=== PATIENT | female | born 1960 | race Caucasian/White ===

== ENCOUNTER → 2020-07-25 14:19 | Outpatient (BNVA) | payer OTHER, SELFPAY | PROVIDERS: PCP Internal Medicine; Referring Provider Internal Medicine; Visit Provider Dietitian, Registered | DX: Z76.89 Persons encountering health services in other specified circumstances (principal) ==

== ENCOUNTER → 2020-09-06 13:34 | Outpatient (BNVA) | payer OTHER, SELFPAY | PROVIDERS: PCP Internal Medicine; Visit Provider Physician Assistant | DX: Z76.89 Persons encountering health services in other specified circumstances (principal) ==

== ENCOUNTER → 2020-10-19 09:27 | Outpatient (BNVA) | payer OTHER, SELFPAY | PROVIDERS: PCP Internal Medicine; Visit Provider Anesthesiology | DX: Z76.89 Persons encountering health services in other specified circumstances (principal) ==

== ENCOUNTER 2020-10-23 14:32 | Outpatient (REF) | payer OTHER, SELFPAY ==
--- NOTE | 2020-10-23 14:36 | XR_ITS ---
EXAMINATION: THORACIC AND LUMBAR SPINE X-RAY CLINICAL INFORMATION: Post laminectomy syndrome COMPARISON: Previous lumbar spine x-ray April 2016 TECHNIQUE: 3 views of the thoracic spine and 3 views of the lumbar spine FINDINGS: Thoracic spine: There is mild curvature of the midthoracic spine to the right and lower thoracic spine to the left. Bone alignment is otherwise normal. No fracture or dislocation is seen. There is evidence of multilevel degenerative spondylosis and degenerative disc narrowing, greatest in the mid thoracic spine and at T11-T12. There is a lead in the spinal canal with the top at the T7-T8 disc space level. There is evidence of previous surgery under the left hemidiaphragm probably due to the stomach and cholecystectomy. Paraspinal soft tissues are unremarkable. There is articulation of the right anterior first and second ribs. Lumbar spine: There is a battery in the left posterior pelvis. There are leads seen in the lumbar spine, 1 overlying the L4 spinous process and 1 projecting over the spinal canal with with top at the L2-L3 disc space. There are leads seen coursing superiorly into the thoracic spinal canal. There is mild curvature of the lower lumbar sacral spine to the left. Bone alignment is otherwise normal. No fracture or dislocation is seen. There is degenerative disc disease at L4-L5 and L5-S1. There is lower lumbar spine facet arthritis. There may be a laminectomy or laminotomy changes at L5. XR/XR thoracic spine 2V IMPRESSION: Thoracic spine: Degenerative changes. Lead in the spinal canal with top of the lead at the T7-T8 disc space level. Lumbar spine: Lumbar spine leads projecting over the L4 spinous process and the spinal canal at the L3 vertebral body level with top of the lead at the L2-L3 disc space level. Mild scoliosis. Degenerative disc disease and facet arthritis of the lower lumbar spine.
== END 2020-10-23 14:33 | disposition home or self-care (01) ==
LOC: HO.XRAY 14:32
PROVIDERS: PCP Internal Medicine; Visit Provider Anesthesiology
DX: M96.1 Postlaminectomy syndrome, not elsewhere classified (principal)
CPT/HCPCS: 72070; 72100

== ENCOUNTER → 2020-10-30 09:13 | Outpatient (BNVA) | payer OTHER, SELFPAY | PROVIDERS: PCP Internal Medicine; Visit Provider Anesthesiology | DX: Z76.89 Persons encountering health services in other specified circumstances (principal) ==

== ENCOUNTER 2020-11-11 07:16 | Outpatient (REF) | payer OTHER, SELFPAY ==
[2020-11-11 08:27] LABS: MANUAL DIFF FLAG NO
[2020-11-11 08:31] LABS: Basophils Percent Auto 0.8 % (0-2); Eosinophils Absolute Auto 0.2 X10*3/uL (0.0-0.4); Eosinophils Percent Auto 3.3 % (0-4); Hematocrit 42.9 % (37-47); Hemoglobin 13.6 g/dl (12.0-16.0); Imm Gran Abs Auto 0.02 X10*3/uL (0.00-0.03); Imm Gran Pct Auto 0.4 % (0.0-0.4); Lymphocytes Absolute Auto 2.4 X10*3/uL (1.2-4.9); Lymphocytes Percent Auto 47.9 % (20-40); Mean Corpuscular HGB Conc 31.7 g/dl (31.0-35.0); Mean Corpuscular Hemoglobin 29.1 pg (27.0-33.0); Mean Corpuscular Volume 91.9 fL (80-98); Mean Platelet Volume 11.7 fL (9.4-12.3); Monocytes Absolute Auto 0.3 X10*3/uL (0.1-1.2); Monocytes Percent Auto 6.3 % (2-11); Neutrophils Absolute Auto 2.1 X10*3/uL (2.0-8.3); Neutrophils Percent Auto 41.3 % (45-73); Platelet Count 216 X10*3/uL (160-400); Red Blood Count 4.67 X10*6/uL (4.20-5.50); Red Cell Distribution Width 12.9 % (11.0-16.0); White Blood Count 5.1 X10*3/uL (4.8-10.8)
[2020-11-11 08:52] LABS: Estimated Average Glucose 100 mg/dL; Hemoglobin A1c % 5.1 %
[2020-11-11 09:04] LABS: Alanine Aminotransferase 25 U/L (0-31); Albumin Level 4.3 g/dL (3.5-5.0); Alkaline Phosphatase 85 U/L (39-117); Anion Gap 12 (12-20); Aspartate Amino Transferase 30 U/L (5-31); Bilirubin Total 0.6 mg/dL (0.0-1.0); Blood Urea Nitrogen 19 mg/dL (9-16); C Reactive Protein 0.03 mg/dL (< or = 0.50); Calcium 9.1 mg/dL (8.4-10.2); Carbon Dioxide 28 mmol/L (22-29); Chloride 107 mmol/L (96-108); Cholesterol 180 mg/dL; Estimated Glomerular Filt Rate > 60; Glucose Fasting 74 mg/dL (60-99); HDL Cholesterol 72 mg/dL; Iron 97 mcg/dL (30-160); LDL Cholesterol Calculated 99 mg/dl; Percent Iron Saturation 31 % (15-50); Potassium 4.4 mmol/l (3.3-5.1); Sodium 143 mmol/L (135-145); Total Iron Binding Capacity 308 mcg/dL (228-428); Total Protein 7.2 g/dL (6.5-8.0); Triglycerides 48 mg/dL; Unsaturated Iron Binding 211 ug/dL
[2020-11-11 09:17] LABS: Ferritin 133 ng/mL (10-250); Vitamin D 25-OH Total 33.2 ng/mL (>30)
[2020-11-13 05:02] LABS: Vitamin B12 1405 pg/mL (200-900)
[2020-11-13 16:22] LABS: Calcium (PTHI) 9.4 mg/dL (8.6-10.4); PTHI 60 pg/mL (14-64)
[2020-11-13 18:23] LABS: Insulin Level Total 3.7 uIU/mL
[2020-11-14 06:46] LABS: Zinc 69 mcg/dL (60-130)
[2020-11-17 08:29] LABS: Vitamin C 0.6
[2020-11-17 10:07] LABS: Vitamin B1 23 nmol/L (8-30)
== END 2020-11-11 07:17 | disposition home or self-care (01) ==
LOC: HO.LAB 07:16
PROVIDERS: PCP Internal Medicine; Visit Provider Physician Assistant
DX: E66.3 Overweight (principal); K90.49 Malabsorption due to intolerance, not elsewhere classified; Z98.84 Bariatric surgery status
CPT/HCPCS: 36415; 80053; 80061; 82180; 82306; 82607; 82728; 82746; 83036; 83525; 83540; 83970; 84425; 84443; 84590; 84630; 85025; 86140

== ENCOUNTER 2020-11-14 06:27 | Outpatient (REF) | payer OTHER, SELFPAY ==
[2020-11-21 11:12] LABS: Vitamin A 46 mcg/dL (38-98)
== END 2020-11-14 06:28 | disposition home or self-care (01) ==
LOC: HO.LAB 06:27
PROVIDERS: PCP Internal Medicine; Visit Provider Physician Assistant
DX: E66.3 Overweight (principal); K90.49 Malabsorption due to intolerance, not elsewhere classified; Z98.84 Bariatric surgery status
CPT/HCPCS: 36415; 82180; 84590

== ENCOUNTER → 2020-12-05 08:21 | Outpatient (BNVA) | payer OTHER, SELFPAY | PROVIDERS: PCP Internal Medicine; Visit Provider Dietitian, Registered | DX: Z98.84 Bariatric surgery status (principal); K90.49 Malabsorption due to intolerance, not elsewhere classified; E66.3 Overweight ==

== ENCOUNTER → 2021-01-30 08:23 | Outpatient (BNVA) | payer OTHER, SELFPAY | PROVIDERS: PCP Internal Medicine; Visit Provider Dietitian, Registered ==

== ENCOUNTER 2021-02-10 15:27 | Outpatient (REF) | payer OTHER, SELFPAY | END 2021-02-10 15:28 | disposition home or self-care (01) | LOC: HO.LNP 15:27 | PROVIDERS: Visit Provider Physician Assistant Medical | DX: Z20.822 Contact with and (suspected) exposure to COVID-19 (principal) | CPT/HCPCS: U0003; U0005 ==

== ENCOUNTER → 2021-05-15 10:55 | Outpatient (BNVA) | payer OTHER, SELFPAY | PROVIDERS: PCP Internal Medicine; Referring Provider Internal Medicine; Visit Provider Physician Assistant ==

== ENCOUNTER 2021-06-01 14:39 | Outpatient (REF) | payer OTHER, SELFPAY ==
--- NOTE | ~2021-06-01 | XR_ITS ---
EXAMINATION: XR LUMBOSACRAL SPINE WITH OBLIQUES CLINICAL INFORMATION: Other mechanical symptoms. COMPARISON: Lumbar spine radiographs dated 10/23/2020 TECHNIQUE: AP, lateral, coned-down, and bilateral oblique views of the lumbosacral spine. FINDINGS: Normal vertebral body alignment. The lumbar lordosis is maintained. No acute fracture or subluxation. No loss of vertebral body height. Loss of intervertebral disc height with endplate osteophytes at L4-L5 and L5-S1 where there is prominent bilateral facet arthropathy. Findings are similar when compared to the prior examination. Posterior neurostimulator with catheter leads within the epidural space at the lower thoracic spine. Additional catheter leads noted in the region of the L2-L3 intervertebral disc and L4 vertebral body. Findings are unchanged. Left upper quadrant surgical sutures and clips. XR/XR lumbar spine 4V min IMPRESSION: 1. Posterior neurostimulator with leads in unchanged position. 2. Prominent degenerative disc disease at L4-L5 and L5-S1 with bilateral facet arthropathy, unchanged.
== END 2021-06-01 14:40 | disposition home or self-care (01) ==
LOC: HO.XRAY 14:39
PROVIDERS: PCP Internal Medicine; Visit Provider Anesthesiology
DX: T85.192A Other mechanical complication of implanted electronic neurostimulator of spinal cord electrode (lead), initial encounter (principal)
CPT/HCPCS: 72110

== ENCOUNTER → 2021-06-11 11:36 | Outpatient (BNVA) | payer OTHER, SELFPAY | PROVIDERS: PCP Internal Medicine; Visit Provider Anesthesiology ==

== ENCOUNTER → 2021-06-12 13:56 | Outpatient (BNVA) | payer OTHER, SELFPAY | PROVIDERS: PCP Internal Medicine; Referring Provider Internal Medicine; Visit Provider Dietitian, Registered | DX: E66.9 Obesity, unspecified (principal); Z71.3 Dietary counseling and surveillance | CPT/HCPCS: 97803 ==

== ENCOUNTER 2021-08-23 10:44 | Day surgery (SDC) | payer OTHER, SELFPAY ==
[2021-08-16 15:18] VITALS: BMI 31.9
--- NOTE | 2021-08-22 11:25 | HO.ANESPROP2 ---
Documented by User: Parris Juarez NP 08/22/21 11:26 HPI - Anesthesia Eval Consult details Narrative: 60yo F for Revision of Lumbar Spinal Cord Stimulator PMFSH Active Problems Active Problems: All Active Problems (Updated 08/16/21 @ 14:20 by Anita Schuster RN) Complex regional pain syndrome of both lower extremities (Acute) Spinal cord stimulator dysfunction (Acute) Obesity (BMI 30-39.9) (Acute) Cataract (Acute) Neuropathic arthropathy (Acute) Postlaminectomy syndrome (Acute) Difficulty in walking involving lower leg joint (Acute) Osteoarthritis of knees, bilateral (Acute) Lipedema (Acute) Environmental allergies (Acute) Overweight (BMI 25.0-29.9) (Acute) Malabsorption due to intolerance, not elsewhere classified (Acute) S/P laparoscopic sleeve gastrectomy (Acute) Urinary incontinence (Acute) Past Medical History Medical History Asthma Cataract Complex regional pain syndrome of both lower extremities Difficulty in walking involving lower leg joint Environmental allergies GERD (gastroesophageal reflux disease) Lipedema Malabsorption due to intolerance, not elsewhere classified Neuropathic arthropathy Obesity (BMI 30-39.9) Obesity (BMI 30.0-34.9) Osteoarthritis of knees, bilateral Overweight (BMI 25.0-29.9) Postlaminectomy syndrome Restless leg syndrome Spinal cord stimulator dysfunction Spinal cord stimulator status Urinary incontinence Family History Family History Father CVD (cardiovascular disease) Mother Asthma Brother Lung cancer Brother No problems noted. Brother No problems noted. Brother No problems noted. Brother No problems noted. Brother No problems noted. Son No problems noted. Daughter No problems noted. Surgical History Surgical History History of eye surgery History of surgery on right wrist History of toe surgery Hx laparoscopic cholecystectomy Hx of section Hx of colonoscopy with polypectomy Hx of construction of artificial vagina Hx of rotator cuff surgery Hx of spinal surgery S/P laparoscopic sleeve gastrectomy Social History Social History Alcohol intake: never Advance Directives: Yes Advance Directives Information Provided: Yes Advance Directives on File: Yes Advance Directives Date on File: 11/06/18 Meds Allergies Allergy/AdvReac Type Severity Reaction Status Date / Time almond [ALMOND] Allergy Intermediate NUMBNESS Verified 08/23/21 10:53 MOUTH, ITCHY EYES amoxicillin [AMOXICILLIN] Allergy Intermediate HIVES Verified 08/23/21 10:53 penicillin V Allergy Intermediate rash Verified 08/23/21 10:53 apple [APPLE] Allergy Mild ITCHY EYES Verified 08/23/21 10:53 peach [PEACHES] Allergy Mild ITCHY EYES Verified 08/23/21 10:53 plum [PLUMS] Allergy Mild ITCHY EYES Verified 08/23/21 10:53 carrot Allergy Unknown Unknown Verified 08/23/21 10:53 pear [PEAR] AdvReac Mild ITCHY EYES Verified 08/23/21 10:53 NECTARINES Allergy Mild ITCHY EYES Uncoded 08/16/21 14:16 Home Medications Medication Instructions Recorded Confirmed Last Taken Type Celebrate MVI bariatric vitamin PO 09/06/20 05/15/21 Unknown History docusate sodium 100 mg capsule 100 mg PO DAILY 09/06/20 05/15/21 Unknown History (DOK) fiber tab PO 09/06/20 05/15/21 Unknown History estradiol 1 g VAGINAL 2XW 10/10/20 05/15/21 Unknown History mirabegron 25 mg tablet,extended 25 mg PO DAILY 12/12/20 05/15/21 08/23/21 08:10 History release 24 hr lysine 500 mg tablet (L-Lysine) 500 mg PO DAILY 05/15/21 05/15/21 Unknown History Exam Exam Date and Time: August 22, 2021 1125 Height,Weight and Vital Signs: Height 5 ft 4 in Weight 84.368 kg Assessment and Plan Assessment Anesthesia Assessment: Chart Reviewed Documented by User: Fernanda Ch MD 08/23/21 11:51 PMFSH Past Medical History Medical History Asthma Cataract Complex regional pain syndrome of both lower extremities Difficulty in walking involving lower leg joint Environmental allergies GERD (gastroesophageal reflux disease) Lipedema Malabsorption due to intolerance, not elsewhere classified Neuropathic arthropathy Obesity (BMI 30-39.9) Obesity (BMI 30.0-34.9) Osteoarthritis of knees, bilateral Overweight (BMI 25.0-29.9) Postlaminectomy syndrome Restless leg syndrome Spinal cord stimulator dysfunction Spinal cord stimulator status Urinary incontinence Family History Family History Father CVD (cardiovascular disease) Mother Asthma Brother Lung cancer Brother No problems noted. Brother No problems noted. Brother No problems noted. Brother No problems noted. Brother No problems noted. Son No problems noted. Daughter No problems noted. Surgical History Surgical History History of eye surgery History of surgery on right wrist History of toe surgery Hx laparoscopic cholecystectomy Hx of section Hx of colonoscopy with polypectomy Hx of construction of artificial vagina Hx of rotator cuff surgery Hx of spinal surgery S/P laparoscopic sleeve gastrectomy Social History Social History Alcohol intake: never Advance Directives: Yes Advance Directives Information Provided: Yes Advance Directives on File: Yes Advance Directives Date on File: 11/06/18 Meds Allergies Allergy/AdvReac Type Severity Reaction Status Date / Time almond [ALMOND] Allergy Intermediate NUMBNESS Verified 08/23/21 10:53 MOUTH, ITCHY EYES amoxicillin [AMOXICILLIN] Allergy Intermediate HIVES Verified 08/23/21 10:53 penicillin V Allergy Intermediate rash Verified 08/23/21 10:53 apple [APPLE] Allergy Mild ITCHY EYES Verified 08/23/21 10:53 peach [PEACHES] Allergy Mild ITCHY EYES Verified 08/23/21 10:53 plum [PLUMS] Allergy Mild ITCHY EYES Verified 08/23/21 10:53 carrot Allergy Unknown Unknown Verified 08/23/21 10:53 pear [PEAR] AdvReac Mild ITCHY EYES Verified 08/23/21 10:53 NECTARINES Allergy Mild ITCHY EYES Uncoded 08/16/21 14:16 Home Medications Medication Instructions Recorded Confirmed Last Taken Type Celebrate MVI bariatric vitamin PO 09/06/20 05/15/21 Unknown History docusate sodium 100 mg capsule 100 mg PO DAILY 09/06/20 05/15/21 Unknown History (DOK) fiber tab PO 09/06/20 05/15/21 Unknown History estradiol 1 g VAGINAL 2XW 10/10/20 05/15/21 Unknown History mirabegron 25 mg tablet,extended 25 mg PO DAILY 12/12/20 05/15/21 08/23/21 08:10 History release 24 hr lysine 500 mg tablet (L-Lysine) 500 mg PO DAILY 05/15/21 05/15/21 Unknown History Exam Airway Mallampati Class: II TM Dist: >3cm Neck ROM: Full
[2021-08-23] VITALS (13 sets, daily range): BP systolic 103–143; BP diastolic 68–89; PULSE 74–88; RESP 16–18; TEMP 36.2–37.1; O2SAT 97–100
--- NOTE | ~2021-08-23 | FL_ITS ---
EXAMINATION: XR FLUOROSCOPY WITH IMAGES CLINICAL INFORMATION: Revision lumbar spinal cord stimulator. COMPARISON: Radiographs lumbar spine 06/01/2021 TECHNIQUE: Fluoroscopy performed by Dr. Julien Mathew. Fluoroscopy time: 1.2 minutes DAP: 4.59 mGycm2 Images: 3 FINDINGS: There are 2 spinal stimulator electrode leads seen in the posterior lower lumbar canal with tips at level of superior endplate L3. No kinking or defect. There are 2 additional leads ascending posterior spinal canal, above the level of T12 and beyond the [id number]. FL/FL guidance in OR IMPRESSION: Fluoroscopy for pain management procedure.
[2021-08-23] MEDS: Lactated Ringers 1,000 ML 100 ML IVCONT (11:24)
--- NOTE | 2021-08-23 11:55 | MHC.SHP ---
Pre-Procedural Eval Section A Date of Service: 08/23/21 The patient is an INPATIENT: No Changes since office visit: Yes Patient answered all questions The History & Physical has been completed within 30 days and I have reviewed it.: No Section B Chief Complaint: Complex regional pain syndrome of both lower extre Details of Present Illness: as above Relevant Family History (Specify if Yes): No Relevant Social History: None Present Medications: see Short Stay Collaborative assessment Medical History: No relevant PMH History of Previous Operations: Relevant previous surgery/procedure and date(s) Allergies: Allergies Allergy/AdvReac Type Severity Reaction Status Date / Time almond [ALMOND] Allergy Intermediate NUMBNESS Verified 08/23/21 10:53 MOUTH, ITCHY EYES amoxicillin [AMOXICILLIN] Allergy Intermediate HIVES Verified 08/23/21 10:53 penicillin V Allergy Intermediate rash Verified 08/23/21 10:53 apple [APPLE] Allergy Mild ITCHY EYES Verified 08/23/21 10:53 peach [PEACHES] Allergy Mild ITCHY EYES Verified 08/23/21 10:53 plum [PLUMS] Allergy Mild ITCHY EYES Verified 08/23/21 10:53 carrot Allergy Unknown Unknown Verified 08/23/21 10:53 pear [PEAR] AdvReac Mild ITCHY EYES Verified 08/23/21 10:53 NECTARINES Allergy Mild ITCHY EYES Uncoded 08/16/21 14:16 Review of Systems Sugical H&P ROS: Negative: Cardiovascular, Respiratory, Neurological, Psychiatric, Hem-Onc, Allergic/Immunologic, Gastrointestinal, Genitourinary, Musculoskeletal, Integumentary, Endocrine and Eyes/Ears/Nose/Throat and Yes, Specify: Constitution (obesity trivial) Exam Surgical H&P Exam: Normal: HEENT, Normal: Heart, Normal: Lungs, Normal: Extremities, Normal: Abdomen, Normal: Skin and Normal: Neurological Plan Diagnosis/Plan: Unchanged I have reviewed the history and physical and performed a pertinent physical examination on my patient. No changes have occurred unless specified.
--- NOTE | 2021-08-23 14:58 | PM.OP ---
Brief Operative Note Date of Service: 08/23/21 Pre-op diagnosis: Complex regional pain syndrome bilateral lower extremities Procedure: Revision of spinal cord stimulator Implants: [employer] alpha technology battery and [employer] epidural leads. Surgeon: Julien Mathew MD Was an Breaking Machine Operator used for this Procedure?: No Estimated blood loss (mL): 17 Pathology: none sent Condition: stable Disposition: PACU
--- NOTE | 2021-08-23 14:59 | W.PM.OPN ---
Operative Note Operative Note Date of Service: 08/23/21 Narrative: Parul is very pleasant 60 years old female who came to my office with complains on pain in bilateral knees. She was diagnosed with Complex regional pain syndrome of bilateral knees. She was inserted with [employer] spinal cord stimulator to be connected with existing [employer] spinal cord stimulator in her thoracic spine to help her pain in bilateral knees mostly on the right. She after this procedure felt much better with her lower extremities. She was able to perform yard work, move her lawn with pushing lawnmower until in the middle of the summer she came back to me with complains on pain in the right knee activated again. She was sent for the x-ray of the epidural leads and her right epidural lead was appeared to be completely dislodged. The decision was made to schedule her for revision of the existing spinal cord stimulation system. Patient came to the operating room after obtaining informed consent in the preoperative area. Informed consent delineated risks as bleeding, infection, peripheral nerve damage, headache, spinal cord injury. The patient was position on the stretcher supine, [employer] monitors were applied and patient was induced with general anesthesia. After that patient was transferred on the operating table prone all pressure points were protected. Time-out was performed delineating date of of the patient name of the patient correct site and side of the procedure nature of the procedure needs for antibiotic prophylaxis and the risk of fire. Lower back and upper buttocks as well as mid back were prepped with ChloraPrep and draped with full body drape including Ioban film. Attention was 1st concentrated on the area of the spinal cord stimulator battery in her left buttock. The previous scar was injected with mixture of lidocaine and bupivacaine 1-1 and after that 10 blade scalpel was used to make an incision along side the previous scar. Thorough hemostasis was performed using the electrocautery device. After that the capsule of the pocket was incised using Metzenbaum scissors. Anchoring sutures were severed and wave senior underwriter battery was delivered to the level of the skin. The epidural leads were disconnected from the battery and then freed from adhesions. Light pull of the left electrode under C-arm continuous view demonstrated is dislodgement of the epidural leads. Thorough irrigation of the battery wound was performed a and the wound was packed with vancomycin containing normal saline. After that attention was concentrated on the right buttock wore insertion of the spinal cord stimulator epidural lead would be made. 3 cm below the level of the lamina of S1 vertebra on the right vertical incision was made in the approximate projection of the anchoring device. Thorough hemostasis was obtained and the and presacral fascia was freed from overlying tissues. Anchoring device was found in the bottom of the wound stitched still to free sacral fascia it was removed and delivered on the operating table. 13 gauge introducer epidural needle was inserted through the skin and advanced toward the epidural space L5-S1 on anterior posterior and lateral views. When needle entered the epidural space guitar wire was inserted through the needle and it was spread in the epidural fashion and it went into the right gutter. I epidural lead was inserted through the needle and advanced into the right gutter to the approximate position of L3-L4 and L4-5 foramina is on the right. After that the epidural needle was withdrawn and a new anchoring device was advanced on the epidural lead to presacral fascia. At this moment anchoring device was sutured to the presacral fascia using 1-0 Tycron sutures. The fixation screws was tied down until 3 clicks were heard. Irrigation was performed in the left and right wound again. The connection between those 2 wounds was made with tunneling device. Epidural lead was dislodged from the right wound to the left wound. After that new battery alpha technology was obtained, and all epidural leads were connected to the battery. Anchoring sutures were applied to the center of the pocket wound and to the most superior lateral corner of the wound. The epidural electrodes were gathered behind the body of the battery and battery was dislodged into the pocket. The anchoring sutures were tied. Irrigation was repeated. Hemostasis was checked. After that 0 Polysorb sutures were used to close this wounds, 2-0 sutures were used to approximate the level of the skin. After that mc were applied to the skin level. Bacitracin ointment was applied to the level of the skin. Sterile dressing with 4 x 4 and Medipore tape was applied. The patient tolerated procedure well she was awaken extubated and she was transferred to PACU for the recovery.
[2021-08-23] MEDS: ondansetron HCL 4 MG/2 ML VIAL IVPUSH (15:26)
[2021-08-23] MEDS: fentaNYL citrate/PF 100 MCG/2 ML VIAL 50 MCG IVPUSH ×2 (15:27→15:44)
[2021-08-23] MEDS: oxyCODONE HCl Immed Release 5 MG TABLET 10 MG PO (15:49)
== END 2021-08-23 17:23 | disposition home or self-care (01) ==
PROVIDERS: PCP Internal Medicine; Visit Provider Anesthesiology
PROC: (CPT 63663; principal; 2021-08-23 12:20)
DX: G90.523 Complex regional pain syndrome I of lower limb, bilateral (principal); M25.562 Pain in left knee; M25.561 Pain in right knee; M54.50 Low back pain, unspecified; J45.909 Unspecified asthma, uncomplicated; R26.2 Difficulty in walking, not elsewhere classified; K21.9 Gastro-esophageal reflux disease without esophagitis; R60.9 Edema, unspecified; E66.9 Obesity, unspecified; M14.60 Charcot's joint, unspecified site; M96.1 Postlaminectomy syndrome, not elsewhere classified; G25.81 Restless legs syndrome; R32 Unspecified urinary incontinence; Z68.32 Body mass index [BMI] 32.0-32.9, adult; Z79.899 Other long term (current) drug therapy
CPT/HCPCS: 63663; 63688; C1713; C1778; C1787; C1820; J1100; J2250; J2405; J2550; J3010; J3370

== ENCOUNTER → 2021-08-29 11:19 | Outpatient (BNVA) | payer OTHER, SELFPAY | PROVIDERS: PCP Internal Medicine; Visit Provider Anesthesiology ==

== ENCOUNTER 2021-09-01 10:59 | Emergency (ER) | payer OTHER, SELFPAY ==
--- NOTE | ~2021-09-01 | CT_ITS ---
EXAMINATION: CT SOFT TISSUE NECK WITH CONTRAST CLINICAL INFORMATION: Throat pain. Question abscess. COMPARISON: None TECHNIQUE: Following intravenous administration of 60 mL of Omnipaque 350 contrast, helical imaging was performed in the axial plane with generation of coronal and sagittal reformatted images. This CT examination was performed using dose optimization techniques as appropriate, variously including the following: *Automated exposure control *Adjustment of mA and/or kV according to patient size (this includes techniques or standardized protocols for targeted exams where dose is matched to indication/reason for exam; i.e. extremities or head) *Use of iterative reconstruction technique DLP: 511 mGy-cm FINDINGS: There is mild asymmetric prominence of the right palatine tonsil with a 7 x 6 mm low-attenuation focus and a 7 x 3 mm adjacent low-density focus in the tonsil. It is indeterminate as to whether findings represent submucosal retention cyst versus small tonsillar abscesses. The parapharyngeal fat is normally maintained bilaterally. Bilateral level II cervical lymph nodes are conspicuous, though not pathologically enlarged, measuring up to 1 cm in long axis dimension in the axial plane. The submandibular and parotid glands are homogeneous in attenuation bilaterally. The oral cavity appears normal. There is nonspecific asymmetric aeration of the left piriform sinus and effacement of the right piriform sinus of the hypopharynx without suspicious abnormal enhancement. The laryngeal structures appear normal. The thyroid gland is homogeneous. The carotid sheath vasculature opacifies normally on both sides. No retropharyngeal fluid collection visible. The imaged mediastinum appears normal. The visualized portions of the lungs are fairly well aerated. No layering pleural effusions are visible. No acute osseous abnormality is seen. There is a small retention cyst in the right sphenoid sinus. The remaining paranasal sinuses and mastoid air cells are clear. The orbits appear normal. The imaged portions of the brain demonstrate no acute abnormality. CT/CT soft tissue neck w con IMPRESSION: Small cystic foci in the right palatine tonsil which is asymmetrically prominent as compared to the right side. Findings may represent a submucosal crypt retention cysts; however, the possibility of small tonsillar abscesses cannot be conclusively excluded and correlation with findings on direct visual inspection recommended. Mildly conspicuous upper cervical lymph nodes without pathologic enlargement.
[2021-09-01 11:23] VITALS: BP 118/70; PULSE 89; RESP 15; TEMP 36.7; O2SAT 100; BMI 27.4
--- NOTE | 2021-09-01 11:24 | ED_ITS ---
HPI - Neck Pain/Injury General Chief Complaint: General Medical Stated Complaint: throat pain/ surgury 1 week ago Time Seen by Provider: 09/01/21 11:13 History of Present Illness HPI Narrative: Patient is a 60-year-old female with a history of gastric bypass surgery. History of spinal nerve stimulator for back pain surgery done on August 23. Patient was intubated for the procedure. Since the procedure on August 23. Patient has been noticing increasing pain to her throat. Pain on swallowing. There is no difficulty with breathing. No shortness of breath. There is no change in voice. Pain every time she swallows. No coughing or congestion or upper respiratory symptoms no diaphoresis. Immunized for COVID. Not on blood thinners. Multiple allergies to food but there is no change in diet. Related Data Home Medications Medication Instructions Recorded Confirmed Celebrate MVI bariatric vitamin PO 09/06/20 08/29/21 docusate sodium 100 mg capsule 100 mg PO DAILY 09/06/20 08/29/21 (DOK) fiber tab PO 09/06/20 08/29/21 estradiol 1 g VAGINAL 2XW 10/10/20 08/29/21 mirabegron 25 mg tablet,extended 25 mg PO DAILY 12/12/20 08/29/21 release 24 hr lysine 500 mg tablet (L-Lysine) 500 mg PO DAILY 05/15/21 08/29/21 clindamycin HCl 300 mg capsule 300 mg PO Q6H 09/01/21 Previous Rx's Medication Instructions Recorded cholecalciferol (vitamin D3) 50 50 mcg PO DAILY #30 cap 04/09/21 mcg (2,000 unit) capsule calcium citrate 315 mg 2 tab PO DAILY #60 tab 05/21/21 calcium-vitamin D3 6.25 mcg (250 unit) tablet pregabalin 150 mg capsule 150 mg PO BID 30 Days #60 cap 06/08/21 furosemide 20 mg tablet (Lasix) 10 mg PO QAM PRN 90 Days #45 tab 07/02/21 clindamycin HCl 300 mg capsule 300 mg PO Q6H 15 Days #60 cap 08/23/21 clindamycin HCl 300 mg capsule 300 mg PO QID 7 Days #28 cap 09/01/21 ibuprofen 400 mg tablet 400 mg PO Q6H PRN #20 tab 09/01/21 ondansetron HCl 4 mg tablet 4 mg PO Q8H PRN #10 tab 09/01/21 (Zofran) Allergies Allergy/AdvReac Type Severity Reaction Status Date / Time almond [ALMOND] Allergy Intermediate NUMBNESS Verified 09/01/21 10:12 MOUTH, ITCHY EYES amoxicillin [AMOXICILLIN] Allergy Intermediate HIVES Verified 09/01/21 10:12 penicillin V Allergy Intermediate rash Verified 09/01/21 10:12 apple [APPLE] Allergy Mild ITCHY EYES Verified 09/01/21 10:12 peach [PEACHES] Allergy Mild ITCHY EYES Verified 09/01/21 10:12 plum [PLUMS] Allergy Mild ITCHY EYES Verified 09/01/21 10:12 carrot Allergy Unknown Unknown Verified 09/01/21 10:12 pear [PEAR] AdvReac Mild ITCHY EYES Verified 09/01/21 10:12 NECTARINES Allergy Mild ITCHY EYES Uncoded 08/29/21 11:52 Review of Systems Review of Systems: No fever no chills no cough Positive sore throat All systems reviewed otherwise negative PMFSH Past Medical History Attestation statement: The following information was validated with the patient. Medical History Asthma Cataract Complex regional pain syndrome of both lower extremities Difficulty in walking involving lower leg joint Environmental allergies GERD (gastroesophageal reflux disease) Lipedema Malabsorption due to intolerance, not elsewhere classified Neuropathic arthropathy Obesity (BMI 30-39.9) Obesity (BMI 30.0-34.9) Osteoarthritis of knees, bilateral Overweight (BMI 25.0-29.9) Postlaminectomy syndrome Restless leg syndrome Spinal cord stimulator dysfunction Spinal cord stimulator status Urinary incontinence Surgical History History of eye surgery History of surgery on right wrist History of toe surgery Hx laparoscopic cholecystectomy Hx of section Hx of colonoscopy with polypectomy Hx of construction of artificial vagina Hx of rotator cuff surgery Hx of spinal surgery S/P laparoscopic sleeve gastrectomy Family History Family History Father CVD (cardiovascular disease) Mother Asthma Brother Lung cancer Brother No problems noted. Brother No problems noted. Brother No problems noted. Brother No problems noted. Brother No problems noted. Son No problems noted. Daughter No problems noted. Social History Social History Alcohol intake: never Patient Tobacco Use Status: Never used Tobacco Use of substances other than those prescribed or required for medical reasons: No Advance Directives: Yes Advance Directives on File: Yes Advance Directives Date on File: 08/24/21 Patient : No Physical Exam Vital Signs: Vital Signs: Last Vital Signs Temp 98.1 F 09/01/21 11:23 Pulse 89 09/01/21 11:23 Resp 15 09/01/21 11:23 BP 118/70 09/01/21 11:23 Pulse Ox 100 09/01/21 11:23 Body Mass Index 27.4 Appearance: Alert. Oriented X3. No acute distress. Eyes: Pupils equal, round and reactive to light. ENT: Positive swelling to bilateral throat tonsils. There is no exudate noted. Uvula slightly enlarged. Positive erythema. Neck: Normal inspection. Neck supple. No lymph nodes noted. No crepitus CVS: Normal heart rate and rhythm. Pulses normal. Normal S1 and S2 Respiratory: No respiratory distress. Breath sounds normal. No Wheezing. No rales Abdomen: Soft and nontender. No rigidity. No distention. good BS x4 Skin: Skin warm and dry. Normal skin color. Normal skin turgor. Extremities: No lower extremity edema. Neurovascular intact to all extremities. No Lacerations. No Rash Neuro: Oriented X 3. No motor deficit. No sensory deficit. Moving all extermities. No slurred speech MDM - Neck Pain/Injury MDM Narrative Medical decision making narrative: CT scan of the neck showed a likely tonsillith cyst versus more unlikely a possible tonsillar abscess. Given Decadron. Given steroid in the emergency department with moderate relief. Will start patient on clindamycin in the emergency department. Will have patient follow up closely with ENT. Lots of fluids. Close follow-up. Worsened breathing. Unable to swallow return to the emergency department change in voice return to the ED. Currently in stable condition. Medical Records Attestation: I reviewed the patient's medical records. Lab Data Attestation: I reviewed the patient's lab results. Result diagrams: 09/01/21 11:30 09/01/21 11:30 Labs: Lab Results 11/13/21 11/13/21 11/13/21 Range/Units 11:30 11:30 11:34 WBC 11.2 H (4.8-10.8) X10*3/uL RBC 4.36 (4.20-5.50) X10*6/uL Hgb 13.2 (12.0-16.0) g/dl Hct 39.3 (37.0-47.0) % MCV 90.1 (80.0-98.0) fL MCH 30.3 (27.0-33.0) pg MCHC 33.6 (31.0-35.0) g/dl RDW 12.3 (11.0-16.0) % Plt Count 290 (160-400) X10*3/uL MPV 9.6 (9.4-12.3) fL Immature Gran % (Auto) 0.4 (0.0-0.4) % Neut % (Auto) 64.0 (45-73) % Lymph % (Auto) 25.4 (20-40) % [place] % (Auto) 8.4 (2-11) % Eos % (Auto) 1.4 (0-4) % Baso % (Auto) 0.4 (0-2) % Lymph # (Auto) 2.8 (1.2-4.9) X10*3/uL [place] # (Auto) 0.9 (0.1-1.2) X10*3/uL Eos # (Auto) 0.2 (0.0-0.4) X10*3/uL Baso # (Auto) 0.0 (0.0-0.2) X10*3/uL Abs Immat Gran (auto) 0.04 H (0.00-0.03) X10*3/uL Absolute Neuts (auto) 7.2 (2.0-8.3) x10*3/uL Absolute Nucleated RBC 0.000 (0.0-0.012) X10*3/uL Nucleated RBC % (auto) 0.0 (0.0-0.2) /100WBC Sodium 141 (135-145) mmol/L Potassium 4.2 (3.3-5.1) mmol/L Chloride 108 (96-108) mmol/L Carbon Dioxide 26 (22-29) mmol/L Anion Gap 11 L (12-20) BUN 16 (9-16) mg/dL Creatinine 0.82 (0.5-1.4) mg/dL Estim Creat Clear Calc 73.0 Estimated GFR > 60 Random Glucose 87 (60-115) mg/dL Calcium 8.9 (8.4-10.2) mg/dL Total Bilirubin 0.6 (0.0-1.0) mg/dL Direct Bilirubin 0.2 (0.0-0.5) mg/dL AST 27 (5-31) U/L ALT 27 (0-31) U/L Alkaline Phosphatase 72 (39-117) U/L Total Protein 6.9 (6.5-8.0) g/dL Albumin 3.9 (3.5-5.0) g/dL S. pyogenes GrpA EVANGELISTA Negative (Negative) Discharge Plan Discharge Clinical Impression: Abscess of tonsil Patient Disposition: Home, Self-Care Instructions: Peritonsillar Abscess (ED) Prescriptions: New clindamycin HCl 300 mg capsule 300 mg PO QID 7 Days Qty: 28 RF: 0 ondansetron HCl [Zofran] 4 mg tablet 4 mg PO Q8H PRN (Reason: nausea and vomiting) Qty: 10 RF: 0 ibuprofen 400 mg tablet 400 mg PO Q6H PRN (Reason: pain) Qty: 20 RF: 0 No Action cholecalciferol (vitamin D3) 50 mcg (2,000 unit) capsule 50 mcg PO DAILY Qty: 30 RF: 5 calcium citrate-vitamin D3 315 mg-6.25 mcg (250 unit) tablet 2 tab PO DAILY Qty: 60 RF: 11 pregabalin 150 mg capsule 150 mg PO BID 30 Days Qty: 60 RF: 5 furosemide [Lasix] 20 mg tablet 10 mg PO QAM PRN (Reason: edema) 90 Days Qty: 45 RF: 0 clindamycin HCl 300 mg capsule 300 mg PO Q6H 15 Days Qty: 60 RF: 1 Myrbetriq 25 mg tablet extended release 24 hr 25 mg PO DAILY RF: 0 estradiol 0.01 % (0.1 mg/gram) cream 1 g vaginal 2XW RF: 0 clindamycin HCl 300 mg capsule 300 mg PO Q6H RF: 0 Celebrate MVI bariatric vitamin PO RF: 0 docusate sodium [DOK] 100 mg capsule 100 mg PO DAILY RF: 0 fiber Tablet,Chewable PO RF: 0 lysine [L-Lysine] 500 mg tablet 500 mg PO DAILY RF: 0 Referrals: Khari Syed [Physician] - 2 days
[2021-09-01] MEDS: 0.9 % Sodium Chloride 1,000 ML 999 ML IV (11:30)
[2021-09-01] MEDS: dexAMETHasone sod phosphate 10 MG/ML VIAL IVPUSH (11:30)
[2021-09-01 11:35] LABS: MANUAL DIFF FLAG NO
[2021-09-01 11:37] LABS: Basophils Percent Auto 0.4 % (0-2); Eosinophils Absolute Auto 0.2 X10*3/uL (0.0-0.4); Eosinophils Percent Auto 1.4 % (0-4); Hematocrit 39.3 % (37.0-47.0); Hemoglobin 13.2 g/dl (12.0-16.0); Imm Gran Abs Auto 0.04 X10*3/uL (0.00-0.03); Imm Gran Pct Auto 0.4 % (0.0-0.4); Lymphocytes Absolute Auto 2.8 X10*3/uL (1.2-4.9); Lymphocytes Percent Auto 25.4 % (20-40); Mean Corpuscular HGB Conc 33.6 g/dl (31.0-35.0); Mean Corpuscular Hemoglobin 30.3 pg (27.0-33.0); Mean Corpuscular Volume 90.1 fL (80.0-98.0); Mean Platelet Volume 9.6 fL (9.4-12.3); Monocytes Absolute Auto 0.9 X10*3/uL (0.1-1.2); Monocytes Percent Auto 8.4 % (2-11); Neutrophils Absolute Auto 7.2 x10*3/uL (2.0-8.3); Platelet Count 290 X10*3/uL (160-400); Red Blood Count 4.36 X10*6/uL (4.20-5.50); Red Cell Distribution Width 12.3 % (11.0-16.0); White Blood Count 11.2 X10*3/uL (4.8-10.8)
[2021-09-01 11:48] LABS: IDNOW Serial# 9DD0AD1C; Strep A Nucleic Acid Negative (Negative)
[2021-09-01 11:53] LABS: Alanine Aminotransferase 27 U/L (0-31); Albumin Level 3.9 g/dL (3.5-5.0); Alkaline Phosphatase 72 U/L (39-117); Anion Gap 11 (12-20); Aspartate Amino Transferase 27 U/L (5-31); Bilirubin Direct 0.2 mg/dL (0.0-0.5); Bilirubin Total 0.6 mg/dL (0.0-1.0); Blood Urea Nitrogen 16 mg/dL (9-16); Calcium 8.9 mg/dL (8.4-10.2); Carbon Dioxide 26 mmol/L (22-29); Chloride 108 mmol/L (96-108); Estimated Glomerular Filt Rate > 60; Glucose Random 87 mg/dL (60-115); Potassium 4.2 mmol/L (3.3-5.1); Sodium 141 mmol/L (135-145); Total Protein 6.9 g/dL (6.5-8.0)
[2021-09-01] MEDS: iohexoL 350 MG/ML 100 ML INFUS..BTL IV (12:49)
[2021-09-01] MEDS: Clindamycin Phosphate/D5W 600 MG/50 ML PIGGYBACK 100 MG IV (14:25)
[2021-09-01 15:03] VITALS: BP 108/83; PULSE 80; RESP 15; TEMP 36.9; O2SAT 97
== END 2021-09-01 15:09 | disposition home or self-care (01) ==
PROVIDERS: Emergency Provider Emergency Medicine Emergency Medical Services; PCP Internal Medicine
DX: J36 Peritonsillar abscess (principal); M54.2 Cervicalgia; Z79.899 Other long term (current) drug therapy
CPT/HCPCS: 36415; 70491; 80048; 80076; 85025; 87651; 96361; 96365; 96375; 99284; J1100; Q9967

== ENCOUNTER → 2021-09-05 11:29 | Outpatient (BNVA) | payer OTHER, SELFPAY | PROVIDERS: PCP Internal Medicine; Visit Provider Anesthesiology ==

== ENCOUNTER → 2021-09-12 14:56 | Outpatient (BNVA) | payer OTHER, SELFPAY | PROVIDERS: PCP Internal Medicine; Referring Provider Internal Medicine; Visit Provider Dietitian, Registered | DX: E66.9 Obesity, unspecified (principal); Z68.32 Body mass index [BMI] 32.0-32.9, adult | CPT/HCPCS: 97803 ==

== ENCOUNTER 2021-10-27 07:04 | Outpatient (REF) | payer OTHER, SELFPAY ==
[2021-10-27 07:16] LABS: MANUAL DIFF FLAG NO
[2021-10-27 07:21] LABS: Basophils Percent Auto 0.8 % (0-2); Eosinophils Absolute Auto 0.1 X10*3/uL (0.0-0.4); Eosinophils Percent Auto 2.9 % (0-4); Hematocrit 39.6 % (37.0-47.0); Hemoglobin 12.7 g/dl (12.0-16.0); Imm Gran Abs Auto 0.01 X10*3/uL (0.00-0.03); Imm Gran Pct Auto 0.2 % (0.0-0.4); Lymphocytes Absolute Auto 2.4 X10*3/uL (1.2-4.9); Lymphocytes Percent Auto 48.3 % (20-40); Mean Corpuscular HGB Conc 32.1 g/dl (31.0-35.0); Mean Corpuscular Hemoglobin 29.4 pg (27.0-33.0); Mean Corpuscular Volume 91.7 fL (80.0-98.0); Mean Platelet Volume 10.9 fL (9.4-12.3); Monocytes Absolute Auto 0.4 X10*3/uL (0.1-1.2); Monocytes Percent Auto 7.5 % (2-11); Neutrophils Percent Auto 40.3 % (45-73); Platelet Count 204 X10*3/uL (160-400); Red Blood Count 4.32 X10*6/uL (4.20-5.50); Red Cell Distribution Width 12.8 % (11.0-16.0); White Blood Count 4.9 X10*3/uL (4.8-10.8)
[2021-10-27 07:46] LABS: Anion Gap 10 (12-20); Blood Urea Nitrogen 16 mg/dL (9-16); Calcium 9.3 mg/dL (8.4-10.2); Carbon Dioxide 27 mmol/L (22-29); Chloride 111 mmol/L (96-108); Cholesterol 162 mg/dL; Estimated Glomerular Filt Rate > 60; Glucose Random 83 mg/dL (60-115); HDL Cholesterol 61 mg/dL; Iron 117 mcg/dL (30-160); LDL Cholesterol Calculated 94 mg/dl; Percent Iron Saturation 38 % (15-50); Potassium 4.6 mmol/L (3.3-5.1); Sodium 143 mmol/L (135-145); Total Iron Binding Capacity 310 mcg/dL (228-428); Triglycerides 39 mg/dL; Unsaturated Iron Binding 193 ug/dL
[2021-10-27 07:50] LABS: Estimated Average Glucose 94 mg/dL; Hemoglobin A1c % 4.9 %
[2021-10-27 08:03] LABS: Ferritin 148 ng/mL (10-250); TSH reflex Free T4 1.99 uIU/mL (0.32-4.0); Vitamin D 25-OH Total 34.3 ng/mL (>30)
[2021-10-29 08:16] LABS: Folate 15.7 ng/mL (> or = 4.0); Vitamin B12 527 pg/mL (200-900)
[2021-10-31 15:06] LABS: Zinc 64 mcg/dL (60-130)
[2021-11-01 12:37] LABS: Vitamin B1 14 nmol/L (8-30)
[2021-11-01 22:52] LABS: Vitamin C 0.5 mg/dL (0.3-2.7)
[2021-11-02 11:21] LABS: Vitamin A 39 mcg/dL (38-98)
== END 2021-10-27 07:05 | disposition home or self-care (01) ==
LOC: HO.LAB 07:04
PROVIDERS: Physician Assistant; Physician Assistant Surgical; Visit Provider Internal Medicine
DX: E66.3 Overweight (principal); K90.49 Malabsorption due to intolerance, not elsewhere classified; Z98.84 Bariatric surgery status
CPT/HCPCS: 36415; 80048; 80061; 82180; 82306; 82607; 82728; 82746; 83036; 83540; 84425; 84443; 84590; 84630; 85025

== ENCOUNTER 2021-12-07 15:17 | Outpatient (REF) | payer OTHER, SELFPAY ==
--- NOTE | ~2021-12-07 | XR_ITS ---
EXAMINATION: XR LUMBOSACRAL SPINE CLINICAL INFORMATION: Presence of implants. COMPARISON: 06/01/2021 TECHNIQUE: Three views of the lumbosacral spine. FINDINGS: Generator overlies the posterior left pelvis. Lumbar spinal stimulator wiring extends to the L2-L3 level. Additional wiring extends more cranially. Vertebral body height and alignment maintained. Mild disc space narrowing at the lower lumbar spine with small endplate osteophytes. Normal bowel gas pattern. Upper abdominal surgical clips. XR/XR lumbar spine 2-3V IMPRESSION: Mild degenerative change of the lumbar spine. Generator with stimulator wiring over the lumbar spine with additional wiring extending cranially.
== END 2021-12-07 15:18 | disposition home or self-care (01) ==
LOC: HO.HMGCX 15:17
PROVIDERS: Visit Provider Nurse Practitioner Family
DX: Z96.89 Presence of other specified functional implants (principal); Z91.81 History of falling
CPT/HCPCS: 72100

== ENCOUNTER 2021-12-15 10:04 | Outpatient (REF) | payer OTHER, SELFPAY ==
--- NOTE | ~2021-12-15 | XR_ITS ---
EXAMINATION: XR ANKLE RT MIN 3V XR FOOT RT MIN 3V CLINICAL INFORMATION: Trauma COMPARISON: 04/15/2019 TECHNIQUE: AP, oblique and lateral views of the right ankle/foot FINDINGS: There is an avulsion fracture involving the dorsal navicular with intra-articular extension and 2 mm displacement as seen on the lateral view of the foot. Ill-definition of the fracture margins indicates subacute chronology. Arthrodesis of the second occipital interphalangeal joint, with fracture of the medial arm of the hardware component within the middle phalanx, however no fracture of the second phalanx itself. Degenerative dorsally projecting marginal osteophytes present throughout the intertarsal articulations. Small tibiotalar marginal osteophytes. Ankle mortise is congruent. Talar dome intact. Soft tissue swelling present dorsal to the right foot. XR/XR foot RT min 3V IMPRESSION: Subacute avulsion fracture of the dorsal navicular with intra-articular extension to the talonavicular articulation. No additional fractures.
--- NOTE | ~2021-12-15 | XR_ITS ---
EXAMINATION: XR ANKLE RT MIN 3V XR FOOT RT MIN 3V CLINICAL INFORMATION: Trauma COMPARISON: 04/15/2019 TECHNIQUE: AP, oblique and lateral views of the right ankle/foot FINDINGS: There is an avulsion fracture involving the dorsal navicular with intra-articular extension and 2 mm displacement as seen on the lateral view of the foot. Ill-definition of the fracture margins indicates subacute chronology. Arthrodesis of the second occipital interphalangeal joint, with fracture of the medial arm of the hardware component within the middle phalanx, however no fracture of the second phalanx itself. Degenerative dorsally projecting marginal osteophytes present throughout the intertarsal articulations. Small tibiotalar marginal osteophytes. Ankle mortise is congruent. Talar dome intact. Soft tissue swelling present dorsal to the right foot. XR/XR ankle RT min 3V IMPRESSION: Subacute avulsion fracture of the dorsal navicular with intra-articular extension to the talonavicular articulation. No additional fractures.
== END 2021-12-15 10:05 | disposition home or self-care (01) ==
LOC: HO.HMGCX 10:04
PROVIDERS: PCP Internal Medicine; Visit Provider Physician Assistant Medical
DX: S99.919A Unspecified injury of unspecified ankle, initial encounter (principal)
CPT/HCPCS: 73610; 73630

== ENCOUNTER → 2021-12-27 13:50 | Outpatient (BNVA) | payer OTHER, SELFPAY | PROVIDERS: PCP Internal Medicine; Visit Provider Orthopaedic Surgery ==

== ENCOUNTER → 2022-04-29 12:55 | Outpatient (BNVA) | payer OTHER, SELFPAY | PROVIDERS: PCP Internal Medicine; Visit Provider Anesthesiology | DX: M17.0 Bilateral primary osteoarthritis of knee (principal); R26.2 Difficulty in walking, not elsewhere classified; M96.1 Postlaminectomy syndrome, not elsewhere classified; M14.60 Charcot's joint, unspecified site; G90.523 Complex regional pain syndrome I of lower limb, bilateral | CPT/HCPCS: 99212 ==

== ENCOUNTER 2022-06-12 14:38 | Outpatient (REF) | payer OTHER, SELFPAY ==
[2022-06-12 16:44] LABS: Alanine Aminotransferase 25 U/L (0-31); Albumin Level 4.2 g/dL (3.5-5.0); Alkaline Phosphatase 86 U/L (39-117); Anion Gap 15 (12-20); Aspartate Amino Transferase 34 U/L (5-31); Bilirubin Total 0.3 mg/dL (0.0-1.0); Blood Urea Nitrogen 18 mg/dL (9-16); Calcium 9.1 mg/dL (8.4-10.2); Carbon Dioxide 27 mmol/L (22-29); Chloride 104 mmol/L (96-108); Estimated Glomerular Filt Rate 55; Glucose Random 95 mg/dL (60-115); Potassium 4.6 mmol/L (3.3-5.1); Sodium 141 mmol/L (135-145); Total Protein 7.2 g/dL (6.5-8.0)
== END 2022-06-12 14:39 | disposition home or self-care (01) ==
LOC: HO.HMGCLDS 14:38
PROVIDERS: PCP Internal Medicine; Visit Provider Internal Medicine
DX: R60.9 Edema, unspecified (principal)
CPT/HCPCS: 36415; 80053

== ENCOUNTER → 2022-07-08 13:30 | Outpatient (BNVA) | payer OTHER, SELFPAY | PROVIDERS: PCP Internal Medicine; Referring Provider Internal Medicine; Visit Provider Physician Assistant Surgical | DX: E66.9 Obesity, unspecified (principal); Z68.32 Body mass index [BMI] 32.0-32.9, adult; Z98.84 Bariatric surgery status | CPT/HCPCS: 99212 ==

== ENCOUNTER → 2022-11-04 08:24 | Outpatient (BNVA) | payer OTHER, SELFPAY | PROVIDERS: PCP Internal Medicine; Visit Provider Physician Assistant Surgical | DX: E66.9 Obesity, unspecified (principal); Z68.33 Body mass index [BMI] 33.0-33.9, adult | CPT/HCPCS: 99212 ==

== ENCOUNTER 2022-11-05 12:03 | Outpatient (REF) | payer OTHER, SELFPAY ==
--- NOTE | ~2022-11-05 | XR_ITS ---
EXAMINATION: XR CERVICAL SPINE CLINICAL INFORMATION: Radiculopathy. COMPARISON: None TECHNIQUE: 3 views of the cervical spine were obtained. FINDINGS: There are no prevertebral soft tissue or bony abnormalities demonstrated. No compression fractures or subluxations are identified. Alignment is maintained at the atlanto-axial articulation. There is mild left facet joint arthropathy C5-C6, right C4-C5 disc levels. The disc spaces are preserved. No endplate changes are seen. The prevertebral soft tissues are normal. The foramina are patent. XR/XR cervical spine 2V IMPRESSION: Mild left C5-C6 and right C4-C5 facet joint arthropathy. No visible acute fracture, dislocation or subluxation seen. MRI of cervical spine can be obtained if patient has symptomatic radiculopathy.
== END 2022-11-05 12:04 | disposition home or self-care (01) ==
LOC: HO.HMGCLDS 12:03
PROVIDERS: Visit Provider Internal Medicine
DX: M54.12 Radiculopathy, cervical region (principal)
CPT/HCPCS: 72040

== ENCOUNTER 2022-12-07 07:06 | Outpatient (REF) | payer OTHER, SELFPAY ==
[2022-12-07 07:25] LABS: MANUAL DIFF FLAG NO
[2022-12-07 08:08] LABS: Basophils Absolute Auto 0.1 X10*3/uL (0.0-0.2); Basophils Percent Auto 0.9 % (0-2); Eosinophils Absolute Auto 0.1 X10*3/uL (0.0-0.4); Eosinophils Percent Auto 2.3 % (0-4); Estimated Average Glucose 94 mg/dL; Hematocrit 44.2 % (37.0-47.0); Hemoglobin A1c % 4.9 %; Imm Gran Abs Auto 0.01 X10*3/uL (0.00-0.03); Imm Gran Pct Auto 0.2 % (0.0-0.4); Lymphocytes Absolute Auto 2.5 X10*3/uL (1.2-4.9); Mean Corpuscular HGB Conc 31.7 g/dl (31.0-35.0); Mean Corpuscular Hemoglobin 28.8 pg (27.0-33.0); Mean Corpuscular Volume 90.9 fL (80.0-98.0); Mean Platelet Volume 10.5 fL (9.4-12.3); Monocytes Absolute Auto 0.4 X10*3/uL (0.1-1.2); Monocytes Percent Auto 7.5 % (2-11); Neutrophils Absolute Auto 2.3 x10*3/uL (2.0-8.3); Neutrophils Percent Auto 43.1 % (45-73); Platelet Count 335 X10*3/uL (160-400); Red Blood Count 4.86 X10*6/uL (4.20-5.50); Red Cell Distribution Width 13.2 % (11.0-16.0); White Blood Count 5.3 X10*3/uL (4.8-10.8)
[2022-12-07 09:00] LABS: Alanine Aminotransferase 35 U/L (0-31); Albumin Level 4.1 g/dL (3.5-5.0); Alkaline Phosphatase 84 U/L (39-117); Anion Gap 13 (12-20); Aspartate Amino Transferase 41 U/L (5-31); Bilirubin Total 0.6 mg/dL (0.0-1.0); Blood Urea Nitrogen 16 mg/dL (9-16); C Reactive Protein < 0.04 mg/dL (< or = 0.50); Calcium 9.3 mg/dL (8.4-10.2); Carbon Dioxide 27 mmol/L (22-29); Chloride 109 mmol/L (96-108); Cholesterol 196 mg/dL; Estimated Glomerular Filt Rate > 60; Glucose Random 82 mg/dL (60-115); HDL Cholesterol 67 mg/dL; Iron 110 mcg/dL (30-160); LDL Cholesterol Calculated 118 mg/dl; Percent Iron Saturation 37 % (15-50); Potassium 4.7 mmol/L (3.3-5.1); Sodium 144 mmol/L (135-145); Total Iron Binding Capacity 297 mcg/dL (228-428); Total Protein 6.9 g/dL (6.5-8.0); Triglycerides 58 mg/dL; Unsaturated Iron Binding 187 ug/dL
[2022-12-07 09:04] LABS: Ferritin 118 ng/mL (10-250); Folate 16.9 ng/mL (> or = 4.0); Insulin 9 uU/mL (2-29); TSH reflex Free T4 2.01 uIU/mL (0.32-4.0); Vitamin B12 620 pg/mL (200-900); Vitamin D 25-OH Total 28.2 ng/mL (>30)
[2022-12-10 14:14] LABS: Calcium (PTHI) 9.5 mg/dL (8.6-10.4); PTHI 68 pg/mL (16-77)
[2022-12-10 23:59] LABS: Zinc 80 mcg/dL (60-130)
[2022-12-11 16:18] LABS: Vitamin A 63 mcg/dL (38-98)
[2022-12-13 18:13] LABS: Vitamin B1 46 nmol/L (8-30)
== END 2022-12-07 07:07 | disposition home or self-care (01) ==
LOC: HO.LAB 07:06
PROVIDERS: PCP Internal Medicine; Visit Provider Physician Assistant Surgical
DX: E66.9 Obesity, unspecified (principal); E55.9 Vitamin D deficiency, unspecified; Z79.899 Other long term (current) drug therapy
CPT/HCPCS: 36415; 80053; 80061; 82306; 82607; 82728; 82746; 83036; 83525; 83540; 83970; 84425; 84443; 84590; 84630; 85025; 86140

== ENCOUNTER 2023-02-19 07:58 | Outpatient (REF) | payer OTHER, SELFPAY ==
--- NOTE | ~2023-02-19 | MM_ITS ---
EXAMINATION: MM SCREENING DIGITAL BREAST TOMOSYNTHESIS, BILATERAL CLINICAL INFORMATION: Screening. Asymptomatic. The lifetime risk of breast cancer based on the Tyrer-Cuzick Model is 7%. COMPARISON: Outside mammography: 01/29/2022, 11/04/2020, 10/06/2019 TECHNIQUE: Digital breast tomosynthesis is performed in both the craniocaudal and mediolateral oblique views along with computer-aided detection (CAD). Synthesized 2D images are generated from the tomosynthesis. FINDINGS: There are scattered areas of fibroglandular density (ACR BI-RADS breast composition Category b). Parenchymal pattern is similar to prior outside exams. There are scattered stable asymmetries. Biopsy clip marker again seen central upper outer left breast mid depth. There is no developing density or architectural abnormality. There are no significant masses, abnormal calcifications, or other abnormalities. The axilla and skin contours are unremarkable. No significant changes. MM/MM tomosynthesis screening BI IMPRESSION: No mammographic evidence of malignancy. ASSESSMENT: BI-RADS 2: Benign RECOMMENDATION: Routine annual mammography screening. This patient's information was entered into a reminder system with a target due date for their next mammogram.
== END 2023-02-19 07:59 | disposition home or self-care (01) ==
LOC: HO.MAMMO 07:58
PROVIDERS: PCP Internal Medicine; Visit Provider Internal Medicine
DX: Z12.31 Encounter for screening mammogram for malignant neoplasm of breast (principal)
CPT/HCPCS: 77063; 77067

== ENCOUNTER → 2023-02-27 15:23 | Outpatient (BNVA) | payer OTHER, SELFPAY | PROVIDERS: PCP Internal Medicine; Referring Provider Internal Medicine; Visit Provider Nurse Practitioner Family ==

== ENCOUNTER 2023-04-15 09:23 | Outpatient (REF) | payer OTHER, SELFPAY ==
--- NOTE | ~2023-04-15 | XR_ITS ---
EXAMINATION: XR FOOT, RIGHT CLINICAL INFORMATION: Right foot contusion. COMPARISON: Right foot radiographs dated 12/15/2021. TECHNIQUE: AP, lateral, and oblique views of the right foot. FINDINGS: The patient is status post ORIF of the proximal and mid phalanges of the second digit with overall good anatomic alignment. There is a nondisplaced fracture of the medial for of the distal aspect of the prosthesis at the level of the proximal interphalangeal joint. The remainder the digits appear intact. The tarsal bones are normally aligned. There is a small plantar calcaneal spur. Mild soft tissue swelling is seen. XR/XR foot RT min 3V IMPRESSION: 1. Second digit prosthesis findings detailed above without significant interval change. No definitive acute abnormality. 2. Small degenerative plantar calcaneal spur.
== END 2023-04-15 09:24 | disposition home or self-care (01) ==
LOC: HO.HMGCX 09:23
PROVIDERS: PCP Internal Medicine; Visit Provider Internal Medicine
DX: S90.31XD Contusion of right foot, subsequent encounter (principal)
CPT/HCPCS: 73630

== ENCOUNTER 2023-05-16 13:10 | Outpatient (AMB) | payer OTHER, SELFPAY ==
--- NOTE | 2023-05-16 13:28 | A.OFFPC_ITS ---
Vital Signs 05/16/23 13:30 Height 5 ft 4 in BP 110/62 Blood Pressure Location Lt brachial Position Sitting Pulse 64 Pulse Source Pulse Oximeter Pulse Oximetry (%) 98 Oxygen Delivery Method Room Air Intake Visit Reasons: Walk In ~ Follow Up undisplaced fracture Allergies almond [ALMOND] Allergy (Intermediate, Verified 05/16/23 13:30) NUMBNESS MOUTH, ITCHY EYES amoxicillin [AMOXICILLIN] Allergy (Intermediate, Verified 05/16/23 13:30) HIVES penicillin V Allergy (Intermediate, Verified 05/16/23 13:30) rash apple [APPLE] Allergy (Mild, Verified 05/16/23 13:30) ITCHY EYES peach [PEACHES] Allergy (Mild, Verified 05/16/23 13:30) ITCHY EYES plum [PLUMS] Allergy (Mild, Verified 05/16/23 13:30) ITCHY EYES carrot Allergy (Unknown, Verified 05/16/23 13:30) Unknown pear [PEAR] Adverse Reaction (Mild, Verified 05/16/23 13:30) ITCHY EYES NECTARINES Allergy (Mild, Uncoded 05/16/23 13:30) ITCHY EYES Medication List - Last Reconciled 05/16/23 by Bettye Wood MD bisacodyl (Dulcolax (bisacodyl)) 10 mg (2 x 5 mg) PO ONCE 1 day calcium citrate-vitamin D3 315 mg-6.25 mcg (250 unit) 2 tabs PO DAILY [Celebrate MVI bariatric vitamin PO] estradiol 0.01%(0.1mg/gram) 1 g vaginal 2XW fiber tabs PO fluticasone propionate 50 mcg/actuation (Flonase Allergy Relief) 1 spray intran jacqueline BID furosemide (Lasix) 10 mg (1/2 x 20 mg) PO QAM PRN 90 days levocetirizine (Xyzal) 5 mg PO DAILY meloxicam 15 mg PO DAILY mirabegron ER (Myrbetriq) 50 mg PO DAILY montelukast 10 mg PO BEDTIME 90 days polyethylene glycol 3350 (Miralax) 238 grams PO ONCE prednisolone sodium phosphate 10 mg PO BID 5 days pregabalin 150 mg PO BID 30 days valacyclovir 500 mg PO DAILY 90 days zolpidem 5 mg PO BEDTIME PRN 10 days Tobacco use date assessed: 05/16/23 Dental Screening Dental Screen Date: 05/16/23 Did you have a dental visit in the last 12 months?: Yes Did you have a dental problem in the last 6 months where you did not have access to dental care?: No Was dental information given to patient?: No HPI Walk In ~ Follow Up undisplaced fracture HPI Details Patient had injury of her right to she was seen in walk-in clinic 15 of April and had x-ray done. X-ray report is confusing and clear I am ordering another x-ray her big to has improved from before but still has slight swelling medially distal phalanx Patient had a surgery on her right 2nd toe and have a prosthesis and there [facility] Medical History Asthma Cataract Complex regional pain syndrome of both lower extremities Difficulty in walking involving lower leg joint Environmental allergies GERD (gastroesophageal reflux disease) Lipedema Malabsorption due to intolerance, not elsewhere classified Neuropathic arthropathy Obesity (BMI 30-39.9) Obesity (BMI 30.0-34.9) Osteoarthritis of knees, bilateral Overweight (BMI 25.0-29.9) Postlaminectomy syndrome Radiculitis of right cervical region Restless leg syndrome Spinal cord stimulator dysfunction Spinal cord stimulator status Urinary incontinence Surgical History History of eye surgery History of surgery on right wrist History of toe surgery Hx laparoscopic cholecystectomy Hx of section Hx of colonoscopy with polypectomy Hx of construction of artificial vagina Hx of rotator cuff surgery Hx of spinal surgery S/P laparoscopic sleeve gastrectomy Family History Father CVD (cardiovascular disease) Mother Asthma Brother Lung cancer Brother No problems noted. Brother No problems noted. Brother No problems noted. Brother No problems noted. Brother No problems noted. Son No problems noted. Daughter No problems noted. Social History Housing: House Alcohol intake: never Patient Tobacco Use Status: Never used Tobacco e-Cigarette/Vaping Use: Never Used Advance Directives Date on File: 08/24/21 service: No Current occupational status: employed Cognitive needs: No Hearing needs: No Vision needs: Yes Questionnaire Thrive Questionnaire Date Thrive assessed: 10/16/21 AUDIT C Alcohol Use Questionnaire (AUDIT-C) 1. How often do you have a drink containing alcohol?: Monthly or less 2. How many drinks containing alcohol do you have on a typical day when you are drinking?: 1 or 2 3. How often do you have six or more drinks on one occasion?: Never Total Score: 1 MANNY-7 AMB Questionnaire MANNY-7 Date MANNY - 7 assessed: 10/16/21 Source: Developed by Drs. Burt Malcolm, Patience Hendrickson, Magno Prado and colleagues, with an educational shay from [employer]. Review of Systems Const All systems reviewed & are unremarkable except as noted in HPI and below Physical exam (Primary Care) Vital Signs: Last Vital Signs Pulse 64 05/16/23 13:30 BP 110/62 05/16/23 13:30 Pulse Ox 98 05/16/23 13:30 Oxygen Delivery Method Room Air 05/16/23 13:30 Tobacco/Smoking Status: Tobacco use Status Tobacco use date assessed 05/16/23 05/16/23 13:32 Patient Tobacco Use Status Never used Tobacco 05/16/23 13:32 e-Cigarette/Vaping Use Never Used 05/16/23 13:32 Thrive Assessment: Date of Thrive Assessment Date Thrive assessed 10/16/21 05/16/23 13:32 Const General: no acute distress Orientation/consciousness: patient oriented x3 Eyes General: appearance normal, both eyes and all related structures Resp Effort & Inspection: normal respiratory effort and able to speak in complete sentences Auscultation: clear to auscultation bilaterally Neuro General: patient oriented x3 Extrem Ankle/foot/toe images: 1. Slight swelling medially much improved from before as patient showed me the photos' after the injury Psych Mental Status: mental status grossly normal Assessment and Plan Assessment & Plan (1) Injury of toe on right foot: Code(s): S99.921A - Unspecified injury of right foot, initial encounter Orders: Orders XR toe RT min 2V Today S99.921A - Unspecified injury of right foot, initial encounter Coding Level of Care Code Est Pt Level 3 (79093) Diagnoses Injury of toe on right foot S99.921A
[2023-05-16 13:30] VITALS: BP 110/62; PULSE 64; O2SAT 98
== END 2023-05-16 13:52 | disposition home or self-care (01) ==
PROVIDERS: PCP Internal Medicine; Visit Provider Internal Medicine
DX: S99.921A Unspecified injury of right foot, initial encounter (principal)
CPT/HCPCS: 99213

== ENCOUNTER 2023-05-16 13:53 | Outpatient (REF) | payer OTHER, SELFPAY ==
--- NOTE | ~2023-05-16 | XR_ITS ---
EXAMINATION: XR TOES, RIGHT CLINICAL INFORMATION: Injury right foot. COMPARISON: Right foot 04/15/2023 TECHNIQUE: 3 views of the right toes were obtained. FINDINGS: There is an oblique fracture proximal segment distal phalanx first digit with intra-articular extension. It appears stable to previous study. There is fusion of PIP joint with hardware involving second digit. There is fracture involving the medial hardware in the mid phalanx. It is unchanged to previous study. No additional abnormality seen. XR/XR toe RT min 2V IMPRESSION: Nondisplaced oblique fracture proximal segment distal phalanx first digit with mild soft tissue swelling. There is a hardware for fusion of PIP joint second digit. There is fracture involving the hardware but unchanged to last study 04/15/2023. Consider orthopedic consultation.
== END 2023-05-16 13:54 | disposition home or self-care (01) ==
LOC: HO.HMGCX 13:53
PROVIDERS: PCP Internal Medicine; Visit Provider Internal Medicine
DX: S99.921A Unspecified injury of right foot, initial encounter (principal)
CPT/HCPCS: 73660

== ENCOUNTER 2023-05-29 08:35 | Outpatient (AMB) | payer OTHER, SELFPAY ==
--- NOTE | 2023-05-29 08:55 | AM.OFFWIN_ITS ---
Intake Vital Signs 05/29/23 08:56 Height 5 ft 4 in BP 112/70 Blood Pressure Location Rt brachial Position Sitting Pulse 66 Pulse Source Pulse Oximeter Temp 98.2 F Temp Source Oral Pulse Oximetry (%) 97 Oxygen Delivery Method Room Air Intake Visit Reasons: EP, Left ear pain Intake Note: Pt is here today for Lt ear pain. Started yesterday Patient Tobacco Use Status: Never used Tobacco Allergies almond [ALMOND] Allergy (Intermediate, Verified 05/29/23 08:55) NUMBNESS MOUTH, ITCHY EYES amoxicillin [AMOXICILLIN] Allergy (Intermediate, Verified 05/29/23 08:55) HIVES penicillin V Allergy (Intermediate, Verified 05/29/23 08:55) rash apple [APPLE] Allergy (Mild, Verified 05/29/23 08:55) ITCHY EYES peach [PEACHES] Allergy (Mild, Verified 05/29/23 08:55) ITCHY EYES plum [PLUMS] Allergy (Mild, Verified 05/29/23 08:55) ITCHY EYES carrot Allergy (Unknown, Verified 05/29/23 08:55) Unknown pear [PEAR] Adverse Reaction (Mild, Verified 05/29/23 08:55) ITCHY EYES NECTARINES Allergy (Mild, Uncoded 05/16/23 13:30) ITCHY EYES Do you need a note to return to daycare/school/sports/work: No HPI HPI Comments History of Present Illness Details The patient presents to urgent care for evaluation of left ear pain. She states this started yesterday and kept her up at night with shooting pain intermittently throughout the night. No change in hearing no drainage no recent colds patient has a history of severe allergies she uses allergy medication [facility] Medical History Asthma Cataract Complex regional pain syndrome of both lower extremities Difficulty in walking involving lower leg joint Environmental allergies GERD (gastroesophageal reflux disease) Lipedema Malabsorption due to intolerance, not elsewhere classified Neuropathic arthropathy Obesity (BMI 30-39.9) Obesity (BMI 30.0-34.9) Osteoarthritis of knees, bilateral Overweight (BMI 25.0-29.9) Postlaminectomy syndrome Radiculitis of right cervical region Restless leg syndrome Spinal cord stimulator dysfunction Spinal cord stimulator status Urinary incontinence Surgical History History of eye surgery History of surgery on right wrist History of toe surgery Hx laparoscopic cholecystectomy Hx of section Hx of colonoscopy with polypectomy Hx of construction of artificial vagina Hx of rotator cuff surgery Hx of spinal surgery S/P laparoscopic sleeve gastrectomy Family History Father CVD (cardiovascular disease) Mother Asthma Brother Lung cancer Brother No problems noted. Brother No problems noted. Brother No problems noted. Brother No problems noted. Brother No problems noted. Son No problems noted. Daughter No problems noted. Social History Housing: House Alcohol intake: never Patient Tobacco Use Status: Never used Tobacco e-Cigarette/Vaping Use: Never Used Advance Directives Date on File: 08/24/21 service: No Current occupational status: employed Cognitive needs: No Hearing needs: No Vision needs: Yes Physical Exam Vital Signs: Last Vital Signs Temp 98.2 F 05/29/23 08:56 Pulse 66 05/29/23 08:56 BP 112/70 05/29/23 08:56 Pulse Ox 97 05/29/23 08:56 Oxygen Delivery Method Room Air 05/29/23 08:56 Const General: healthy appearing and no acute distress Orientation/consciousness: patient oriented x3 HEENT Ears: hearing grossly normal bilaterally, external ears normal and TM's normal bilaterally Eyes Corneas: corneas normal Pupils: Equal, round and reactive pupils present Chest Chest palpation & inspection: no tenderness Resp Effort & Inspection: normal respiratory effort and able to speak in complete sentences GI Palpation (GI): nontender Neuro General: patient oriented x3 Cranial nerves: Yes Equal, round and reactive pupils present Psych Appearance: grossly normal Attitude: cooperative Assessment & Plan Assessment & Plan (1) Left ear pain: Code(s): H92.02 - Otalgia, left ear Plan Patient's ears are clear bilaterally. No sign of infection. Recommend trial allergy medicine. Recommend Tylenol for pain. Coding Level of Care Code Est Pt Level 3 (81398) Diagnoses Left ear pain H92.02
[2023-05-29 08:56] VITALS: BP 112/70; PULSE 66; TEMP 36.8; O2SAT 97
== END 2023-05-29 09:54 | disposition home or self-care (01) ==
PROVIDERS: PCP Internal Medicine; Visit Provider Emergency Medicine
DX: H92.02 Otalgia, left ear (principal)
CPT/HCPCS: 99213

== ENCOUNTER 2023-06-05 09:33 | Outpatient (AMB) | payer OTHER, SELFPAY ==
[2023-06-05 09:35] VITALS: BMI 35.7
--- NOTE | 2023-06-05 09:35 | A.OFFVIS_ITS ---
Intake Vital Signs 06/05/23 09:35 Height 5 ft 4 in Weight 208 lb BMI 35.7 Intake Visit Reasons: FC - Right Great toe fx, DOI? Intake Note: Genny is a 62 year old female who presents today for evaluation of her Right great toe fx, DOI 04/03/23. Patient reports she tripped on her rug and her right toe got caught in her rug. She states her toe feels fine but she is just worried about if her bone it properly healed. Denies numbness and tingling. Allergies almond [ALMOND] Allergy (Intermediate, Verified 06/05/23 09:35) NUMBNESS MOUTH, ITCHY EYES amoxicillin [AMOXICILLIN] Allergy (Intermediate, Verified 06/05/23 09:35) HIVES penicillin V Allergy (Intermediate, Verified 06/05/23 09:35) rash apple [APPLE] Allergy (Mild, Verified 06/05/23 09:35) ITCHY EYES peach [PEACHES] Allergy (Mild, Verified 06/05/23 09:35) ITCHY EYES plum [PLUMS] Allergy (Mild, Verified 06/05/23 09:35) ITCHY EYES carrot Allergy (Unknown, Verified 06/05/23 09:35) Unknown pear [PEAR] Adverse Reaction (Mild, Verified 06/05/23 09:35) ITCHY EYES NECTARINES Allergy (Mild, Uncoded 05/16/23 13:30) ITCHY EYES HPI FC - Right Great toe fx, DOI? HPI Details 62-year-old female who presents in the office today, as a new patient, for an evaluation of right great toe pain. The patient [facility]23 status post tripping on a rug 2 weeks prior causing her to stub her right great toe. X-rays of the right foot were obtained. She was prescribed anti-inflammatories. She follow up with her PCP on 05/16/2023. She had a second x-ray obtained due to continued edema. She states the toe feels fine, but is concerned if the bone is healing correctly. She denies numbness or tingling. Patient has a history of right 2nd toe with prosthesis. The patient reports pain in the right knee. She states the pain is making daily activities hard to perform. [facility] Medical History Asthma Cataract Complex regional pain syndrome of both lower extremities Difficulty in walking involving lower leg joint Environmental allergies GERD (gastroesophageal reflux disease) Lipedema Malabsorption due to intolerance, not elsewhere classified Neuropathic arthropathy Obesity (BMI 30-39.9) Obesity (BMI 30.0-34.9) Osteoarthritis of knees, bilateral Overweight (BMI 25.0-29.9) Postlaminectomy syndrome Radiculitis of right cervical region Restless leg syndrome Spinal cord stimulator dysfunction Spinal cord stimulator status Urinary incontinence Surgical History History of eye surgery History of surgery on right wrist History of toe surgery Hx laparoscopic cholecystectomy Hx of section Hx of colonoscopy with polypectomy Hx of construction of artificial vagina Hx of rotator cuff surgery Hx of spinal surgery S/P laparoscopic sleeve gastrectomy Family History Father CVD (cardiovascular disease) Mother Asthma Brother Lung cancer Brother No problems noted. Brother No problems noted. Brother No problems noted. Brother No problems noted. Brother No problems noted. Son No problems noted. Daughter No problems noted. Social History Housing: House Alcohol intake: never Patient Tobacco Use Status: Never used Tobacco e-Cigarette/Vaping Use: Never Used Advance Directives Date on File: 08/24/21 service: No Current occupational status: employed Cognitive needs: No Hearing needs: No Vision needs: Yes Review of Systems Const All systems reviewed & are unremarkable except as noted in HPI and below Physical Exam Vital Signs: BMI result Body Mass Index 35.7 Const General: cooperative, healthy appearing and no acute distress Orientation/consciousness: patient oriented x3 Resp Effort & Inspection: normal respiratory effort and able to speak in complete sentences Cardio Rate: regular rate Peripheral pulses: Peripheral pulses 2+ throughout GI Palpation (GI): Soft to palpation Skin General skin exam: no rashes or lesions noted Lesions: no lesions Rashes: no rashes Neuro General: patient oriented x3 Extrem Other: Right great toe: Deformity at the DIP joint with the distal aspect of the digit is rotated laterally. Slight tenderness to palpation at the DIP. Able to extend the great toe. Sensation intact. Capillary refill is brisk. Office Procedures Fracture Care Fracture Billing Code: Fracture Billing Code Assessment & Plan Assessment & Plan (1) Fractured great toe: Comment: right Code(s): S92.403A - Displaced unspecified fracture of unspecified great toe, initial encounter for closed fracture Plan Ms. Hilario is a 62-year-old female who presents in the office today, as a new patient, for an evaluation of right great toe pain. The patient presented [facility] 04[facility]2023 status post tripping on a rug 2 weeks prior causing her to stub her right great toe. X-rays of the right foot were obtained. She was prescribed anti-inflammatories. She follow up with her PCP on 05/16/2023. She had a second x-ray obtained due to continued edema. She states the toe feels fine, but is concerned if the bone is healing correctly. She denies numbness or tingling. Patient has a history of right 2nd toe with prosthesis. I will place a referral to [facility] for further evaluation or t reatment of the right foot. She will schedule an appointment with me for further evaluation and right knee. Follow up will be PRN, or sooner if needed. She can follow up in 2 weeks for further evaluation of the right knee. X-rays of the right foot which were obtained while in the office today and were reviewed by me, Nasrin Cox PA-C, revealed right great toe distal phalanx healed fracture. X-rays of the right foot, obtained on 05/16/2023, revealed: 1. Nondisplaced oblique fracture proximal segment distal phalanx first digit with mild soft tissue swelling. 2. There is a hardware for fusion of PIP joint second digit. There is fracture involving the hardware but unchanged to last study 04/15/2023. Consider orthopedic consultation. X-rays of the right foot, obtained on 04/15/2023, revealed: 1. Second digit prosthesis findings detailed above without significant interval change. No definitive acute abnormality. 2. Small degenerative plantar calcaneal spur. Orders: Orders XR foot RT min 3V Today M79.673 - Pain in unspecified foot Referrals Podiatry Referral S92.403A - Displaced unspecified fracture of unspecified great toe, initial encounter for closed fracture Patient Instructions: Scribed for Nasrin Cox PA-C by Ivette Enrique rn medical inpatient services, on 06/05/2023 at 9:38 am, EST. Coding Level of Care Code Est Pt Level 4 (91695) Diagnoses Fractured great toe S92.403A CPT Codes Fracture Care - Fracture Billing Code: Fracture Billing Code ([id number])
== END 2023-06-05 10:46 | disposition home or self-care (01) ==
PROVIDERS: PCP Internal Medicine; Visit Provider Physician Assistant
DX: S92.411A Displaced fracture of proximal phalanx of right great toe, initial encounter for closed fracture (principal)
CPT/HCPCS: 99214

== ENCOUNTER 2023-06-05 10:29 | Outpatient (REF) | payer OTHER, SELFPAY ==
--- NOTE | ~2023-06-05 | XR_ITS ---
EXAMINATION: XR FOOT, RIGHT CLINICAL INFORMATION: Pain COMPARISON: Foot radiographs 05/08/2023. TECHNIQUE: 3 views of the foot FINDINGS: Redemonstration of an intra-articular fracture of the base of the first distal phalanx in unchanged alignment. No bridging bony callus formation. No new fracture or dislocation. Osteopenia. Status post fusion of the second proximal interphalangeal joint with similar appearance of hardware fracture involving the medial component of the fusion at the second middle phalanx. Mild degenerative changes of the foot with spurring of the dorsal midfoot. No joint effusion. Soft tissues are unremarkable. XR/XR foot RT min 3V IMPRESSION: 1. Redemonstration of an intra-articular fracture of the base of the first distal phalanx in unchanged alignment. No bridging bony callus formation. 2. Status post fusion of the second proximal interphalangeal joint with similar appearance of hardware fracture involving the medial component of the fusion at the second middle phalanx. 3. Osteopenia. 4. Mild degenerative changes of the foot with spurring of the dorsal midfoot.
== END 2023-06-05 10:30 | disposition home or self-care (01) ==
LOC: HO.HOSX 10:29
PROVIDERS: Visit Provider Physician Assistant
DX: S92.401A Displaced unspecified fracture of right great toe, initial encounter for closed fracture (principal)
CPT/HCPCS: 73630

== ENCOUNTER 2023-06-19 07:31 | Outpatient (REF) | payer OTHER, SELFPAY ==
--- NOTE | ~2023-06-19 | XR_ITS ---
EXAMINATION: XR KNEE, RIGHT XR KNEE, LEFT XR KNEE AP STANDING CLINICAL INFORMATION: Pain. COMPARISON: Radiographs dated 07/13/2019. TECHNIQUE: Four views of the right knee. Four views of the left knee. AP bilateral standing view of the knees was obtained. FINDINGS: RIGHT KNEE: There is moderately severe asymmetric narrowing of the medial joint space compartment. The lateral joint space compartment is well-maintained. There is moderate narrowing of the patellofemoral compartment. There is tricompartment peripheral osteophyte formation. There is a mild to moderate varus configuration. No fracture, dislocation or joint effusion is seen. There is no foreign body. LEFT KNEE: There is mild asymmetric narrowing of the medial joint space compartment. The lateral joint space compartment is well-maintained. There is mild narrowing of the patellofemoral compartment. There is tricompartment peripheral osteophyte formation. There is a mild varus configuration. No fracture, dislocation or joint effusion is seen. There is no foreign body. XR/XR knee LT 2V IMPRESSION: 1. There is tricompartment osteoarthritic change of the right knee, most pronounced of the medial joint space compartment, where it is moderately severe. 2. There is tricompartment osteoarthritic change of the left knee, most pronounced of the medial and patellofemoral joint space compartments, where it is mild. 3. There is a mild to moderate right knee varus configuration, and a mild left knee varus configuration is seen. 4. No fracture, dislocation or joint effusion is seen bilaterally.
--- NOTE | ~2023-06-19 | XR_ITS ---
EXAMINATION: XR KNEE, RIGHT XR KNEE, LEFT XR KNEE AP STANDING CLINICAL INFORMATION: Pain. COMPARISON: Radiographs dated 07/13/2019. TECHNIQUE: Four views of the right knee. Four views of the left knee. AP bilateral standing view of the knees was obtained. FINDINGS: RIGHT KNEE: There is moderately severe asymmetric narrowing of the medial joint space compartment. The lateral joint space compartment is well-maintained. There is moderate narrowing of the patellofemoral compartment. There is tricompartment peripheral osteophyte formation. There is a mild to moderate varus configuration. No fracture, dislocation or joint effusion is seen. There is no foreign body. LEFT KNEE: There is mild asymmetric narrowing of the medial joint space compartment. The lateral joint space compartment is well-maintained. There is mild narrowing of the patellofemoral compartment. There is tricompartment peripheral osteophyte formation. There is a mild varus configuration. No fracture, dislocation or joint effusion is seen. There is no foreign body. XR/XR knee RT 2V IMPRESSION: 1. There is tricompartment osteoarthritic change of the right knee, most pronounced of the medial joint space compartment, where it is moderately severe. 2. There is tricompartment osteoarthritic change of the left knee, most pronounced of the medial and patellofemoral joint space compartments, where it is mild. 3. There is a mild to moderate right knee varus configuration, and a mild left knee varus configuration is seen. 4. No fracture, dislocation or joint effusion is seen bilaterally.
--- NOTE | ~2023-06-19 | XR_ITS ---
EXAMINATION: XR KNEE, RIGHT XR KNEE, LEFT XR KNEE AP STANDING CLINICAL INFORMATION: Pain. COMPARISON: Radiographs dated 07/13/2019. TECHNIQUE: Four views of the right knee. Four views of the left knee. AP bilateral standing view of the knees was obtained. FINDINGS: RIGHT KNEE: There is moderately severe asymmetric narrowing of the medial joint space compartment. The lateral joint space compartment is well-maintained. There is moderate narrowing of the patellofemoral compartment. There is tricompartment peripheral osteophyte formation. There is a mild to moderate varus configuration. No fracture, dislocation or joint effusion is seen. There is no foreign body. LEFT KNEE: There is mild asymmetric narrowing of the medial joint space compartment. The lateral joint space compartment is well-maintained. There is mild narrowing of the patellofemoral compartment. There is tricompartment peripheral osteophyte formation. There is a mild varus configuration. No fracture, dislocation or joint effusion is seen. There is no foreign body. XR/XR knee standing BI IMPRESSION: 1. There is tricompartment osteoarthritic change of the right knee, most pronounced of the medial joint space compartment, where it is moderately severe. 2. There is tricompartment osteoarthritic change of the left knee, most pronounced of the medial and patellofemoral joint space compartments, where it is mild. 3. There is a mild to moderate right knee varus configuration, and a mild left knee varus configuration is seen. 4. No fracture, dislocation or joint effusion is seen bilaterally.
== END 2023-06-19 07:32 | disposition home or self-care (01) ==
LOC: HO.HOSX 07:31
PROVIDERS: Visit Provider Physician Assistant
DX: M17.0 Bilateral primary osteoarthritis of knee (principal); M54.16 Radiculopathy, lumbar region
CPT/HCPCS: 20610; 73560; 73565; J1040

== ENCOUNTER 2023-06-19 09:34 | Outpatient (AMB) | payer OTHER, SELFPAY ==
--- NOTE | 2023-06-19 09:40 | A.OFFVIS_ITS ---
Intake Vital Signs 06/19/23 10:03 Height 5 ft 4 in Weight 208 lb BMI 35.7 Intake Visit Reasons: New Prob - B/L knee pain Intake Note: Genny is a 62 year old female who presents today for a evaluation for bilateral knee pain, last injections 07/13/19. Hx of bilateral geniculate nerve block with relief. She states that she hasn't heard back from podiatry. Patient reports ongoing pain for many years and her last injections, which were in her lumbar spine, did not provide her with any relief. She states that her right knee is worse than the left knee. Patient reports she tired Tylenol, and topical cream with no relief. Her pain is worse when walking and walking up the stairs per patient. Allergies almond [ALMOND] Allergy (Intermediate, Verified 06/19/23 10:03) NUMBNESS MOUTH, ITCHY EYES amoxicillin [AMOXICILLIN] Allergy (Intermediate, Verified 06/19/23 10:03) HIVES penicillin V Allergy (Intermediate, Verified 06/19/23 10:03) rash apple [APPLE] Allergy (Mild, Verified 06/19/23 10:03) ITCHY EYES peach [PEACHES] Allergy (Mild, Verified 06/19/23 10:03) ITCHY EYES plum [PLUMS] Allergy (Mild, Verified 06/19/23 10:03) ITCHY EYES carrot Allergy (Unknown, Verified 06/19/23 10:03) Unknown pear [PEAR] Adverse Reaction (Mild, Verified 06/19/23 10:03) ITCHY EYES NECTARINES Allergy (Mild, Uncoded 05/16/23 13:30) ITCHY EYES HPI New Prob - B/L knee pain HPI Details 62-year-old female who presents in the office today for an evaluation of bilateral knee pain. The patient had bilateral knee cortisone injections on 07/13/2019. She states she has had ongoing pain for many years. She states the injection did not give her relief. She claims the right knee is worse then the left knee. She states she has an increase in pain with ambulating and walking up stairs. Patient confirms she has tried injections, Tylenol, and topical creams with no relief. Patient has a history of bilateral geniculate nerve block with relief. She reports she has not heard from podiatry about her referral. [facility] Medical History Asthma Cataract Complex regional pain syndrome of both lower extremities Difficulty in walking involving lower leg joint Environmental allergies GERD (gastroesophageal reflux disease) Lipedema Malabsorption due to intolerance, not elsewhere classified Neuropathic arthropathy Obesity (BMI 30-39.9) Obesity (BMI 30.0-34.9) Osteoarthritis of knees, bilateral Overweight (BMI 25.0-29.9) Postlaminectomy syndrome Radiculitis of right cervical region Restless leg syndrome Spinal cord stimulator dysfunction Spinal cord stimulator status Urinary incontinence Surgical History History of eye surgery History of surgery on right wrist History of toe surgery Hx laparoscopic cholecystectomy Hx of section Hx of colonoscopy with polypectomy Hx of construction of artificial vagina Hx of rotator cuff surgery Hx of spinal surgery S/P laparoscopic sleeve gastrectomy Family History Father CVD (cardiovascular disease) Mother Asthma Brother Lung cancer Brother No problems noted. Brother No problems noted. Brother No problems noted. Brother No problems noted. Brother No problems noted. Son No problems noted. Daughter No problems noted. Social History Housing: House Alcohol intake: never Patient Tobacco Use Status: Never used Tobacco e-Cigarette/Vaping Use: Never Used Advance Directives Date on File: 08/24/21 service: No Current occupational status: employed Cognitive needs: No Hearing needs: No Vision needs: Yes Review of Systems Const All systems reviewed & are unremarkable except as noted in HPI and below Physical Exam Vital Signs: BMI result Body Mass Index 35.7 Const General: cooperative, healthy appearing and no acute distress Resp Effort & Inspection: normal respiratory effort and able to speak in complete sentences Cardio Rate: regular rate Peripheral pulses: Peripheral pulses 2+ throughout GI Palpation (GI): Soft to palpation Skin Lesions: no lesions Rashes: no rashes Extrem Other: Bilateral knees: Normal to inspection. No ecchymosis, erythema, or joint effusion. No tenderness to palpation to the medial or lateral joint lines. Full knee extension and flexion. Crepitus felt with ROM. NVI. Office Procedures Joint Injection/Drain Joint Injection/Drain Primary Site: right knee Secondary Site: left knee Prep: site was prepped using aseptic technique, ethochloride spray was applied and injection warnings given Injected: 80 mg of, DepoMedrol, with 8 mL of (2% plain lido) and in the joint Approach Used: anterolateral Procedure: The patient tolerated the procedure well, but had some pain with the injection and there was some relief with the local anesthesia Coding 61032 - Large joint Procedure code (CPT) selection complete Results Reviewed Results Reviewed: 06/19/23 10:29 Lidocaine HCl 2 % MPF [Xylocaine 2 % MPF] 5 ml .ROUTE .STK-MED ONE methylPREDNISolone acetate [DEPO-MedroL] 80 mg .ROUTE .STK-MED ONE Assessment & Plan Assessment & Plan (1) Osteoarthritis of left knee: Code(s): M17.12 - Unilateral primary osteoarthritis, left knee (2) Osteoarthritis of right knee: Code(s): M17.11 - Unilateral primary osteoarthritis, right knee (3) Lumbar radiculopathy: Code(s): M54.16 - Radiculopathy, lumbar region Plan Ms. Hilario is a 62-year-old female who presents in the office today for an evaluation of bilateral knee pain. The patient had bilateral knee cortisone injections on 07/13/2019. She states she has had ongoing pain for many years. She states the injection did not give her relief. She claims the right knee is worse then the left knee. She states she has an increase in pain with ambulating and walking up stairs. Patient confirms she has tried injections, Tylenol, and topical creams with no relief.. She reports she has not heard from podiatry about her referral. The patient was offered a cortisone injection in the bilateral knees with 80 mg of DepoMedrol. The patient was explained the risk, benefits, and alternatives to receiving this injection. After receiving consent for the injection, the patient had the procedure done while in office today. The patient tolerated the procedure well with no complications. She will give the injections 4 weeks to see if she gets any relief. In the event she does not she will call the office and we will petition the insurance for Gel injection approval. We discussed the role of Gel injections verses nerve blocks. She has a history of lower back surgery that has radiated pain and hypersensitivity to the bilateral lower extremities. She reports weakness in the right lower extremity especially with lifting the leg while on stairs. She has been patient at [facility] with multiple spine simulators, although she still has difficulty with ambulation. She no long has a [facility] surgeon. The patient will be referred to Neuro Spine for further evaluation and treatment of her lower spine. Follow up will be PRN, or sooner if needed. X-rays of the bilateral knees which were obtained while in the office today and were reviewed by me, Nasrin Cox PA-C, revealed bilateral knee osteoarthritis. Orders: Orders XR knee LT 2V Today M25.569 - Pain in unspecified knee XR knee RT 2V Today M25.569 - Pain in unspecified knee XR knee standing BI Today M25.569 - Pain in unspecified knee Referrals Neuro Spine Referral G90.523 - Complex regional pain syndrome I of lower limb, bilateral, M14.60 - Charcot's joint, unspecified site, M96.1 - Postlaminectomy syndrome, not elsewhere classified, R26.2 - Difficulty in walking, not elsewhere classified, T85.192A - Other mechanical complication of implanted electronic neurostimulator of spinal cord electrode (lead), initial encounter Patient Instructions: Scribed for Nasrin Cox PA-C by Ivette Enrique certified medical coder, on 06/19/2023 at 9:34 am, EST. Coding Level of Care Code Est Pt Level 3 (75238) Diagnoses Osteoarthritis of left knee M17.12 Osteoarthritis of right knee M17.11 Lumbar radiculopathy M54.16 CPT Codes Coding - 64092 Large joint: 70361 - Large joint ([id number])
[2023-06-19 10:03] VITALS: BMI 35.7
== END 2023-06-19 10:56 | disposition home or self-care (01) ==
PROVIDERS: PCP Internal Medicine; Visit Provider Physician Assistant
DX: M17.0 Bilateral primary osteoarthritis of knee (principal); M54.16 Radiculopathy, lumbar region
CPT/HCPCS: 20610; 99214

== ENCOUNTER 2023-07-30 11:51 | Outpatient (REF) | payer OTHER, SELFPAY ==
--- NOTE | ~2023-07-30 | XR_ITS ---
EXAMINATION: XR FOOT, RIGHT CLINICAL INFORMATION: Follow-up closed fracture right foot with routine healing COMPARISON: 06/05/2023 TECHNIQUE: AP, lateral, and oblique views of the right foot. FINDINGS: Redemonstration of an intra-articular fracture of the base of the distal phalanx of the first toe, stable in alignment. There has been some interval callus formation, although fracture line is still visible. Bones are diffusely demineralized. Status post fusion of the second proximal interphalangeal joint with redemonstration of hardware fracture involving the medial component of the fusion at the second middle phalanx. Mild degenerative changes of the foot with hypertrophic change at the dorsal midfoot. XR/XR foot RT min 3V IMPRESSION: 1. Redemonstration of an intra-articular fracture of the base of the distal phalanx of the first toe, stable in alignment. There has been some interval callus formation, although fracture line is still visible. 2. Status post fusion of the second proximal interphalangeal joint with redemonstration of hardware fracture involving the medial component of the fusion at the second middle phalanx.
== END 2023-07-30 11:52 | disposition home or self-care (01) ==
LOC: HO.XRAY 11:51
PROVIDERS: Absent Provider Orthopaedic Surgery; PCP Student in an Organized Health Care Education/Training Program; Visit Provider Internal Medicine
DX: S92.901D Unspecified fracture of right foot, subsequent encounter for fracture with routine healing (principal); X58.XXXD Exposure to other specified factors, subsequent encounter
CPT/HCPCS: 73630

== ENCOUNTER 2023-08-15 12:52 | Outpatient (REF) | payer OTHER, SELFPAY ==
--- NOTE | ~2023-08-15 | XR_ITS ---
EXAMINATION: XR LUMBOSACRAL SPINE WITH OBLIQUES CLINICAL INFORMATION: Allergic rhinitis COMPARISON: 12/07/2021 TECHNIQUE: AP, lateral, flexion and extension views of the lumbar spine. FINDINGS: Dextroscoliosis of the lumbar spine. Scattered surgical clips in the upper abdomen. Redemonstration of device partially imaged projecting over left pelvis with wiring extending to the L2-L3 level and additional wires extending cephalad above the upper limits of the image. Facet arthritis in the lower lumbar spine. Moderate multilevel lumbar spondylosis with moderate loss of disc space height at L4-L5 and L5-S1. Mild grade 1 anterolisthesis of L4 on L5 and L5-S1. XR/XR lumbar spine 4V min IMPRESSION: Mild grade 1 anterolisthesis of L4 on L5 and L5-S1.
== END 2023-08-15 12:53 | disposition home or self-care (01) ==
LOC: HO.HOSX 12:52
PROVIDERS: PCP Internal Medicine; Referring Provider Physician Assistant; Visit Provider Physician Assistant
DX: M54.16 Radiculopathy, lumbar region (principal); M54.50 Low back pain, unspecified
CPT/HCPCS: 72110

== ENCOUNTER 2023-08-15 12:52 | Outpatient (AMB) | payer OTHER, SELFPAY ==
--- NOTE | 2023-08-15 13:05 | HO.SPINEOV ---
Intake Intake Visit Reasons: Lumbar radiculopathy Intake Note: Mrs. Hilario is here today c/o low back pain. NO MRI due to SCS. 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 Allergies almond [ALMOND] Allergy (Intermediate, Verified 06/19/23 10:03) NUMBNESS MOUTH, ITCHY EYES amoxicillin [AMOXICILLIN] Allergy (Intermediate, Verified 06/19/23 10:03) HIVES penicillin V Allergy (Intermediate, Verified 06/19/23 10:03) rash apple [APPLE] Allergy (Mild, Verified 06/19/23 10:03) ITCHY EYES peach [PEACHES] Allergy (Mild, Verified 06/19/23 10:03) ITCHY EYES plum [PLUMS] Allergy (Mild, Verified 06/19/23 10:03) ITCHY EYES carrot Allergy (Unknown, Verified 06/19/23 10:03) Unknown pear [PEAR] Adverse Reaction (Mild, Verified 06/19/23 10:03) ITCHY EYES NECTARINES Allergy (Mild, Uncoded 05/16/23 13:30) ITCHY EYES Assessment & Plan Assessment & Plan (1) Lumbar radiculopathy: Code(s): M54.16 - Radiculopathy, lumbar region Plan Dear colleague, Thank you for referring Genny to our office today. She is a pleasant 62-year-old female comes in today with a chief complaint of chronic low back pain which is worsened gradually over the course of the last 4 months. When describing her pain she wants her hands across her low to each side of her hip. She states that she has a long history of treatment for her low back, including 3 different spinal cord stimulator placements over the course of the last 5-10 years, and an L4-[address] De Souza at [facility] roughly 5 years ago. She reports that her spinal cord stimulators have helped her intermittently over the years, but always seems to fail or stop working shortly after she begins getting relief. She reports that her pain is aggravated by standing / walking and alleviated by lying down or sitting with a pillow behind her back. She describes her pain as slow in onset, with no inciting incident. She has tried many different medication based remedies to alleviate her pain, including ibuprofen, Tylenol, ice, heat, and [id number] pain patches. She also has attempted an at home exercise program with stretching exercises for the past 2 months. This aggravated her symptoms and did not help her at all. She currently takes Lyrica for her diffuse low back pain alongside diclofenac. Of note she also has bilateral knee pain which she feels is a separate issue that she developed alongside her low back pain over the years. PMH: Right wrist surgery, left rotator cuff surgery, cholecystectomy, seasonal allergies, bilateral knee pain, fibromyalgia, vitamin-D deficiency, osteopenia, eczema, cataracts, spinal cord stimulator placement x 3. Social hx: Patient does not smoke, reports no substance use. Medications: bisacodyl, vitamin D3, diclofenac, fluticasone, furosemide, Myrbetriq, montelukast, polyethylene glycol, Lyrica, valacyclovir, Ambien. Allergies: Almonds, apples, peaches, plums, carrots, pears, nectarines, amoxicillin, penicillin. Physical exam: 4/5 strength in left-sided dorsiflexion, 4/5 strength in left-sided EHL. Patient attributes this to weakness and does not report pain when attempting to engage these muscles. Rest of strength testing exam is normal. Hypersensitivity to pain on the right side over the right anterior tibialis, including extreme pain elicited even to light touch. Rest of sensory exam is unremarkable. Reflexes 2+ and intact bilaterally in UE / LE. (-) Aguila's, (-) Babinski's. Imaging review: XR of the lumbar spine shows a grade 1 spondylolithesis at L5-S1, with disc space narrowing between L4-5, L5-1 and end plate contact between L4-5 with extension. Difficult to assess to what extent the nerves are impinged without further imaging. Impression: Genny is a pleasant 62-year-old female who comes in today with a chief complaint of longstanding axial low back pain which is accompanied by some sensation changes and weakness. She also has a story that is classic for neurogenic claudication, reporting that she cannot even complete her grocery shopping or walk to and from her car without needing assistance or to stop and sit down. There is concern for potential impingement over the L4/L5 exiting nerve root(s) on the right side given her extreme pain response to even light touch over the anterior tibialis. There is also concern for central canal stenosis given the noted spondylolisthesis at L5-S1, and the degenerative disc spaces described above. Further, there is concern for impingement of the L5 nerve root on the left side given the patient has weakness of her left-sided EHL and with dorsiflexion. Unfortunately Genny cannot have an MRI completed due to her spinal cord stimulator. At this time we would like to have a CT myelogram completed in order to better assess the central canal the lumbar spine, and the exiting nerve roots at L4/L5. We will contact the patient discussed results after she completes her imaging. Thank you for allowing us to care for your patient. The total time spent with this visit with this patient was 60 minutes reviewing history, physical exam, XR lumbar spine imaging review, and implementation of treatment plan or further diagnostic testing Darius Collado MD,PhD [facility] Orders: Orders [place] myelogram spine lumbosacral Today M54.16 - Radiculopathy, lumbar region, M54.50 - Low back pain, unspecified CT lumbar spine wo IV con Today M54.16 - Radiculopathy, lumbar region, M54.50 - Low back pain, unspecified XR lumbar spine 4V min Today J30.9 - Allergic rhinitis, unspecified, M54.50 - Low back pain, unspecified Coding Level of Care Code New Pt Level 5 (82858) Diagnoses Lumbar radiculopathy M54.16
== END 2023-08-15 13:40 | disposition home or self-care (01) ==
PROVIDERS: PCP Internal Medicine; Referring Provider Physician Assistant; Visit Provider Physician Assistant
DX: M54.16 Radiculopathy, lumbar region (principal)
CPT/HCPCS: 99205

== ENCOUNTER 2023-08-21 09:05 | Outpatient (AMB) | payer OTHER, SELFPAY ==
[2023-08-21 09:08] VITALS: BMI 35.7
--- NOTE | 2023-08-21 09:08 | A.OFFVIS_ITS ---
Intake Vital Signs 08/21/23 09:08 Height 5 ft 4 in Weight 208 lb BMI 35.7 Intake Visit Reasons: OV - Bilateral Euflexxa Gel Inj #1 Intake Note: Genny is a 62 year old female who presents today for bilateral euflexxa knee gel injection. Allergies almond [ALMOND] Allergy (Intermediate, Verified 08/21/23 09:09) NUMBNESS MOUTH, ITCHY EYES amoxicillin [AMOXICILLIN] Allergy (Intermediate, Verified 08/21/23 09:09) HIVES penicillin V Allergy (Intermediate, Verified 08/21/23 09:09) rash apple [APPLE] Allergy (Mild, Verified 08/21/23 09:09) ITCHY EYES peach [PEACHES] Allergy (Mild, Verified 08/21/23 09:09) ITCHY EYES plum [PLUMS] Allergy (Mild, Verified 08/21/23 09:09) ITCHY EYES carrot Allergy (Unknown, Verified 08/21/23 09:09) Unknown pear [PEAR] Adverse Reaction (Mild, Verified 08/21/23 09:09) ITCHY EYES NECTARINES Allergy (Mild, Uncoded 05/16/23 13:30) ITCHY EYES HPI OV - Bilateral Euflexxa Gel Inj #1 HPI Details 62-year-old female who presents in the [facility] today for a follow up of bilateral knee pain. She presents for her 1st Euflexxa injection in a series of 3 in the bilateral knees. She reports constant pain from her lumbar spine. She states she was unable to get the CT scan. She was able to obtained a lumbar spine x-ray on 08/15/2023. She confirms participating in physical therapy and has attended 2 sessions. [facility] Medical History Asthma Cataract Complex regional pain syndrome of both lower extremities Difficulty in walking involving lower leg joint Environmental allergies GERD (gastroesophageal reflux disease) Lipedema Malabsorption due to intolerance, not elsewhere classified Neuropathic arthropathy Obesity (BMI 30-39.9) Obesity (BMI 30.0-34.9) Osteoarthritis of knees, bilateral Overweight (BMI 25.0-29.9) Postlaminectomy syndrome Radiculitis of right cervical region Restless leg syndrome Spinal cord stimulator dysfunction Spinal cord stimulator status Urinary incontinence Surgical History History of eye surgery History of surgery on right wrist History of toe surgery Hx laparoscopic cholecystectomy Hx of section Hx of colonoscopy with polypectomy Hx of construction of artificial vagina Hx of rotator cuff surgery Hx of spinal surgery S/P laparoscopic sleeve gastrectomy Family History Father CVD (cardiovascular disease) Mother Asthma Brother Lung cancer Brother No problems noted. Brother No problems noted. Brother No problems noted. Brother No problems noted. Brother No problems noted. Son No problems noted. Daughter No problems noted. Social History Housing: House Alcohol intake: never Patient Tobacco Use Status: Never used Tobacco e-Cigarette/Vaping Use: Never Used Advance Directives Date on File: 08/24/21 service: No Current occupational status: employed Cognitive needs: No Hearing needs: No Vision needs: Yes Review of Systems Const All systems reviewed & are unremarkable except as noted in HPI and below Physical Exam Vital Signs: BMI result Body Mass Index 35.7 Const General: cooperative, healthy appearing and no acute distress Resp Effort & Inspection: normal respiratory effort and able to speak in complete sentences Cardio Rate: regular rate Peripheral pulses: Peripheral pulses 2+ throughout GI Palpation (GI): Soft to palpation Skin Lesions: no lesions Rashes: no rashes Extrem Other: Bilateral knees: Normal to inspection. No ecchymosis, erythema, or joint effusion. No tenderness to palpation to the medial or lateral joint lines. Full knee extension and flexion. Crepitus felt with ROM. NVI. Office Procedures Joint Injection/Drain Joint Injection/Drain Primary Site: right knee Secondary Site: left knee Prep: site was prepped using aseptic technique, ethochloride spray was applied and injection warnings given Injected: in the joint (Euflexxa #1) Approach Used: anterolateral Procedure: The patient tolerated the procedure well, but had some pain with the injection and there was some relief with the local anesthesia Coding 24392 - Large joint Procedure code (CPT) selection complete Results Reviewed Results Reviewed: 08/21/23 09:06 Hyaluronate Sodium [Euflexxa] 20 mg INTRAARTIC .STK-MED ONE Assessment & Plan Assessment & Plan (1) Osteoarthritis of left knee: Code(s): M17.12 - Unilateral primary osteoarthritis, left knee Qualifiers: Osteoarthritis type: unspecified Qualified Code(s): M17.12 - Unilateral primary osteoarthritis, left knee (2) Osteoarthritis of right knee: Code(s): M17.11 - Unilateral primary osteoarthritis, right knee Qualifiers: Osteoarthritis type: unspecified Qualified Code(s): M17.11 - Unilateral primary osteoarthritis, right knee Plan Ms. Hilario is a 62-year-old female who presents in the office today for a follow up of bilateral knee pain. She presents for her 1st Euflexxa injection in a series of 3 in the bilateral knees. She reports constant pain from her lumbar spine. She states she was unable to get the CT scan. She was able to obtained a lumbar spine x-ray on 08/15/2023. She confirms participating in physical therapy and has attended 2 sessions. The patient was injection with her 1st Euflexxa injection in the bilateral knees. The patient was explained the risk, benefits, and alternatives to receiving this injection. After receiving consent for the injection, the patient had the procedure done while in office today. The patient tolerated the procedure well with no complications. I will follow up with Darius about following up with the patient about her x-ray results and possible treatments. Follow up will be in 1 week for her 2nd Euflexxa injection, or sooner if needed. Patient Instructions: Scribed for Nasrin Cox PA-C by Ivette Enrique medical information officer, on 08/21/2023 at 9:10 am, EST. Coding Level of Care Code Procedure Only Diagnoses Osteoarthritis of left knee, unspecified osteoarthritis type M17.12 Osteoarthritis type: unspecified Osteoarthritis of right knee, unspecified osteoarthritis type M17.11 Osteoarthritis type: unspecified CPT Codes Coding - 96386 Large joint: 62250 - Large joint ([id number])
== END 2023-08-21 09:55 | disposition home or self-care (01) ==
PROVIDERS: PCP Internal Medicine; Visit Provider Physician Assistant
DX: M17.0 Bilateral primary osteoarthritis of knee (principal)
CPT/HCPCS: 20610

== ENCOUNTER → 2023-08-21 09:05 | Outpatient (BNVA) | payer OTHER, SELFPAY | PROVIDERS: PCP Internal Medicine; Visit Provider Physician Assistant | DX: M17.0 Bilateral primary osteoarthritis of knee (principal); G90.523 Complex regional pain syndrome I of lower limb, bilateral; M54.50 Low back pain, unspecified; M54.16 Radiculopathy, lumbar region; M96.1 Postlaminectomy syndrome, not elsewhere classified; T85.695A Other mechanical complication of other nervous system device, implant or graft, initial encounter; Z96.82 Presence of neurostimulator | CPT/HCPCS: 20610; J7323 ==

== ENCOUNTER 2023-08-22 15:06 | Outpatient (REF) | payer OTHER, SELFPAY | END 2023-08-22 15:07 | disposition home or self-care (01) | LOC: HO.CT 15:06 | PROVIDERS: Absent Provider Physician Assistant; PCP Internal Medicine; Visit Provider Physician Assistant | DX: Z13.89 Encounter for screening for other disorder (principal) ==

== ENCOUNTER 2023-08-28 09:03 | Outpatient (AMB) | payer OTHER, SELFPAY ==
--- NOTE | 2023-08-28 09:13 | MHC.OFFVIS ---
Intake Vital Signs 08/28/23 09:14 Height 5 ft 4 in Weight 208 lb BMI 35.7 Intake Visit Reasons: OV - Bilateral Euflexxa Gel Inj #2 Intake Note: Genny is a 62 year old female who presents today for her second bilateral euflexxa knee gel injection. Allergies almond [ALMOND] Allergy (Intermediate, Verified 08/28/23 09:14) NUMBNESS MOUTH, ITCHY EYES amoxicillin [AMOXICILLIN] Allergy (Intermediate, Verified 08/28/23 09:14) HIVES penicillin V Allergy (Intermediate, Verified 08/28/23 09:14) rash apple [APPLE] Allergy (Mild, Verified 08/28/23 09:14) ITCHY EYES peach [PEACHES] Allergy (Mild, Verified 08/28/23 09:14) ITCHY EYES plum [PLUMS] Allergy (Mild, Verified 08/28/23 09:14) ITCHY EYES carrot Allergy (Unknown, Verified 08/28/23 09:14) Unknown pear [PEAR] Adverse Reaction (Mild, Verified 08/28/23 09:14) ITCHY EYES NECTARINES Allergy (Mild, Uncoded 05/16/23 13:30) ITCHY EYES HPI OV - Bilateral Euflexxa Gel Inj #2 HPI Details 62-year-old female who presents in the office today for a follow up of bilateral knee pain and for her 2nd Euflexxa injection in a series of 3 in the bilateral knees. [facility] Medical History Asthma Cataract Complex regional pain syndrome of both lower extremities Difficulty in walking involving lower leg joint Environmental allergies GERD (gastroesophageal reflux disease) Lipedema Malabsorption due to intolerance, not elsewhere classified Neuropathic arthropathy Obesity (BMI 30-39.9) Obesity (BMI 30.0-34.9) Osteoarthritis of knees, bilateral Overweight (BMI 25.0-29.9) Postlaminectomy syndrome Radiculitis of right cervical region Restless leg syndrome Spinal cord stimulator dysfunction Spinal cord stimulator status Urinary incontinence Surgical History History of eye surgery History of surgery on right wrist History of toe surgery Hx laparoscopic cholecystectomy Hx of section Hx of colonoscopy with polypectomy Hx of construction of artificial vagina Hx of rotator cuff surgery Hx of spinal surgery S/P laparoscopic sleeve gastrectomy Family History Father CVD (cardiovascular disease) Mother Asthma Brother Lung cancer Brother No problems noted. Brother No problems noted. Brother No problems noted. Brother No problems noted. Brother No problems noted. Son No problems noted. Daughter No problems noted. Social History Housing: House Alcohol intake: never Patient Tobacco Use Status: Never used Tobacco e-Cigarette/Vaping Use: Never Used Advance Directives Date on File: 08/24/21 service: No Current occupational status: employed Cognitive needs: No Hearing needs: No Vision needs: Yes Review of Systems Const All systems reviewed & are unremarkable except as noted in HPI and below Physical Exam Vital Signs: BMI result Body Mass Index 35.7 Const General: cooperative, healthy appearing and no acute distress Resp Effort & Inspection: normal respiratory effort and able to speak in complete sentences Cardio Rate: regular rate Peripheral pulses: Peripheral pulses 2+ throughout GI Palpation (GI): Soft to palpation Skin Lesions: no lesions Rashes: no rashes Extrem Other: Bilateral knees: Normal to inspection. No ecchymosis, erythema, or joint effusion. No tenderness to palpation to the medial or lateral joint lines. Full knee extension and flexion. Crepitus felt with ROM. NVI. Office Procedures Joint Injection/Drain Joint Injection/Drain Primary Site: right knee Secondary Site: left knee Prep: site was prepped using aseptic technique, ethochloride spray was applied and injection warnings given Injected: in the joint (Euflexxa #2) Approach Used: anterolateral Procedure: The patient tolerated the procedure well, but had some pain with the injection and there was some relief with the local anesthesia Coding 99977 - Large joint Procedure code (CPT) selection complete Results Reviewed Results Reviewed: 08/28/23 09:10 Hyaluronate Sodium [Euflexxa] 20 mg INTRAARTIC .STK-MED ONE Assessment & Plan Assessment & Plan (1) Osteoarthritis of left knee: Code(s): M17.12 - Unilateral primary osteoarthritis, left knee Qualifiers: Osteoarthritis type: unspecified Qualified Code(s): M17.12 - Unilateral primary osteoarthritis, left knee (2) Osteoarthritis of right knee: Code(s): M17.11 - Unilateral primary osteoarthritis, right knee Qualifiers: Osteoarthritis type: unspecified Qualified Code(s): M17.11 - Unilateral primary osteoarthritis, right knee Plan Ms. Hilario is a 62-year-old female who presents in the office today for a follow up of bilateral knee pain and for her 2nd Euflexxa injection in a series of 3 in the bilateral knees. The patient was injection with her 2nd Euflexxa injection in the bilateral knees. The patient was explained the risk, benefits, and alternatives to receiving this injection. After receiving consent for the injection, the patient had the procedure done while in office today. The patient tolerated the procedure well with no complications. Follow up will be in 1 week for her 3rd Euflexxa injection, or sooner if needed. Patient Instructions: Scribed for Nasrin Cox PA-C by Ivette Enrique medical sales associate, on 08/28/2023 at 9:08 am, EST. Coding Level of Care Code Procedure Only Diagnoses Osteoarthritis of left knee, unspecified osteoarthritis type M17.12 Osteoarthritis type: unspecified Osteoarthritis of right knee, unspecified osteoarthritis type M17.11 Osteoarthritis type: unspecified CPT Codes Coding - 28653 Large joint: 13476 - Large joint ([id number])
[2023-08-28 09:14] VITALS: BMI 35.7
== END 2023-08-28 09:32 | disposition home or self-care (01) ==
PROVIDERS: PCP Internal Medicine; Visit Provider Physician Assistant
DX: M17.0 Bilateral primary osteoarthritis of knee (principal)
CPT/HCPCS: 20610

== ENCOUNTER → 2023-08-28 09:03 | Outpatient (BNVA) | payer OTHER, SELFPAY | PROVIDERS: PCP Internal Medicine; Visit Provider Physician Assistant | DX: M17.0 Bilateral primary osteoarthritis of knee (principal); M54.50 Low back pain, unspecified; M54.16 Radiculopathy, lumbar region; Z96.82 Presence of neurostimulator | CPT/HCPCS: 20610; J7323 ==

== ENCOUNTER 2023-09-04 13:42 | Outpatient (AMB) | payer OTHER, SELFPAY ==
--- NOTE | 2023-09-04 13:50 | A.OFFVIS_ITS ---
Intake Vital Signs 09/04/23 13:51 Height 5 ft 4 in Weight 208 lb BMI 35.7 Intake Visit Reasons: OV - Bilateral Euflexxa Gel Inj #3 Intake Note: Genny brewster 62 year old female presents today for bilateral knee Euflexxa injection #3. Allergies almond [ALMOND] Allergy (Intermediate, Verified 09/04/23 13:51) NUMBNESS MOUTH, ITCHY EYES amoxicillin [AMOXICILLIN] Allergy (Intermediate, Verified 09/04/23 13:51) HIVES penicillin V Allergy (Intermediate, Verified 09/04/23 13:51) rash apple [APPLE] Allergy (Mild, Verified 09/04/23 13:51) ITCHY EYES peach [PEACHES] Allergy (Mild, Verified 09/04/23 13:51) ITCHY EYES plum [PLUMS] Allergy (Mild, Verified 09/04/23 13:51) ITCHY EYES carrot Allergy (Unknown, Verified 09/04/23 13:51) Unknown pear [PEAR] Adverse Reaction (Mild, Verified 09/04/23 13:51) ITCHY EYES NECTARINES Allergy (Mild, Uncoded 09/04/23 13:51) ITCHY EYES HPI OV - Bilateral Euflexxa Gel Inj #3 HPI Details 62-year-old female who presents in the o ffice today for a follow up of bilateral knees and for her 3rd Euflexxa injection in a series of 3. [facility] [place] Medical History Asthma Cataract Complex regional pain syndrome of both lower extremities Difficulty in walking involving lower leg joint Environmental allergies GERD (gastroesophageal reflux disease) Lipedema Malabsorption due to intolerance, not elsewhere classified Neuropathic arthropathy Obesity (BMI 30-39.9) Obesity (BMI 30.0-34.9) Osteoarthritis of knees, bilateral Overweight (BMI 25.0-29.9) Postlaminectomy syndrome Radiculitis of right cervical region Restless leg syndrome Spinal cord stimulator dysfunction Spinal cord stimulator status Urinary incontinence Surgical History History of surgery on right wrist History of eye surgery S/P laparoscopic sleeve gastrectomy History of toe surgery Hx of spinal surgery Hx of rotator cuff surgery Hx of section Hx of construction of artificial vagina Hx laparoscopic cholecystectomy Hx of colonoscopy with polypectomy Family History Father CVD (cardiovascular disease) Mother Asthma Brother Lung cancer Brother No problems noted. Brother No problems noted. Brother No problems noted. Brother No problems noted. Brother No problems noted. Son No problems noted. Daughter No problems noted. Social History Housing: House Alcohol intake: never Patient Tobacco Use Status: Never used Tobacco e-Cigarette/Vaping Use: Never Used Advance Directives Date on File: 08/24/21 service: No Current occupational status: employed Cognitive needs: No Hearing needs: No Vision needs: Yes Review of Systems Const All systems reviewed & are unremarkable except as noted in HPI and below Physical Exam Vital Signs: BMI result Body Mass Index 35.7 Const General: cooperative, healthy appearing and no acute distress Resp Effort & Inspection: normal respiratory effort and able to speak in complete sentences Cardio Rate: regular rate Peripheral pulses: Peripheral pulses 2+ throughout GI Palpation (GI): Soft to palpation Skin Lesions: no lesions Rashes: no rashes Extrem Other: Bilateral knees: Normal to inspection. No ecchymosis, erythema, or joint effusion. No tenderness to palpation to the medial or lateral joint lines. Full knee extension and flexion. Crepitus felt with ROM. NVI. Office Procedures Joint Injection/Drain Joint Injection/Drain Primary Site: left knee Secondary Site: right knee Prep: site was prepped using aseptic technique, ethochloride spray was applied and injection warnings given Injected: in the joint (Euflexxa #3) Approach Used: anterolateral Procedure: The patient tolerated the procedure well, but had some pain with the injection and there was some relief with the local anesthesia Coding 49751 - Large joint Procedure code (CPT) selection complete Assessment & Plan Assessment & Plan (1) Osteoarthritis of left knee: Code(s): M17.12 - Unilateral primary osteoarthritis, left knee Qualifiers: Osteoarthritis type: unspecified Qualified Code(s): M17.12 - Unilateral primary osteoarthritis, left knee (2) Osteoarthritis of right knee: Code(s): M17.11 - Unilateral primary osteoarthritis, right knee Qualifiers: Osteoarthritis type: unspecified Qualified Code(s): M17.11 - Unilateral primary osteoarthritis, right knee Plan Ms. Hilario is a 62-year-old female who presents in the office today for a follow up of bilateral knees and for her 3rd Euflexxa injection in a series of 3. The patient was injection with her 3rd Euflexxa injection in the bilateral knees. The patient was explained the risk, benefits, and alternatives to receiving this injection. After receiving consent for the injection, the patient had the procedure done while in office today. The patient tolerated the procedure well with no complications. Follow up will be PRN, or sooner if needed. Patient Instructions: Scribed for Nasrin Cox PA-C by Ivette Enrique medical collections, on 09/04/2023 at 1:49 pm, EST. Coding Level of Care Code Procedure Only Diagnoses Osteoarthritis of left knee, unspecified osteoarthritis type M17.12 Osteoarthritis type: unspecified Osteoarthritis of right knee, unspecified osteoarthritis type M17.11 Osteoarthritis type: unspecified CPT Codes Coding - 87168 Large joint: 57867 - Large joint ([id number])
[2023-09-04 13:51] VITALS: BMI 35.7
== END 2023-09-04 14:05 | disposition home or self-care (01) ==
PROVIDERS: PCP Internal Medicine; Visit Provider Physician Assistant
DX: M17.0 Bilateral primary osteoarthritis of knee (principal)
CPT/HCPCS: 20610

== ENCOUNTER → 2023-09-04 13:42 | Outpatient (BNVA) | payer OTHER, SELFPAY | PROVIDERS: PCP Internal Medicine; Visit Provider Physician Assistant | DX: M17.0 Bilateral primary osteoarthritis of knee (principal); M54.16 Radiculopathy, lumbar region; M54.50 Low back pain, unspecified; Z96.82 Presence of neurostimulator; Z79.899 Other long term (current) drug therapy | CPT/HCPCS: 20610; J7323 ==

== ENCOUNTER 2023-09-05 08:00 | Outpatient (RCR) | payer OTHER, SELFPAY ==
--- NOTE | 2023-08-15 13:11 | MHC.PT.EP ---
[facility] [place] Office [place] Office [place] Office [address] [phone] F: [phone] F: [phone] F: [phone] F: [phone] Physical Therapy Plan of Care Date of Evaluation: 08/15/23 Date of Surgery: NA Diagnosis: LUMBAR RADICULOPATHY Assessment: Pt IS 62 YO F REFERRED TO PT FROM [facility]) WITH LUMBAR RADICULOPATHY. Pt WITH CHRONIC PAIN AND HAS HAD PT IN PAST. PRESENTS WITH POOR GT PATTERN, DECREASED CORE AND LE STRENGTH . Pt WITH CHRONIC PAIN AND HAS HAD MULTIPLE BOUTS OF PT IN PAST WITH SOME RELIEF. IS FOLLOWED BY MULTIPLE HEALTH CARE PROVIDERS. MAY BENEFIT FROM PT TO ADDRESS STRENGTH AND FLEXIBILITY DEFICITS Frequency and Duration: The patient will be seen 2X/WK X 6 WKS Short Term Goals: 1. INCREASED AWARENESS POSTURE AND BACK CARE 2. Pt TO PERF 2-3 TASKS WITH PROPER BODY MECH 3. CENTRALIZE SXS Longterm Goals: 1. I HEP WITH DC EX PLAN 2. DECREASED BACK PAIN AT LEAST 50% WITH ADLS Treatment Plan: Modalities to reduce pain, spasms and effusion. Manual therapy to restore motion and function. Therapeutic exercise to improve strength and flexibility. Neuromuscular re-education for posture and balance. Therapeutic activities to return to functional activities of daily living. Electronically signed by: SRINIVAS YOUSSEF PT Please sign and return to therapist. Thank you for your referral.
--- NOTE | 2023-09-05 10:59 | MHC.PT.DC ---
[facility] Call Office [place] Office [place] Office [address] Stefanie Welch [address] [phone] F: [phone] F: [phone] F: [phone] F: [phone] Physical Therapy Discharge Report Diagnosis: LUMBAR RADICULOPATHY Date of Surgery: NA Date of Evaluation: 08/15/23 Date of Discharge: 09/05/23 Treatments to Date: 7 Cancellations to Date: No Shows to Date: Discharge Status: Patient Elected to Stop Recommend MD Follow-up Discharge Summary: Genny has been a highly motivated participant in her therapy in the clinic with home program compliance who unfortunately wishes today to be her last session as she feels she is worse at times performing exercises and has not improved her symptoms PT is in agreement d/t poor progress at this time. She persists with decreased tolerance for walking, standing for duration, Lifting objects from the floor, heavy HH chores, squatting activities, as well as continued disturbed sleep d/t continued LBP, R LE pain complicated by B R > L knee OA pain. She is scheduled for CT imaging next week for next steps. Electronically signed by: Joaquin Alvarez PT. Please sign and return to therapist. Thank you for your referral.
== END 2023-09-05 11:00 | disposition home or self-care (01) ==
LOC: HO.PT 08:00
PROVIDERS: PCP Internal Medicine; Visit Provider Physician Assistant
DX: M54.16 Radiculopathy, lumbar region (principal)
CPT/HCPCS: 97110; 97116; 97140; 97162; 97535

== ENCOUNTER 2023-09-10 | Outpatient (REF) | payer OTHER, SELFPAY ==
--- NOTE | ~2023-09-10 | CT_ITS ---
EXAMINATION: CT LUMBAR SPINE WITHOUT CONTRAST CLINICAL INFORMATION: Radiculopathy, lumbar region. COMPARISON: Lumbar spine radiographs on 06/01/2021. TECHNIQUE: Multidetector CT acquisitions of the lumbar spine were obtained after administration of intrathecal contrast. Multiplanar reformats were acquired and utilized for image interpretation. This CT examination was performed using dose optimization techniques as appropriate, variously including the following: *Automated exposure control *Adjustment of mA and/or kV according to patient size (this includes techniques or standardized protocols for targeted exams where dose is matched to indication/reason for exam; i.e. extremities or head) *Use of iterative reconstruction technique DLP; 1302 mGy-cm FINDINGS: Mild dextrocurvature of the lumbar spine. Preservation of the normal lumbar lordosis. Grade 1 anterolisthesis at L5-S1 and trace retrolisthesis at L3-L4. The vertebral body heights are preserved. No acute fracture or listhesis. Vacuum disc phenomenon at L4-L5 and L5-S1. Neurostimulator in place, terminating within the thecal sac at the level of L2-L3. T12-L1: Dense contrast is seen surrounding the spinal cord. No significant spinal canal or neural foraminal narrowing. L1-L2: Dense contrast is seen surrounding the conus medullaris and cauda equina nerve roots. No significant spinal canal or neural foraminal narrowing. L2-L3: Dense contrast is seen surrounding the cauda equina nerve roots. No significant spinal canal or neural foraminal narrowing. L3-L4: Less dense contrast is seen surrounding the cauda equina nerve roots. There is ligamentum flavum hypertrophy and bilateral facet arthrosis causing [id number]-fq-ntyxepvn spinal canal stenosis. No significant neural foraminal narrowing. L4-L5: There is contrast seen surrounding the cauda equina nerve roots. No significant spinal canal or neural foraminal narrowing. L5-S1: Dense contrast is seen surrounding the cauda equina nerve roots. No significant spinal canal or neural foraminal narrowing. The paravertebral soft tissues are unremarkable. Postsurgical changes at the gastroesophageal junction. CT/CT lumbar spine wo IV con IMPRESSION: Lzop-fv-kclynyxu spinal canal stenosis at L3-L4 without evidence of significant blockage of contrast passage through this level.
== END 2023-09-10 00:01 | disposition home or self-care (01) ==
LOC: HO.CT
PROVIDERS: PCP Internal Medicine; Visit Provider Physician Assistant
DX: M54.16 Radiculopathy, lumbar region (principal); M54.50 Low back pain, unspecified
CPT/HCPCS: 72131

== ENCOUNTER 2023-09-10 11:27 | Day surgery (SDC) | payer OTHER, SELFPAY ==
--- NOTE | ~2023-09-10 | FL_ITS ---
Fluoroscopic lumbar myelogram Indication: Lower extremity paresthesias. Status post spinal stimulator Risks and benefits and possible complications were discussed with the patient and the consent form was signed. Patient was placed prone on the fluoroscopy table. The back was prepped and draped in routine sterile fashion. Betadine was used as a skin antiseptic. Utilizing fluoroscopic guidance, the L5-S1 level was accessed with a 22 gauge quinkie spinal needle and clear CSF fluid was obtained. 10 mL of Isovue-M 200 was then injected through the needle. Contrast was observed in the thecal sac. The needle was removed without immediate complications. Patient was then removed from the table. Sterile dressings applied. Patient was then sent for CT myelogram images. Total fluoroscopy time: 1 minute 41 seconds FL/FL myelogram spine lumbosacral Impression: Fluoroscopic lumbar myelogram This procedure was performed by Don Neville PA-C and supervised by Dr. Mckinney.
[2023-09-10 11:55] VITALS: BMI 36.7
[2023-09-10 12:05] LABS: MANUAL DIFF FLAG NO
[2023-09-10 12:10] LABS: Basophils Absolute Auto 0.1 X10*3/uL (0.0-0.2); Eosinophils Absolute Auto 0.1 X10*3/uL (0.0-0.4); Hematocrit 44.1 % (37.0-47.0); Hemoglobin 14.3 g/dl (12.0-16.0); Imm Gran Abs Auto 0.02 X10*3/uL (0.00-0.03); Imm Gran Pct Auto 0.3 % (0.0-0.4); Lymphocytes Absolute Auto 2.4 X10*3/uL (1.2-4.9); Lymphocytes Percent Auto 33.6 % (20-40); Mean Corpuscular HGB Conc 32.4 g/dl (31.0-35.0); Mean Corpuscular Hemoglobin 28.8 pg (27.0-33.0); Mean Corpuscular Volume 88.9 fL (80.0-98.0); Mean Platelet Volume 10.9 fL (9.4-12.3); Monocytes Absolute Auto 0.5 X10*3/uL (0.1-1.2); Monocytes Percent Auto 6.9 % (2-11); Neutrophils Percent Auto 57.2 % (45-73); Platelet Count 183 X10*3/uL (160-400); Red Blood Count 4.96 X10*6/uL (4.20-5.50); Red Cell Distribution Width 12.7 % (11.0-16.0)
[2023-09-10 12:13] LABS: INTERNATIONAL NORM RATIO 0.9 (0.9-1.1); Prothrombin Time 10.8 SEC (11.1-13.3)
[2023-09-10 12:16] LABS: Partial Thromboplastin Time 29.8 SEC (26.0-36.4)
[2023-09-10 14:15] VITALS: BP 129/71; PULSE 82; RESP 16; TEMP 36.5; O2SAT 100
== END 2023-09-10 14:35 | disposition home or self-care (01) ==
PROVIDERS: Physician Assistant Surgical; Student in an Organized Health Care Education/Training Program; PCP Student in an Organized Health Care Education/Training Program; Visit Provider Physician Assistant
DX: M54.16 Radiculopathy, lumbar region (principal); G89.29 Other chronic pain; M54.50 Low back pain, unspecified; Z96.82 Presence of neurostimulator; M79.7 Fibromyalgia; R26.2 Difficulty in walking, not elsewhere classified; M25.562 Pain in left knee; M25.561 Pain in right knee; J30.9 Allergic rhinitis, unspecified; M85.80 Other specified disorders of bone density and structure, unspecified site; E55.9 Vitamin D deficiency, unspecified; L30.9 Dermatitis, unspecified; Z79.51 Long term (current) use of inhaled steroids; Z79.899 Other long term (current) drug therapy; Z88.0 Allergy status to penicillin; Z88.1 Allergy status to other antibiotic agents; Z98.890 Other specified postprocedural states; Z90.49 Acquired absence of other specified parts of digestive tract
CPT/HCPCS: 36415; 62304; 85025; 85610; 85730; Q9967

== ENCOUNTER → 2023-09-10 13:00 | Outpatient (BNV) | payer OTHER, SELFPAY | PROVIDERS: PCP Student in an Organized Health Care Education/Training Program; Visit Provider Radiology Diagnostic Radiology | DX: R20.2 Paresthesia of skin (principal) | CPT/HCPCS: 62304 ==

== ENCOUNTER 2023-09-17 10:48 | Outpatient (AMB) | payer OTHER, SELFPAY ==
--- NOTE | 2023-09-17 11:06 | A.SPINEOV_ITS ---
Intake Intake Visit Reasons: CT Scan follow up Intake Note: Mrs. Hilario is here today to discuss the result of her CT Scan. Data Management Associate Required: No Allergies almond [ALMOND] Allergy (Intermediate, Verified 09/10/23 11:59) NUMBNESS MOUTH, ITCHY EYES amoxicillin [AMOXICILLIN] Allergy (Intermediate, Verified 09/10/23 11:59) HIVES penicillin V Allergy (Intermediate, Verified 09/10/23 11:59) rash apple [APPLE] Allergy (Mild, Verified 09/10/23 11:59) ITCHY EYES peach [PEACHES] Allergy (Mild, Verified 09/10/23 11:59) ITCHY EYES plum [PLUMS] Allergy (Mild, Verified 09/10/23 11:59) ITCHY EYES carrot Allergy (Unknown, Verified 09/10/23 11:59) Unknown pear [PEAR] Adverse Reaction (Mild, Verified 09/10/23 11:59) ITCHY EYES NECTARINES Allergy (Mild, Uncoded 09/10/23 11:59) ITCHY EYES Assessment & Plan Assessment & Plan (1) Lumbago: Code(s): M54.50 - Low back pain, unspecified Plan Genny is a pleasant 62-year-old female who comes in today as a follow-up after being seen in our office for low back pain with pain/weakness below her bilateral knees. She reports that the pain/weakness she previously discussed at her last visit persists and has caused her to now ambulate with the use of the 4 pronged cane. Of note she has been getting bilateral knee injections from [facility] orthopedics for knee osteoarthritis. She had her last injections on 09/04/2023. She reports some modest improvement with her knee injections, but still feels as though it is difficult for her to ambulate. Thankfully we were able to get her CT myelogram approved after her x-ray imaging was completed during her previous visit. We reviewed her imaging in depth during this visit and discussed the findings. CT myelogram was reviewed with attending neurosurgeon Dr. Collado. No singificant lumbar stenosis or central canal impingement noted. Contrast flows through the thecal sac with mild / minimal decreased flow at L3-4. Overall the CT myelogram is unremarkable from a neurosurgical standpoint. There is some decreased flow of contrast at L3-4 but no significant impinement of the central canal is noted, which is likely an indication of mild stenosis not warranting a surgical intervention at this time. It is our recommendation that she continue to follow up with orthopedics for bilateral knee injections and or consider total knee arthroplasty if she is a candidate as mentioned in previous documentation by pain management. If her ambulation difficulties are addressed this may help resolve her persistent lumbago that persists despite her spinal cord stimulation placement. She may also want to consider re-evaluation by Dr. Mathew from pain management, as he has had reported success readjusting her spinal cord stimulator in the past. Total amount of time spent in this visit was 35 minutes in discussion of symptoms, CT Myelogram imaging results, and subsequent plan of care. Darius Collado MD,PhD [facility] Coding Level of Care Code Est Pt Level 4 (24491) Diagnoses Lumbago M54.50
== END 2023-09-17 11:39 | disposition home or self-care (01) ==
PROVIDERS: PCP Internal Medicine; Visit Provider Physician Assistant
DX: M54.50 Low back pain, unspecified (principal)
CPT/HCPCS: 99214

== ENCOUNTER → 2023-09-17 10:48 | Outpatient (BNVA) | payer OTHER, SELFPAY | PROVIDERS: PCP Internal Medicine; Visit Provider Physician Assistant ==

== ENCOUNTER 2023-10-06 13:52 | Outpatient (AMB) | payer OTHER, SELFPAY ==
--- NOTE | 2023-10-06 14:18 | MHC.OFFVIS ---
Intake Intake Visit Reasons: OV-B/L knee/Right knee worse Intake Note: Genny is a 62 year old female who presents today for a follow up of her bilateral knee pain. Bilateral Euflexxa done 09/04/23. Patient reports that these injections were not helpful. She was recently seen with the spine clinic who recommends TKA discussion as there is mild stenosis not warranting a surgical intervention. Allergies almond [ALMOND] Allergy (Intermediate, Verified 10/08/23 14:18) NUMBNESS MOUTH, ITCHY EYES amoxicillin [AMOXICILLIN] Allergy (Intermediate, Verified 10/08/23 14:18) HIVES penicillin V Allergy (Intermediate, Verified 10/08/23 14:18) rash apple [APPLE] Allergy (Mild, Verified 10/08/23 14:18) ITCHY EYES peach [PEACHES] Allergy (Mild, Verified 10/08/23 14:18) ITCHY EYES plum [PLUMS] Allergy (Mild, Verified 10/08/23 14:18) ITCHY EYES carrot Allergy (Unknown, Verified 10/08/23 14:18) Unknown pear [PEAR] Adverse Reaction (Mild, Verified 10/08/23 14:18) ITCHY EYES NECTARINES Allergy (Mild, Uncoded 09/10/23 11:59) ITCHY EYES HPI OV-B/L knee/Right knee worse HPI Details Genny is a 62 year old woman who returns to discuss her bilateral knee OA. She continues to complain of pain with daily activity, R>L. She was last seen for bilateral Euflexxa injections, her last was on 09/04/23, without relief. She complains of severe right leg pain. It is her thigh and lower leg and knee. SHe has a spinal stimulator in place and thinks this might be involved somehow. She has difficult walking with most of her pain localizes to her right knee. [facility] Medical History Asthma Cataract Complex regional pain syndrome of both lower extremities Difficulty in walking involving lower leg joint Environmental allergies GERD (gastroesophageal reflux disease) Lipedema Malabsorption due to intolerance, not elsewhere classified Neuropathic arthropathy Obesity (BMI 30-39.9) Obesity (BMI 30.0-34.9) Osteoarthritis of knees, bilateral Overweight (BMI 25.0-29.9) Postlaminectomy syndrome Radiculitis of right cervical region Restless leg syndrome Spinal cord stimulator dysfunction Spinal cord stimulator status Urinary incontinence Surgical History History of surgery on right wrist History of eye surgery S/P laparoscopic sleeve gastrectomy History of toe surgery Hx of spinal surgery Hx of rotator cuff surgery Hx of section Hx of construction of artificial vagina Hx laparoscopic cholecystectomy Hx of colonoscopy with polypectomy Family History Father CVD (cardiovascular disease) Mother Asthma Brother Lung cancer Brother No problems noted. Brother No problems noted. Brother No problems noted. Brother No problems noted. Brother No problems noted. Son No problems noted. Daughter No problems noted. Social History Housing: House Alcohol intake: never Patient Tobacco Use Status: Never used Tobacco e-Cigarette/Vaping Use: Never Used Advance Directives Date on File: 08/24/21 service: No Current occupational status: employed Cognitive needs: No Hearing needs: No Vision needs: Yes Review of Systems Const All systems reviewed & are unremarkable except as noted in HPI and below Physical Exam Const General: no acute distress, alert and awake Orientation/consciousness: patient oriented x3 HEENT Head: Yes normocephalic and Yes atraumatic Eyes EOM: EOMs intact bilaterally Resp Effort & Inspection: normal respiratory effort and able to speak in complete sentences Cardio Jugular venous distension: no JVD Skin General skin exam: turgor normal Rashes: no rashes Neuro General: patient oriented x3 Extrem Other: Varus right knee Varus thrust with gait TTP medial comnpartment right knee Psych Appearance: grossly normal Affect: normal affect Attitude: cooperative Office Procedures Joint Injection/Drain Joint Injection/Drain Details: Injected 1 mL of Decadron and 3 mL 1% lidocaine and 3 mL of 0.25% Marcaine. Site was prepped using aseptic technique. Patient tolerated the procedure well. Primary Site: right knee Approach Used: anterolateral Coding 65102 - Large joint Procedure code (CPT) selection complete Results Reviewed Results Reviewed: I personally reviewed relevant radiographs 1. There is tricompartment osteoarthritic change of the right knee, most pronounced of the medial joint space compartment, where it is moderately severe. 2. There is tricompartment osteoarthritic change of the left knee, most pronounced of the medial and patellofemoral joint space compartments, where it is mild. 3. There is a mild to moderate right knee varus configuration, and a mild left knee varus configuration is seen. 4. No fracture, dislocation or joint effusion is seen bilaterally. Assessment & Plan Assessment & Plan (1) Osteoarthritis of right knee: Code(s): M17.11 - Unilateral primary osteoarthritis, right knee Qualifiers: Osteoarthritis type: unspecified Qualified Code(s): M17.11 - Unilateral primary osteoarthritis, right knee Plan: Injected her right knee with relief. She does have severe right knee oa. She also has CRPS and a spinal stimulator which complicates diagnosis and potentially treatment. She is exasperated but I cannot clearly differentiate if her pain is from her knee or from her CRPS/Spinal stimulator . This complicates treatment options. We discussed this and she will see Dr cole and maybe undergo a pause in spinal stimulation on the right to see if we can get a better sense how much of her pain is from her knee OA. Plan Scribed for Jesus Levy MD by Lawrence Agudelo, clinical medical transcriptionist, on 10/06/23 at 2:25 PM, EST. Coding Level of Care Code Est Pt Level 4 (55941) Diagnoses Osteoarthritis of right knee, unspecified osteoarthritis type M17.11 Osteoarthritis type: unspecified CPT Codes Coding - 84851 Large joint: 64506 - Large joint ([id number])
== END 2023-10-06 15:31 | disposition home or self-care (01) ==
PROVIDERS: PCP Internal Medicine; Referring Provider Internal Medicine; Visit Provider Orthopaedic Surgery
DX: M17.11 Unilateral primary osteoarthritis, right knee (principal)
CPT/HCPCS: 20610; 99213

== ENCOUNTER → 2023-10-06 13:52 | Outpatient (BNVA) | payer OTHER, SELFPAY | PROVIDERS: PCP Internal Medicine; Visit Provider Orthopaedic Surgery | DX: M17.11 Unilateral primary osteoarthritis, right knee (principal) | CPT/HCPCS: 20610; J0665; J1100 ==

== ENCOUNTER 2023-10-08 14:06 | Outpatient (AMB) | payer OTHER, SELFPAY ==
--- NOTE | 2023-10-08 14:09 | A.OFFVIS_ITS ---
Intake Vital Signs 10/08/23 14:17 Height 5 ft 4 in Weight 218 lb 2 oz BMI 37.4 BP 144/80 H Blood Pressure Location Lt brachial Position Sitting Respiration 16 Pulse 88 Pulse Source Pulse Oximeter Pulse Oximetry (%) 99 Oxygen Delivery Method Room Air Intake Visit Reasons: Follow Up/Complex Regional Pain Syndrome Allergies almond [ALMOND] Allergy (Intermediate, Verified 10/08/23 14:18) NUMBNESS MOUTH, ITCHY EYES amoxicillin [AMOXICILLIN] Allergy (Intermediate, Verified 10/08/23 14:18) HIVES penicillin V Allergy (Intermediate, Verified 10/08/23 14:18) rash apple [APPLE] Allergy (Mild, Verified 10/08/23 14:18) ITCHY EYES peach [PEACHES] Allergy (Mild, Verified 10/08/23 14:18) ITCHY EYES plum [PLUMS] Allergy (Mild, Verified 10/08/23 14:18) ITCHY EYES carrot Allergy (Unknown, Verified 10/08/23 14:18) Unknown pear [PEAR] Adverse Reaction (Mild, Verified 10/08/23 14:18) ITCHY EYES NECTARINES Allergy (Mild, Uncoded 09/10/23 11:59) ITCHY EYES HPI HPI Comments History of Present Illness Details Genny is in the office today on referral of Orthopedic surgery and neuro spine surgery. She is very pleasant 62 years old female who is suffering from severe bilateral knees osteoarthritis as well as spondylosis of the lumbar spine, spinal stenosis, and spondylolisthesis. In the past for the treatment of her conditions she received spinal cord stimulator [employer] by Dr. Arias. She later on under my care visited me with complaints on bilateral knee pains. She had multiple steroid injections in her knees, eventually those injections stopped helping her pain. Genicular nerve injections were very effective for her, however her insurance refused to cover radiofrequency ablation of the genicular nerves. The insurance also refused to cover peripheral nerve stimulation or dorsal root ganglion stimulation citing this as experimental procedures. At that time she was offered [employer] spinal cord stimulator in lumbar position in the projection L3-L4 vertebra is to stimulate dorsal root ganglions and peripheral nerves responsible for pain in the knees. She was given a trial with [employer] device, she reported good results of stimulation with more than 75% improvement of the level of the pain and then she went into the surgery where alpha battery was used to connect existing thoracic electrodes as well as newly placed [employer] electrodes in the lumbar gutter position. Immediately postoperatively she reported good pain relief, She became very physically active, however later on she reported that stimulation of the right knee is not working. On x-ray dislodgment of the right positioned electrode was detected and she was taken for revision of the electrode and replacement of the electrode on the right. The level of the stimulation got restored and she reported latter-day of good pain relief from the right knee. today she is in my office with complains on spinal cord stimulator not working for her knee pain. She also stated that because of the spinal cord stimulator working for her knees orthopedic surgery does not want to consider total knee replacement for her. I sent her for the x-ray of the device - lumbar spine x- ray it demonstrated appropriate position of the electrodes however compared to the previously inserted electrodes there is slight shift of the right electrode may be no more than 5 mm down. In my opinion it should not affect the ability of the electrode to stimulate the targets. We agreed that I will see her in 1 week, I will discuss the case with [employer] representatives and we will come up with this solution on how to help her pain better. She has commercial insurance, I offered her intra-articular platelet rich plasma injection, however patient adamantly refused. This case was discussed with Dr. Levy as well who was very cautious about the options of this patient to withstand total knee replacement because of the pre-existing allodynia and hyperalgesia in the area of bilateral knees which could limit patient's ability to participate in postoperative physical therapy and eventually result in less than adequate outcome. SHE ALSO SUFFERS FROM lower back pain for which she was inserted spinal cord stimulator in the past by Dr. Arias. Her back and radiating leg pain have resolved with SCS, however now she went for consultation with no neuro surgery/spine and extensive diagnostic evaluation including spinal myelography were performed. No indications for repeat surgery was found and the patient was referred back to pain management. [facility] Medical History Asthma Cataract Complex regional pain syndrome of both lower extremities Difficulty in walking involving lower leg joint Environmental allergies GERD (gastroesophageal reflux disease) Lipedema Malabsorption due to intolerance, not elsewhere classified Neuropathic arthropathy Obesity (BMI 30-39.9) Obesity (BMI 30.0-34.9) Osteoarthritis of knees, bilateral Overweight (BMI 25.0-29.9) Postlaminectomy syndrome Radiculitis of right cervical region Restless leg syndrome Spinal cord stimulator dysfunction Spinal cord stimulator status Urinary incontinence Surgical History History of surgery on right wrist History of eye surgery S/P laparoscopic sleeve gastrectomy History of toe surgery Hx of spinal surgery Hx of rotator cuff surgery Hx of section Hx of construction of artificial vagina Hx laparoscopic cholecystectomy Hx of colonoscopy with polypectomy Family History Father CVD (cardiovascular disease) Mother Asthma Brother Lung cancer Brother No problems noted. Brother No problems noted. Brother No problems noted. Brother No problems noted. Brother No problems noted. Son No problems noted. Daughter No problems noted. Social History Housing: House Alcohol intake: never Patient Tobacco Use Status: Never used Tobacco e-Cigarette/Vaping Use: Never Used Advance Directives Date on File: 08/24/21 service: No Current occupational status: employed Cognitive needs: No Hearing needs: No Vision needs: Yes Review of Systems Const Denies chills, Reports excessive sweating, Denies fatigue, Denies fever(s) and Reports weight gain ENT Denies vertigo and Denies dizziness Card Denies chest pain, Denies chest pain at rest, Denies chest pain with activity, Reports diaphoresis, Denies syncope, Denies rapid heart rate, Denies pedal edema and Denies edema Resp Denies chest congestion, Denies cough, Denies hemoptysis, Denies excessive phlegm production, Denies pain on inspiration and Denies pain with cough GI Denies abdominal pain, Denies belching, Denies melena and Denies bloating Denies urinary incontinence Musc Denies as per HPI, Reports back pain, Reports myalgias, Reports arthralgias, Re ports joint swelling, Reports muscle cramps, Reports radiating pain into limb and Reports tingling Neuro Denies vertigo, Denies dizziness, Denies syncope, Denies lack of coordination and Reports tingling Psych Denies no additional complaints, Reports depression and Reports anhedonia Endo Denies deepening of the voice, Reports excessive sweating, Denies fatigue and Denies polyuria Physical Exam Vital Signs: Last Vital Signs Pulse 88 10/08/23 14:17 Resp 16 10/08/23 14:17 BP 144/80 H 10/08/23 14:17 Pulse Ox 99 10/08/23 14:17 Oxygen Delivery Method Room Air 10/08/23 14:17 BMI result Body Mass Index 37.4 Const General: comfortable, no acute distress, well developed, alert and awake Eyes Pupils: Equal, round and reactive pupils present EOM: EOMs intact bilaterally Chest Chest palpation & inspection: normal inspection of the chest Resp Effort & Inspection: normal respiratory effort, able to speak in complete sentences, normal respiratory pattern, no audible wheezes and no cough Cardio Jugular venous distension: no JVD Back/Spine/Pelvis Other: tenderness on palpation in paraspinal spinal region in lumbar spine. Loading test is positive. Range of motion in lumbar spine is preserved. Edgar test is negative bilaterally. Range of motion on the bilateral lower extremities is decreased especially in the knees areas. Neuro Cranial nerves: Yes Equal, round and reactive pupils present Extrem Other: Varus right knee, slight red discoloration of bilateral knees, significant severe tenderness on palpation on the right knee more than the left knee. Psych Speech and movement: Normal speech and movement present Affect: normal affect Attitude: cooperative Thought process: Normal thought process present Thought content: Normal thought content present Insight: Good insight present (Psych) Judgement: Good judgement present (Psych) Results Reviewed Results Reviewed: 1. There is tricompartment osteoarthritic change of the right knee, most pronounced of the medial joint space compartment, where it is moderately severe. 2. There is tricompartment osteoarthritic change of the left knee, most pronounced of the medial and patellofemoral joint space compartments, where it is mild. 3. There is a mild to moderate right knee varus configuration, and a mild left knee varus configuration is seen. 4. No fracture, dislocation or joint effusion is seen bilaterally. Assessment & Plan Assessment & Plan (1) Postlaminectomy syndrome: Code(s): M96.1 - Postlaminectomy syndrome, not elsewhere classified (2) Spinal cord stimulator dysfunction: Code(s): T85.192A - Other mechanical complication of implanted electronic neurostimulator of spinal cord electrode (lead), initial encounter (3) CRPS (complex regional pain syndrome type I): Code(s): G90.50 - Complex regional pain syndrome I, unspecified (4) Lumbago: Code(s): M54.50 - Low back pain, unspecified Plan The [employer] stimulating electrodes in the bilateral lumbar gutter are evaluated by x-ray. The position is appropriate although the right side is slightly dislodged caudad from the previously inserted position. Nevertheless I believe that both of those electrodes are able to stimulate appropriately L3-L4 dorsal root ganglions and dorsal root to provide pain relief for the patient. I discussed this case with [employer] spinal cord stimulator labor service representative and this patient in fact is not recommended to go for MRI studies because of the connection of the [employer] SCS leads with extensions of the [employer] device. This combination is not approved by FDA for full power MRI study, special adjustment to the power of the MRI machine is required if studies necessary however according to the [employer] labor service representative the images which would be obtained will not be of any diagnostic value. PRP injections were offered to the patient however as out of pocket procedures the would require patient to pay [id number], patient refused. Her orthopedic surgeon Dr. Levy also consider spinal cord stimulator [employer] rather a hindrance for the procedures he is planning for the patient and recommends to at least turn the machine off temporarily. The explantation of the entire device could be offered to the patient. The treatment of the lower back pain with [employer] device could possibly be considered after removal of [employer] elements of her stimulating device. Orders: Orders XR lumbar spine 4V min 10/08/23 G90.50 - Complex regional pain syndrome I, unspecified, M96.1 - Postlaminectomy syndrome, not elsewhere classified, T85.192A - Other mechanical complication of implanted electronic neurostimulator of spinal cord electrode (lead), initial encounter Coding Level of Care Code Est Pt Level 4 (46385) Diagnoses Postlaminectomy syndrome M96.1 Spinal cord stimulator dysfunction T85.192A CRPS (complex regional pain syndrome type I) G90.50 Lumbago M54.50
[2023-10-08 14:17] VITALS: BP 144/80; PULSE 88; RESP 16; O2SAT 99; BMI 37.4
== END 2023-10-08 14:45 | disposition home or self-care (01) ==
PROVIDERS: PCP Internal Medicine; Visit Provider Anesthesiology
DX: M96.1 Postlaminectomy syndrome, not elsewhere classified (principal); T85.192A Other mechanical complication of implanted electronic neurostimulator of spinal cord electrode (lead), initial encounter; G90.50 Complex regional pain syndrome I, unspecified; M54.50 Low back pain, unspecified
CPT/HCPCS: 99214

== ENCOUNTER 2023-10-08 14:06 | Outpatient (REF) | payer OTHER, SELFPAY ==
--- NOTE | ~2023-10-08 | XR_ITS ---
EXAMINATION: XR LUMBOSACRAL SPINE WITH OBLIQUES CLINICAL INFORMATION: Postlaminectomy syndrome. COMPARISON: CT lumbar spine 09/10/2023, radiographs lumbar spine 08/15/2023. TECHNIQUE: AP, both oblique, and lateral views of the lumbar spine. Lateral view of the lumbosacral junction. FINDINGS: Degenerative changes are present most marked at L4-L5 and L5-S1 with vacuum phenomena. There is grade 1 anterolisthesis once again demonstrated at L4-L5 and L5-S1. A spinal stimulator is present with 2 leads in the epidural base at the level of the L2-L3 disc space and just below that level. The generator is in the left buttock. No bony destructive lesions are seen. Degenerative changes are seen at the facet joints of L4-L5 and L5-S1. XR/XR lumbar spine 4V min IMPRESSION: Degenerative changes most marked at L4-L5 and L5-S1 with grade 1 anterolisthesis at L4-L5 and L5-S1.
== END 2023-10-08 14:07 | disposition home or self-care (01) ==
LOC: HO.XRAY 14:06
PROVIDERS: PCP Internal Medicine; Visit Provider Anesthesiology
DX: M96.1 Postlaminectomy syndrome, not elsewhere classified (principal); T85.192A Other mechanical complication of implanted electronic neurostimulator of spinal cord electrode (lead), initial encounter
CPT/HCPCS: 72110

== ENCOUNTER 2023-10-15 14:39 | Outpatient (AMB) | payer OTHER, SELFPAY ==
--- NOTE | 2023-10-15 14:42 | A.OFFVIS_ITS ---
Intake Vital Signs 10/15/23 15:14 Height 5 ft 4 in Weight 218 lb 2 oz BMI 37.4 BP 144/66 H Blood Pressure Location Lt brachial Position Sitting Respiration 14 Pulse 82 Pulse Source Pulse Oximeter Pulse Oximetry (%) 97 Oxygen Delivery Method Room Air Intake Visit Reasons: 1 WEEK FOLLOW UP/lvm Intake Note: Patient comes in for 1 week follow up. Allergies almond [ALMOND] Allergy (Intermediate, Verified 10/15/23 15:15) NUMBNESS MOUTH, ITCHY EYES amoxicillin [AMOXICILLIN] Allergy (Intermediate, Verified 10/15/23 15:15) HIVES penicillin V Allergy (Intermediate, Verified 10/15/23 15:15) rash apple [APPLE] Allergy (Mild, Verified 10/15/23 15:15) ITCHY EYES peach [PEACHES] Allergy (Mild, Verified 10/15/23 15:15) ITCHY EYES plum [PLUMS] Allergy (Mild, Verified 10/15/23 15:15) ITCHY EYES carrot Allergy (Unknown, Verified 10/15/23 15:15) Unknown pear [PEAR] Adverse Reaction (Mild, Verified 10/15/23 15:15) ITCHY EYES NECTARINES Allergy (Mild, Uncoded 09/10/23 11:59) ITCHY EYES HPI HPI Comments History of Present Illness Details Genny is back in my office to discuss her options. Prolonged and very difficult conversation ensued. Some but not all of her problems are certainly insurance company is which is described below were not very instrumental in helping her pain. Also the patient herself is not very easy candidate to deal with. I again reiterated possibility of treating her pain with bilateral PRP injections. She adamantly refused. She is very unsatisfied with the fact that she has to pay for this procedure out of pocket, also written she is dissatisfied with the fact that she would need to wait at least for 1 month for the results of this procedure. I again pointed out to her that since her insurance company did not allow me to do genicular nerve manipulations such as injection and radiofrequency ablation this option is closed for her unless she changes her insurance. I even offered her to consider chronic opioid therapy, I told her that currently it is not available in this office but in the future it might become available for her. I recommended her may be a trial of 6-9 months of gentle opioid esca lation. However patient does not want to consider chronic opioid therapy. I would suggest her to address this issue with her primary care physician. If she is not willing to accept this option I will not be insisting on it. I honestly told her that chronic opioid therapy is way to nowhere on the longer run but since the options are limited for her I do not know what else I can offer to her. She also is not very clear on whether not she wants me to remove her spinal cord stimulator [employer] which was designed to help the pain in bilateral knees. Looks like that she is against the removal but at the same time she is stating that the device does not help her. There is slight shift of the 1 of the electrode 5 mm caudad in her bilateral gutters however I still believe that bilateral L3 roots are capable of provide her L3-L4 stimulation as it is related to innervation of the bilateral knees. I also recommend her to consider treatment her condition in the Centers of Excellence including [facility], [facility], [facility]. The patient did not express the overt desire to go to a center of excellence. I will schedule appointment with this patient in 6 months. Maybe she will change her mind in this time interval. Genny is in the office today on referral of Orthopedic surgery and neuro spine surgery. She is very pleasant 62 years old female who is suffering from severe bilateral knees osteoarthritis as well as spondylosis of the lumbar spine, spinal stenosis, and spondylolisthesis. In the past for the treatment of her conditions she received spinal cord stimulator [employer] by Dr. Arias. She later on under my care visited me with complaints on bilateral knee pains. She had multiple steroid injections in her knees, eventually those injections stopped helping her pain. Genicular nerve injections were very effective for her, however her insurance refused to cover radiofrequency ablation of the genicular nerves. The insurance also refused to cover peripheral nerve stimulation or dorsal root ganglion stimulation citing this as experimental procedures. At that time she was offered [employer] spinal cord stimulator in lumbar position in the projection L3-L4 vertebra is to stimulate dorsal root ganglions and peripheral nerves responsible for pain in the knees. She was given a trial with [employer] device, she reported good results of stimulation with more than 75% improvement of the level of the pain and then she went into the surgery where alpha battery was used to connect existing thoracic electrodes as well as newly placed [employer] electrodes in the lumbar gutter position. Immediately postoperatively she reported good pain relief, She became very physically active, however later on she reported that stimulation of the right knee is not working. On x-ray dislodgment of the right positioned electrode was detected and she was taken for revision of the electrode and replacement of the electrode on the right. The level of the stimulation got restored and she reported faith of good pain relief from t he right knee. today she is in my office with complains on spinal cord stimulator not working for her knee pain. She also stated that because of the spinal cord stimulator working for her knees orthopedic surgery does not want to consider total knee replacement for her. I sent her for the x-ray of the device - lumbar spine x- ray it demonstrated appropriate position of the electrodes however compared to the previously inserted electrodes there is slight shift of the right electrode may be no more than 5 mm down. In my opinion it should not affect the ability of the electrode to stimulate the targets. We agreed that I will see her in 1 week, I will discuss the case with [employer] representatives and we will come up with this solution on how to help her pain better. She has commercial insurance, I offered her intra-articular platelet rich plasma injection, however patient adamantly refused. This case was discussed with Dr. Levy as well who was very cautious about the options of this patient to withstand total knee replacement because of the pre-existing allodynia and hyperalgesia in the area of bilateral knees which could limit patient's ability to participate in postoperative physical therapy and eventually result in less than adequate outcome. SHE ALSO SUFFERS FROM lower back pain for which she was inserted spinal cord stimulator in the past by Dr. Arias. Her back and radiating leg pain have resolved with SCS, however now she went for consultation with no neuro surgery/spine and extensive diagnostic evaluation including spinal myelography were performed. No indications for repeat surgery was found and the patient was referred back to pain management. [facility] Medical History Asthma Cataract Complex regional pain syndrome of both lower extremities Difficulty in walking involving lower leg joint Environmental allergies GERD (gastroesophageal reflux disease) Lipedema Malabsorption due to intolerance, not elsewhere classified Neuropathic arthropathy Obesity (BMI 30-39.9) Obesity (BMI 30.0-34.9) Osteoarthritis of knees, bilateral Overweight (BMI 25.0-29.9) Postlaminectomy syndrome Radiculitis of right cervical region Restless leg syndrome Spinal cord stimulator dysfunction Spinal cord stimulator status Urinary incontinence Surgical History History of surgery on right wrist History of eye surgery S/P laparoscopic sleeve gastrectomy History of toe surgery Hx of spinal surgery Hx of rotator cuff surgery Hx of section Hx of construction of artificial vagina Hx laparoscopic cholecystectomy Hx of colonoscopy with polypectomy Family History Father CVD (cardiovascular disease) Mother Asthma Brother Lung cancer Brother No problems noted. Brother No problems noted. Brother No problems noted. Brother No problems noted. Brother No problems noted. Son No problems noted. Daughter No problems noted. Social History Housing: House Alcohol intake: never Patient Tobacco Use Status: Never used Tobacco e-Cigarette/Vaping Use: Never Used Advance Directives Date on File: 08/24/21 service: No Current occupational status: employed Cognitive needs: No Hearing needs: No Vision needs: Yes Review of Systems Const Denies chills, Reports excessive sweating, Denies fatigue, Denies fever(s) and Reports weight gain ENT Denies vertigo and Denies dizziness Card Denies chest pain, Denies chest pain at rest, Denies chest pain with activity, Reports diaphoresis, Denies syncope, Denies rapid heart rate, Denies pedal edema and Denies edema Resp Denies chest congestion, Denies cough, Denies hemoptysis, Denies excessive phlegm production, Denies pain on inspiration and Denies pain with cough GI Denies abdominal pain, Denies belching, Denies melena and Denies bloating Denies urinary incontinence Musc Denies as per HPI, Reports back pain, Reports myalgias, Reports arthralgias, Reports joint swelling, Reports muscle cramps, Reports radiating pain into limb and Reports tingling Neuro Denies vertigo, Denies dizziness, Denies syncope, Denies lack of coordination and Reports tingling Psych Denies no additional complaints, Reports depression and Reports anhedonia Endo Denies deepening of the voice, Reports excessive sweating, Denies fatigue and Denies polyuria Physical Exam Vital Signs: Last Vital Signs Pulse 82 10/15/23 15:14 Resp 14 10/15/23 15:14 BP 144/66 H 10/15/23 15:14 Pulse Ox 97 10/15/23 15:14 Oxygen Delivery Method Room Air 10/15/23 15:14 BMI result Body Mass Index 37.4 Const General: comfortable, no acute distress, well developed, alert and awake Eyes Pupils: Equal, round and reactive pupils present EOM: EOMs intact bilaterally Chest Chest palpation & inspection: normal inspection of the chest Resp Effort & Inspection: normal respiratory effort, able to speak in complete sentences, normal respiratory pattern, no audible wheezes and no cough Cardio Jugular venous distension: no JVD Back/Spine/Pelvis Other: tenderness on palpation in paraspinal spinal region in lumbar spine. Loading test is positive. Range of motion in lumbar spine is preserved. Edgar test is negative bilaterally. Range of motion on the bilateral lower extremities is decreased especially in the knees areas. Neuro Cranial nerves: Yes Equal, round and reactive pupils present Extrem Other: Varus right knee, slight red discoloration of bilateral knees, significant severe tenderness on palpation on the right knee more than the left knee. Psych Speech and movement: Normal speech and movement present Affect: normal affect Attitude: cooperative Thought process: Normal thought process present Thought content: Normal thought content present Insight: Good insight present (Psych) Judgement: Good judgement present (Psych) Results Reviewed Results Reviewed: 1. There is tricompartment osteoarthritic change of the right knee, most pronounced of the medial joint space compartment, where it is moderately severe. 2. There is tricompartment osteoarthritic change of the left knee, most pronounced of the medial and patellofemoral joint space compartments, where it is mild. 3. There is a mild to moderate right knee varus configuration, and a mild left knee varus configuration is seen. 4. No fracture, dislocation or joint effusion is seen bilaterally. Assessment & Plan Assessment & Plan (1) Postlaminectomy syndrome: Code(s): M96.1 - Postlaminectomy syndrome, not elsewhere classified (2) Spinal cord stimulator dysfunction: Code(s): T85.192A - Other mechanical complication of implanted electronic neurostimulator of spinal cord electrode (lead), initial encounter (3) CRPS (complex regional pain syndrome type I): Code(s): G90.50 - Complex regional pain syndrome I, unspecified (4) Lumbago: Code(s): M54.50 - Low back pain, unspecified Plan Multiple options were offered to this patient today as above. Patient is very emotional, continues to cry during the appointment and expresses dissatisfaction with current care. Some of it is certainly is stemming from her insurance company blocking her from the acceptable and possibly helpful procedures. Some of those procedures patient can consider to pay out of pocket. The [employer] stimulating electrodes in the bilateral lumbar gutter are evaluated by x-ray. The position is appropriate although the right side is slightly dislodged caudad from the previously inserted position. Nevertheless I believe that both of those electrodes are able to stimulate appropriately L3-L4 dorsal root ganglions and dorsal root to provide pain relief for the patient. I discussed this case with [employer] spinal cord stimulator denial management representative and this patient in fact is not recommended to go for MRI studies because of the connection of the [email or web address] SCS leads with extensions of the [employer] device. This combination is not approved by FDA for full power MRI study, special adjustment to the power of the MRI machine is required if studies necessary however according to the [employer] denial management representative the images which would be obtained will not be of any diagnostic value. PRP injections were offered to the patient however as out of pocket procedures the would require patient to pay [id number], patient refused. Her orthopedic surgeon Dr. Levy also consider spinal cord stimulator [employer] rather a hindrance for the procedures he is planning for the patient and recommends to at least turn the machine off temporarily. [facility] of Excellence appointments are recommended to the patient as well since here unfortunately she is not able to receive appropriate treatment. At the same time that the center of excellence in the academic organizations she might have opportunity to join studies and trials which could provide her with significant pain relief free of charge. Even opioid treatment through primary care physician and potentially in the uture in this office as well was offered to the patient but she is very negative about it Patient Instructions: I here by testify that I spent 44 minutes in conversation with this patient as well as planning her care, evaluating prior studies, and dictating this note. Coding Level of Care Code Est Pt Level 5 (26688) Diagnoses Postlaminectomy syndrome M96.1 Spinal cord stimulator dysfunction T85.192A CRPS (complex regional pain syndrome type I) G90.50 Lumbago M54.50
[2023-10-15 15:14] VITALS: BP 144/66; PULSE 82; RESP 14; O2SAT 97; BMI 37.4
== END 2023-10-15 15:26 | disposition home or self-care (01) ==
PROVIDERS: PCP Internal Medicine; Visit Provider Anesthesiology
DX: M96.1 Postlaminectomy syndrome, not elsewhere classified (principal); T85.192A Other mechanical complication of implanted electronic neurostimulator of spinal cord electrode (lead), initial encounter; G90.50 Complex regional pain syndrome I, unspecified; M54.50 Low back pain, unspecified
CPT/HCPCS: 99215

== ENCOUNTER → 2023-10-15 14:39 | Outpatient (BNVA) | payer OTHER, SELFPAY | PROVIDERS: PCP Internal Medicine; Visit Provider Anesthesiology ==

== ENCOUNTER 2023-10-27 14:13 | Outpatient (AMB) | payer OTHER, SELFPAY ==
--- NOTE | 2023-10-27 14:25 | A.OFFVIS_ITS ---
Intake Vital Signs 10/27/23 14:26 Height 5 ft 4 in Weight 218 lb BMI 37.4 Intake Visit Reasons: OV- RT Knee F/U- INJ 10/06/2023 Intake Note: Genny is a 62 year old female who presents today for a follow up her right knee pain. Last injected 10/06/2023. patient reports that this last injection was not helpful, relief lasted about 2 hours. Allergies almond [ALMOND] Allergy (Intermediate, Verified 11/03/23 08:43) NUMBNESS MOUTH, ITCHY EYES amoxicillin [AMOXICILLIN] Allergy (Intermediate, Verified 11/03/23 08:43) HIVES penicillin V Allergy (Intermediate, Verified 11/03/23 08:43) rash apple [APPLE] Allergy (Mild, Verified 11/03/23 08:43) ITCHY EYES peach [PEACHES] Allergy (Mild, Verified 11/03/23 08:43) ITCHY EYES plum [PLUMS] Allergy (Mild, Verified 11/03/23 08:43) ITCHY EYES carrot Allergy (Unknown, Verified 11/03/23 08:43) Unknown pear [PEAR] Adverse Reaction (Mild, Verified 11/03/23 08:43) ITCHY EYES NECTARINES Allergy (Mild, Uncoded 11/03/23 08:43) ITCHY EYES HPI OV- RT Knee F/U- INJ 10/06/2023 HPI Details Genny is a 62 year old woman who returns to discuss her right knee OA. She continues to complain of pain with daily activity, R>L. Her right knee was injected on 10/06/23, which she says gave her only a few hours of relief. She reports no relief from Euflexxa injections in the past. [facility] Medical History Radiculitis of right cervical region Complex regional pain syndrome of both lower extremities Spinal cord stimulator dysfunction Obesity (BMI 30-39.9) Cataract Neuropathic arthropathy Postlaminectomy syndrome Difficulty in walking involving lower leg joint Osteoarthritis of knees, bilateral Lipedema Environmental allergies Asthma GERD (gastroesophageal reflux disease) Restless leg syndrome Overweight (BMI 25.0-29.9) Malabsorption due to intolerance, not elsewhere classified Spinal cord stimulator status Urinary incontinence Obesity (BMI 30.0-34.9) Surgical History S/P placement of nerve stimulator History of surgery on right wrist History of eye surgery S/P laparoscopic sleeve gastrectomy History of toe surgery Hx of spinal surgery Hx of rotator cuff surgery Hx of section Hx of construction of artificial vagina Hx laparoscopic cholecystectomy Hx of colonoscopy with polypectomy Family History Father CVD (cardiovascular disease) Mother Asthma Brother Lung cancer Brother No problems noted. Brother No problems noted. Brother No problems noted. Brother No problems noted. Brother No problems noted. Son No problems noted. Daughter No problems noted. Social History Housing: House Alcohol intake: never Patient Tobacco Use Status: Never used Tobacco e-Cigarette/Vaping Use: Never Used Advance Directives Date on File: 08/24/21 service: No Current occupational status: employed Cognitive needs: No Hearing needs: No Vision needs: Yes Review of Systems Const All systems reviewed & are unremarkable except as noted in HPI and below Physical Exam Vital Signs: BMI result Body Mass Index 37.4 Const General: no acute distress, alert and awake Orientation/consciousness: patient oriented x3 HEENT Head: Yes normocephalic and Yes atraumatic Eyes EOM: EOMs intact bilaterally Resp Effort & Inspection: normal respiratory effort and able to speak in complete sentences Cardio Jugular venous distension: no JVD Skin General skin exam: turgor normal Rashes: no rashes Neuro General: patient oriented x3 Extrem Other: subjective paion from knees down and from distal thichs up. THis is circumferential hyperesthesia. Left hip stiffness with internal rotation and left knee deformity with gait Psych Appearance: grossly normal Affect: normal affect Attitude: cooperative Results Reviewed Results Reviewed: I personally reviewed relevant radiographs. Severe bialteral knee OA Assessment & Plan Assessment & Plan (1) Osteoarthritis of right knee: Code(s): M17.11 - Unilateral primary osteoarthritis, right knee Qualifiers: Osteoarthritis type: unspecified Qualified Code(s): M17.11 - Unilateral primary osteoarthritis, right knee Plan: Genny's clinical presentation is difficult to understand. She is very unhappy with her pain and it seems that the spinal stimulator is unpredictable. She describes occasional benefit but many times feels like it is positional or doesn't function. I recommend clarification and simplification of her spinal implants. She is 62 and limited severely. She does have knee OA but surgery in her current state would be a disaster. (2) Osteoarthritis of left knee: Code(s): M17.12 - Unilateral primary osteoarthritis, left knee Qualifiers: Osteoarthritis type: unspecified Qualified Code(s): M17.12 - Unilateral primary osteoarthritis, left knee Plan Scribed for Jesus Levy MD by Lawrence Agudelo, medical secretary teacher, on 10/27/23 at 2:35 PM, EST. Coding Level of Care Code Est Pt Level 4 (69018) Diagnoses Osteoarthritis of right knee, unspecified osteoarthritis type M17.11 Osteoarthritis type: unspecified Osteoarthritis of left knee, unspecified osteoarthritis type M17.12 Osteoarthritis type: unspecified
[2023-10-27 14:26] VITALS: BMI 37.4
== END 2023-10-27 15:25 | disposition home or self-care (01) ==
PROVIDERS: PCP Internal Medicine; Referring Provider Internal Medicine; Visit Provider Orthopaedic Surgery
DX: M17.0 Bilateral primary osteoarthritis of knee (principal)
CPT/HCPCS: 99213

== ENCOUNTER → 2023-10-27 14:13 | Outpatient (BNVA) | payer OTHER, SELFPAY | PROVIDERS: PCP Internal Medicine; Visit Provider Orthopaedic Surgery ==

== ENCOUNTER 2023-11-03 08:21 | Day surgery (SDC) | payer OTHER, SELFPAY ==
[2023-10-30 11:26] VITALS: BMI 37.4
--- NOTE | 2023-10-31 09:49 | P.CONAN_ITS ---
Documented by User: Parris Juarez NP 10/31/23 09:50 HPI - Anesthesia Eval Consult details Narrative: 62yo F for Colonoscopy Spinal stim in situ PMFSH Active Problems Active Problems: All Active Problems (Updated 10/08/23 @ 14:45 by Julien Mathew MD) CRPS (complex regional pain syndrome type I) (Acute) Lumbago (Acute) Lumbar radiculopathy (Acute) Osteoarthritis of right knee (Acute) Osteoarthritis of left knee (Acute) Fractured great toe (Acute) Injury of toe on right foot (Acute) Contusion of foot (Acute) Vitamin D deficiency (Acute) Difficulty sleeping (Acute) Tiredness (Acute) Chronic allergic rhinitis (Acute) Allergic rhinitis (Acute) Eczema (Acute) Colon cancer screening (Acute) Radiculitis of right cervical region (Acute) Cataract, left (Acute) Pre-op evaluation (Acute) Foot fracture, right (Acute) Anxiety, generalized (Acute) Osteoarthritis of knees, bilateral (Acute) Recurrent cold sores (Acute) Encounter for general adult medical examination with abnormal findings (Acute) Complex regional pain syndrome of both lower extremities (Acute) Spinal cord stimulator dysfunction (Acute) Obesity (BMI 30-39.9) (Acute) Cataract (Acute) Neuropathic arthropathy (Acute) Postlaminectomy syndrome (Acute) Difficulty in walking involving lower leg joint (Acute) Osteoarthritis of knees, bilateral (Acute) Lipedema (Acute) Environmental allergies (Acute) Overweight (BMI 25.0-29.9) (Acute) Malabsorption due to intolerance, not elsewhere classified (Acute) S/P laparoscopic sleeve gastrectomy (Acute) Urinary incontinence (Acute) Past Medical History Medical History Radiculitis of right cervical region Complex regional pain syndrome of both lower extremities Spinal cord stimulator dysfunction Obesity (BMI 30-39.9) Cataract Neuropathic arthropathy Postlaminectomy syndrome Difficulty in walking involving lower leg joint Osteoarthritis of knees, bilateral Lipedema Environmental allergies Asthma GERD (gastroesophageal reflux disease) Restless leg syndrome Overweight (BMI 25.0-29.9) Malabsorption due to intolerance, not elsewhere classified Spinal cord stimulator status Urinary incontinence Obesity (BMI 30.0-34.9) Family History Family History Father CVD (cardiovascular disease) Mother Asthma Brother Lung cancer Brother No problems noted. Brother No problems noted. Brother No problems noted. Brother No problems noted. Brother No problems noted. Son No problems noted. Daughter No problems noted. Surgical History Surgical History (Updated 10/30/23 @ 11:24 by Anita Schuster RN) S/P placement of nerve stimulator History of surgery on right wrist History of eye surgery S/P laparoscopic sleeve gastrectomy History of toe surgery Hx of spinal surgery Hx of rotator cuff surgery Hx of section Hx of construction of artificial vagina Hx laparoscopic cholecystectomy Hx of colonoscopy with polypectomy Social History Social History Housing: House Alcohol intake: never Patient Tobacco Use Status: Never used Tobacco e-Cigarette/Vaping Use: Never Used Use of substances other than those prescribed or required for medical reasons: No Are you DNR?: No Advance Directives: No Advance Directives Information Provided: Yes Advance Directives Date on File: 08/24/21 service: No Current occupational status: employed Cognitive needs: No Hearing needs: No Vision needs: Yes Meds Allergies Allergy/AdvReac Type Severity Reaction Status Date / Time almond [ALMOND] Allergy Intermediate NUMBNESS Verified 11/03/23 08:43 MOUTH, ITCHY EYES amoxicillin [AMOXICILLIN] Allergy Intermediate HIVES Verified 11/03/23 08:43 penicillin V Allergy Intermediate rash Verified 11/03/23 08:43 apple [APPLE] Allergy Mild ITCHY EYES Verified 11/03/23 08:43 peach [PEACHES] Allergy Mild ITCHY EYES Verified 11/03/23 08:43 plum [PLUMS] Allergy Mild ITCHY EYES Verified 11/03/23 08:43 carrot Allergy Unknown Unknown Verified 11/03/23 08:43 pear [PEAR] AdvReac Mild ITCHY EYES Verified 11/03/23 08:43 NECTARINES Allergy Mild ITCHY EYES Uncoded 11/03/23 08:43 Home Medications Medication Instructions Recorded Confirmed Last Taken Type Celebrate MVI bariatric vitamin 1 tab PO DAILY 09/06/20 09/10/23 Unknown History fiber 1 tab PO DAILY 09/06/20 09/10/23 Unknown History mirabegron 50 mg tablet,extended 50 mg PO DAILY 04/29/22 10/30/23 Unknown History release 24 hr (Myrbetriq) Exam Height,Weight and Vital Signs: Height 5 ft 4 in Weight 98.883 kg Assessment and Plan Assessment Anesthesia Assessment: Chart Reviewed Documented by User: Shaina Rubio MD 11/03/23 09:21 [facility] Past Medical History Medical History Radiculitis of right cervical region Complex regional pain syndrome of both lower extremities Spinal cord stimulator dysfunction Obesity (BMI 30-39.9) Cataract Neuropathic arthropathy Postlaminectomy syndrome Difficulty in walking involving lower leg joint Osteoarthritis of knees, bilateral Lipedema Environmental allergies Asthma GERD (gastroesophageal reflux disease) Restless leg syndrome Overweight (BMI 25.0-29.9) Malabsorption due to intolerance, not elsewhere classified Spinal cord stimulator status Urinary incontinence Obesity (BMI 30.0-34.9) Family History Family History Father CVD (cardiovascular disease) Mother Asthma Brother Lung cancer Brother No problems noted. Brother No problems noted. Brother No problems noted. Brother No problems noted. Brother No problems noted. Son No problems noted. Daughter No problems noted. Family history of problems with anesthesia: No Surgical History Surgical History (Updated 10/30/23 @ 11:24 by Anita Schuster RN) S/P placement of nerve stimulator History of surgery on right wrist History of eye surgery S/P laparoscopic sleeve gastrectomy History of toe surgery Hx of spinal surgery Hx of rotator cuff surgery Hx of section Hx of construction of artificial vagina Hx laparoscopic cholecystectomy Hx of colonoscopy with polypectomy History of Problems with Anesthesia: No Social History Social History Housing: House Alcohol intake: never Patient Tobacco Use Status: Never used Tobacco e-Cigarette/Vaping Use: Never Used Use of substances other than those prescribed or required for medical reasons: No Are you DNR?: No Advance Directives: No Advance Directives Information Provided: Yes Advance Directives Date on File: 08/24/21 service: No Current occupational status: employed Cognitive needs: No Hearing needs: No Vision needs: Yes Meds Allergies Allergy/AdvReac Type Severity Reaction Status Date / Time almond [ALMOND] Allergy Intermediate NUMBNESS Verified 11/03/23 08:43 MOUTH, ITCHY EYES amoxicillin [AMOXICILLIN] Allergy Intermediate HIVES Verified 11/03/23 08:43 penicillin V Allergy Intermediate rash Verified 11/03/23 08:43 apple [APPLE] Allergy Mild ITCHY EYES Verified 11/03/23 08:43 peach [PEACHES] Allergy Mild ITCHY EYES Verified 11/03/23 08:43 plum [PLUMS] Allergy Mild ITCHY EYES Verified 11/03/23 08:43 carrot Allergy Unknown Unknown Verified 11/03/23 08:43 pear [PEAR] AdvReac Mild ITCHY EYES Verified 11/03/23 08:43 NECTARINES Allergy Mild ITCHY EYES Uncoded 11/03/23 08:43 Home Medications Medication Instructions Recorded Confirmed Last Taken Type Celebrate MVI bariatric vitamin 1 tab PO DAILY 09/06/20 09/10/23 Unknown History fiber 1 tab PO DAILY 09/06/20 09/10/23 Unknown History mirabegron 50 mg tablet,extended 50 mg PO DAILY 04/29/22 10/30/23 Unknown History release 24 hr (Myrbetriq) Exam Airway Mallampati Class: II (one capleft bottom) TM Dist: >3cm Neck ROM: Full Heart: rrr Lungs: cta Assessment and Plan Assessment Anesthesia Assessment: Anesthesia Plan Discussed Final Anesthetic Review Family History of Problems with Anesthesia: No History of Problems with Anesthesia: No NPO: Yes ASA Class: III Final Preanesthetic Review: No Changes in Pt Med Stat, Meds/Allgs Chart Reviewed and Consent Obtained/Reviewed Patient Risk: Intermediate Procedure Risk: Intermediate Anesthetic Plan Anesthetic Plan: MAC: Disposition: Standard PACU
[2023-11-03 08:34] VITALS: BMI 37.4
[2023-11-03 09:01] VITALS: BP 127/74; PULSE 79; RESP 16; TEMP 36.3; O2SAT 100
[2023-11-03] MEDS: Lactated Ringers 1,000 ML 100 ML IVCONT (09:02)
--- NOTE | 2023-11-03 09:19 | MHC.SHP ---
Pre-Procedural Eval Section A Date of Service: 11/03/23 The patient is an INPATIENT: No The History & Physical has been completed within 30 days and I have reviewed it.: No Section B Chief Complaint: Colon cancer screening Relevant Family History (Specify if Yes): No Relevant Social History: None Present Medications: see Short Stay Collaborative assessment Medical History: Significant History (Asthma Cataract Complex regional pain syndrome of both lower extremities Difficulty in walking involving lower leg joint Environmental allergies GERD (gastroesophageal reflux disease) Lipedema Malabsorption due to intolerance, not elsewhere classified Neuropathic arthropathy Obesity (BMI 30-39.9) Ob) History of Previous Operations: Relevant previous surgery/procedure and date(s) (History of surgery on right wrist History of toe surgery Hx laparoscopic cholecystectomy Hx of section Hx of colonoscopy with polypectomy Hx of construction of artificial vagina Hx of rotator cuff surgery Hx of spinal surgery S/P laparoscopic sleeve gastrectomy) Allergies: Allergies Allergy/AdvReac Type Severity Reaction Status Date / Time almond [ALMOND] Allergy Intermediate NUMBNESS Verified 11/03/23 08:43 MOUTH, ITCHY EYES amoxicillin [AMOXICILLIN] Allergy Intermediate HIVES Verified 11/03/23 08:43 penicillin V Allergy Intermediate rash Verified 11/03/23 08:43 apple [APPLE] Allergy Mild ITCHY EYES Verified 11/03/23 08:43 peach [PEACHES] Allergy Mild ITCHY EYES Verified 11/03/23 08:43 plum [PLUMS] Allergy Mild ITCHY EYES Verified 11/03/23 08:43 carrot Allergy Unknown Unknown Verified 11/03/23 08:43 pear [PEAR] AdvReac Mild ITCHY EYES Verified 11/03/23 08:43 NECTARINES Allergy Mild ITCHY EYES Uncoded 11/03/23 08:43 Review of Systems Sugical H&P ROS: Negative: Constitution, Cardiovascular, Respiratory and Gastrointestinal Exam Surgical H&P Exam: Normal: Heart, Normal: Lungs, Normal: Extremities and Normal: Abdomen Plan Diagnosis/Plan: Unchanged I have reviewed the history and physical and performed a pertinent physical examination on my patient. No changes have occurred unless specified. Time Spent With Patient Time: Total time managing care of this patient today ____ minutes.
--- NOTE | 2023-11-03 10:16 | W.PM.OPN ---
Operative Note Operative Note Date of Service: 11/03/23 Narrative: COLONOSCOPY TILL CECUM WITH SNARE POLYPECTOMY, SUBMUCOSAL INJECTION AND HEMOCLIP PLACEMENT Pre-op diagnosis: Colon cancer screening Post-op diagnosis:? Colon polyps, diverticulosis, hemorrhoids Endoscopist:? Shea Mcdonald MD Anesthesia:?MAC Consent: Indications for the procedure and potential complications of bleeding, perforation, reaction to medications and missed diagnosis were discussed with the patient and informed consent was obtained. Instrument: Olympus PCF H 190 L variable stiffness pediatric colonoscope Monitoring: Vital signs and clinical assessment, intermittent blood pressure monitoring, continuous EKG monitoring, Pulse oximetry and Carbon Dioxide monitoring were done throughout the procedure. Please see anesthesia flowsheet. Colon withdrawl time was 18 minutes. Procedure: The patient was placed in the left lateral decubitis position and pre-procedure medications were administered. After a digital rectal examination of the ano-rectum, the video colonoscope was inserted into the rectum and advanced through the colon to the cecum. The colonoscope was slowly withdrawn in a retrograde panoramic fashion and the colon mucosa was carefully examined including a retroflexed view of the rectum. Findings and interventions are described below. Procedure Difficulty: Without difficulty Findings: Terminal Ileum: Not evaluated Cecum: Normal Ascending Colon: A 10 mm sessile polyp in the proximal AC - removed with a hot snare. A 2.8 to 3 cms sessile polyp in proximal AC at 80 cms. Polyp was raised with 5 cc of Eleview and removed with a hot stiff snare. Polypectomy site was closed with 2 hemoclips and marked with Carlee ink Transverse Colon: Normal Descending Colon: Moderate diverticulosis Sigmoid Colon: Moderate diverticulosis Rectum: Normal Ano-rectum: Small internal hemorrhoids Colon preparation: Good after some irrigation [place] Bowel Preparation Scale Right colon; 2 Transverse colon: 2 Left colon; 2 (0 = Unprepared colon segment with mucosa not seen due to solid stool that cannot be cleared. 1 = Portion of mucosa of the colon segment seen, but other areas of the colon segment not well seen due to staining, residual stool and/or opaque liquid. 2 = Minor amount of residual staining, small fragments of stool and/or opaque liquid, but mucosa of colon segment seen well. 3 = Entire mucosa of colon segment seen well with no residual staining, small fragments of stool or opaque liquid) Impression and Post Procedure Diagnosis: Colonoscopy Findings: One medium sized and one large polyps removed Moderate diverticulosis seen in the left colon Small hemorrhoids on retroflexed exam. Plan: Await pathology results Patient has an appointment on 11/17/23 in the GI Clinic with Colleen Murillo FNP-BC. Repeat Colonoscopy interval based on path results - in 1 years if polyps are adenomatous (to check polypectomy site in the AC) and 10 years if polyps are hyperplastic. Above findings were reviewed with the patient and colon polyps and diverticulosis handouts were given in the discharge area
[2023-11-03 10:53] VITALS: BP 122/67; PULSE 92; RESP 16; TEMP 36.1; O2SAT 100
[2023-11-03 11:08] VITALS: BP 115/65; PULSE 82; RESP 16; TEMP 36.3; O2SAT 100
== END 2023-11-03 11:57 | disposition home or self-care (01) ==
PROVIDERS: PCP Internal Medicine; Visit Provider Internal Medicine Gastroenterology
PROC: 0DJD8ZZ Inspection of Lower Intestinal Tract, Via Natural or Artificial Opening Endoscopic (ICD-10-PCS; CPT 45378; principal; 2023-11-03 10:10)
DX: Z12.11 Encounter for screening for malignant neoplasm of colon (principal); D12.2 Benign neoplasm of ascending colon; K57.30 Diverticulosis of large intestine without perforation or abscess without bleeding; K64.8 Other hemorrhoids; M14.60 Charcot's joint, unspecified site; M17.0 Bilateral primary osteoarthritis of knee; G90.523 Complex regional pain syndrome I of lower limb, bilateral; M96.1 Postlaminectomy syndrome, not elsewhere classified; Z96.82 Presence of neurostimulator; J45.909 Unspecified asthma, uncomplicated; Z79.899 Other long term (current) drug therapy; Z88.0 Allergy status to penicillin; Z88.1 Allergy status to other antibiotic agents; Z98.84 Bariatric surgery status; R60.9 Edema, unspecified; Z98.890 Other specified postprocedural states
CPT/HCPCS: 45385; 45381; 88305; J2704

== ENCOUNTER → 2023-11-03 08:21 | Outpatient (BNV) | payer OTHER, SELFPAY | PROVIDERS: PCP Internal Medicine; Visit Provider Internal Medicine Gastroenterology | DX: Z12.11 Encounter for screening for malignant neoplasm of colon (principal); D12.2 Benign neoplasm of ascending colon; K57.90 Diverticulosis of intestine, part unspecified, without perforation or abscess without bleeding; K64.8 Other hemorrhoids | CPT/HCPCS: 45381; 45385 ==

== ENCOUNTER 2023-11-18 12:08 | Outpatient (AMB) | payer OTHER, SELFPAY ==
--- NOTE | 2023-11-18 12:09 | A.OFFVIS_ITS ---
Intake Vital Signs 11/18/23 12:21 Height 5 ft 4 in Weight 218 lb BMI 37.4 BP 125/74 Blood Pressure Location Lt brachial Position Sitting Pulse 87 Intake Visit Reasons: f/u colonoscopy Intake Note: Patient follow up for Colonoscopy results. Patient denies any GI issues. Communications Strategist Required: No Accompanied by: Spouse Allergies almond [ALMOND] Allergy (Intermediate, Verified 11/18/23 12:09) NUMBNESS MOUTH, ITCHY EYES amoxicillin [AMOXICILLIN] Allergy (Intermediate, Verified 11/18/23 12:09) HIVES penicillin V Allergy (Intermediate, Verified 11/18/23 12:09) rash apple [APPLE] Allergy (Mild, Verified 11/18/23 12:09) ITCHY EYES peach [PEACHES] Allergy (Mild, Verified 11/18/23 12:09) ITCHY EYES plum [PLUMS] Allergy (Mild, Verified 11/18/23 12:09) ITCHY EYES carrot Allergy (Unknown, Verified 11/18/23 12:09) Unknown pear [PEAR] Adverse Reaction (Mild, Verified 11/18/23 12:09) ITCHY EYES NECTARINES Allergy (Mild, Uncoded 11/03/23 08:43) ITCHY EYES HPI f/u colonoscopy HPI Details LAST VISIT Colon cancer screening Patient denies any GI, cardiac or respiratory symptoms.? Denies any issues with anesthesia in the past.? Denies any history of sleep apnea.? No history infect ious diseases in the past or present.? Not on any anticoagulation therapy.? No family or personal history of colon cancer or polyps.? Patient denies melena, hematochezia, unintentional weight loss or ribbon like stools.? Discussed at length the pre-procedure,? prep, diet & medications as well as what to expect prior, during and after the procedure.?? Stressed the importance of good bowel prep. ?Recommended the use of Vaseline or Calmoseptine OTC & baby wipes with bowel movements to promote comfort.? ?Patient verbalizes understanding and agrees to plan of care.? She was given the opportunity to ask questions and all questions answered.? We will see her after the procedure.? Plan Medications New bisacodyl (Dulcolax (bisacodyl)) take 2 tabs at noon the day before your colonoscopy 10 mg (2 x 5 mg) PO ONCE 1 day 2 tabs 0RF Z12.11 - Encounter for screening for malignant neoplasm of colon polyethylene glycol 3350 (Miralax) As directed by gastroenterology department at [facility] 238 grams PO ONCE 238 grams 0RF Z12.11 - Encounter for screening for malignant neoplasm of colon COLONOSCOPY Findings: Terminal Ileum: Not evaluated Cecum: Normal Ascending Colon: A 10 mm sessile polyp in the proximal AC - removed with a hot snare. A 2.8 to 3 cms sessile polyp in proximal AC at 80 cms. Polyp was raised with 5 cc of Eleview and removed with a hot stiff snare. Polypectomy site was closed with 2 hemoclips and marked with Carlee ink Transverse Colon: Normal Descending Colon: Moderate diverticulosis Sigmoid Colon: Moderate diverticulosis Rectum: Normal Ano-rectum: Small internal hemorrhoids Colon preparation: Good after some irrigation [place] Bowel Preparation Scale Right colon; 2 Transverse colon: 2 Left colon; 2 (0 = Unprepared colon segment with mucos a not seen due to solid stool that cannot be cleared. 1 = Portion of mucosa of the colon segme nt seen, but other areas of the colon segment not well seen due to staining, residual stool and/or opaque liquid. 2 = Minor amount of residual staining, s mall fragments of stool and/or opaque liquid, but mucosa of colon segment seen well. 3 = Entire mucosa of colon segment seen well with no residual staining, small fragments of stool or opaque liquid) Impression and Post Procedure Diagnosis: Colonoscopy Findings: One medium sized and one large polyps removed Moderate diverticulosis seen in the left colon Small hemorrhoids on retroflexed exam. Plan: Await pathology results Patient has an appointment on 11/17/23 in the GI Clinic with Colleen Murillo FNP-BC. Repeat Colonoscopy interval based on path results - in 1 years if polyps are adenomatous (to check polypectomy site in the AC) and 10 years if polyps are hyp erplastic. PATHOLOGY RESULTS Diagnosis Colon, ascending at 80 cm, polypectomy: Fragments of tubulovillous adenoma; negative for high-grade dysplasia or carcinoma TODAY'S VISIT Patient is here today for follow-up and to discuss colonoscopy results. Patient denies any ill effects from the prep, anesthesia or procedure itself. Colonoscopy results discussed with patient. Tubulovillous adenoma in ascending colon found, recommendation was made to repeat colonoscopy in 1 year due to the size and type of a polyp. Moderate sigmoid and descending colon diverticulosis found. Patient denies melena, hematochezia, unintentional weight loss or ribbon like stools. Patient reports that she has been constipated and is using stool softener and fiber gummies. Patient reports that she moves her bowels every 2-3 days. Patient denies any dyspepsia, dysphagia or odynophagia. Denies any other GI concerning symptoms. [facility] Medical History (Updated 11/18/23 @ 12:58 by Colleen Murillo, [facility]) Tubulovillous adenoma of colon Diverticulosis Radiculitis of right cervical region Complex regional pain syndrome of both lower extremities Spinal cord stimulator dysfunction Obesity (BMI 30-39.9) Cataract Neuropathic arthropathy Postlaminectomy syndrome Difficulty in walking involving lower leg joint Osteoarthritis of knees, bilateral Lipedema Environmental allergies Asthma GERD (gastroesophageal reflux disease) Restless leg syndrome Overweight (BMI 25.0-29.9) Malabsorption due to intolerance, not elsewhere classified Spinal cord stimulator status Urinary incontinence Obesity (BMI 30.0-34.9) Surgical History S/P placement of nerve stimulator History of surgery on right wrist History of eye surgery S/P laparoscopic sleeve gastrectomy History of toe surgery Hx of spinal surgery Hx of rotator cuff surgery Hx of section Hx of construction of artificial vagina Hx laparoscopic cholecystectomy Hx of colonoscopy with polypectomy Family History Father CVD (cardiovascular disease) Mother Asthma Brother Lung cancer Brother No problems noted. Brother No problems noted. Brother No problems noted. Brother No problems noted. Brother No problems noted. Son No problems noted. Daughter No problems noted. Social History Housing: House Alcohol intake: never Patient Tobacco Use Status: Never used Tobacco e-Cigarette/Vaping Use: Never Used Advance Directives Date on File: 08/24/21 service: No Current occupational status: employed Cognitive needs: No Hearing needs: No Vision needs: Yes Review of Systems Const Denies weight gain and Denies weight loss ENT Reports no additional complaints, Denies dysphagia and Denies odynophagia Card Reports no additional complaints Resp Reports no additional complaints GI Denies abdominal pain, Denies belching, Denies melena, Denies bloating, Denies change in bowel habits, Denies dysphagia, Denies excessive flatus, Denies dyspepsia, Denies heartburn, Denies diarrhea, Denies loose stools, Denies nausea, Denies odynophagia and Denies vomiting Musc Reports no additional complaints Neuro Reports no additional complaints Psych Reports no additional complaints Endo Reports no additional complaints Physical Exam Vital Signs: Last Vital Signs Pulse 87 11/18/23 12:21 BP 125/74 11/18/23 12:21 BMI result Body Mass Index 37.4 Const Other: Ambulating with cane General: healthy appearing, no acute distress and well developed Nutritional Appearance: obese Orientation/consciousness: patient oriented x3 Resp Effort & Inspection: normal respiratory effort, able to speak in complete sentences, no tracheal deviation and symmetric chest movement Auscultation: clear to auscultation bilaterally Cardio Rate: regular rate GI Inspection: Yes normal to inspection, No distended and Yes obesity Palpation (GI): Soft to palpation, not firm, nontender and No hepatosplenomegaly present Auscultation: normal bowel sounds General: Yes no CVA tenderness Back/Spine/Pelvis Back: no CVA tenderness Skin General skin exam: elasticity normal, turgor normal and dry skin Neuro General: patient oriented x3 Psych Appearance: grossly normal Mental Status: mental status grossly normal Assessment & Plan Assessment & Plan (1) Diverticulosis: Code(s): K57.90 - Diverticulosis of intestine, part unspecified, without perforation or abscess without bleeding (2) Tubulovillous adenoma of colon: Code(s): D12.6 - Benign neoplasm of colon, unspecified (3) Status post colonoscopy: Code(s): Z98.890 - Other specified postprocedural states (4) Constipation: Code(s): K59.00 - Constipation, unspecified Qualifiers: Constipation type: slow transit constipation Qualified Code(s): K59.01 - Slow transit constipation (5) Internal hemorrhoids without complication: Code(s): K64.8 - Other hemorrhoids Plan Tubulovillous adenoma found on colonoscopy. Patient will repeat colonoscopy in 1 year. Patient denies any melena, hematochezia, unintentional weight loss or ribbon like stools. Patient continues to be constipated no BM for 2-3 days. Patient will start taking MiraLax daily and continue taking stool softeners. Script for Proctosol sent to pharmacy. Moderate diverticulosis seen in left side of the colon. Long discussion with patient about high-fiber diet. List of food high in fiber given to patient. I will see patient in 8 months to discuss going for colonoscopy, sooner on as needed basis. Patient is agreeable to this plan and verbalizes understanding of instructions. She was given the opportunity to ask questions all questions answered. Medications: New polyethylene glycol 3350 (Miralax) 17 grams PO DAILY 510 grams 2RF hydrocortisone 2.5% (Proctosol HC) 1 appl [place] BID-QID PRN 30 grams 2RF hemorrhoids K64.9 - Unspecified hemorrhoids Coding Level of Care Code Est Pt Level 4 (53769) Diagnoses Diverticulosis K57.90 Tubulovillous adenoma of colon D12.6 Status post colonoscopy Z98.890 Slow transit constipation K59.01 Constipation type: slow transit constipation Internal hemorrhoids without complication K64.8 Time Spent (min) 35 Comment 25 minutes spent with patient and additional 10 minutes spent reviewing her records
[2023-11-18 12:21] VITALS: BP 125/74; PULSE 87; BMI 37.4
== END 2023-11-18 13:03 | disposition home or self-care (01) ==
PROVIDERS: PCP Internal Medicine; Referring Provider Internal Medicine; Visit Provider Nurse Practitioner Family
DX: K57.90 Diverticulosis of intestine, part unspecified, without perforation or abscess without bleeding (principal); D12.6 Benign neoplasm of colon, unspecified; Z98.890 Other specified postprocedural states; K59.01 Slow transit constipation; K64.8 Other hemorrhoids
CPT/HCPCS: 99214

== ENCOUNTER → 2023-11-18 12:08 | Outpatient (BNVA) | payer OTHER, SELFPAY | PROVIDERS: PCP Internal Medicine; Visit Provider Nurse Practitioner Family ==

== ENCOUNTER 2023-11-27 15:27 | Outpatient (AMB) | payer OTHER, SELFPAY ==
--- NOTE | 2023-11-27 15:29 | AM.OFFWIN_ITS ---
Intake Vital Signs 11/27/23 15:30 Height 5 ft 4 in Weight 222 lb BMI 38.1 BP 118/72 Blood Pressure Location Lt brachial Position Sitting Pulse 86 Pulse Source Pulse Oximeter Temp 97.7 F Temp Source Temporal Artery Scan Pulse Oximetry (%) 98 Oxygen Delivery Method Room Air Intake Visit Reasons: EP swelling/bumps on RT hand fingers Intake Note: pt is here today for swelling bump on rt hand fingers started 2 months ago Patient Tobacco Use Status: Never used Tobacco Allergies almond [ALMOND] Allergy (Intermediate, Verified 11/27/23 15:33) NUMBNESS MOUTH, ITCHY EYES amoxicillin [AMOXICILLIN] Allergy (Intermediate, Verified 11/27/23 15:33) HIVES penicillin V Allergy (Intermediate, Verified 11/27/23 15:33) rash apple [APPLE] Allergy (Mild, Verified 11/27/23 15:33) ITCHY EYES peach [PEACHES] Allergy (Mild, Verified 11/27/23 15:33) ITCHY EYES plum [PLUMS] Allergy (Mild, Verified 11/27/23 15:33) ITCHY EYES carrot Allergy (Unknown, Verified 11/27/23 15:33) Unknown pear [PEAR] Adverse Reaction (Mild, Verified 11/27/23 15:33) ITCHY EYES NECTARINES Allergy (Mild, Uncoded 11/03/23 08:43) ITCHY EYES Do you need a note to return to daycare/school/sports/work: No HPI HPI Comments History of Present Illness Details 62 y/o female presents to walk in clinic with c/o dry, redness and small bumps on her right hand and fingers. Reports this has been going on for months. Reports rash has small vesicles, but fluid or weeping. She also c/o right hand/fingers swelling and stiff in morning when wakes-up and middle of night while sleeping. H/o Osteoarthritis of spine and currently has Spinal generator. [facility] Medical History (Updated 11/18/23 @ 12:58 by STEPHANIE Kunz-) Tubulovillous adenoma of colon Diverticulosis Radiculitis of right cervical region Complex regional pain syndrome of both lower extremities Spinal cord stimulator dysfunction Obesity (BMI 30-39.9) Cataract Neuropathic arthropathy Postlaminectomy syndrome Difficulty in walking involving lower leg joint Osteoarthritis of knees, bilateral Lipedema Environmental allergies Asthma GERD (gastroesophageal reflux disease) Restless leg syndrome Overweight (BMI 25.0-29.9) Malabsorption due to intolerance, not elsewhere classified Spinal cord stimulator status Urinary incontinence Obesity (BMI 30.0-34.9) Surgical History S/P placement of nerve stimulator History of surgery on right wrist History of eye surgery S/P laparoscopic sleeve gastrectomy History of toe surgery Hx of spinal surgery Hx of rotator cuff surgery Hx of section Hx of construction of artificial vagina Hx laparoscopic cholecystectomy Hx of colonoscopy with polypectomy Family History Father CVD (cardiovascular disease) Mother Asthma Brother Lung cancer Brother No problems noted. Brother No problems noted. Brother No problems noted. Brother No problems noted. Brother No problems noted. Son No problems noted. Daughter No problems noted. Social History Housing: House Alcohol intake: never Patient Tobacco Use Status: Never used Tobacco e-Cigarette/Vaping Use: Never Used Advance Directives Date on File: 08/24/21 service: No Current occupational status: employed Cognitive needs: No Hearing needs: No Vision needs: Yes Review of Systems Const All systems reviewed & are unremarkable except as noted in HPI and below Physical Exam Vital Signs: Last Vital Signs Temp 97.7 F 11/27/23 15:30 Pulse 86 11/27/23 15:30 BP 118/72 11/27/23 15:30 Pulse Ox 98 11/27/23 15:30 Oxygen Delivery Method Room Air 11/27/23 15:30 BMI result Body Mass Index 38.1 Skin Other: Dry cracked skin of hands and fingers. Unable to see the bumps. General skin exam: dry skin and erythema (Mild redness, dry peeling skin.) Extrem Other: Normal ROM of fingers and hands, strength 5/5 Bilateral, normal motor sensory fingers/hands. General: No clubbing and No cyanosis Right upper extremity: full ROM, normal capillary refill and no joint enlargement Left upper extremity: full ROM Assessment & Plan Assessment & Plan (1) Osteoarthritis of fingers of both hands: Code(s): M19.041 - Primary osteoarthritis, right hand; M19.042 - Primary osteoarthritis, left hand Plan: - Unable to visualize the rash Pt is reporting today. - Advised to take pictures when Rash appears. - Moisturize hands and fingers with lotion or Vaseline. - Will need to see either Ortho or Pain management for her Arthritis of joints, fingers and toes. Plan - Unable to visualize the rash Pt is reporting today. - Advised to take pictures when Rash appears. - Moisturize hands and fingers with lotion or Vaseline. - Will need to see either Ortho or Pain management for her Arthritis of joints, fingers and toes. Coding Level of Care Code Est Pt Level 3 (59091) Diagnoses Osteoarthritis of fingers of both hands M19.041; M19.042 Time Spent (min) 15
[2023-11-27 15:30] VITALS: BP 118/72; PULSE 86; TEMP 36.5; O2SAT 98; BMI 38.1
== END 2023-11-27 16:11 | disposition home or self-care (01) ==
PROVIDERS: PCP Internal Medicine; Visit Provider Nurse Practitioner Family
DX: M19.041 Primary osteoarthritis, right hand (principal); M19.042 Primary osteoarthritis, left hand
CPT/HCPCS: 99213

== ENCOUNTER 2023-12-02 13:00 | Outpatient (AMB) | payer OTHER, SELFPAY ==
--- NOTE | 2023-12-02 11:13 | MHC.OFFVISWM ---
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 Allergies almond [ALMOND] Allergy (Intermediate, Verified 11/27/23 15:33) NUMBNESS MOUTH, ITCHY EYES amoxicillin [AMOXICILLIN] Allergy (Intermediate, Verified 11/27/23 15:33) HIVES penicillin V Allergy (Intermediate, Verified 11/27/23 15:33) rash apple [APPLE] Allergy (Mild, Verified 11/27/23 15:33) ITCHY EYES peach [PEACHES] Allergy (Mild, Verified 11/27/23 15:33) ITCHY EYES plum [PLUMS] Allergy (Mild, Verified 11/27/23 15:33) ITCHY EYES carrot Allergy (Unknown, Verified 11/27/23 15:33) Unknown pear [PEAR] Adverse Reaction (Mild, Verified 11/27/23 15:33) ITCHY EYES NECTARINES Allergy (Mild, Uncoded 11/03/23 08:43) ITCHY EYES Medication List - Last Reconciled 12/02/23 by GABRIELLA Alfaro calcium citrate-vitamin D3 315 mg-6.25 mcg (250 unit) 2 tabs PO DAILY [Celebrate MVI bariatric vitamin 1 tab PO DAILY] fiber 1 tab PO DAILY fluticasone propionate 50 mcg/actuation (Flonase Allergy Relief) 1 spray intranasal BID furosemide (Lasix) 10 mg (1/2 x 20 mg) PO QAM PRN 90 days hydrocodone-acetaminophen 5-325 mg 1 tab PO Q8H PRN 7 days hydrocortisone 2.5% (Proctosol HC) 1 appl KS BID-QID PRN montelukast 10 mg PO BEDTIME 90 days polyethylene glycol 3350 (Miralax) 17 grams PO DAILY pregabalin 150 mg PO BID 30 days valacyclovir 500 mg PO DAILY 90 days vibegron (Gemtesa) 75 mg PO DAILY zolpidem 5 mg PO BEDTIME PRN 10 days HPI HPI Comments History of Present Illness Details This?a?62?yo female who is s/p LSG without hiatal hernia repair on?11/03/18. Presents for 5 year post op visit. Weight today is 215.6 pounds, with a BMI of 33. No complaints of nausea, emesis, abdominal pain or reflux. She is currently under the care of Ortho for her right knee and Dr Bonilla for her stimulator in her right lower spine. She is having pinching and burning in right knee and left hip. She also has a pulsating and sensitivity in her left adam area. She is in PT and having to use a SPC to assist in ambulation. No spine etiology per her statements of a w/u at the spine center. She also had a colonoscopy in October and found a polyp and diverticulitis. Present meal plan includes: 930 am Celebrate rebuild 1.5 scoop w 8 oz 1% milk or 2 scoops in unsweetened almond milk 12-1 celebrate bar 4 oz cottage cheese or uzbek yogurt w fresh fruit fresh fruit 3 oz chicken breast/green beans or other veg. 48 oz water Exercise routine includes: very limited due to bilateral leg pain, working in PT Did the patient ever have any of these conditions and are they resolved or still being treated? GERD: resolved ELIEZER: never DM: never HTN: never Hyperlipidemia: never GERD:?0-5 scale ??0 = no symptoms ??1 = symptoms noticeable but not bothersome 2 =symptoms bothersome but not daily ? 3 = symptoms bothersome and daily 4 = symptoms affect daily activities 5 = symptoms are incapacitating, unable to do daily activities ? How bad is the heartburn: 0 ? Heartburn while lying down: 0 ? Heartburn when standing up: 0 ? Heartburn after meals: 0 ? Does heartburn change your diet: 0 ? Does heartburn wake you up from sleep: 0 ? Do you have difficulty swallowin ? Do you have pain with swallowin ? If you take medicine for your reflux, does this affect your daily life: 0 Satisfaction with present condition - satisfied or not satisfied: satisfied [facility] Medical History (Updated 11/18/23 @ 12:58 by STEPHANIE Kunz-) Tubulovillous adenoma of colon Diverticulosis Radiculitis of right cervical region Complex regional pain syndrome of both lower extremities Spinal cord stimulator dysfunction Obesity (BMI 30-39.9) Cataract Neuropathic arthropathy Postlaminectomy syndrome Difficulty in walking involving lower leg joint Osteoarthritis of knees, bilateral Lipedema Environmental allergies Asthma GERD (gastroesophageal reflux disease) Restless leg syndrome Overweight (BMI 25.0-29.9) Malabsorption due to intolerance, not elsewhere classified Spinal cord stimulator status Urinary incontinence Obesity (BMI 30.0-34.9) Surgical History S/P placement of nerve stimulator History of surgery on right wrist History of eye surgery S/P laparoscopic sleeve gastrectomy History of toe surgery Hx of spinal surgery Hx of rotator cuff surgery Hx of section Hx of construction of artificial vagina Hx laparoscopic cholecystectomy Hx of colonoscopy with polypectomy Family History Father CVD (cardiovascular disease) Mother Asthma Brother Lung cancer Brother No problems noted. Brother No problems noted. Brother No problems noted. Brother No problems noted. Brother No problems noted. Son No problems noted. Daughter No problems noted. Social History Housing: House Alcohol intake: never Patient Tobacco Use Status: Never used Tobacco e-Cigarette/Vaping Use: Never Used Advance Directives Date on File: 08/24/21 service: No Current occupational status: employed Cognitive needs: No Hearing needs: No Vision needs: Yes Assessment & Plan Assessment & Plan (1) Obesity (BMI 30-39.9): Code(s): E66.9 - Obesity, unspecified Plan: check yearly labs (CBC ok in August) continue meal plan, adding fresh berries, remove pudding and SF jello, try to incr water to 64 oz daily exercise limited due to ongoing significant LE pain (under care of pain mgmt and ortho) Consider aquatic therapy -aerobics, walking in the pool, swimming. She will inquire her insurance company for coverage given dx OA rtc 2 months Orders: Orders Insulin Today E55.9 - Vitamin D deficiency, unspecified, E66.9 - Obesity, unspecified Vitamin B12 and Folate Today E55.9 - Vitamin D deficiency, unspecified, E66.9 - Obesity, unspecified Zinc Today E55.9 - Vitamin D deficiency, unspecified, E66.9 - Obesity, unspecified C Reactive Protein Today E55.9 - Vitamin D deficiency, unspecified, E66.9 - Obesity, unspecified Vitamin B1 Today E55.9 - Vitamin D deficiency, unspecified, E66.9 - Obesity, unspecified TSH reflex Free T4 Today E55.9 - Vitamin D deficiency, unspecified, E66.9 - Obesity, unspecified Vitamin D 25-OH Total Today E55.9 - Vitamin D deficiency, unspecified, E66.9 - Obesity, unspecified Basic Metabolic Panel Today E55.9 - Vitamin D deficiency, unspecified, E66.9 - Obesity, unspecified Hemoglobin A1c Today E55.9 - Vitamin D deficiency, unspecified, E66.9 - Obesity, unspecified Lipid Panel Today E55.9 - Vitamin D deficiency, unspecified, E66.9 - Obesity, unspecified IRON PROFILE Today E55.9 - Vitamin D deficiency, unspecified, E66.9 - Obesity, unspecified Vitamin A Today E55.9 - Vitamin D deficiency, unspecified, E66.9 - Obesity, unspecified Ferritin Today E55.9 - Vitamin D deficiency, unspecified, E66.9 - Obesity, unspecified Telehealth Telehealth Location of provider rendering services: practice address Location of patient: address on file Patient Identification confirmed using: Name, : Yes Telehealth method: voice only Patient verbally consented to treatment: Yes Patient verbally consented to billing insurance company: Yes Patient informed of any privacy concerns related to visit: Yes Minutes spent on Phone/Video with Pt.: 25 Coding Level of Care Code Tele Est Pt Level 3 (25978) Diagnoses Obesity (BMI 30-39.9) E66.9 Time Spent (min) 35
[2023-12-02 11:14] VITALS: BMI 37.0
== END 2023-12-02 13:20 | disposition home or self-care (01) ==
LOC: HO.HBS 13:19
PROVIDERS: PCP Internal Medicine; Referring Provider Internal Medicine; Visit Provider Physician Assistant Surgical
DX: E66.9 Obesity, unspecified (principal)
CPT/HCPCS: 99213

== ENCOUNTER → 2023-12-02 13:00 | Outpatient (BNVA) | payer OTHER, SELFPAY | PROVIDERS: PCP Internal Medicine; Visit Provider Physician Assistant Surgical | DX: E66.9 Obesity, unspecified (principal); E55.9 Vitamin D deficiency, unspecified ==

== ENCOUNTER 2023-12-13 06:59 | Outpatient (REF) | payer OTHER, SELFPAY ==
[2023-12-13 08:04] LABS: Estimated Average Glucose 100 mg/dL; Hemoglobin A1c % 5.1 % (<6.0)
[2023-12-13 08:21] LABS: Anion Gap 10 (12-20); Blood Urea Nitrogen 16 mg/dL (9-16); Calcium 9.1 mg/dL (8.4-10.2); Carbon Dioxide 28 mmol/L (22-29); Chloride 108 mmol/L (96-108); Cholesterol 180 mg/dL (<200); Estimated Glomerular Filt Rate > 60; Glucose Random 75 mg/dL (60-115); HDL Cholesterol 64 mg/dL (>40); Iron 57 mcg/dL (30-160); LDL Cholesterol Calculated 107 mg/dL (<100); Percent Iron Saturation 21 % (15-50); Potassium 4.3 mmol/L (3.3-5.1); Sodium 142 mmol/L (135-145); Total Iron Binding Capacity 277 mcg/dL (228-428); Triglycerides 46 mg/dL (<150); Unsaturated Iron Binding 220 ug/dL
[2023-12-13 08:32] LABS: Ferritin 97 ng/mL (10-250); TSH reflex Free T4 2.07 uIU/mL (0.32-4.0); Vitamin D 25-OH Total 33.2 ng/mL (>30)
[2023-12-13 08:49] LABS: Folate 4.8 ng/mL (> or = 4.0); Vitamin B12 261 pg/mL (200-900)
[2023-12-16 06:19] LABS: Zinc 62 mcg/dL (60-130)
[2023-12-17 05:38] LABS: Vitamin A 35 mcg/dL (38-98)
[2023-12-17 15:52] LABS: Vitamin B1 7 nmol/L (8-30)
== END 2023-12-13 07:00 | disposition home or self-care (01) ==
LOC: HO.LAB 06:59
PROVIDERS: PCP Internal Medicine; Visit Provider Physician Assistant Surgical
DX: E66.9 Obesity, unspecified (principal); E55.9 Vitamin D deficiency, unspecified
CPT/HCPCS: 36415; 80048; 80061; 82306; 82607; 82728; 82746; 83036; 83540; 84425; 84443; 84590; 84630; 86140

== ENCOUNTER 2023-12-15 11:59 | Outpatient (AMB) | payer OTHER, SELFPAY ==
[2023-12-15 12:03] VITALS: BMI 36.9
--- NOTE | 2023-12-15 12:03 | A.OFFVIS_ITS ---
Intake Vital Signs 12/15/23 12:03 Height 5 ft 4 in Weight 215 lb BMI 36.9 Intake Visit Reasons: OV- RT Knee F/U- INJ 10/06/2023-follow up Intake Note: Genny is a 62 year old female who presents today for a follow up of her right knee osteoarthritis, last injection was done on 10/06/2023 States injection lasted about 1 hour. States she is here to discuss a referral to [place] specialist. Allergies almond [ALMOND] Allergy (Intermediate, Verified 12/15/23 12:05) NUMBNESS MOUTH, ITCHY EYES amoxicillin [AMOXICILLIN] Allergy (Intermediate, Verified 12/15/23 12:05) HIVES penicillin V Allergy (Intermediate, Verified 12/15/23 12:05) rash apple [APPLE] Allergy (Mild, Verified 12/15/23 12:05) ITCHY EYES peach [PEACHES] Allergy (Mild, Verified 12/15/23 12:05) ITCHY EYES plum [PLUMS] Allergy (Mild, Verified 12/15/23 12:05) ITCHY EYES carrot Allergy (Unknown, Verified 12/15/23 12:05) Unknown pear [PEAR] Adverse Reaction (Mild, Verified 12/15/23 12:05) ITCHY EYES NECTARINES Allergy (Mild, Uncoded 12/15/23 12:05) ITCHY EYES HPI OV- RT Knee F/U- INJ 10/06/2023-follow up HPI Details Genny is a 63 year old woman who returns to discuss her right knee OA. She continues to complain of pain with daily activity, which severely limits her ADLs She received a right knee injection on 10/06/23, with little to no relief. She continues to have difficulty with her SCS. She would like to discuss a referral to a specialist in [place]. [facility] Medical History (Updated 11/18/23 @ 12:58 by Colleen Murillo, STEPHANIE-CELESTE) Tubulovillous adenoma of colon Diverticulosis Radiculitis of right cervical region Complex regional pain syndrome of both lower extremities Spinal cord stimulator dysfunction Obesity (BMI 30-39.9) Cataract Neuropathic arthropathy Postlaminectomy syndrome Difficulty in walking involving lower leg joint Osteoarthritis of knees, bilateral Lipedema Environmental allergies Asthma GERD (gastroesophageal reflux disease) Restless leg syndrome Overweight (BMI 25.0-29.9) Malabsorption due to intolerance, not elsewhere classified Spinal cord stimulator status Urinary incontinence Obesity (BMI 30.0-34.9) Surgical History S/P placement of nerve stimulator History of surgery on right wrist History of eye surgery S/P laparoscopic sleeve gastrectomy History of toe surgery Hx of spinal surgery Hx of rotator cuff surgery Hx of section Hx of construction of artificial vagina Hx laparoscopic cholecystectomy Hx of colonoscopy with polypectomy Family History Father CVD (cardiovascular disease) Mother Asthma Brother Lung cancer Brother No problems noted. Brother No problems noted. Brother No problems noted. Brother No problems noted. Brother No problems noted. Son No problems noted. Daughter No problems noted. Social History Housing: House Alcohol intake: never Patient Tobacco Use Status: Never used Tobacco e-Cigarette/Vaping Use: Never Used Advance Directives Date on File: 08/24/21 service: No Current occupational status: employed Cognitive needs: No Hearing needs: No Vision needs: Yes Review of Systems Const All systems reviewed & are unremarkable except as noted in HPI and below Physical Exam Vital Signs: BMI result Body Mass Index 36.9 Const General: no acute distress, alert and awake Orientation/consciousness: patient oriented x3 HEENT Head: Yes normocephalic and Yes atraumatic Eyes EOM: EOMs intact bilaterally Resp Effort & Inspection: normal respiratory effort and able to speak in complete sentences Cardio Jugular venous distension: no JVD Skin General skin exam: turgor normal Rashes: no rashes Neuro General: patient oriented x3 Extrem Other: TTP right knee medial joint line Mild + impingement test left hip with 10 deg internal rotation when flexed. Psych Appearance: grossly normal Affect: normal affect Attitude: cooperative Assessment & Plan Assessment & Plan (1) CRPS (complex regional pain syndrome type I): Code(s): G90.50 - Complex regional pain syndrome I, unspecified Plan: THisd is a 63 yo F with chronic pain and right knee OA. She is looking for a referral to a pain specialist in [place]. I discussed this with her. She has done well with PT with respect to her knees and her hip radiographs are not worriesome. She will let me know if there is anything else I can do. (2) Osteoarthritis of right knee: Code(s): M17.11 - Unilateral primary osteoarthritis, right knee Qualifiers: Osteoarthritis type: unspecified Qualified Code(s): M17.11 - Unilateral primary osteoarthritis, right knee (3) Osteoarthritis of left knee: Code(s): M17.12 - Unilateral primary osteoarthritis, left knee Qualifiers: Osteoarthritis type: unspecified Qualified Code(s): M17.12 - Unilateral primary osteoarthritis, left knee Plan Prepared for Jesus Levy MD by Lawrence Agudelo, expert medical writer, on 12/15/23 at 12:07 PM, EST. Orders: Orders XR pelvis 1-2V 12/15/23 M25.559 - Pain in unspecified hip Coding Level of Care Code Est Pt Level 2 (41220) Diagnoses CRPS (complex regional pain syndrome type I) G90.50 Osteoarthritis of right knee, unspecified osteoarthritis type M17.11 Osteoarthritis type: unspecified Osteoarthritis of left knee, unspecified osteoarthritis type M17.12 Osteoarthritis type: unspecified
== END 2023-12-15 12:51 | disposition home or self-care (01) ==
PROVIDERS: PCP Internal Medicine; Visit Provider Orthopaedic Surgery
DX: G90.50 Complex regional pain syndrome I, unspecified (principal); M17.0 Bilateral primary osteoarthritis of knee
CPT/HCPCS: 99213

== ENCOUNTER 2023-12-15 11:59 | Outpatient (REF) | payer OTHER, SELFPAY ==
--- NOTE | ~2023-12-15 | XR_ITS ---
EXAMINATION: XR PELVIS CLINICAL INFORMATION: Hip pain. COMPARISON: None available. TECHNIQUE: AP view of the pelvis. FINDINGS: There is generalized bony demineralization. The bilateral acetabular joint spaces are well-maintained. The femoral heads are smooth. No fracture or dislocation is seen. The sacroiliac joints show mild bilateral arthritic change. The pubic symphysis is intact. There are degenerative changes of the lower lumbar spine. A spinal stimulator device is noted. A right abdominal surgical clip and endoscopic clip are noted. XR/XR pelvis 1-2V IMPRESSION: 1. Unremarkable radiographic appearance of the hips. 2. There is mild osteoarthritic change of the bilateral sacroiliac joints. 3. There are incompletely characterized degenerative changes of the lower lumbar spine.
== END 2023-12-15 12:00 | disposition home or self-care (01) ==
LOC: HO.HOSX 11:59
PROVIDERS: PCP Internal Medicine; Visit Provider Orthopaedic Surgery
DX: M25.552 Pain in left hip (principal); M25.551 Pain in right hip; M17.0 Bilateral primary osteoarthritis of knee
CPT/HCPCS: 72170

== ENCOUNTER 2023-12-19 13:00 | Outpatient (RCR) | payer OTHER, SELFPAY ==
--- NOTE | 2023-11-21 15:57 | MHC.PT.EP ---
[facility] [place] Office [address] [phone] F: [phone] F: [phone] F: [phone] F: [phone] Physical Therapy Plan of Care Date of Evaluation: 11/21/23 Date of Surgery: NA Diagnosis: L KNEE OA (SAYS L ON SCRIPT, BUT Pt REPORTS PAIN IS ON R SIDE) Assessment: Pt IS 62 YO F WHO HAS HAD MULTIPLE BOUTS OF PT FOR BACK, NOW REFERRED TO PT FOR KNEE OA (Pt REPORTS R ALTHOUGH SCRIPT SAYS L). PRESENTS TO PT WITH C/O PAIN IN BACK AND LEGS, R LE EDEMA (?LYMPHEDEMA), ANTALGIC GT WITH ST CANE, AND LIMITED FLEXIBILITY AND STRENGTH T/O. Pt HAS SEEN PAIN MANAGEMENT, ORTHO, HAS HAD INJECTIONS AND MEDICATION PRESCRIPTION ALL WITHOUT SIGNIF RELIEF..WHICH MAKES HER ONLY A FAIR PT CANDIDATE. Pt IS MOTIVATED TO TRY PT FOR LE STRENGTHENING, THOUGH. Frequency and Duration: The patient will be seen 2X/WK X 6 WKS Short Term Goals: 1. Pt TO REPORT IMPROVED SIT TIME 2. Pt TO REPORT IMPROVED STAND TIME [employer] Goals: 1. DECREASED LE PAIN AT LEAST 50 % WITH ADLS 2. I HEP WITH DC EX PLAN Treatment Plan: Modalities to reduce pain, spasms and effusion. Manual therapy to restore motion and function. Therapeutic exercise to improve strength and flexibility. Neuromuscular re-education for posture and balance. Therapeutic activities to return to functional activities of daily living. Electronically signed by: SRINIVAS YOUSSEF PT Please sign and return to therapist. Thank you for your referral.
--- NOTE | 2023-12-19 13:51 | MHC.PT.DC ---
[facility] [place] Office [place] Office [place] Office [address] [phone] F: [phone] F: [phone] F: [phone] F: [phone] Physical Therapy Discharge Report Diagnosis: L KNEE OA (SAYS L ON SCRIPT, BUT Pt REPORTS PAIN IS ON R SIDE) Date of Surgery: NA Date of Evaluation: 11/21/23 Date of Discharge: 12/19/23 Treatments to Date: 8 Cancellations to Date: No Shows to Date: Discharge Status: Improved Function Independent with HEP Recommend MD Follow-up Discharge Summary: HAS MET MOST PT GOALS. HAS HOME PROGRAM Electronically signed by: SRINIVAS YOUSSEF PT Please sign and return to therapist. Thank you for your referral.
== END 2023-12-19 13:53 | disposition home or self-care (01) ==
LOC: HO.PT 13:00
PROVIDERS: PCP Internal Medicine; Visit Provider Orthopaedic Surgery
DX: M17.12 Unilateral primary osteoarthritis, left knee (principal); M54.16 Radiculopathy, lumbar region
CPT/HCPCS: 97110; 97140; 97161

== ENCOUNTER 2024-01-14 10:26 | Outpatient (AMB) | payer OTHER, SELFPAY ==
--- NOTE | 2024-01-14 09:41 | A.OFFPC_ITS ---
Vital Signs 01/14/24 10:27 Height 5 ft 4 in Weight 220 lb 6 oz BMI 37.8 BP 124/68 Blood Pressure Location Lt brachial Position Sitting Pulse 77 Pulse Source Pulse Oximeter Pulse Oximetry (%) 100 Oxygen Delivery Method Room Air Intake Visit Reasons: Annual PE Allergies almond [ALMOND] Allergy (Intermediate, Verified 01/14/24 10:27) NUMBNESS MOUTH, ITCHY EYES amoxicillin [AMOXICILLIN] Allergy (Intermediate, Verified 01/14/24 10:27) HIVES penicillin V Allergy (Intermediate, Verified 01/14/24 10:27) rash apple [APPLE] Allergy (Mild, Verified 01/14/24 10:27) ITCHY EYES peach [PEACHES] Allergy (Mild, Verified 01/14/24 10:27) ITCHY EYES plum [PLUMS] Allergy (Mild, Verified 01/14/24 10:27) ITCHY EYES carrot Allergy (Unknown, Verified 01/14/24 10:27) Unknown pear [PEAR] Adverse Reaction (Mild, Verified 01/14/24 10:27) ITCHY EYES NECTARINES Allergy (Mild, Uncoded 12/15/23 12:05) ITCHY EYES Medication List - Last Reconciled 01/14/24 by Bettye Wood MD calcium citrate-vitamin D3 315 mg-6.25 mcg (250 unit) 2 tabs PO DAILY [Celebrate MVI bariatric vitamin 1 tab PO DAILY] estradiol 0.01%(0.1mg/gram) 1 g vaginal 2XW fiber 1 tab PO DAILY fluticasone propionate 50 mcg/actuation (Flonase Allergy Relief) 1 spray intranasal BID furosemide (Lasix) 10 mg (1/2 x 20 mg) PO QAM PRN 90 days montelukast 10 mg PO BEDTIME 90 days polyethylene glycol 3350 (Miralax) 17 grams PO DAILY pregabalin 150 mg PO BID 30 days thiamine HCl (vitamin B1) 100 mg PO DAILY 90 days valacyclovir 500 mg PO DAILY 90 days vibegron (Gemtesa) 75 mg PO DAILY vitamin A palmitate 3,000 mcg PO DAILY 30 days zolpidem 5 mg PO BEDTIME PRN 10 days Tobacco use date assessed: 01/14/24 Dental Screening Dental Screen Date: 01/14/24 Did you have a dental visit in the last 12 months?: Yes Did you have a dental problem in the last 6 months where you did not have access to dental care?: No Was dental information given to patient?: Patient has dentist HPI Annual PE HPI Details Patient is 63-year-old female came in today for physical examination Labs were done November of this year through weight loss program, reviewed Colonoscopy was October of this year [facility] which showed tubulovillous tumor, patient is to repeat colonoscopy again in 12 months Pap smear through Urogynecology Mammogram due in February Lymphedema bilateral, patient is taking Lasix as needed which is helping her She suffers from complex regional pain syndrome type 1 both legs And have back stimulator. She has been under care of pain management doctor [facility] However patient has not been able to benefit from the care provided so far, she has referred to a tertiary care in [place], patient has not made appointment yet But she is planning to. She is feeling in distress because at times her legs feels very heavy. And that is causing difficulty going on with her day. She does not want to take any narcotics for pain management. She also have knee arthritis specially right 1 and is in need of knee replacement but she can not have it until her pain is controlled in her legs. She also have underlying anxiety disorder and is taking no medication, she will think about medication and will get back to me I think patient might benefit from duloxetine or Lexapro Follow-up 1 year physical exam REPLACED BY [facility] Medical History Tubulovillous adenoma of colon Diverticulosis Radiculitis of right cervical region Complex regional pain syndrome of both lower extremities Spinal cord stimulator dysfunction Obesity (BMI 30-39.9) Cataract Neuropathic arthropathy Postlaminectomy syndrome Difficulty in walking involving lower leg joint Osteoarthritis of knees, bilateral Lipedema Environmental allergies Asthma GERD (gastroesophageal reflux disease) Restless leg syndrome Overweight (BMI 25.0-29.9) Malabsorption due to intolerance, not elsewhere classified Spinal cord stimulator status Urinary incontinence Obesity (BMI 30.0-34.9) Surgical History S/P placement of nerve stimulator History of surgery on right wrist History of eye surgery S/P laparoscopic sleeve gastrectomy History of toe surgery Hx of spinal surgery Hx of rotator cuff surgery Hx of section Hx of construction of artificial vagina Hx laparoscopic cholecystectomy Hx of colonoscopy with polypectomy Family History Father CVD (cardiovascular disease) Mother Asthma Brother Lung cancer Brother No problems noted. Brother No problems noted. Brother No problems noted. Brother No problems noted. Brother No problems noted. Son No problems noted. Daughter No problems noted. Social History Housing: House Alcohol intake: never Patient Tobacco Use Status: Never used Tobacco e-Cigarette/Vaping Use: Never Used Advance Directives Date on File: 08/24/21 service: No Current occupational status: employed Cognitive needs: No Hearing needs: No Vision needs: Yes Questionnaire Thrive Questionnaire Date Thrive assessed: 10/16/21 AUDIT C Alcohol Use Questionnaire (AUDIT-C) 1. How often do you have a drink containing alcohol?: Monthly or less 2. How many drinks containing alcohol do you have on a typical day when you are drinking?: 1 or 2 3. How often do you have six or more drinks on one occasion?: Never Total Score: 1 Score Reviewed/Action Taken: Yes MANNY-7 AMB Questionnaire MANNY-7 Date MANNY - 7 assessed: 10/16/21 Source: Developed by Drs. Burt Malcolm, Patience Hendrickson, Magno Prado and colleagues, with an educational shay from [employer]. Review of Systems Const Denies chills, Denies fever(s) and Denies headache(s) Eyes Denies blurry vision ENT Denies headache(s), Denies nasal discharge, Denies nasal obstruction, Denies odynophagia and Denies sinus pain Card Denies chest pain at rest and Denies chest pain with activity Resp Denies cough and Denies hemoptysis GI Denies diarrhea, Denies odynophagia, Denies vomiting and Denies hematemesis Reports as per HPI Skin/Breast Reports as per HPI Neuro Denies Neuro-related abnormal movements, Denies Abnormal speech present and Denies headache(s) Psych Denies mood swings and Denies paranoia Endo Reports as per HPI Watson/Lymph Reports as per HPI Aller/Immun Reports as per HPI Physical exam (Primary Care) Vital Signs: Last Vital Signs Pulse 77 01/14/24 10:27 BP 124/68 01/14/24 10:27 Pulse Ox 100 01/14/24 10:27 Oxygen Delivery Method Room Air 01/14/24 10:27 BMI result Body Mass Index 37.8 Tobacco/Smoking Status: Tobacco use Status Tobacco use date assessed 01/14/24 01/14/24 10:38 Patient Tobacco Use Status Never used Tobacco 01/14/24 09:42 e-Cigarette/Vaping Use Never Used 01/14/24 09:42 Thrive Assessment: Date of Thrive Assessment Date Thrive assessed 10/16/21 01/14/24 09:42 Const General: cooperative, comfortable and no acute distress Orientation/consciousness: patient oriented x3 HENMT Head: Yes normocephalic and Yes atraumatic Eyes General: appearance normal, both eyes and all related structures Pupils: Equal, round and reactive pupils present EOM: EOMs intact bilaterally Neck Neck: Yes supple and No lymphadenopathy Thyroid: Thyroid normal Lymphatic: no lymphadenopathy noted Chest Breast/axilla palpation: normal palpation of the breasts Resp Effort & Inspection: normal respiratory effort and able to speak in complete sentences Auscultation: clear to auscultation bilaterally Cardio Heart sounds: S1 normal heart sound present and S2 normal heart sound present GI Palpation (GI): Soft to palpation and nontender Auscultation: normal bowel sounds General: Yes no CVA tenderness Back/Spine/Pelvis Back: no CVA tenderness Skin General skin exam: elasticity normal and turgor normal Neuro General: patient oriented x3 Cranial nerves: Yes Equal, round and reactive pupils present Speech: No Abnormal speech present Extrem General: Yes normal exam except as noted Assessment and Plan Assessment & Plan (1) Encounter for general adult medical examination with abnormal findings: Code(s): Z00.01 - Encounter for general adult medical examination with abnormal findings (2) CRPS (complex regional pain syndrome type I): Code(s): G90.50 - Complex regional pain syndrome I, unspecified Qualifiers: Complex regional pain syndrome affected site: lower extremity Laterality: bilateral Qualified Code(s): G90.523 - Complex regional pain syndrome I of lower limb, bilateral (3) Lipedema: Code(s): R60.9 - Edema, unspecified (4) Environmental allergies: Code(s): Z91.09 - Other allergy status, other than to drugs and biological substances (5) Osteoarthritis of knees, bilateral: Code(s): M17.0 - Bilateral primary osteoarthritis of knee Qualifiers: Osteoarthritis type: primary Qualified Code(s): M17.0 - Bilateral primary osteoarthritis of knee (6) Tubulovillous adenoma of colon: Code(s): D12.6 - Benign neoplasm of colon, unspecified (7) Spinal cord stimulator status: Comment: w/revision & battery change 12/2019 Code(s): Z96.89 - Presence of other specified functional implants (8) Obesity (BMI 30-39.9): Code(s): E66.9 - Obesity, unspecified (9) Anxiety, generalized: Code(s): F41.1 - Generalized anxiety disorder Plan Patient is 63-year-old female came in today for physical examination Labs were done November of this year through weight loss program, reviewed Colonoscopy was October of this year [facility] which showed tubulov illous tumor, patient is to repeat colonoscopy again in 12 months Pap smear through Urogynecology Mammogram due in February Lymphedema bilateral, patient is taking Lasix as needed which is helping her She suffers from complex regional pain syndrome type 1 both legs And have back stimulator. [facility] However patient has not been able to benefit from the care provided so far, she has referred to a tertiary care in [place], patient has not made appointment yet But she is planning to. She is feeling in distress because at times her legs feels very heavy. And that is causing difficulty going on with her day. She does not want to take any narcotics for pain management. She also have knee arthritis specially right 1 and is in need of knee replacement but she can not have it until her pain is controlled in her legs. She also have underlying anxiety disorder and is taking no medication, she will think about medication and will get back to me I think patient might benefit from duloxetine or Lexapro Follow-up 1 year physical exam Medications: Refilled montelukast 10 mg PO BEDTIME 90 tabs 0RF 90 days J30.9 - Allergic rhinitis, unspecified Coding Level of Care Code Est Pt Prev Care 40-64y([id number]) Diagnoses Encounter for general adult medical examination with abnormal findings Z00.01 Complex regional pain syndrome type 1 of both lower extremities G90.523 Complex regional pain syndrome affected site: lower extremity Laterality: bilateral Lipedema R60.9 Environmental allergies Z91.09 Primary osteoarthritis of both knees M17.0 Osteoarthritis type: primary Tubulovillous adenoma of colon D12.6 Spinal cord stimulator status Z96.89 Obesity (BMI 30-39.9) E66.9 Anxiety, generalized F41.1
[2024-01-14 10:27] VITALS: BP 124/68; PULSE 77; O2SAT 100; BMI 37.8
== END 2024-01-14 11:00 | disposition home or self-care (01) ==
PROVIDERS: Visit Provider Internal Medicine
DX: Z00.00 Encounter for general adult medical examination without abnormal findings (principal); G90.523 Complex regional pain syndrome I of lower limb, bilateral; R60.9 Edema, unspecified; Z91.09 Other allergy status, other than to drugs and biological substances; M17.0 Bilateral primary osteoarthritis of knee; D12.6 Benign neoplasm of colon, unspecified; Z96.89 Presence of other specified functional implants; E66.9 Obesity, unspecified; F41.1 Generalized anxiety disorder
CPT/HCPCS: 99396

== ENCOUNTER 2024-02-25 07:49 | Outpatient (REF) | payer OTHER, SELFPAY ==
--- NOTE | ~2024-02-25 | MM_ITS ---
EXAMINATION: MM SCREENING DIGITAL BREAST TOMOSYNTHESIS, BILATERAL CLINICAL INFORMATION: Screening. Asymptomatic. COMPARISON: Mammography: This study is compared with prior exams dating back to 2019. TECHNIQUE: Digital breast tomosynthesis is performed in both the craniocaudal and mediolateral oblique views along with computer-aided detection (CAD). Synthesized 2D images are generated from the tomosynthesis. FINDINGS: There are scattered areas of fibroglandular density (ACR BI-RADS breast composition Category b). There are no significant masses, abnormal calcifications, or other abnormalities. There is tissue marker in the upper outer quadrant of the left breast from prior benign percutaneous biopsy. There are few, coarse, benign calcifications in the upper outer quadrant of the left breast. MM/MM tomosynthesis screening BI IMPRESSION: No mammographic evidence of malignancy. ASSESSMENT: BI-RADS BI-RADS 2 - Benign Findings RECOMMENDATION: Routine annual mammography screening. 1 year F/U This examination should not preclude the clinical evaluation of a suspicious palpable abnormality. This patient's information was entered into a reminder system with a target due date for their next mammogram.
--- NOTE | ~2024-02-25 | MM_ITS ---
EXAMINATION: BONE DENSITOMETRY CLINICAL INDICATION: Age-related osteoporosis. COMPARISON: This is the patient's baseline examination. TECHNIQUE: Using a [employer] DXA System (software version: 13.1) manufactured by [employer], dual-energy x-ray absorptiometry was performed of the left hip and left forearm radius 33%. The images are of good technical quality. Summary results are attached. FINDINGS: LEFT FEMUR, NECK: BMD 0.765 g/cm2, Z-score -1.4, T-score -2.0, osteopenia. LEFT FEMUR, TOTAL: BMD 0.718 g/cm2, Z-score -2.1, T-score -2.3, osteopenia. LEFT FOREARM RADIUS 33%: BMD 0.714 g/cm2, Z-score -0.8, T-score -1.8, osteopenia. IDENTIFIED RISK FACTORS: Early menopause, glucocorticoids (chronic), height loss, osteoporosis, secondary osteoporosis. HISTORY OF FRACTURE: None listed. MEDICATIONS: Calcium, vitamin D. MM/XR DEXA axial skeleton IMPRESSION: 1. DIAGNOSIS: Osteopenia based on the lowest T-score value of -2.3 in the total femur applying World Health Organization criteria. 2. 10-YEAR FRACTURE RISK PREDICTION, FRAX: Major osteoporotic fracture (clinical spine, forearm, hip or shoulder) 14.2%. Hip fracture 2.0%. 3. Treatment Recommendations: NOF guidelines recommend consideration for treatment in postmenopausal women and men age 50 and older presenting with the following: -A hip or vertebral (clinical or morphometric) fracture. -T-score less than or equal to -2.5 at the femoral neck or spine after appropriate evaluation to exclude secondary causes. -Low bone mass at the hip or spine and a 10-year fracture probability by FRAX of greater than or equal to 3% for hip fracture or greater than or equal to 20% for major osteoporotic fracture based on the [place] adapted WHO algorithm. 4. Other Recommendations: All treatment decisions require clinical judgment and consideration of individual patient factors, including patient preferences, comorbidities, previous drug use, risk factors not captured in the FRAX model (e.g. frailty, falls, vitamin D deficiency, increased bone turnover, interval significant decline in bone density) and possible under or overestimation of fracture risk by FRAX. Additional medical evaluation for secondary cause of low bone mineral density may be appropriate. FUTURE SCAN RECOMMENDATION: People with diagnosed cases of osteoporosis or at high risk for fracture should have regular bone mineral density tests. For patients eligible for Medicare, routine testing is allowed once every 2 years. The testing frequency can be increased to one year for patients who have rapidly progressing disease, those who are receiving or discontinuing medical therapy to restore bone mass, or have additional risk factors.
== END 2024-02-25 07:50 | disposition home or self-care (01) ==
LOC: HO.MAMMO 07:49
PROVIDERS: Visit Provider Obstetrics & Gynecology Gynecology
DX: Z12.31 Encounter for screening mammogram for malignant neoplasm of breast (principal); Z13.820 Encounter for screening for osteoporosis; Z78.0 Asymptomatic menopausal state; M81.0 Age-related osteoporosis without current pathological fracture
CPT/HCPCS: 77063; 77067; 77080

== ENCOUNTER → 2024-02-25 08:15 | Outpatient (BNV) | payer OTHER, SELFPAY | PROVIDERS: Visit Provider Radiology Diagnostic Radiology | DX: Z12.31 Encounter for screening mammogram for malignant neoplasm of breast (principal) | CPT/HCPCS: 77063; 77067 ==

== ENCOUNTER 2024-04-21 13:39 | Outpatient (AMB) | payer OTHER, SELFPAY ==
--- NOTE | 2024-04-21 13:41 | MHC.OFFVIS ---
Vital Signs 04/21/24 13:49 Height 5 ft 4 in Weight 212 lb 6 oz BMI 36.5 BP 126/72 Blood Pressure Location Lt brachial Position Sitting Respiration 16 Pulse 81 Pulse Source Pulse Oximeter Pulse Oximetry (%) 98 Oxygen Delivery Method Room Air Intake Visit Reasons: 6 Month Follow Up Intake Note: Patient comes in for 6 months follow up. Reports pain 7/10. Allergies almond [ALMOND] Allergy (Intermediate, Verified 04/21/24 13:50) NUMBNESS MOUTH, ITCHY EYES amoxicillin [AMOXICILLIN] Allergy (Intermediate, Verified 04/21/24 13:50) HIVES penicillin V Allergy (Intermediate, Verified 04/21/24 13:50) rash apple [APPLE] Allergy (Mild, Verified 04/21/24 13:50) ITCHY EYES peach [PEACHES] Allergy (Mild, Verified 04/21/24 13:50) ITCHY EYES plum [PLUMS] Allergy (Mild, Verified 04/21/24 13:50) ITCHY EYES carrot Allergy (Unknown, Verified 04/21/24 13:50) Unknown pear [PEAR] Adverse Reaction (Mild, Verified 04/21/24 13:50) ITCHY EYES NECTARINES Allergy (Mild, Uncoded 12/15/23 12:05) ITCHY EYES HPI Comments Details: Genny is back in my office to report improvement with her knees pain. Last time she was sent for physical therapy and she reports today that physical therapy is making her knees pain better. She continues home exercise program. She is encouraged to do so at least 3 times a day at least 15-20 minutes at a time. She also complains on pain across the lower back as well as pain in the left groin due to osteoarthritis of the left hip. I again pointed out to her that since her insurance company did not allow me to do genicular nerve manipulations such as injection and radiofrequency ablation this option is closed for her unless she changes her insurance. Another mode of treatment was discussed with her: Embolization of the genicular arteries. Patient stated that she will research this mode of treatment and she will let us know if she wants to try this modality. She does not want to consider chronic opioid therapy. I would suggest her to address this issue with her primary care physician. If she is not willing to accept this option I will not be insisting on it. She also is not very clear on whether not she wants me to remove her spinal cord stimulator [employer] which was designed to help the pain in bilateral knees. Looks like that she is against the removal but at the same time she is stating that the device does not help her. There is slight shift of the 1 of the electrode 5 mm caudad in her bilateral gutters however I still believe that bilateral L3 roots are capable of provide her L3-L4 stimulation as it is related to innervation of the bilateral knees. Prior: In the past for the treatment of her conditions she received spinal cord stimulator Mr. [employer] by Dr. Arias. She later on under my care visited me with complaints on bilateral knee pains. She had multiple steroid injections in her knees, eventually those injections stopped helping her pain. Genicular nerve injections were very effective for her, however her insurance refused to cover radiofrequency ablation of the genicular nerves. The insurance also refused to cover peripheral nerve stimulation or dorsal root ganglion stimulation citing this as experimental procedures. At that time she was offered [employer] spinal cord stimulator in lumbar position in the projection L3-L4 vertebra is to stimulate dorsal root ganglions and peripheral nerves responsible for pain in the knees. She was given a trial with [employer] device, she reported good results of stimulation with more than 75% improvement of the level of the pain and then she went into the surgery where alpha battery was used to connect existing thoracic electrodes as well as newly placed [employer] electrodes in the lumbar gutter position. Immediately postoperatively she reported good pain relief, She became very physically active, however later on she reported that stimulation of the right knee is not working. On x-ray dislodgment of the right positioned electrode was detected and she was taken for revision of the electrode and replacement of the electrode on the right. The level of the stimulation got restored and she reported adventism of good pain relief from the right knee. the x-ray of the device - lumbar spine x-ray it demonstrated appropriate position of the electrodes however compared to the previously inserted electrodes there is slight shift of the right electrode may be no more than 5 mm down. In my opinion it should not affect the ability of the electrode to stimulate the targets. [facility] Medical History Tubulovillous adenoma of colon Diverticulosis Radiculitis of right cervical region Complex regional pain syndrome of both lower extremities Spinal cord stimulator dysfunction Obesity (BMI 30-39.9) Cataract Neuropathic arthropathy Postlaminectomy syndrome Difficulty in walking involving lower leg joint Osteoarthritis of knees, bilateral Lipedema Environmental allergies Asthma GERD (gastroesophageal reflux disease) Restless leg syndrome Overweight (BMI 25.0-29.9) Malabsorption due to intolerance, not elsewhere classified Spinal cord stimulator status Urinary incontinence Obesity (BMI 30.0-34.9) Surgical History S/P placement of nerve stimulator History of surgery on right wrist History of eye surgery S/P laparoscopic sleeve gastrectomy History of toe surgery Hx of spinal surgery Hx of rotator cuff surgery Hx of section Hx of construction of artificial vagina Hx laparoscopic cholecystectomy Hx of colonoscopy with polypectomy Family History Father CVD (cardiovascular disease) Mother Asthma Brother Lung cancer Brother No problems noted. Brother No problems noted. Brother No problems noted. Brother No problems noted. Brother No problems noted. Son No problems noted. Daughter No problems noted. Social History Housing: House Alcohol intake: never Patient Tobacco Use Status: Never used Tobacco e-Cigarette/Vaping Use: Never Used Advance Directives Date on File: 08/24/21 service: No Current occupational status: employed Cognitive needs: No Hearing needs: No Vision needs: Yes Review of Systems Const All systems reviewed & are unremarkable except as noted in HPI and below Physical Exam Vital Signs: Last Vital Signs Pulse 81 04/21/24 13:49 Resp 16 04/21/24 13:49 BP 126/72 04/21/24 13:49 Pulse Ox 98 04/21/24 13:49 Oxygen Delivery Method Room Air 04/21/24 13:49 BMI result Body Mass Index 36.5 Const General: comfortable, no acute distress, well developed, alert and awake Eyes Pupils: Equal, round and reactive pupils present EOM: EOMs intact bilaterally Chest Chest palpation & inspection: normal inspection of the chest Resp Effort & Inspection: normal respiratory effort, able to speak in complete sentences, normal respiratory pattern, no audible wheezes and no cough Cardio Jugular venous distension: no JVD Back/Spine/Pelvis Other: tenderness on palpation in paraspinal spinal region in lumbar spine. Loading test is positive. Range of motion in lumbar spine is preserved. Edgar test is negative bilaterally. Range of motion on the bilateral lower extremities is decreased especially in the knees areas. Neuro Cranial nerves: Yes Equal, round and reactive pupils present Extrem Other: Varus right knee, slight red discoloration of bilateral knees, significant severe tenderness on palpation on the right knee more than the left knee. Psych Speech and movement: Normal speech and movement present Affect: normal affect Attitude: cooperative Thought process: Normal thought process present Thought content: Normal thought content present Insight: Good insight present (Psych) Judgement: Good judgement present (Psych) Assessment & Plan Assessment & Plan (1) Postlaminectomy syndrome: Code(s): M96.1 - Postlaminectomy syndrome, not elsewhere classified Category: Medical (2) Spinal cord stimulator dysfunction: Code(s): T85.192A - Other mechanical complication of implanted electronic neurostimulator of spinal cord electrode (lead), initial encounter Category: Medical (3) CRPS (complex regional pain syndrome type I): Code(s): G90.50 - Complex regional pain syndrome I, unspecified Category: Medical Qualifiers: Complex regional pain syndrome affected site: lower extremity Laterality: bilateral Qualified Code(s): G90.523 - Complex regional pain syndrome I of lower limb, bilateral (4) Lumbago: Code(s): M54.50 - Low back pain, unspecified Category: Medical Plan Her knee pain is better with physical therapy. She still uses [employer] SCS to treat her lower back pain inserted by Dr. Arias. Genicular artery embolization was discussed. She will research this option and let us know if she wants to proceed for this modality. [employer] SCS positioned in the lumbar gutters and is designed to help her knee pain. However she states that this is not helping her knee pain in significant extent. No new appointment for now the patient will give us a call and schedule appointment for later.. Coding Level of Care Code Est Pt Level 3 (97509) Diagnoses Postlaminectomy syndrome M96.1 Spinal cord stimulator dysfunction T85.192A Complex regional pain syndrome type 1 of both lower extremities G90.523 Complex regional pain syndrome affected site: lower extremity Laterality: bilateral Lumbago M54.50
[2024-04-21 13:49] VITALS: BP 126/72; PULSE 81; RESP 16; O2SAT 98; BMI 36.5
== END 2024-04-21 14:05 | disposition home or self-care (01) ==
PROVIDERS: PCP Internal Medicine; Visit Provider Anesthesiology
DX: M96.1 Postlaminectomy syndrome, not elsewhere classified (principal); T85.192A Other mechanical complication of implanted electronic neurostimulator of spinal cord electrode (lead), initial encounter; G90.523 Complex regional pain syndrome I of lower limb, bilateral; M54.50 Low back pain, unspecified
CPT/HCPCS: 99213

== ENCOUNTER → 2024-04-21 13:39 | Outpatient (BNVA) | payer OTHER, SELFPAY | PROVIDERS: Visit Provider Anesthesiology ==

== ENCOUNTER 2024-05-29 07:02 | Outpatient (REF) | payer OTHER, SELFPAY ==
[2024-05-29 08:37] LABS: Insulin 4 uU/mL (2-29)
[2024-06-02 14:12] LABS: Vitamin A 57 mcg/dL (38-98)
[2024-06-04 13:27] LABS: Vitamin B1 21 nmol/L (8-30)
== END 2024-05-29 07:03 | disposition home or self-care (01) ==
LOC: HO.LAB 07:02
PROVIDERS: PCP Internal Medicine; Visit Provider Physician Assistant Surgical
DX: E66.9 Obesity, unspecified (principal); E55.9 Vitamin D deficiency, unspecified; E50.9 Vitamin A deficiency, unspecified; E51.9 Thiamine deficiency, unspecified
CPT/HCPCS: 36415; 83525; 84425; 84590

== ENCOUNTER 2024-07-19 07:52 | Outpatient (AMB) | payer OTHER, SELFPAY ==
[2024-07-19 08:00] VITALS: BP 106/66; PULSE 70; O2SAT 100; BMI 38.1
--- NOTE | 2024-07-19 08:00 | A.OFFVIS_ITS ---
Vital Signs 07/19/24 08:00 Height 5 ft 4 in Weight 221 lb 12.56 oz BMI 38.1 BP 106/66 Blood Pressure Location Rt brachial Position Sitting Pulse 70 Pulse Source Pulse Oximeter Pulse Oximetry (%) 100 Oxygen Delivery Method Room Air Intake Visit Reasons: 8 month follow up Intake Note: Genny presents in office today for a scheduled 8 mos FUV. CC; No new rx or lab orders were placed at last visit. This is a progress FUV. Pt reports that they are due for another colo procedure. Pt is aware that they did not have a good prep process last time and would like to ensure that it does not happen again. 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: No Allergies almond [ALMOND] Allergy (Intermediate, Verified 07/19/24 08:02) NUMBNESS MOUTH, ITCHY EYES amoxicillin [AMOXICILLIN] Allergy (Intermediate, Verified 07/19/24 08:02) HIVES penicillin V Allergy (Intermediate, Verified 07/19/24 08:02) rash apple [APPLE] Allergy (Mild, Verified 07/19/24 08:02) ITCHY EYES peach [PEACHES] Allergy (Mild, Verified 07/19/24 08:02) ITCHY EYES plum [PLUMS] Allergy (Mild, Verified 07/19/24 08:02) ITCHY EYES carrot Allergy (Unknown, Verified 07/19/24 08:02) Unknown pear [PEAR] Adverse Reaction (Mild, Verified 07/19/24 08:02) ITCHY EYES NECTARINES Allergy (Mild, Uncoded 12/15/23 12:05) ITCHY EYES HPI HPI 8 month follow up: Details: LAST VISIT: Diverticulosis Tubulovillous adenoma of colon Status post colonoscopy Constipation Internal hemorrhoids without complication Plan Tubulovillous adenoma found on colonoscopy. Patient will repeat colonoscopy in 1 year. Patient denies any melena, hematochezia, unintentional weight loss or ribbon like stools. Patient continues to be constipated no BM for 2-3 days. Patient will start taking MiraLax daily and continue taking stool softeners. Script for Proctosol sent to pharmacy. Moderate diverticulosis seen in left side of the colon. Long discussion with patient about high-fiber diet. List of food high in fiber given to patient. I will see patient in 8 months to discuss going for colonoscopy, sooner on as needed basis. Patient is agreeable to this plan and verbalizes understanding of instructions. She was given the opportunity to ask questions all questions answered. Medications New polyethylene glycol 3350 (Miralax) 17 grams PO DAILY 510 grams 2RF hydrocortisone 2.5% (Proctosol HC) 1 appl [place] BID-QID PRN 30 grams 2RF hemorrhoids K64.9 TODAY'S VISIT: Patient is here today for follow-up and to discuss going for colonoscopy. Patient reports that she is using MiraLax daily and is able to have a bowel movements daily. Tubulovillous adenoma found on colonoscopy year ago. Patient had suboptimal prep and will need to repeat colonoscopy soon. Patient denies any ill effects with anesthesia. Patient denies any history sleep apnea. Not on any anticoagulation medication. Patient denies any melena, hematochezia. Patient denies any dyspepsia, dysphagia or odynophagia. [facility] Medical History Tubulovillous adenoma of colon Diverticulosis Radiculitis of right cervical region Complex regional pain syndrome of both lower extremities Spinal cord stimulator dysfunction Obesity (BMI 30-39.9) Cataract Neuropathic arthropathy Postlaminectomy syndrome Difficulty in walking involving lower leg joint Osteoarthritis of knees, bilateral Lipedema Environmental allergies Asthma GERD (gastroesophageal reflux disease) Restless leg syndrome Overweight (BMI 25.0-29.9) Malabsorption due to intolerance, not elsewhere classified Spinal cord stimulator status Urinary incontinence Obesity (BMI 30.0-34.9) Surgical History S/P placement of nerve stimulator History of surgery on right wrist History of eye surgery S/P laparoscopic sleeve gastrectomy History of toe surgery Hx of spinal surgery Hx of rotator cuff surgery Hx of section Hx of construction of artificial vagina Hx laparoscopic cholecystectomy Hx of colonoscopy with polypectomy Family History Father CVD (cardiovascular disease) Mother Asthma Brother Lung cancer Brother No problems noted. Brother No problems noted. Brother No problems noted. Brother No problems noted. Brother No problems noted. Son No problems noted. Daughter No problems noted. Social History Housing: House Alcohol intake: never Patient Tobacco Use Status: Never used Tobacco e-Cigarette/Vaping Use: Never Used Advance Directives Date on File: 08/24/21 service: No Current occupational status: employed Cognitive needs: No Hearing needs: No Vision needs: Yes Review of Systems Const Denies weight gain and Denies weight loss ENT Reports no additional complaints, Denies dysphagia and Denies odynophagia Card Reports no additional complaints Resp Reports no additional complaints GI Denies abdominal pain, Denies belching, Denies melena, Denies bloating, Denies change in bowel habits, Denies dysphagia, Denies excessive flatus, Denies dyspepsia, Denies heartburn, Denies diarrhea, Denies loose stools, Denies nausea, Denies odynophagia and Denies vomiting Musc Reports no additional complaints Neuro Reports no additional complaints Psych Reports no additional complaints Endo Reports no additional complaints Physical Exam Const Other: Ambulating with cane General: healthy appearing, no acute distress and well developed Nutritional Appearance: obese Orientation/consciousness: patient oriented x3 Resp Effort & Inspection: normal respiratory effort, able to speak in complete sentences, no tracheal deviation and symmetric chest movement Auscultation: clear to auscultation bilaterally Cardio Rate: regular rate GI Inspection: Yes normal to inspection, No distended and Yes obesity Palpation (GI): Soft to palpation, not firm, nontender and No hepatosplenomegaly present Auscultation: normal bowel sounds General: Yes no CVA tenderness Back/Spine/Pelvis Back: no CVA tenderness Skin General skin exam: elasticity normal, turgor normal and dry skin Neuro General: patient oriented x3 Psych Appearance: grossly normal Mental Status: mental status grossly normal Assessment & Plan Assessment & Plan (1) Tubulovillous adenoma of colon: Code(s): D12.6 - Benign neoplasm of colon, unspecified Category: Medical (2) Colon cancer screening: Code(s): Z12.11 - Encounter for screening for malignant neoplasm of colon Category: Medical Plan What to expect before, during and after procedure discussed with patient. Stressed the importance of good bowel prep and clear liquid diet day before procedure. I will see patient after the procedure, sooner on as needed basis. She is agreeable to this plan and verbalizes understanding of instructions. She was given the opportunity to ask questions and all questions answered. Thank you for allowing me to participate in her care Medications: New polyethylene glycol 3350 (Miralax) As directed by gastroenterology department at [facility] 238 grams PO ONCE 238 grams 0RF Z12.11 - Encounter for screening for malignant neoplasm of colon bisacodyl (Dulcolax (bisacodyl)) take 4 tabs at noon the day before your colonoscopy 20 mg (4 x 5 mg) PO ONCE 1 day 4 tabs 0RF Z12.11 - Encounter for screening for malignant neoplasm of col on Coding Level of Care Code Est Pt Level 3 (83783) Diagnoses Tubulovillous adenoma of colon D12.6 Colon cancer screening Z12.11 Time Spent (min) 30 Comment 20 minutes spent with patient and additional 10 minutes spent reviewing her records
== END 2024-07-19 08:58 | disposition home or self-care (01) ==
PROVIDERS: PCP Internal Medicine; Visit Provider Nurse Practitioner Family
DX: D12.6 Benign neoplasm of colon, unspecified (principal); Z12.11 Encounter for screening for malignant neoplasm of colon
CPT/HCPCS: 99213

== ENCOUNTER → 2024-07-19 07:52 | Outpatient (BNVA) | payer OTHER, SELFPAY | PROVIDERS: PCP Internal Medicine; Visit Provider Nurse Practitioner Family ==

== ENCOUNTER 2024-07-27 11:43 | Outpatient (AMB) | payer OTHER, SELFPAY ==
--- NOTE | 2024-07-27 11:46 | MHC.OFFWIV ---
Intake Vital Signs 07/27/24 11:49 Height 5 ft 4 in Weight 224 lb BMI 38.4 BP 126/80 Blood Pressure Location Rt brachial Position Sitting Pulse 74 Pulse Source Pulse Oximeter Pulse Oximetry (%) 98 Oxygen Delivery Method Room Air Intake Visit Reasons: EP-left arm pain from a fall Intake Note: Patient here for left arm pain, she states she feel while at the car wash. Patient Tobacco Use Status: Never used Tobacco Allergies almond [ALMOND] Allergy (Intermediate, Verified 07/27/24 11:50) NUMBNESS MOUTH, ITCHY EYES amoxicillin [AMOXICILLIN] Allergy (Intermediate, Verified 07/27/24 11:50) HIVES penicillin V Allergy (Intermediate, Verified 07/27/24 11:50) rash apple [APPLE] Allergy (Mild, Verified 07/27/24 11:50) ITCHY EYES peach [PEACHES] Allergy (Mild, Verified 07/27/24 11:50) ITCHY EYES plum [PLUMS] Allergy (Mild, Verified 07/27/24 11:50) ITCHY EYES carrot Allergy (Unknown, Verified 07/27/24 11:50) Unknown pear [PEAR] Adverse Reaction (Mild, Verified 07/27/24 11:50) ITCHY EYES NECTARINES Allergy (Mild, Uncoded 07/27/24 11:50) ITCHY EYES Do you need a note to return to daycare/school/sports/work: No HPI HPI Comments History of Present Illness Details Patient is a 63-year-old female with a past medical history significant for osteoporosis complaining of left forearm pain after falling at the car wash just prior to her arrival here. She states she was vacuuming her car and while placing the VAC back, she thinks her feet got tangled up in the hose and she fell down onto her left side. She is unclear exactly how she fell but her left forearm is extremely sore. She denies hitting her head or losing consciousness and denies being on a blood thinner. [facility] Medical History Tubulovillous adenoma of colon Diverticulosis Radiculitis of right cervical region Complex regional pain syndrome of both lower extremities Spinal cord stimulator dysfunction Obesity (BMI 30-39.9) Cataract Neuropathic arthropathy Postlaminectomy syndrome Difficulty in walking involving lower leg joint Osteoarthritis of knees, bilateral Lipedema Environmental allergies Asthma GERD (gastroesophageal reflux disease) Restless leg syndrome Overweight (BMI 25.0-29.9) Malabsorption due to intolerance, not elsewhere classified Spinal cord stimulator status Urinary incontinence Obesity (BMI 30.0-34.9) Surgical History S/P placement of nerve stimulator History of surgery on right wrist History of eye surgery S/P laparoscopic sleeve gastrectomy History of toe surgery Hx of spinal surgery Hx of rotator cuff surgery Hx of section Hx of construction of artificial vagina Hx laparoscopic cholecystectomy Hx of colonoscopy with polypectomy Family History Father CVD (cardiovascular disease) Mother Asthma Brother Lung cancer Brother No problems noted. Brother No problems noted. Brother No problems noted. Brother No problems noted. Brother No problems noted. Son No problems noted. Daughter No problems noted. Social History Housing: House Alcohol intake: never Patient Tobacco Use Status: Never used Tobacco e-Cigarette/Vaping Use: Never Used Advance Directives Date on File: 08/24/21 service: No Current occupational status: employed Cognitive needs: No Hearing needs: No Vision needs: Yes Review of Systems Const All systems reviewed & are unremarkable except as noted in HPI and below Physical Exam Vital Signs: Last Vital Signs Pulse 74 07/27/24 11:49 BP 126/80 07/27/24 11:49 Pulse Ox 98 07/27/24 11:49 Oxygen Delivery Method Room Air 07/27/24 11:49 BMI result Body Mass Index 38.4 Const General: cooperative, healthy appearing, comfortable and no acute distress Orientation/consciousness: patient oriented x3 Limitations: no limitations HEENT Head: Yes normal to inspection Resp Effort & Inspection: normal respiratory effort and able to speak in complete sentences Neuro General: patient oriented x3 Extrem Left upper extremity: elbow/forearm Details: tenderness Location: of the mid-shaft forearm and of the radial head; not of the distal humerus, not of the olecranon, not of the antecubital fossa, not of the lateral epicondyle and not of the medial epicondyle; no swelling, wrist (full ROM with pain) and hand (No snuffbox tenderness) Details: normal to inspection, normal capillary refill, neuromotor exam normal, neurosensory exam normal, tendon exam normal, vascular exam Details: normal capillary refill, normal ROM of fingers and no swelling; no tenderness, no unusual warmth, no swelling, no abrasions, no lacerations and no ecchymosis Assessment & Plan Assessment & Plan (1) Fall: Code(s): W19.XXXA - Unspecified fall, initial encounter Qualifiers: Encounter type: initial encounter Qualified Code(s): W19.XXXA - Unspecified fall, initial encounter Plan: Patient's history of osteoporosis, we will get x-rays of the left forearm and wrist. Upon my read of the x-rays, no fracture or dislocation noted. Fitted patient for a left wrist brace and recommended rest and ice. She can not take ibuprofen because she is status post gastric sleeve. Recommended if pain does not improve over the next week or 2, she should follow up with her PCP. (2) Sprain of wrist, left: Code(s): S63.502A - Unspecified sprain of left wrist, initial encounter Qualifiers: Encounter type: initial encounter Qualified Code(s): S63.502A - Unspecified sprain of left wrist, initial encounter Plan: see above Plan see above Orders: Orders XR wrist LT w scaphoid Today W19.XXXA - Unspecified fall, initial encounter XR forearm LT 2V Today W19.XXXA - Unspecified fall, initial encounter Coding Level of Care Code Est Pt Level 4 (02312) Diagnoses Fall, initial encounter W19.XXXA Encounter type: initial encounter Sprain of left wrist, initial encounter S63.502A Encounter type: initial encounter
[2024-07-27 11:49] VITALS: BP 126/80; PULSE 74; O2SAT 98; BMI 38.4
== END 2024-07-27 12:23 | disposition home or self-care (01) ==
PROVIDERS: PCP Internal Medicine; Visit Provider Physician Assistant
DX: S63.502A Unspecified sprain of left wrist, initial encounter (principal); W19.XXXA Unspecified fall, initial encounter

== ENCOUNTER → 2024-07-27 11:43 | Outpatient (BNVA) | payer OTHER, SELFPAY | PROVIDERS: PCP Internal Medicine; Visit Provider Physician Assistant ==

== ENCOUNTER 2024-07-27 12:03 | Outpatient (REF) | payer OTHER, SELFPAY ==
--- NOTE | ~2024-07-27 | XR_ITS ---
EXAMINATION: Left wrist series left forearm series CLINICAL INFORMATION: Fall COMPARISON: None. TECHNIQUE: 2 views of left forearm. 4 views of the left wrist. FINDINGS: Left wrist: No fracture. Small carpal cysts present within the triquetrum and pisiform could reflect arthrosis of the fusiform triquetral joint versus incidental carpal cyst. Surrounding bones joints and soft tissues unremarkable.. Left forearm: The bones and surrounding soft tissues are normal. XR/XR wrist LT w scaphoid IMPRESSION: LEFT WRIST: No acute abnormality. LEFT FOREARM: Normal. Electronically signed by: Moses Ruiz MD 07/27/2024 03:28 PM EDT RP
--- NOTE | ~2024-07-27 | XR_ITS ---
EXAMINATION: Left wrist series left forearm series CLINICAL INFORMATION: Fall COMPARISON: None. TECHNIQUE: 2 views of left forearm. 4 views of the left wrist. FINDINGS: Left wrist: No fracture. Small carpal cysts present within the triquetrum and pisiform could reflect arthrosis of the fusiform triquetral joint versus incidental carpal cyst. Surrounding bones joints and soft tissues unremarkable.. Left forearm: The bones and surrounding soft tissues are normal. XR/XR forearm LT 2V IMPRESSION: LEFT WRIST: No acute abnormality. LEFT FOREARM: Normal. Electronically signed by: Moses Ruiz MD 07/27/2024 03:28 PM EDT RP
== END 2024-07-27 12:04 | disposition home or self-care (01) ==
LOC: HO.HMGCX 12:03
PROVIDERS: PCP Internal Medicine; Visit Provider Physician Assistant
DX: S63.502A Unspecified sprain of left wrist, initial encounter (principal); M79.632 Pain in left forearm; W19.XXXA Unspecified fall, initial encounter
CPT/HCPCS: 73090; 73110

== ENCOUNTER 2024-08-13 11:43 | Outpatient (AMB) | payer OTHER, SELFPAY ==
[2024-08-13 11:46] VITALS: BMI 38.4
--- NOTE | 2024-08-13 11:46 | MHC.OFFVIS ---
Vital Signs 08/13/24 11:46 Height 5 ft 4 in Weight 224 lb BMI 38.4 Intake Visit Reasons: OV-Right knee swelling/pain-Fell 07/27/24 Intake Note: Genny is a 63 year old female who presents today for a follow up of her right knee OA. She has complex regional pain syndrome and mention that she was seeking a pain specialist in [place] while at her last visit. Recently, she reports that she took a fall on 07/27/24 while at the car wash. Patient reports that the knee was not very painful after injury, it was her left wrist that was quite painful so she did not mention it while at the walk in but over the last few weeks her right knee pain has become progressively worse. She has pain, stiffness and difficulty weight bearing. Allergies almond [ALMOND] Allergy (Intermediate, Verified 07/27/24 11:50) NUMBNESS MOUTH, ITCHY EYES amoxicillin [AMOXICILLIN] Allergy (Intermediate, Verified 07/27/24 11:50) HIVES penicillin V Allergy (Intermediate, Verified 07/27/24 11:50) rash apple [APPLE] Allergy (Mild, Verified 07/27/24 11:50) ITCHY EYES peach [PEACHES] Allergy (Mild, Verified 07/27/24 11:50) ITCHY EYES plum [PLUMS] Allergy (Mild, Verified 07/27/24 11:50) ITCHY EYES carrot Allergy (Unknown, Verified 07/27/24 11:50) Unknown pear [PEAR] Adverse Reaction (Mild, Verified 07/27/24 11:50) ITCHY EYES NECTARINES Allergy (Mild, Uncoded 07/27/24 11:50) ITCHY EYES HPI HPI OV-Right knee swelling/pain-Fell 07/27/24: Details: Genny is a 63 year old female who presents today for a follow up of her right knee OA. She has complex regional pain syndrome and mention that she was seeking a pain specialist in [place] while at her last visit. Recently, she reports that she took a fall on 07/27/24 while at the car wash. Patient reports that the knee was not very painful after injury, it was her left wrist that was quite painful so she did not mention it while at the walk in but over the last few weeks her right knee pain has become progressively worse. She has pain, stiffness and difficulty weight bearing. [facility] Medical History (Reviewed 08/13/24 @ 11:46 by Chayo Arciniega [facility]) Tubulovillous adenoma of colon Diverticulosis Radiculitis of right cervical region Complex regional pain syndrome of both lower extremities Spinal cord stimulator dysfunction Obesity (BMI 30-39.9) Cataract Neuropathic arthropathy Postlaminectomy syndrome Difficulty in walking involving lower leg joint Osteoarthritis of knees, bilateral Lipedema Environmental allergies Asthma GERD (gastroesophageal reflux disease) Restless leg syndrome Overweight (BMI 25.0-29.9) Malabsorption due to intolerance, not elsewhere classified Spinal cord stimulator status Urinary incontinence Obesity (BMI 30.0-34.9) Surgical History (Reviewed 08/13/24 @ 11:46 by Chayo Arciniega [facility]) S/P placement of nerve stimulator History of surgery on right wrist History of eye surgery S/P laparoscopic sleeve gastrectomy History of toe surgery Hx of spinal surgery Hx of rotator cuff surgery Hx of section Hx of construction of artificial vagina Hx laparoscopic cholecystectomy Hx of colonoscopy with polypectomy Family History (Reviewed 08/13/24 @ 11:46 by Chayo Arciniega [facility]) Father CVD (cardiovascular disease) Mother Asthma Brother Lung cancer Brother No problems noted. Brother No problems noted. Brother No problems noted. Brother No problems noted. Brother No problems noted. Son No problems noted. Daughter No problems noted. Social History (Reviewed 08/13/24 @ 11:46 by Chayo Arciniega [facility]) Housing: House Alcohol intake: never Patient Tobacco Use Status: Never used Tobacco e-Cigarette/Vaping Use: Never Used Advance Directives Date on File: 08/24/21 service: No Current occupational status: employed Cognitive needs: No Hearing needs: No Vision needs: Yes Physical Exam Vital Signs: BMI result Body Mass Index 38.4 Extrem Other: Tenderness to palpation medial joint line with a moderate effusion. She has stiffness with terminal flexion. Skin is clean dry and intact. Results Reviewed Results Reviewed: Radiographs redemonstrate a severe bilateral knee osteoarthritis. Assessment & Plan Assessment & Plan (1) Osteoarthritis of right knee: Code(s): M17.11 - Unilateral primary osteoarthritis, right knee Category: Medical Qualifiers: Osteoarthritis type: unspecified Qualified Code(s): M17.11 - Unilateral primary osteoarthritis, right knee Plan: Genny is a 63-year-old woman with chronic pain who has bilateral knee osteoarthritis. She has had a flare of her osteoarthritis and has a effusion on the right. She has tried steroid injections with minimal benefit. We discussed arthroplasty but I would like to try viscosupplementation 1st. I discussed the rationale for this and I recommend that she continue to engage in daily activities as tolerated. (2) Spinal cord stimulator status: Comment: w/revision & battery change 12/2019 Code(s): Z96.89 - Presence of other specified functional implants Category: Medical Plan: (3) Complex regional pain syndrome of both lower extremities: Code(s): G90.523 - Complex regional pain syndrome I of lower limb, bilateral Category: Medical Plan: Orders: Orders XR knee LT 1V 08/13/24 M25.569 - Pain in unspecified knee XR knee RT 3V 08/13/24 M25.561 - Pain in right knee Coding Level of Care Code Est Pt Level 3 (24352) Complex EM visit Add On G2211 Diagnoses Osteoarthritis of right knee, unspecified osteoarthritis type M17.11 Osteoarthritis type: unspecified Spinal cord stimulator status Z96.89 Complex regional pain syndrome of both lower extremities G90.523
== END 2024-08-13 14:18 | disposition home or self-care (01) ==
PROVIDERS: PCP Internal Medicine; Visit Provider Orthopaedic Surgery
DX: M17.11 Unilateral primary osteoarthritis, right knee (principal); Z96.89 Presence of other specified functional implants; G90.523 Complex regional pain syndrome I of lower limb, bilateral
CPT/HCPCS: 99213

== ENCOUNTER 2024-08-13 11:43 | Outpatient (REF) | payer OTHER, SELFPAY ==
--- NOTE | ~2024-08-13 | XR_ITS ---
EXAMINATION: XR KNEE RIGHT 2 VIEWS CLINICAL INFORMATION: Pain in right knee M25.561. COMPARISON: XR Right knee 06/19/2023 TECHNIQUE: Two views of the right knee. AP view of both knees FINDINGS: Severe medial compartmental narrowing and mild patellofemoral compartmental narrowing with severe osteophyte formation along the patellofemoral groove and at the medial and lateral aspects of the knee joint itself. The knee is in alignment and there is no joint effusion. There is no fracture. There is sclerosis of the articular surface of the medial femoral condyle and tibial plateau. XR/XR knee RT 3V IMPRESSION: Severe degenerative changes of the right knee. Electronically signed by: Jared Collazo MD 09/29/2024 01:44 PM EST
== END 2024-08-13 11:44 | disposition home or self-care (01) ==
LOC: HO.HOSX 11:43
PROVIDERS: PCP Internal Medicine; Visit Provider Orthopaedic Surgery
DX: M25.561 Pain in right knee (principal)
CPT/HCPCS: 73560; 73562

== ENCOUNTER 2024-09-09 08:23 | Outpatient (AMB) | payer OTHER, SELFPAY ==
--- NOTE | 2024-09-09 08:28 | A.OFFVIS_ITS ---
Intake Visit Reasons: Right Knee Gel-One Injection Intake Note: Genny is a 63 year old female who presents today with her for a Right Knee Gel One injection Allergies almond [ALMOND] Allergy (Intermediate, Verified 09/06/24 09:07) NUMBNESS MOUTH, ITCHY EYES amoxicillin [AMOXICILLIN] Allergy (Intermediate, Verified 09/06/24 09:07) HIVES penicillin V Allergy (Intermediate, Verified 09/06/24 09:07) rash apple [APPLE] Allergy (Mild, Verified 09/06/24 09:07) ITCHY EYES peach [PEACHES] Allergy (Mild, Verified 09/06/24 09:07) ITCHY EYES plum [PLUMS] Allergy (Mild, Verified 09/06/24 09:07) ITCHY EYES carrot Allergy (Unknown, Verified 09/06/24 09:07) Unknown pear [PEAR] Adverse Reaction (Mild, Verified 09/06/24 09:07) ITCHY EYES NECTARINES Allergy (Mild, Uncoded 09/06/24 09:07) ITCHY EYES HPI HPI Right Knee Gel-One Injection: Details: Genny is a 63 year old female who presents today for a right knee Gel One Injection for her right knee PFSH Medical History Tubulovillous adenoma of colon Diverticulosis Radiculitis of right cervical region Complex regional pain syndrome of both lower extremities Spinal cord stimulator dysfunction Obesity (BMI 30-39.9) Cataract Neuropathic arthropathy Postlaminectomy syndrome Difficulty in walking involving lower leg joint Osteoarthritis of knees, bilateral Lipedema Environmental allergies Asthma GERD (gastroesophageal reflux disease) Restless leg syndrome Overweight (BMI 25.0-29.9) Malabsorption due to intolerance, not elsewhere classified Spinal cord stimulator status Urinary incontinence Obesity (BMI 30.0-34.9) Surgical History S/P placement of nerve stimulator History of surgery on right wrist History of eye surgery S/P laparoscopic sleeve gastrectomy History of toe surgery Hx of spinal surgery Hx of rotator cuff surgery Hx of section Hx of construction of artificial vagina Hx laparoscopic cholecystectomy Hx of colonoscopy with polypectomy Family History Father CVD (cardiovascular disease) Mother Asthma Brother Lung cancer Brother No problems noted. Brother No problems noted. Brother No problems noted. Brother No problems noted. Brother No problems noted. Son No problems noted. Daughter No problems noted. Social History (Reviewed 08/13/24 @ 11:46 by Chayo Arciniega [facility]) Housing: House Alcohol intake: never Patient Tobacco Use Status: Never used Tobacco e-Cigarette/Vaping Use: Never Used Advance Directives Date on File: 08/24/21 service: No Current occupational status: employed Cognitive needs: No Hearing needs: No Vision needs: Yes Office Procedures Joint Inj/Aspir; Non-Pain Clin Joint Injection/Drain Details: Injected Durolane. Site was prepped using aseptic technique. Patient tolerated the procedure well. Shoulders, Hips, Knees, Knee Large Joint Injection : Right Knee Coding Procedure code (CPT) selection complete Assessment & Plan Assessment & Plan (1) Osteoarthritis of right knee: Code(s): M17.11 - Unilateral primary osteoarthritis, right knee Category: Medical Qualifiers: Osteoarthritis type: unspecified Qualified Code(s): M17.11 - Unilateral primary osteoarthritis, right knee Plan: This is a 63-year-old woman with right knee osteoarthritis. I injected drooling injured her right knee without complication. We had a discussion about a long- term plan for her pain and immobility. I do think she would benefit from knee arthroplasty at some point in time but I think at this moment her chronic pain and weight are an issue. She states that she has failed surgical attempts at weight loss and I think she would be a good candidate for a semaglutide regimen. I am not qualified to prescribe this for her but I strongly recommend of the be considered as she is an ideal candidate for this. Coding Level of Care Code Est Pt Level 2 (29467) Diagnoses Osteoarthritis of right knee, unspecified osteoarthritis type M17.11 Osteoarthritis type: unspecified CPT Codes Shoulders, Hips, Knees, - Knee Large Joint Injection : Right Knee ([id number])
== END 2024-09-09 09:01 | disposition home or self-care (01) ==
PROVIDERS: PCP Internal Medicine; Visit Provider Orthopaedic Surgery
DX: M17.11 Unilateral primary osteoarthritis, right knee (principal)
CPT/HCPCS: 20610

== ENCOUNTER → 2024-09-09 08:23 | Outpatient (BNVA) | payer OTHER, SELFPAY | PROVIDERS: PCP Internal Medicine; Visit Provider Orthopaedic Surgery | DX: M17.11 Unilateral primary osteoarthritis, right knee (principal) | CPT/HCPCS: 20610; J7318 ==

== ENCOUNTER 2024-12-13 08:21 | Outpatient (AMB) | payer OTHER, SELFPAY ==
--- NOTE | 2024-12-13 08:22 | A.OFFVIS_ITS ---
Vital Signs 12/13/24 08:23 Height 5 ft 4 in Weight 224 lb BMI 38.4 Intake Visit Reasons: OV- Right Knee OA -GelOne 09/09/24 Intake Note: Genny is a 63 year old female who presents today for a follow up of her right knee OA. Hx of Gel-One Injection 09/09/24. Previous note states that patient would benefit from Knee Arthroplasty but needs to manage chronic pain and weight loss first. Patient reports that the Gel injection has been very helpful, it has increased her mobility and decreased pain. Allergies almond [ALMOND] Allergy (Intermediate, Verified 12/13/24 08:23) NUMBNESS MOUTH, ITCHY EYES amoxicillin [AMOXICILLIN] Allergy (Intermediate, Verified 12/13/24 08:23) HIVES penicillin V Allergy (Intermediate, Verified 12/13/24 08:23) rash apple [APPLE] Allergy (Mild, Verified 12/13/24 08:23) ITCHY EYES peach [PEACHES] Allergy (Mild, Verified 12/13/24 08:23) ITCHY EYES plum [PLUMS] Allergy (Mild, Verified 12/13/24 08:23) ITCHY EYES carrot Allergy (Unknown, Verified 12/13/24 08:23) Unknown pear [PEAR] Adverse Reaction (Mild, Verified 12/13/24 08:23) ITCHY EYES NECTARINES Allergy (Mild, Uncoded 12/13/24 08:23) ITCHY EYES HPI HPI OV- Right Knee OA -GelOne 09/09/24: Details: Genny is a 63 year old female who presents today for a follow up of her right knee OA. Hx of Gel-One Injection 09/09/24. Previous note states that patient would benefit from Knee Arthroplasty but needs to manage chronic pain and weight loss first. Patient reports that the Gel injection has been very helpful, it has increased her mobility and decreased pain. [facility] Medical History Tubulovillous adenoma of colon Diverticulosis Radiculitis of right cervical region Complex regional pain syndrome of both lower extremities Spinal cord stimulator dysfunction Obesity (BMI 30-39.9) Cataract Neuropathic arthropathy Postlaminectomy syndrome Difficulty in walking involving lower leg joint Osteoarthritis of knees, bilateral Lipedema Environmental allergies Asthma GERD (gastroesophageal reflux disease) Restless leg syndrome Overweight (BMI 25.0-29.9) Malabsorption due to intolerance, not elsewhere classified Spinal cord stimulator status Urinary incontinence Obesity (BMI 30.0-34.9) Surgical History S/P placement of nerve stimulator History of surgery on right wrist History of eye surgery S/P laparoscopic sleeve gastrectomy History of toe surgery Hx of spinal surgery Hx of rotator cuff surgery Hx of section Hx of construction of artificial vagina Hx laparoscopic cholecystectomy Hx of colonoscopy with polypectomy Family History Father CVD (cardiovascular disease) Mother Asthma Brother Lung cancer Brother No problems noted. Brother No problems noted. Brother No problems noted. Brother No problems noted. Brother No problems noted. Son No problems noted. Daughter No problems noted. Social History Housing: House Alcohol intake: never Patient Tobacco Use Status: Never used Tobacco e-Cigarette/Vaping Use: Never Used Advance Directives Date on File: 08/24/21 service: No Current occupational status: employed Cognitive needs: No Hearing needs: No Vision needs: Yes Physical Exam Vital Signs: BMI result Body Mass Index 38.4 Extrem Other: Continued varus gait with tenderness to palpation medial and lateral joint line that is improved from prior. Assessment & Plan Assessment & Plan (1) Osteoarthritis of right knee: Code(s): M17.11 - Unilateral primary osteoarthritis, right knee Category: Medical Qualifiers: Osteoarthritis type: unspecified Qualified Code(s): M17.11 - Unilateral primary osteoarthritis, right knee Plan: Osteoarthritis of the right knee. She is done well status post gel injections and although she had continues to walk with a cane feels pretty good. She is working on weight loss. I would follow up telehealth in 3 months as it some point she will require arthroplasty but our goal is to optimize her risk factors 1st. Coding Level of Care Code Est Pt Level 3 (87200) Diagnoses Osteoarthritis of right knee, unspecified osteoarthritis type M17.11 Osteoarthritis type: unspecified
[2024-12-13 08:23] VITALS: BMI 38.4
--- OUTSIDE RECORDS SUMMARY | 2024-12-13 08:39 | XMS_ITS | Continuity of Care Document ---
Author Organization [facility] Address [address] [place] [address], [address] [place] [id number] Care Team Providers Care Sales Representative Met[employer] Name Role Phone Israel OLIVEIRA, [facility] Primary Care Physician [phone] Encounter [facility] [place] Date(s[place] 11/10/24 - 12/10/24 [facility] [address], [address] [place] [id number] Attending Physician: Anay Merrill Admitting Physician: Anay Merrill Referring Physician: Anay Merrill Encounter Type: Triage Allergies, Adverse Reactions, Alerts Substance Criticality Severity Reaction Reaction Severity Status amoxicillin Active Bactrim Active Carrots Active Immunizations Given and Recorded Vaccine Date Status Refusal Reason SARS-CoV-2 (COVID-19) mRNA BNT-162b2 vac 02/21/21 Given SARS-CoV-2 (COVID-19) mRNA BNT-162b2 vac 01/31/21 Given Medications calcium (as citrate)-vitamin D 200 mg-250 intl units oral tablet 2 tablet, By Mouth, 2 times a day, # 200 tablet, 0 Refills, Maintenance, 06/16/19 6:39:47 AM EDT, Tablet Start Date: 06/16/19 Status: Ordered Quantity: 200.0 Unit: tablet Repeat number: 1 docusate sodium 100 mg oral capsule 100 mg, 1, capsule, By Mouth, 2 times a day, Refills 0, Maintenance, 06/16/19 6:41:13 AM EDT Start Date: 06/16/19 Status: Ordered Repeat number: 1 estradiol 0.1 mg/g vaginal cream 0 Refills, Maintenance, 01/01/21 3:17:00 PM EDT, Partial fill upon patient request if the prescription is for a schedule II opioid drug. Start Date: 01/01/21 Status: Ordered Repeat number: 1 furosemide 20 mg oral tablet 20 mg, 1, tablet, By Mouth, Daily, # 90 tablet, Refills 0, Maintenance, 06/16/19 6:39:17 AM EDT Start Date: 06/16/19 Status: Ordered Quantity: 90.0 Unit: tablet Repeat number: 1 Gemtesa 75 mg oral tablet 1 tablet, By Mouth, Daily, # 30 tablet, 11 Refills, Maintenance, 12/02/24 8:52:00 AM [id number] Start Date: 12/02/24 Status: Ordered Quantity: 30.0 Unit: tablet Repeat number: 12 Lyrica 25 mg oral capsule = 150 mg, By Mouth, Daily, 0 Refills, Maintenance, 06/16/19 6:41:40 AM EDT Start Date: 06/16/19 Status: Ordered Repeat number: 1 montelukast 10 mg oral tablet 10 mg, 1, tablet, By Mouth, Daily, Refills 0, Maintenance, 06/16/19 6:40:29 AM EDT Start Date: 06/16/19 Status: Ordered Repeat number: 1 pantoprazole 40 mg oral delayed release tablet 1 tablet = 40 mg, By Mouth, Daily, # 30 tablet, 0 Refills, Maintenance, 06/16/19 6:38:58 AM EDT, EC Tablet Start Date: 06/16/19 Status: Ordered Quantity: 30.0 Unit: tablet Repeat number: 1 Ropinirole = 40 mg, By Mouth, Daily, 0 Refills, Maintenance, 06/16/19 6:42:08 AM EDT Start Date: 06/16/19 Status: Ordered Repeat number: 1 Vitamin B12 0 Refills, Maintenance, 06/16/19 6:40:40 AM EDT Start Date: 06/16/19 Status: Ordered Repeat number: 1 Zinc = 30 mg, By Mouth, Daily, 0 Refills, Maintenance, 06/16/19 6:41:52 AM EDT Start Date: 06/16/19 Status: Ordered Repeat number: 1 Problem List Condition Confirmation Course Effective Dates Status H ealth Status Informant Arthritis of both knees Confirmed Active Asthma Confirmed Active Postmenopausal atrophic vaginitis Confirmed Active Atrophy of vulva Confirmed Active Bicornate uterus Confirmed Active Congenital absence of vagina Confirmed Active History of COVID-19 Confirmed Active Mixed incontinence Confirmed Active Obese class I Confirmed Active Postmenopausal bleeding Confirmed Active Social History Social History Type Response Smoking Status Never (less than 100 in lifetime) entered on: 09/29/20 Sex Sex Representation Female (finding) Patient Care team information Care Team Personnel Name: Israel OLIVEIRA, Asma Position: Reference Physician Member Role: PCP [address]: [address] [place] [address] Telecom: Care Team Related Persons Name: PRADEEP PROCTOR Insurance Providers Guarantor name: TIKI PROCTOR Health Plan Information #: 1 Payer: [employer] HMO Member Number: NA Policy Number: NA Group Number: NA Health Plan Information #: 2 Payer: NA Member Number: NA Policy Number: NA Group Number: NA
--- OUTSIDE RECORDS SUMMARY | 2024-12-13 08:39 | XMS_ITS ---
Author Organization [employer] [facility] Address [address] [address] Care Team Providers Care Senior Auditor Name Role Phone CELESTE RODRIGUEZ Primary Care Provider Joanne Michel Unavailable [phone] REASON FOR VISIT PLEASE CALL HER Encounters Encounter Location Date Provider Diagnosis [facility] [employer] [address] [place] [id number] 03/10/2024 Joanne Peng Plan Of Treatment Next Appt Details Provider Name:Joanne gomez, 08/24/2025 01:20:00 PM, [address] [facility], [address], [place], [address], Progress Notes * MASSIEL PROCTOROB:[birth year] (63 yo F)Acc No.[id number]:03/10/2024 Patient:?TIKI PROCTOR :1960???Age:63 Y???Sex:Female Address: [place], [address] * true * Date:? Generated for Helga ibanez/Roni/eTransmitting on:?12/13/2024 08:39 AM EST
--- OUTSIDE RECORDS SUMMARY | 2024-12-13 08:39 | XMS_ITS | Patient Health Record ---
Author Organization [facility] Address [address] [place] [address] Care Team Providers Care Animal Nutrition Consultant Name Role Phone CELESTE RODRIGUEZ Primary Care Provider Joanne Michel Unavailable [phone] Allergies Allergen (clinical drug ingredient) Drug/Non Drug Allergy documented on EMR Reaction Allergy Type Onset Date Status Fruits with Skin (uncoded) Unknown Allergy Active sulfamethoxazole / trimethoprim Bactrim Hives0 Drug Allergy Active almond allergenic extract [place] (Diagnostic) Unknown Drug Allergy Active amoxicillin Amoxicillin Hives Drug Allergy Act abel Results Component Value Reference Range Notes Urinalysis Reviewed date:08/19/2024 02:02:56 PM Interpretation: Performing Lab: Notes/Report: PH 5.0 PROTEIN Neg GLUCOSE Neg BLOOD Neg Reason For Referral No Information Medications Medication SIG (Take, Route, Frequency, Duration) Notes Start Date End Date Status Montelukast Sodium 10 MG Oral for 30 Active Furosemide 20MG 1 ORAL daily for -3 12/03/2011 Active Vitamin D3 50 MCG (2000 UT) 1 capsule Or ally Once a day for 30 day(s) Active valACYclovir HCl 500 MG Oral for 30 Days Active Clindamycin HCl 300 MG 1 capsule Orally every 12 hrs for 7 day(s) 09/03/2024 Active Estradiol Vaginal Cream 0.01% 1 Gram to the affected area Vaginal/Vulva Twice a week for 90 Days 08/18/2023 Active Pregabalin 150 MG Oral for 30 Active Fluticasone Propionate 50 MCG/ACT Nasal for 30 Active Gemtesa 75 MG Oral for 30 Days Active Acidophilus Active Estradiol Vaginal Cream 0.01% 1 Gram to the affected area Vaginal/Vulva Twice a week for 90 Days 08/19/2024 Active Probiotic Active Polyethylene Glycol 08/19/2024 Active Calcium Citrate + D3 Maximum 315-250 MG-UNIT Oral for 15 Acti ve Social History Tobacco Use: Social History Observation Description Date Details (start date - stop date) Never Smoker NA - NA Sexual History Question Answer Notes Had sex in the past 12 months (vaginal, oral, or anal)? Yes with Men only Prevention strategies discussed: Other AUDIT-C (Standard) Question Answer Notes Did you have a drink contain ing alcohol in the past year? Yes How often did you have six o r more drinks on one occasion in the past year? Never (0 point) How many drinks did you have on a typical day when you were drinking in the past year? 1 or 2 drinks (0 point) How often did you have a dri nk containing alcohol in the past year? Monthly or less (1 point) Points 1 Interpretation Negative Tobacco Control (Standard) Question Answer Notes Tobacco use: Nonsmoker Problems Problem Type SNOMED Code ICD Code Onset Dates Problem Status W/U Status Risk Notes Problem Postmenopausal atrophic vaginitis (68264655) Postmenopausal atrophic vaginitis (N95.2) Active confirmed Problem Postmenopausal bleeding (31547469) Postmenopausal bleeding (N95.0) Active confirmed Problem Age-related osteoporosis (940883075) Age-related osteoporosis without current pathological fracture (M81.0) Active confirmed Problem Urinary incontinence (905999909) Unspecified urinary incontinence (R32) Active confirmed Problem Osteochondropathy (38426970) Disorder of bone density and structure, unspecified (M85.9) Active confirmed Problem Atrophy of vulva (013615431) Atrophy of vulva (N90.5) Active confirmed Problem Bicornate uterus (19528902) Bicornate uterus (Q51.3) Active confirmed Problem Congenital absence of vagina (76874225) 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 Problem Asthma (disorder) (094950606) Asthma, unspecified, unspecified status (493.90) Active confirmed Major Problem Postmenopausal bleeding (86158529) Postmenopausal bleeding (627.1) Active confirmed Major Problem Postmenopausal atrophic vaginitis (87137009) Postmenopausal atrophic vaginitis (627.3) Active confirmed Diag Problem Gynecological examination normal (644361179253777) Routine gynecological examination (V72.31) Active confirmed Problem Screening for malignant neoplasm of colon (412126664) Special screening for malignant neoplasms, colon (V76.51) Active confirmed Major Vital Signs Temperature 97.7 degrees Fahrenheit 09/03/2024 Blood pressure diastolic 74 mm Hg 09/03/2024 Height 62.75 in 09/03/2024 Blood pressure systolic 114 mm Hg 09/03/2024 Weight 222 lbs 09/03/2024 BMI 39.64 kg/m2 09/03/2024 Encounters Encounter Location Date Provider Diagnosis [facility] [place] [address] [employer] [address] [place] [address] 08/19/2024 Joanne Peng Encounter for gynecological examination (general) (routine) without abnormal findings Z01.419 ; Encounter for screening mammogram for malignant neoplasm of breast Z12.31 ; Postmenopausal atrophic vaginitis N95.2 ; Congenital absence of vagina Q52.0 and Age-related osteoporosis without current pathological fracture M81.0 [place] [address] [employer] [employer] [address] [address] 09/03/2024 Joanne Peng Abscess of the breas t and nipple N61.1 [place] [address] [facility] [employer] [address] [address] 03/10/2024 Joanne Peng Assessments Encounter Date Diagnosis (ICD Code) Assessment Notes Treatment Notes Treatment Clinical Notes Section Notes 08/19/2024 Encounter for gynecological examination (general) (routine) without abnormal findings (ICD-10 - Z01.419) NO PAP TEST, DUE IN 2025. 09/03/2024 Abscess of the breast and nipple (ICD-10 - N61.1) DISCUSSED FINDINGS, DX AND TX OPTIONS. PAT IS ALLERGIC TO PCN AND SULFA AND CANNOT BE GIVEN DICLOXACILLIN OR BACTRIM. WARM MOIST COMPRESSES 3 TO 4 TIMES PER DAY. IF NOT BETTER, FILL RX FOR CLINDAMYCIN 300 MG Q 12 HOURS. MAY D/C IF BETTER IN 3 DAYS. WARNED PAT ABOUT C.DIFF WITH CLINDA USE. 08/19/2024 Encounter for screening mammogram for malignant neoplasm of breast (ICD-10 - Z12.31) REGULAR MAMMOGRAMS AND SBE'S WERE RECOMMENDED. 08/19/2024 Postmenopausal atrophic vaginitis (ICD-10 - N95.2) CONTINUE ESTRADIOL CREAM. RX AND INSTRUCTIONS WERE GIVEN. 08/19/2024 Congenital absence of vagina (ICD-10 - Q52.0) SHE HAS HAD RECONSTRUCTIVE SURGERY. 08/19/2024 Age-related osteoporosis without current pathological fracture (ICD-10 - M81.0) DISCUSSED OSTEOPOROSIS AND ITS IMPACT ON HER HEALTH. DISCUSSED IMPROVEMENT IN HER T-SCORES. ADEQUATE CALCIUM AND VIT D. WEIGHT BEARING EXERCISES. REPEAT BMD IN 2025. Plan Of Treatment Pending Test Test Name Order Date BONE DENSITY EXTREMITY 08/12/2019 MAMMOGRAM, SCREENING 02/13/2015 MAMMOGRAM, SCREENING 08/18/2023 MAMMOGRAM, SCREENING 08/19/2024 Urinalysis 08/16/2022 25OH VITAMIN D 02/07/2022 COMPREHENSIVE METABOLIC PANEL 02/07/2022 N-TELOPEPTIDE CROSS 02/07/2022 PTH, INTACT 02/07/2022 THIN PREP,HPV,SAIMA IF HPV+ (>29YR)(SCRN) 03/10/2017 TSH 02/07/2022 BONE DENSITY 08/15/2021 BONE DENSITY 08/18/2023 MM Digital Mammo Screening 08/15/2021 MM Digital Mammo Screening 08/16/2022 MM Digital Mammo Screening 08/18/2023 MM Digital Mammo Screening 08/19/2024 MM Digital Mammo Screening 03/10/2017 Next Appt Details Provider Name:Joanne Blankenship maria del carmensesar, 08/24/2025 01:20:00 PM, [address], [address], [place], [address], Insurance Providers Payer Name Payer Address Payer Phone Subscriber Number Group Number Insured Name Patient Relationship to Insured Coverage Start Date Coverage End Date [facility] [address] [place], [place] [phone] [id number] TIKI WILLSON Self - patient is the insured [employer] [address] [place], [place] [phone] [id number] PRADEEP WILLSON Spouse - patient is the spouse of the insured Medical (General) History Medical History History ICD Code Postmenopausal atrophic vaginitis N95.2 Unspecified asthma, uncomplicated J45.90 9 Postmenopausal bleeding N95.0 Atrophy of vulva N90.5 Bicornate uterus Q51.3 Congenital absence of vagina Q52.0 Unspecified urinary incontinence R32 Disorder of bone density and structure, unspecified M85.9 Age-related osteoporosis without current pathological fracture M81.0 Surgical History Surgery Date(Month/Year) Bilateral Tubal Ligation Colonoscopy Cholecystectomy Creation of Vagina for Vaginal Agenensis Right Wrist Surgery Left Breast Biopsy Left Shoulder Rotator cuff 04/2015 Rt leg Laser Vein Therapy Stimulation Implant Spine Gastric Sleeve 11/03/17 New Simulator on Left Side of Back Left Eye Surgery Hospitalization History Reason Date(Month/Year) See Surgical Hx 2 Deliveries
--- OUTSIDE RECORDS SUMMARY | 2024-12-13 08:40 | XMS_ITS | Clinical Summary ---
Author Organization [facility] Address [address] [place] [address] Care Team Providers Care Meteorology Faculty Member Name Role Phone Unavailable Primary Care Provider Unavailabl e Social History Tobacco Use Types Packs/Day Years Used Date Smoking Tobacco: Never Assessed Sex and Gender Information Value Date Recorded Sex Assigned at Not on file Gender Identity Not on file Sexual Orientation Not on file Plan of Treatment Health Maintenance Due Date Last Done Comments Hepatitis C Virus Screening 1960 HIV Screening 1975 DTaP/Tdap/Td Vaccines (1 - Tdap) 1981 Pneumococcal Vaccines 50+ (1 of 1 - PCV) 2012 Zoster (Shingles) Vaccine (1 of 2) 2012 COVID-19 Vaccine ( - 2023-2 5 season) 2024 RSV Vaccine 60 years and old er and Patients (1 - 1-dose 75+ series) 2037 Hepatitis B Vaccines Aged Out No long er eligible based on patient's age to complete this topic Pneumococcal Vaccine: Pediat cruz (0-5 Years) and At-Risk Patients (6 to 49 Years) Aged Out No longer eligible b ased on patient's age to complete this topic
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
--- OUTSIDE RECORDS SUMMARY | 2024-12-13 08:40 | XMS_ITS | Continuity of Care Document ---
Author Organization [facility] Julia Hatch ns [facility] Address [address], [address] [address]- Care Team Providers Care Sap Trainer Name Role Phone Israel OLIVEIRA, [facility] Encounter [facility] ACCT R [id number] Date(s): 10/28/24 - [facility] [address] [place] [address], [address] [place] [address] Encounter Type: Triage Allergies, Adverse Reactions, Alerts [...] Daily, # 30 tablet, 11 Refills, Maintenance, 11/10/24 8:44:00 AM [id number] Start Date: 11/10/24 Status: Ordered Quantity: 30.0 Unit: tablet Repeat [...] information Care Team Personnel Name: Israel OLIVEIRA, Bettye Position: Reference Physician Member Role: PCP Address: [address] [place] [address] Telecom: Care Team Related Persons Name: PRADEEP PROCTOR Insurance Providers Guarantor name: TIKI PROCTOR Health Plan Information #: 1 Payer: [employer] Member Number: NA Policy Number: NA Group Number: NA Health Plan Information #: 2 Payer: NA Member Number: NA Policy Number: NA Group Number: NA
== END 2024-12-13 08:45 | disposition home or self-care (01) ==
PROVIDERS: PCP Internal Medicine; Visit Provider Orthopaedic Surgery
DX: M17.11 Unilateral primary osteoarthritis, right knee (principal)
CPT/HCPCS: 99213

== ENCOUNTER → 2024-12-13 08:21 | Outpatient (BNVA) | payer OTHER, SELFPAY | PROVIDERS: PCP Internal Medicine; Visit Provider Orthopaedic Surgery ==

== ENCOUNTER 2024-12-27 09:13 | Day surgery (SDC) | payer OTHER, SELFPAY ==
[2024-12-23 12:30] VITALS: BMI 37.9
--- OUTSIDE RECORDS SUMMARY | 2024-12-23 17:39 | XMS_ITS | Clinical Summary ---
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
--- NOTE | 2024-12-24 09:17 | HO.ANESPROP2 ---
Documented by User: Parris Juarez NP 12/24/24 09:20 HPI - Anesthesia Eval Consult details Narrative: 64yo F for Colonoscopy PMFSH Active Problems Active Problems: All Active Problems Sprain of wrist, left (Acute) Fall (Acute) Vitamin B1 deficiency (Acute) Vitamin A deficiency (Acute) Spinal cord stimulator status (Acute) Tubulovillous adenoma of colon (Acute) Diverticulosis (Acute) CRPS (complex regional pain syndrome type I) (Acute) Lumbago (Acute) Lumbar radiculopathy (Acute) Osteoarthritis of right knee (Acute) Osteoarthritis of left knee (Acute) Fractured great toe (Acute) Injury of toe on right foot (Acute) Contusion of foot (Acute) Vitamin D deficiency (Acute) Difficulty sleeping (Acute) Tiredness (Acute) Chronic allergic rhinitis (Acute) Allergic rhinitis (Acute) Eczema (Acute) Colon cancer screening (Acute) Radiculitis of right cervical region (Acute) Cataract, left (Acute) Pre-op evaluation (Acute) Foot fracture, right (Acute) Anxiety, generalized (Acute) Osteoarthritis of knees, bilateral (Acute) Recurrent cold sores (Acute) Encounter for general adult medical examination with abnormal findings (Acute) Complex regional pain syndrome of both lower extremities (Acute) Spinal cord stimulator dysfunction (Acute) Obesity (BMI 30-39.9) (Acute) Cataract (Acute) Neuropathic arthropathy (Acute) Postlaminectomy syndrome (Acute) Difficulty in walking involving lower leg joint (Acute) Osteoarthritis of knees, bilateral (Acute) Lipedema (Acute) Environmental allergies (Acute) Overweight (BMI 25.0-29.9) (Acute) Malabsorption due to intolerance, not elsewhere classified (Acute) S/P laparoscopic sleeve gastrectomy (Acute) Urinary incontinence (Acute) Past Medical History Medical History Tubulovillous adenoma of colon Diverticulosis Radiculitis of right cervical region Complex regional pain syndrome of both lower extremities Spinal cord stimulator dysfunction Obesity (BMI 30-39.9) Cataract Neuropathic arthropathy Postlaminectomy syndrome Difficulty in walking involving lower leg joint Osteoarthritis of knees, bilateral Lipedema Environmental allergies Asthma GERD (gastroesophageal reflux disease) Restless leg syndrome Overweight (BMI 25.0-29.9) Malabsorption due to intolerance, not elsewhere classified Spinal cord stimulator status Urinary incontinence Obesity (BMI 30.0-34.9) Family History Family History Father CVD (cardiovascular disease) Mother Asthma Brother Lung cancer Brother No problems noted. Brother No problems noted. Brother No problems noted. Brother No problems noted. Brother No problems noted. Son No problems noted. Daughter No problems noted. Family history of problems with anesthesia: No Surgical History Surgical History S/P placement of nerve stimulator History of surgery on right wrist History of eye surgery S/P laparoscopic sleeve gastrectomy History of toe surgery Hx of spinal surgery Hx of rotator cuff surgery Hx of section Hx of construction of artificial vagina Hx laparoscopic cholecystectomy Hx of colonoscopy with polypectomy History of Problems with Anesthesia: No Social History Social History Housing: House Alcohol intake: never Patient Tobacco Use Status: Never used Tobacco e-Cigarette/Vaping Use: Never Used Have you been hit, kicked, punched, or otherwise hurt by someone within the past year? If so, by whom?: No Are you DNR?: No Advance Directives: No Advance Directives Information Provided: Yes Advance Directives Date on File: 08/24/21 Recently lost weight without trying: No Nutrition Risks: No Nutritional Risk service: No Current occupational status: employed Cognitive needs: No Hearing needs: No Vision needs: Yes Meds Allergies Allergy/AdvReac Type Severity Reaction Status Date / Time almond [ALMOND] Allergy Intermediate NUMBNESS Verified 12/27/24 09:54 MOUTH, ITCHY EYES amoxicillin [AMOXICILLIN] Allergy Intermediate HIVES Verified 12/27/24 09:54 penicillin V Allergy Intermediate rash Verified 12/27/24 09:54 apple [APPLE] Allergy Mild ITCHY EYES Verified 12/27/24 09:54 peach [PEACHES] Allergy Mild ITCHY EYES Verified 12/27/24 09:54 plum [PLUMS] Allergy Mild ITCHY EYES Verified 12/27/24 09:54 carrot Allergy Unknown Unknown Verified 12/27/24 09:54 pear [PEAR] AdvReac Mild ITCHY EYES Verified 12/27/24 09:54 NECTARINES Allergy Mild ITCHY EYES Uncoded 12/27/24 09:54 Home Medications ?Medication ?Instructions ?Recorded ?Confirmed ?Last Taken ?Type Celebrate MVI bariatric vitamin 1 tab PO DAILY 09/06/20 12/27/24 Unknown History fiber 1 tab PO DAILY 09/06/20 12/27/24 Unknown History vibegron 75 mg tablet (Gemtesa) 75 mg PO DAILY 11/27/23 12/27/24 Unknown History estradiol 0.01% (0.1 mg/gram) 1 g vaginal 2XW 01/14/24 12/27/24 Unknown History vaginal cream Exam Height,Weight and Vital Signs: Height 5 ft 4 in Weight 100.244 kg Assessment and Plan Assessment Anesthesia Assessment: Chart Reviewed Final Anesthetic Review Family History of Problems with Anesthesia: No History of Problems with Anesthesia: No Documented by User: Lyssa Cruz MD 12/27/24 10:39 [facility] Past Medical History Medical History Tubulovillous adenoma of colon Diverticulosis Radiculitis of right cervical region Complex regional pain syndrome of both lower extremities Spinal cord stimulator dysfunction Obesity (BMI 30-39.9) Cataract Neuropathic arthropathy Postlaminectomy syndrome Difficulty in walking involving lower leg joint Osteoarthritis of knees, bilateral Lipedema Environmental allergies Asthma GERD (gastroesophageal reflux disease) Restless leg syndrome Overweight (BMI 25.0-29.9) Malabsorption due to intolerance, not elsewhere classified Spinal cord stimulator status Urinary incontinence Obesity (BMI 30.0-34.9) Family History Family History Father CVD (cardiovascular disease) Mother Asthma Brother Lung cancer Brother No problems noted. Brother No problems noted. Brother No problems noted. Brother No problems noted. Brother No problems noted. Son No problems noted. Daughter No problems noted. Surgical History Surgical History S/P placement of nerve stimulator History of surgery on right wrist History of eye surgery S/P laparoscopic sleeve gastrectomy History of toe surgery Hx of spinal surgery Hx of rotator cuff surgery Hx of section Hx of construction of artificial vagina Hx laparoscopic cholecystectomy Hx of colonoscopy with polypectomy Social History Social History Housing: House Alcohol intake: never Patient Tobacco Use Status: Never used Tobacco e-Cigarette/Vaping Use: Never Used Have you been hit, kicked, punched, or otherwise hurt by someone within the past year? If so, by whom?: No Are you DNR?: No Advance Directives: No Advance Directives Information Provided: Yes Advance Directives Date on File: 08/24/21 Recently lost weight without trying: No Nutrition Risks: No Nutritional Risk service: No Current occupational status: employed Cognitive needs: No Hearing needs: No Vision needs: Yes Meds Allergies Allergy/AdvReac Type Severity Reaction Status Date / Time almond [ALMOND] Allergy Intermediate NUMBNESS Verified 12/27/24 09:54 MOUTH, ITCHY EYES amoxicillin [AMOXICILLIN] Allergy Intermediate HIVES Verified 12/27/24 09:54 penicillin V Allergy Intermediate rash Verified 12/27/24 09:54 apple [APPLE] Allergy Mild ITCHY EYES Verified 12/27/24 09:54 peach [PEACHES] Allergy Mild ITCHY EYES Verified 12/27/24 09:54 plum [PLUMS] Allergy Mild ITCHY EYES Verified 12/27/24 09:54 carrot Allergy Unknown Unknown Verified 12/27/24 09:54 pear [PEAR] AdvReac Mild ITCHY EYES Verified 12/27/24 09:54 NECTARINES Allergy Mild ITCHY EYES Uncoded 12/27/24 09:54 Home Medications ?Medication ?Instructions ?Recorded ?Confirmed ?Last Taken ?Type Celebrate MVI bariatric vitamin 1 tab PO DAILY 09/06/20 12/27/24 Unknown History fiber 1 tab PO DAILY 09/06/20 12/27/24 Unknown History vibegron 75 mg tablet (Gemtesa) 75 mg PO DAILY 11/27/23 12/27/24 Unknown History estradiol 0.01% (0.1 mg/gram) 1 g vaginal 2XW 01/14/24 12/27/24 Unknown History vaginal cream Exam Airway Mallampati Class: II TM Dist: >3cm Loose/Missing/Broken Teeth: No Heart: RRR Lungs: CTA Assessment and Plan Assessment Anesthesia Assessment: Anesthesia Plan Discussed Final Anesthetic Review NPO: Yes ASA Class: II Final Preanesthetic Review: Meds/Allgs Chart Reviewed, Consent Obtained/Reviewed and Anes Risks/Benef Reviewed Patient Risk: Low Procedure Risk: Low Anesthetic Plan Anesthetic Plan: MAC: Disposition: Standard PACU
[2024-12-27 09:40] VITALS: BMI 37.1
[2024-12-27] MEDS: Lactated Ringers 1,000 ML 100 ML IVCONT (09:42)
[2024-12-27 09:53] VITALS: BP 109/70; PULSE 95; RESP 18; TEMP 36.7; O2SAT 97
--- NOTE | 2024-12-27 10:04 | MHC.SHP ---
Pre-Procedural Eval Section A - 24 Hr Update-Section A only Date of Service: 12/27/24 The patient is an INPATIENT: No The patient has been examined within 24 hours of the surgical procedure. The History & Physical has been completed within 30 days and I have reviewed it.: No Section B - Complete if H&P > 30 days Chief Complaint: Surveillance for colon polyps Relevant Family History (Specify if Yes): No Relevant Social History: None Present Medications: see Short Stay Collaborative assessment Medical History: Significant History (Asthma Cataract Complex regional pain syndrome of both lower extremities Difficulty in walking involving lower leg joint Environmental allergies GERD (gastroesophageal reflux disease) Lipedema Malabsorption due to intolerance, not elsewhere classified Neuropathic arthropathy Obesity (BMI 30-39.9) Ob) History of Previous Operations: Relevant previous surgery/procedure and date(s) (History of surgery on right wrist History of toe surgery Hx laparoscopic cholecystectomy Hx of section Hx of colonoscopy with polypectomy Hx of construction of artificial vagina Hx of rotator cuff surgery Hx of spinal surgery S/P laparoscopic sleeve gastrectomy) Allergies: Allergies Allergy/AdvReac Type Severity Reaction Status Date / Time almond [ALMOND] Allergy Intermediate NUMBNESS Verified 12/27/24 09:54 MOUTH, ITCHY EYES amoxicillin [AMOXICILLIN] Allergy Intermediate HIVES Verified 12/27/24 09:54 penicillin V Allergy Intermediate rash Verified 12/27/24 09:54 apple [APPLE] Allergy Mild ITCHY EYES Verified 12/27/24 09:54 peach [PEACHES] Allergy Mild ITCHY EYES Verified 12/27/24 09:54 plum [PLUMS] Allergy Mild ITCHY EYES Verified 12/27/24 09:54 carrot Allergy Unknown Unknown Verified 12/27/24 09:54 pear [PEAR] AdvReac Mild ITCHY EYES Verified 12/27/24 09:54 NECTARINES Allergy Mild ITCHY EYES Uncoded 12/27/24 09:54 Review of Systems Sugical H&P ROS: Negative: Constitution, Cardiovascular, Respiratory and Gastrointestinal Exam Surgical H&P Exam: Normal: Heart, Normal: Lungs, Normal: Extremities and Normal: Abdomen Plan Diagnosis/Plan: Unchanged I have reviewed the history and physical and performed a pertinent physical examination on my patient. No changes have occurred unless specified. Time Spent With Patient Time: Total time managing care of this patient today ____ minutes.
--- NOTE | 2024-12-27 11:33 | HO.OPN-COLON ---
Colonoscopy Operative Note Operative Note Date of Service: 12/27/24 Narrative: COLONOSCOPY TILL CECUM WITH BIOPSIES, SNARE POLYPECTOMY, SUBMUCOSAL INJECTION AND HEMOCLIP PLACEMENT Pre-op diagnosis: Surveillance for colon polyps. Post-op diagnosis:? Colon polyps, Diverticulosis, hemorrhoids Endoscopist:? Shea Mcdonald MD Anesthesia:?MAC Consent: Indications for the procedure and potential complications of bleeding, perforation, reaction to medications and missed diagnosis were discussed with the patient and informed consent was obtained. Instrument: Olympus PCF H 190 L variable stiffness pediatric colonoscope Monitoring: Vital signs and clinical assessment, intermittent blood pressure monitoring, continuous EKG monitoring, Pulse oximetry and Carbon Dioxide monitoring were done throughout the procedure. Please see anesthesia flowsheet. Colon withdrawl time was 35 minutes. Procedure: The patient was placed in the left lateral decubitis position and pre-procedure medications were administered. After a digital rectal examination of the ano-rectum, the video colonoscope was inserted into the rectum and advanced through the colon to the cecum. The colonoscope was slowly withdrawn in a retrograde panoramic fashion and the colon mucosa was carefully examined including a retroflexed view of the rectum. Findings and interventions are described below. Procedure Difficulty: There was excessive spasm in the colon during withdrawl of the colonoscope Findings: Terminal Ileum: Not evaluated Cecum: Normal Ascending Colon: Past polpectomy site visualized at 80 cms with a 3-4 mm sessile polyp - removed with a cold biopsy. A 12-15 mm sessile polyp in the mid AC. Polyp was raised with 2 cc of Eleview and removed with a stiff hot snare. Polypectomy site was closed with 1 hemoclip. A 2 cms flat polyp in the mid AC - raised with 5 cc of Eleview and removed with a stiff hot snare. Margins of the polypectomy site were treated with APC. Polypectomy site was closed with one hemoclip and marked with Endomark Transverse Colon: Normal Descending Colon: Moderate diverticulosis Sigmoid Colon: Moderate diverticulosis Rectum: Normal Ano-rectum: Moderate internal hemorrhoids Colon preparation: Good after copious irrigation. Leopold Bowel Preparation Scale Right colon; 2 Transverse colon: 2 Left colon; 2 (0 = Unprepared colon segment with mucosa not seen due to solid stool that cannot be cleared. 1 = Portion of mucosa of the colon segment seen, but other areas of the colon segment not well seen due to staining, residual stool and/or opaque liquid. 2 = Minor amount of residual staining, small fragments of stool and/or opaque liquid, but mucosa of colon segment seen well. 3 = Entire mucosa of colon segment seen well with no residual staining, small fragments of stool or opaque liquid) Impression and Post Procedure Diagnosis: Colonoscopy Findings: Two medium sized polyps were removed Moderate diverticulosis seen in the left colon Moderate hemorrhoids on retroflexed exam. Plan: I will send a letter with biopsy results. Repeat Colonoscopy in 1-2 years if polyps are adenomatous. Above findings were reviewed with the patient and relevant handouts were given and the discharge area. BIOPSIES SHOWED: A. Colon, ascending at 80 cm, polypectomy: Polypoid colonic mucosa noted; negative for a hyperplastic or neoplastic process. B. Colon, mid ascending, polypectomy x2: Tubular adenoma (1); negative for high-grade dysplasia; sessile serrated polyp/lesion without dysplasia (1) Letter sent to the patient advising repeat colonoscopy in 1 year. Patient was placed on the colonoscopy recall list.
[2024-12-27 11:35] VITALS: BP 98/59; PULSE 81; RESP 18; TEMP 36.3; O2SAT 100
[2024-12-27 11:50] VITALS: BP 102/66; PULSE 73; RESP 18; O2SAT 98
== END 2024-12-27 12:24 | disposition home or self-care (01) ==
PROVIDERS: PCP Internal Medicine; Visit Provider Internal Medicine Gastroenterology
PROC: 0DJD8ZZ Inspection of Lower Intestinal Tract, Via Natural or Artificial Opening Endoscopic (ICD-10-PCS; CPT 45378; principal; 2024-12-27 11:00)
DX: Z12.11 Encounter for screening for malignant neoplasm of colon (principal); Z86.0101 Personal history of adenomatous and serrated colon polyps; D12.2 Benign neoplasm of ascending colon; K57.30 Diverticulosis of large intestine without perforation or abscess without bleeding; K64.8 Other hemorrhoids; G90.523 Complex regional pain syndrome I of lower limb, bilateral; E66.9 Obesity, unspecified; Z79.899 Other long term (current) drug therapy; Z96.82 Presence of neurostimulator; Z91.018 Allergy to other foods; Z88.0 Allergy status to penicillin; Z98.84 Bariatric surgery status; Z90.49 Acquired absence of other specified parts of digestive tract; Z98.890 Other specified postprocedural states
CPT/HCPCS: 45385; 45380; 45381; 88305; J2003; J2704

== ENCOUNTER → 2024-12-27 09:13 | Outpatient (BNV) | payer OTHER, SELFPAY | PROVIDERS: PCP Internal Medicine; Visit Provider Internal Medicine Gastroenterology | DX: Z12.11 Encounter for screening for malignant neoplasm of colon (principal); Z86.0100 Personal history of colon polyps, unspecified; D12.2 Benign neoplasm of ascending colon; K63.5 Polyp of colon; K57.90 Diverticulosis of intestine, part unspecified, without perforation or abscess without bleeding; K64.8 Other hemorrhoids | CPT/HCPCS: 45380; 45381; 45385 ==

== ENCOUNTER 2025-01-14 12:12 | Outpatient (AMB) | payer OTHER, SELFPAY ==
--- NOTE | 2025-01-14 12:13 | MHC.PC.OV ---
Vital Signs 01/14/25 12:14 Height 5 ft 4 in Weight 225 lb BMI 38.6 BP 124/76 Blood Pressure Location Lt brachial Position Sitting Pulse 89 Pulse Source Pulse Oximeter Pulse Oximetry (%) 98 Oxygen Delivery Method Room Air Intake Visit Reasons: PE Allergies almond [ALMOND] Allergy (Intermediate, Verified 01/14/25 12:27) NUMBNESS MOUTH, ITCHY EYES amoxicillin [AMOXICILLIN] Allergy (Intermediate, Verified 01/14/25 12:27) HIVES penicillin V Allergy (Intermediate, Verified 01/14/25 12:27) rash apple [APPLE] Allergy (Mild, Verified 01/14/25 12:27) ITCHY EYES peach [PEACHES] Allergy (Mild, Verified 01/14/25 12:27) ITCHY EYES plum [PLUMS] Allergy (Mild, Verified 01/14/25 12:27) ITCHY EYES carrot Allergy (Unknown, Verified 01/14/25 12:27) Unknown pear [PEAR] Adverse Reaction (Mild, Verified 01/14/25 12:27) ITCHY EYES NECTARINES Allergy (Mild, Uncoded 12/27/24 09:54) ITCHY EYES Medication List - Last Reconciled 01/14/25 by Bettye Wood MD calcium citrate-vitamin D3 315 mg-6.25 mcg (250 unit) 2 tabs PO DAILY [Celebrate MVI bariatric vitamin 1 tab PO DAILY] estradiol 0.01%(0.1mg/gram) 1 g vaginal 2XW fiber 1 tab PO DAILY fluticasone propionate 50 mcg/actuation (Flonase Allergy Relief) 1 spray intranasal BID furosemide (Lasix) 10 mg (1/2 x 20 mg) PO QAM PRN 90 days montelukast 10 mg PO BEDTIME 90 days polyethylene glycol 3350 (Miralax) 17 grams PO DAILY pregabalin 150 mg PO BID 30 days valacyclovir 500 mg PO DAILY 90 days vibegron (Gemtesa) 75 mg PO DAILY Tobacco use date assessed: 01/14/25 Dental Screening Dental Screen Date: 01/14/25 Did you have a dental visit in the last 12 months?: Yes Did you have a dental problem in the last 6 months where you did not have access to dental care?: No Was dental information given to patient?: Patient has dentist HPI PE HPI Details Physical exam appointment - The patient is a 64-year-old female presenting with a request for medication refill for cold sores. - She recently had a viral infection causing diarrhea after a cruise, and she often develops cold sores under physical stress. - The patient reports having had three cold sores recently and typically experiences flares when stressed. - She is scheduled for a mammogram in February and had a colonoscopy in December of this year with polyps detected. - Labs to be conducted include vitamin D, cholesterol, kidney function, liver function, CBC, thyroid, and calcium. - The patient has osteopenia with a bone density test score of -2.3 and deals with right knee pain due to arthritis, treated with a corticosteroid injection. Through orthopedic - She reports challenges with weight management and has been advised to control it before considering knee surgery. Health Maintenance - Mammogram scheduled for February. - Colonoscopy recently completed in December, with noted polyps. - Bone density test shows osteopenia (-2.3). [facility] - OBGYN: Dr. Peng, with up-to-date visits. - Orthopedic Dr. Levy for knee pain Medications - Montelukast for asthma or allergies. - Fluticasone nasal spray (Flonase) for allergic rhinitis. - Furosemide (Lasix) as needed for edema in the summer. - Valacyclovir for herpes simplex virus, taken during outbreaks. Patient Instructions - Refill Flonase and valacyclovir prescriptions. - Take valacyclovir during cold sore outbreaks: two tablets in the morning and afternoon when symptoms start. - Schedule blood test including vitamin D, cholesterol, kidney function, liver function, CBC, thyroid, and calcium. - Discuss injections for weight management after consulting with spouse. Review of Systems - General: No fever no chills - Neurological: No headaches no dizziness - Ear nose throat: No sore throat no hearing difficulty no ear pain - Cardiovascular: No syncope, no chest pain, no palpitations - Gastrointestinal: No nausea vomiting or diarrhea - Endocrine: No polyuria polydipsia no heat intolerance - Genitourinary: No dysuria - Skin: No new complaints Physical Exam General: Cooperative, healthy appearing, comfortable, no acute distress Orientation: Patient oriented x3 Head: Normal to inspection Ears: Within normal limit visually Nose: Normal external nose present Face and sinus: Normal facial exam Eyes: Appearance normal, extraocular movement intact pupils reactive Neck: Normal visual inspection and supple Respiratory: Normal respiratory effort and able to speak in complete sentences. Clear to auscultation, no stridor Cardiovascular: S1 and S2 regular in rate and rhythm Breast exam through OBGYN GI: Normal to inspection. Soft to palpation and nontender. Reports recent diarrhea, loose like water, likely due to a virus. Skin: Turgor normal, no acute findings Neuro: Patient oriented x3, motor sensory intact, balance slightly off unable to walk tandem Extremities: Normal to inspection examined lymphedema bilateral PFSH Medical History Tubulovillous adenoma of colon Diverticulosis Radiculitis of right cervical region Complex regional pain syndrome of both lower extremities Spinal cord stimulator dysfunction Obesity (BMI 30-39.9) Cataract Neuropathic arthropathy Postlaminectomy syndrome Difficulty in walking involving lower leg joint Osteoarthritis of knees, bilateral Lipedema Environmental allergies Asthma GERD (gastroesophageal reflux disease) Restless leg syndrome Overweight (BMI 25.0-29.9) Malabsorption due to intolerance, not elsewhere classified Spinal cord stimulator status Urinary incontinence Obesity (BMI 30.0-34.9) Surgical History S/P placement of nerve stimulator History of surgery on right wrist History of eye surgery S/P laparoscopic sleeve gastrectomy History of toe surgery Hx of spinal surgery Hx of rotator cuff surgery Hx of section Hx of construction of artificial vagina Hx laparoscopic cholecystectomy Hx of colonoscopy with polypectomy Family History Father CVD (cardiovascular disease) Mother Asthma Brother Lung cancer Brother No problems noted. Brother No problems noted. Brother No problems noted. Brother No problems noted. Brother No problems noted. Son No problems noted. Daughter No problems noted. Social History Housing: House Alcohol intake: never Patient Tobacco Use Status: Never used Tobacco e-Cigarette/Vaping Use: Never Used Advance Directives Date on File: 08/24/21 service: No Current occupational status: employed Cognitive needs: No Hearing needs: No Vision needs: Yes Questionnaire PHQ-9 Over the last 2 weeks, how often have you been bothered by any of the following problems? 1. Little interest or pleasure in doing things: not at all 2. Feeling down, depressed, or hopeless: not at all 3. Trouble falling or staying asleep, or sleeping too much: not at all 4. Feeling tired or having little energy: several days 5. Poor appetite or overeating: not at all 6. Feeling bad about yourself - or that you are a failure or have let yourself or your family down: not at all 7. Trouble concentrating on things, such as reading the newspaper or watching television: not at all 8. Moving or speaking so slowly that other people could have noticed. Or the opposite - being so fidgety or restless that you have been moving around a lot more than usual: not at all 9. Thoughts that you would be better off or of hurting yourself in some way: not at all Total score: 1 Depression Screening Interpretation: Negative Depression Screening Done: Yes 74047 - PHQ-9 Billing: Yes Source: Developed by Drs. Burt Malcolm, Patience Hendrickson, Magno Prado and colleagues, with an educational shay from [employer]. Thrive Questionnaire Date Thrive assessed: 01/14/25 I am a: Patient What is your living situation today?: I have a steady place to live Within the past 12 months, did the food you bought not last and you didn't have the money to get more?: Never true Within the past 12 months, did you worry whether your food would run out before you got money to buy more?: Never true Do you have trouble paying for medicines?: No Do you have trouble getting transportation to medical appointments?: No Do you have trouble paying your heating and electricity bill?: No Do you have trouble taking care of your child, family member or friend?: No Do you have trouble with day-to-day activities such as bathing, preparing meals, shopping, managing finances, etc.?: No Are you currently unemployed and looking for a job?: No Are you interested in more education?: No Please select the resources that you would like help with: None Currently or been in a relationship where the following occur: No concerns reported THRIVE Score: 0 AUDIT C Alcohol Use Questionnaire (AUDIT-C) 1. How often do you have a drink containing alcohol?: Never 3. How often do you have six or more drinks on one occasion?: Never Total Score: 0 Score Reviewed/Action Taken: Yes MANNY-7 AMB Questionnaire MANNY-7 Date MANNY - 7 assessed: 01/14/25 Feeling nervous, anxious, or on edge: 0 = Not at all Not being able to stop or control worryin = Not at all Worrying too much about different things: 0 = Not at all Trouble relaxin = Not at all Being so restless that it is hard to sit still: 0 = Not at all Becoming easily annoyed or irritable: 0 = Not at all Feeling afraid as if something awful might happen: 0 = Not at all Total MANNY-7 score (0-4 normal; 5-9 mild; 10-14 moderate; 15-21 severe): 0 Source: Developed by Drs. Burt Malcolm, Patience Hendrickson, Magno Prado and colleagues, with an educational shay from [employer]. MANNY-7 Assessment Billing MANNY-7 Assessment Tool: MANNY-7 Assessment 14546 Physical exam (Primary Care) Vital Signs: Last Vital Signs Pulse 89 01/14/25 12:14 BP 124/76 01/14/25 12:14 Pulse Ox 98 01/14/25 12:14 Oxygen Delivery Method Room Air 01/14/25 12:14 BMI result Body Mass Index 38.6 Tobacco/Smoking Status: Tobacco use Status Tobacco use date assessed 01/14/25 01/14/25 12:14 Patient Tobacco Use Status Never used Tobacco 01/14/25 12:14 e-Cigarette/Vaping Use Never Used 01/14/25 12:14 PHQ-9: PHQ-9 Score PHQ-9: Total score 1 01/14/25 12:28 Depression Screening Interpretation: Negative Thrive Assessment: Date of Thrive Assessment Date Thrive assessed 01/14/25 01/14/25 12:28 Currently or been in a relationship where the following occur: No concerns reported Coding Level of Care Code Est Pt Level 3 (12114) Est Pt Prev Care 40-64y(50850) Diagnoses Encounter for general adult medical examination with abnormal findings Z00.01 Herpes labialis B00.1 Environmental allergies Z91.09 Lipedema R60.9 Obesity (BMI 30-39.9) E66.9 Non-seasonal allergic rhinitis due to other allergic trigger J30.89 Allergic rhinitis trigger: other Allergic rhinitis seasonality: non-seasonal Vitamin D deficiency E55.9 Lumbar radiculopathy M54.16 Additional Codes MANNY-7 Assessment Billing - MANNY-7 Assessment Tool: MANNY-7 Assessment 91260 ([id number]) PHQ-9 - 50570 - PHQ-9 Billing: Yes ([id number]) Assessment & Plan Assessment & Plan (1) Encounter for general adult medical examination with abnormal findings: Code(s): Z00.01 - Encounter for general adult medical examination with abnormal findings Category: Medical (2) Herpes labialis: Code(s): B00.1 - Herpesviral vesicular dermatitis Category: Medical (3) Environmental allergies: Code(s): Z91.09 - Other allergy status, other than to drugs and biological substances Category: Medical (4) Lipedema: Code(s): R60.9 - Edema, unspecified Category: Medical (5) Obesity (BMI 30-39.9): Code(s): E66.9 - Obesity, unspecified Category: Medical (6) Allergic rhinitis: Code(s): J30.9 - Allergic rhinitis, unspecified Category: Medical Qualifiers: Allergic rhinitis trigger: other Allergic rhinitis seasonality: non-seasonal Qualified Code(s): J30.89 - Other allergic rhinitis (7) Vitamin D deficiency: Code(s): E55.9 - Vitamin D deficiency, unspecified Category: Medical (8) Lumbar radiculopathy: Code(s): M54.16 - Radiculopathy, lumbar region Category: Medical Plan Physical exam appointment - The patient is a 64-year-old female presenting with a request for medication refill for cold sores. - She recently had a viral infection causing diarrhea after a cruise, and she often develops cold sores under physical stress. - The patient reports having had three cold sores recently and typically experiences flares when stressed. - She is scheduled for a mammogram in February and had a colonoscopy in December of this year with polyps detected. - Labs to be conducted include vitamin D, cholesterol, kidney function, liver function, CBC, thyroid, and calcium. - The patient has osteopenia with a bone density test score of -2.3 and deals with right knee pain due to arthritis, treated with a corticosteroid injection. Through orthopedic - She reports challenges with weight management and has been advised to control it before considering knee surgery. Health Maintenance - Mammogram scheduled for February. - Colonoscopy recently completed in December, with noted polyps. - Bone density test shows osteopenia (-2.3). [facility] - OBGYN: Dr. Peng, with up-to-date visits. - Orthopedic Dr. Levy for knee pain Medications - Montelukast for asthma or allergies. - Fluticasone nasal spray (Flonase) for allergic rhinitis. - Furosemide (Lasix) as needed for edema in the summer. - Valacyclovir for herpes simplex virus, taken during outbreaks. Patient Instructions - Refill Flonase and valacyclovir prescriptions. - Take valacyclovir during cold sore outbreaks: two tablets in the morning and afternoon when symptoms start. - Schedule blood test including vitamin D, cholesterol, kidney function, liver function, CBC, thyroid, and calcium. - Discuss injections for weight management after consulting with spouse. Orders: Orders Lipid Panel Today B00.1 - Herpesviral vesicular dermatitis, E55.9 - Vitamin D deficiency, unspecified, E66.9 - Obesity, unspecified, G90.523 - Complex regional pain syndrome I of lower limb, bilateral, J30.9 - Allergic rhinitis, unspecified, M54.16 - Radiculopathy, lumbar region, R60.9 - Edema, unspecified, Z00.01 - Encounter for general adult medical examination with abnormal findings, Z91.09 - Other allergy status, other than to drugs and biological substances TSH reflex Free T4 Today B00.1 - Herpesviral vesicular dermatitis, E55.9 - Vitamin D deficiency, unspecified, E66.9 - Obesity, unspecified, G90.523 - Complex regional pain syndrome I of lower limb, bilateral, J30.9 - Allergic rhinitis, unspecified, M54.16 - Radiculopathy, lumbar region, R60.9 - Edema, unspecified, Z00.01 - Encounter for general adult medical examination with abnormal findings, Z91.09 - Other allergy status, other than to drugs and biological substances Complete Blood Count Auto Diff Today B00.1 - Herpesviral vesicular dermatitis, E55.9 - Vitamin D deficiency, unspecified, E66.9 - Obesity, unspecified, G90.523 - Complex regional pain syndrome I of lower limb, bilateral, J30.9 - Allergic rhinitis, unspecified, M54.16 - Radiculopathy, lumbar region, R60.9 - Edema, unspecified, Z00.01 - Encounter for general adult medical examination with abnormal findings, Z91.09 - Other allergy status, other than to drugs and biological substances Comprehensive [place]. Panel Fast Today B00.1 - Herpesviral vesicular dermatitis, E55.9 - Vitamin D deficiency, unspecified, E66.9 - Obesity, unspecified, G90.523 - Complex regional pain syndrome I of lower limb, bilateral, J30.9 - Allergic rhinitis, unspecified, M54.16 - Radiculopathy, lumbar region, R60.9 - Edema, unspecified, Z00.01 - Encounter for general adult medical examination with abnormal findings, Z91.09 - Other allergy status, other than to drugs and biological substances Vitamin D 25-OH (D2 and D3) Today B00.1 - Herpesviral vesicular dermatitis, E55.9 - Vitamin D deficiency, unspecified, E66.9 - Obesity, unspecified, G90.523 - Complex regional pain syndrome I of lower limb, bilateral, J30.9 - Allergic rhinitis, unspecified, M54.16 - Radiculopathy, lumbar region, R60.9 - Edema, unspecified, Z00.01 - Encounter for general adult medical examination with abnormal findings, Z91.09 - Other allergy status, other than to drugs and biological substances Medications: Refilled montelukast 10 mg PO BEDTIME 90 days 90 tabs 0RF J30.9 - Allergic rhinitis, unspecified valacyclovir 500 mg PO DAILY 90 days 90 tabs 0RF Cold sores fluticasone propionate 50 mcg/actuation (Flonase Allergy Relief) administer into each nostril 1 spray intranasal BID 16 grams 5RF J30.9 - Allergic rhinitis, unspecified
[2025-01-14 12:14] VITALS: BP 124/76; PULSE 89; O2SAT 98; BMI 38.6
== END 2025-01-14 12:43 | disposition home or self-care (01) ==
LOC: HO.HMCC 12:13
PROVIDERS: PCP Internal Medicine; Visit Provider Internal Medicine
DX: Z00.01 Encounter for general adult medical examination with abnormal findings (principal); B00.1 Herpesviral vesicular dermatitis; E66.9 Obesity, unspecified; Z68.38 Body mass index [BMI] 38.0-38.9, adult; Z91.09 Other allergy status, other than to drugs and biological substances; R60.9 Edema, unspecified; J30.89 Other allergic rhinitis; E55.9 Vitamin D deficiency, unspecified; M54.16 Radiculopathy, lumbar region

== ENCOUNTER → 2025-01-14 12:12 | Outpatient (BNVA) | payer OTHER, SELFPAY | PROVIDERS: PCP Internal Medicine; Visit Provider Internal Medicine | DX: Z00.01 Encounter for general adult medical examination with abnormal findings (principal); B00.1 Herpesviral vesicular dermatitis; R60.9 Edema, unspecified; E66.9 Obesity, unspecified; Z68.38 Body mass index [BMI] 38.0-38.9, adult; J30.89 Other allergic rhinitis; E55.9 Vitamin D deficiency, unspecified; M54.16 Radiculopathy, lumbar region; M85.80 Other specified disorders of bone density and structure, unspecified site; Z91.09 Other allergy status, other than to drugs and biological substances | CPT/HCPCS: 96127 ==

== ENCOUNTER 2025-02-04 06:05 | Outpatient (REF) | payer OTHER, SELFPAY ==
[2025-02-04 06:24] LABS: MANUAL DIFF FLAG NO
[2025-02-04 07:17] LABS: Basophils Percent Auto 0.6 % (0-2); Eosinophils Absolute Auto 0.2 X10*3/uL (0.0-0.4); Eosinophils Percent Auto 4.3 % (0-4); Hematocrit 39.8 % (37.0-47.0); Hemoglobin 12.8 g/dl (12.0-16.0); Imm Gran Abs Auto 0.02 X10*3/uL (0.00-0.03); Imm Gran Pct Auto 0.4 % (0.0-0.4); Lymphocytes Absolute Auto 2.2 X10*3/uL (1.2-4.9); Mean Corpuscular HGB Conc 32.2 g/dl (31.0-35.0); Mean Corpuscular Hemoglobin 28.8 pg (27.0-33.0); Mean Corpuscular Volume 89.6 fL (80.0-98.0); Mean Platelet Volume 10.7 fL (9.4-12.3); Monocytes Absolute Auto 0.5 X10*3/uL (0.1-1.2); Monocytes Percent Auto 10.5 % (2-11); Neutrophils Absolute Auto 2.1 x10*3/uL (2.0-8.3); Neutrophils Percent Auto 41.2 % (45-73); Platelet Count 291 X10*3/uL (160-400); Red Blood Count 4.44 X10*6/uL (4.20-5.50); Red Cell Distribution Width 13.3 % (11.0-16.0); White Blood Count 5.1 X10*3/uL (4.8-10.8)
[2025-02-04 07:46] LABS: Alanine Aminotransferase 31 U/L (0-31); Albumin Level 3.8 g/dL (3.5-5.0); Anion Gap 10 (12-20); Aspartate Amino Transferase 39 U/L (5-31); Bilirubin Total 0.4 mg/dL (0.0-1.0); Blood Urea Nitrogen 16 mg/dL (9-16); Carbon Dioxide 27 mmol/L (22-29); Chloride 109 mmol/L (96-108); Cholesterol 157 mg/dL (<200); Estimated Glomerular Filt Rate > 60; Glucose Fasting 76 mg/dL (60-99); HDL Cholesterol 59 mg/dL (>40); LDL Cholesterol Calculated 86 mg/dL (<100); Potassium 4.1 mmol/L (3.3-5.1); Sodium 142 mmol/L (135-145); Total Protein 6.9 g/dL (6.5-8.0); Triglycerides 62 mg/dL (<150)
[2025-02-04 08:00] LABS: Alkaline Phosphatase 87 U/L (39-117)
[2025-02-04 08:10] LABS: TSH reflex Free T4 2.47 uIU/mL (0.32-4.0)
[2025-02-09 15:48] LABS: Vitamin D 25-OH, D2 <4 ng/mL; Vitamin D 25-OH, D3 25 ng/mL; Vitamin D 25-OH, Total 25 ng/mL (30-100)
== END 2025-02-04 06:06 | disposition home or self-care (01) ==
LOC: HO.LAB 06:05
PROVIDERS: PCP Internal Medicine; Visit Provider Internal Medicine
DX: Z00.01 Encounter for general adult medical examination with abnormal findings (principal); Z91.09 Other allergy status, other than to drugs and biological substances; R60.9 Edema, unspecified; E66.9 Obesity, unspecified; G90.523 Complex regional pain syndrome I of lower limb, bilateral; J30.9 Allergic rhinitis, unspecified; E55.9 Vitamin D deficiency, unspecified; M54.16 Radiculopathy, lumbar region; B00.1 Herpesviral vesicular dermatitis
CPT/HCPCS: 36415; 80053; 80061; 82306; 84443; 85025

== ENCOUNTER 2025-03-09 07:48 | Outpatient (REF) | payer OTHER, SELFPAY ==
--- OUTSIDE RECORDS SUMMARY | 2025-03-09 08:15 | XMS_ITS | Clinical Summary ---
Author Organization [facility] Address [address] [place] [address] Care Team Providers Care Bed And Breakfast Cook Name Role Phone Unavailable Primary Care Provider Unavailabl e Social History Tobacco Use Types Packs/Day Years Used Date Smoking Tobacco: Never Assessed Comments Unknown Sex and Gender Information Value Date Recorded Sex Assigned at Not on file Legal Sex Female 6:11 PM EST Gender Identity Not on file Sexual Orientation [...]
== END 2025-03-09 07:49 | disposition home or self-care (01) ==
LOC: HO.MAMMO 07:48
PROVIDERS: Absent Provider Obstetrics & Gynecology Gynecology; PCP Internal Medicine; Visit Provider Internal Medicine
DX: Z12.31 Encounter for screening mammogram for malignant neoplasm of breast (principal)
CPT/HCPCS: 77063; 77067

== ENCOUNTER → 2025-03-09 08:00 | Outpatient (BNV) | payer OTHER, SELFPAY | PROVIDERS: Absent Provider Obstetrics & Gynecology Gynecology; PCP Internal Medicine; Visit Provider Internal Medicine | DX: Z12.31 Encounter for screening mammogram for malignant neoplasm of breast (principal) | CPT/HCPCS: 77063; 77067 ==

== ENCOUNTER 2025-03-17 14:36 | Outpatient (AMB) | payer OTHER, SELFPAY ==
--- NOTE | 2025-03-17 14:37 | MHC.OFFVIS ---
Vital Signs 03/17/25 14:38 Height 5 ft 4 in Weight 225 lb BMI 38.6 Intake Visit Reasons: Tel-Right knee OA - Gel one follow up Intake Note: Genny is a 63 year old female who presents today for a telephone follow up of her right knee OA. Hx of Gel-One Injection 09/09/24 Allergies almond [ALMOND] Allergy (Intermediate, Verified 01/14/25 12:27) NUMBNESS MOUTH, ITCHY EYES amoxicillin [AMOXICILLIN] Allergy (Intermediate, Verified 01/14/25 12:27) HIVES penicillin V Allergy (Intermediate, Verified 01/14/25 12:27) rash apple [APPLE] Allergy (Mild, Verified 01/14/25 12:27) ITCHY EYES peach [PEACHES] Allergy (Mild, Verified 01/14/25 12:27) ITCHY EYES plum [PLUMS] Allergy (Mild, Verified 01/14/25 12:27) ITCHY EYES carrot Allergy (Unknown, Verified 01/14/25 12:27) Unknown pear [PEAR] Adverse Reaction (Mild, Verified 01/14/25 12:27) ITCHY EYES NECTARINES Allergy (Mild, Uncoded 12/27/24 09:54) ITCHY EYES HPI HPI Tel-Right knee OA - Gel one follow up: Details: Genny is a 63 year old female who presents today for a telephone follow up of her right knee OA. Hx of Gel-One Injection 09/09/24. She states she is doing better. She has pain especially when she overdoes it or in the morning but she feels more capable to ambulate than prior. She spoke with her primary care doctor regarding at Ozempic type medication but her PCP thought it was not appropriate at this time. [facility] Medical History (Updated 03/18/25 @ 10:25 by Jesus Levy MD) Tubulovillous adenoma of colon Diverticulosis Radiculitis of right cervical region Complex regional pain syndrome of both lower extremities Spinal cord stimulator dysfunction Obesity (BMI 30-39.9) Cataract Neuropathic arthropathy Postlaminectomy syndrome Difficulty in walking involving lower leg joint Osteoarthritis of knees, bilateral Lipedema Environmental allergies Asthma GERD (gastroesophageal reflux disease) Restless leg syndrome Overweight (BMI 25.0-29.9) Malabsorption due to intolerance, not elsewhere classified Spinal cord stimulator status Urinary incontinence Obesity (BMI 30.0-34.9) Surgical History S/P placement of nerve stimulator History of surgery on right wrist History of eye surgery S/P laparoscopic sleeve gastrectomy History of toe surgery Hx of spinal surgery Hx of rotator cuff surgery Hx of section Hx of construction of artificial vagina Hx laparoscopic cholecystectomy Hx of colonoscopy with polypectomy Family History Father CVD (cardiovascular disease) Mother Asthma Brother Lung cancer Brother No problems noted. Brother No problems noted. Brother No problems noted. Brother No problems noted. Brother No problems noted. Son No problems noted. Daughter No problems noted. Social History Housing: House Alcohol intake: never Patient Tobacco Use Status: Never used Tobacco e-Cigarette/Vaping Use: Never Used Advance Directives Date on File: 08/24/21 service: No Current occupational status: employed Cognitive needs: No Hearing needs: No Vision needs: Yes Physical Exam Vital Signs: BMI result Body Mass Index 38.6 Telehealth Telehealth Location of provider rendering services: practice address Location of patient: address on file Patient Identification confirmed using: Name, : Yes Telehealth method: voice only Patient verbally consented to treatment: Yes Patient verbally consented to billing insurance company: Yes Minutes spent on Phone/Video with Pt.: 10 Assessment & Plan Assessment & Plan (1) Osteoarthritis of knees, bilateral: Code(s): M17.0 - Bilateral primary osteoarthritis of knee Category: Medical Qualifiers: Osteoarthritis type: primary Qualified Code(s): M17.0 - Bilateral primary osteoarthritis of knee Plan: Severe bilateral knee OA. A suboptimal surgical candidate now. We could repeat gel injections in approximately 6 months. I will schedule a telehealth visit than to re-evaluate (2) Postlaminectomy syndrome: Code(s): M96.1 - Postlaminectomy syndrome, not elsewhere classified Category: Medical Plan: Chronic pain. Status post failed stimulator placement. Coding Level of Care Code Tele Est Pt Level 3 (29368) Diagnoses Primary osteoarthritis of both knees M17.0 Osteoarthritis type: primary Postlaminectomy syndrome M96.1
[2025-03-17 14:38] VITALS: BMI 38.6
--- OUTSIDE RECORDS SUMMARY | 2025-03-17 14:43 | XMS_ITS | Patient Health Record ---
Author Organization [facility] Address [address] [place] [address] Care Team Providers Care Research Environmental Scientist Name Role Phone CELESTE RODRIGUEZ Primary Care Provider Joanne Michel Unavailable [phone] LILY GALLAGHER Unavailable [phone] Allergies Allergen (clinical drug ingredient) Drug/Non Drug Allergy documented on EMR Reaction Allergy Type Onset Date Status Fruits with Skin (uncoded) Unknown Allergy Active sulfamethoxazole / trimethoprim Bactrim Hives0 Drug Allergy Active almond allergenic extract [place] (Diagnostic) Unknown Drug Allergy Active amoxicillin Amoxicillin Hives Drug Allergy Act abel Results Component Value Reference Range Notes Urinalysis Reviewed date:08/19/2024 02:02:56 PM Interpretation: Performing Lab: Notes/Report: PH 5.0 PROTEIN Neg GLUCOSE Neg BLOOD Neg Reason For Referral No Information Medications Medication SIG (Take, Route, Frequency, Duration) Notes Start Date End Date Status Polyethylene Glycol 08/19/2024 Active Vitamin D3 50 MCG (2000 UT) 1 capsule Orally Once a day for 30 day(s) Active valACYclovir HCl 500 MG Oral for 30 Days Active Montelukast Sodium 10 MG Oral for 30 Active Furosemide 20MG 1 ORAL daily for -3 12/03/2011 Active Fluticasone Propionate 50 MCG/ACT Nasal for 30 Active Gemtesa 75 MG Oral for 30 Days Active Estradiol Vaginal Cream 0.01% 1 Gram to the affected area Vaginal/Vulva Twice a week for 90 Days 08/18/2023 Active Pregabalin 150 MG Oral for 30 Active Probiotic Active Calcium Citrate + D3 Maximum 315-250 MG-UNIT Oral for 15 Acti ve Estradiol Vaginal Cream 0.01% 1 Gram to the affected area Vaginal/Vulva Twice a week for 90 Days 08/19/2024 Not-Taking Acidophilus Not-Taki ng Social History Tobacco Use: Social History Observation [...] Status Risk Notes Problem Postmenopausal atrophic vaginitis (96303381) Postmenopausal atrophic vaginitis (N95.2) Active confirmed Problem Postmenopausal bleeding (90610503) Postmenopausal bleeding (N95.0) Active confirmed Problem Age-related osteoporosis (710830469) Age-related osteoporosis without current pathological fracture (M81.0) Active confirmed Problem Urinary incontinence (268660919) Unspecified urinary incontinence (R32) Active confirmed Problem Osteochondropathy (08930918) Disorder of bone density and structure, unspecified (M85.9) Active confirmed Problem Atrophy of vulva (123178182) Atrophy of vulva (N90.5) Active confirmed Problem Bicornate uterus (34578527) Bicornate uterus (Q51.3) Active confirmed Problem Congenital absence of vagina (69204739) 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 Problem Asthma (disorder) (786796192) Asthma, unspecified, unspecified status (493.90) Active confirmed Major Problem Postmenopausal bleeding (05769702) Postmenopausal bleeding (627.1) Active confirmed Major Problem Postmenopausal atrophic vaginitis (40965026) Postmenopausal atrophic vaginitis (627.3) Active confirmed Diag Problem Gynecological examination normal (648473507255163) Routine gynecological examination (V72.31) Active confirmed Problem Screening for malignant neoplasm of colon (804024245) Special screening for malignant neoplasms, colon (V76.51) Active confirmed Major Vital Signs Temperature 97.8 degrees Fahrenheit 02/25/2025 Blood pressure diastolic 74 mm Hg 02/25/2025 Height 62.75 in 02/25/2025 Blood pressure systolic 132 mm Hg 02/25/2025 Weight 225 lbs 02/25/2025 BMI 40.17 kg/m2 02/25/2025 Encounters Encounter Location Date Provider Diagnosis [address] [address] 08/19/2024 Joanne Peng Encounter for gynecological examination (general) (routine) without abnormal findings Z01.419 ; Encounter for screening mammogram for malignant neoplasm of breast Z12.31 ; Postmenopausal atrophic vaginitis N95.2 ; Congenital absence of vagina Q52.0 and Age-related osteoporosis without current pathological fracture M81.[address] [address] 09/03/2024 Joanne Peng Abscess of the breas t and nipple N61.[address] [address] 02/25/2025 LILY GALLAGHER Unspecified contact dermatitis, unspecified cause L25.9 Assessments Encounter Date Diagnosis (ICD Code) Assessment Notes Treatment Notes Treatment Clinical Notes Section Notes 08/19/2024 Encounter for gynecological examination (general) (routine) without abnormal findings (ICD-10 - Z01.419) NO PAP TEST, DUE IN 2025. 09/03/2024 Abscess of the breast and nipple (ICD-10 - N61.1) DISCUSSED FINDINGS, DX AND TX OPTIONS. IFEANYI IS ALLERGIC TO PCN AND SULFA AND CANNOT BE GIVEN DICLOXACILLIN OR BACTRIM. WARM MOIST COMPRESSES 3 TO 4 TIMES PER DAY. IF NOT BETTER, FILL RX FOR CLINDAMYCIN 300 MG Q 12 HOURS. MAY D/C IF BETTER IN 3 DAYS. WARNED PAT ABOUT C.DIFF WITH CLINDA USE. 02/25/2025 Unspecified contact dermatitis, unspecified cause (ICD-10 - L25.9) Discussed that she has developed a contact dermatitis, similar to a diaper rash that babies get. I recommend she not use pads at night, and to use baby diaper cream during the day, changing her pads frequently. 08/19/2024 Encounter for screening mammogram for malignant [...] maria del carmensesar, 08/24/2025 01:20:00 PM, [address], [address], [place], [address], Insurance Providers Payer Name Payer Address Payer Phone Subscriber Number Group Number Insured Name Patient Relationship to Insured Coverage Start Date Coverage End Date [facility] [address] [facility] [place] [address] [phone] [id number] TIKI WILLSON Self - patient is the insured [employer] [address] [place], [place] [id number] [phone] [id number] PRADEEP WILLSON Spouse - patient is the [...]
== END 2025-03-17 15:05 | disposition home or self-care (01) ==
LOC: HO.HOS 14:36
PROVIDERS: PCP Internal Medicine; Visit Provider Orthopaedic Surgery
DX: M17.0 Bilateral primary osteoarthritis of knee (principal); M96.1 Postlaminectomy syndrome, not elsewhere classified
CPT/HCPCS: 99213

== ENCOUNTER 2025-05-27 08:08 | Outpatient (AMB) | payer OTHER, SELFPAY ==
--- OUTSIDE RECORDS SUMMARY | 2025-05-27 08:15 | XMS_ITS | Patient Health Record ---
Author Organization [facility] Address [address] [place] [address] Care Team Providers Care Drain Technician Name Role Phone CELESTE RODRIGUEZ Primary Care Provider Joanne Michel Unavailable [phone] LILY GALLAGHER Unavailable [phone] Allergies Allergen (clinical drug ingredient) Drug/Non Drug Allergy documented on EMR Reaction Allergy Type Onset Date Status Fruits with Skin (uncoded) Unknown Allergy Active sulfamethoxazole / trimethoprim Bactrim Hives0 Drug Allergy Active almond allergenic extract [place] (Diagnostic) Unknown Drug Allergy Active amoxicillin Amoxicillin [...] (2000 UT) 1 capsule Orally Once a day; Duration: 30 day(s) Active valACYclovir HCl 500 MG Oral; Duration: 30 Days Active Montelukast Sodium 10 MG Oral; Duration: 30 Active Furosemide 20MG 1 ORAL daily; Durati on: -3 12/03/2011 Active Fluticasone Propionate 50 MCG/ACT Nasal; Duration: 30 Active Gemtesa 75 MG Oral; Duration: 30 Days Active Estradiol Vaginal Cream 0.01% 1 Gram to the affected area Vaginal/Vulva Twice a week; Duration: 90 Days 08/18/2023 Active Pregabalin 150 MG Oral; Duration: 30 Active Probiotic Active Calcium Citrate + D3 Maximum 315-250 MG-UNIT Oral; Duration: 15 Active Estradiol Vaginal Cream 0.01% 1 Gram to the affected area Vaginal/Vulva Twice a week; Duration: 90 Days 08/19/2024 Not-Taking Acidophilus Shelbie ibanez Social History Tobacco Use: Social History Observation [...] Status Risk Notes Problem Postmenopausal atrophic vaginitis (71374507) Postmenopausal atrophic vaginitis (N95.2) Active confirmed Problem Postmenopausal bleeding (41493270) Postmenopausal bleeding (N95.0) Active confirmed Problem Age-related osteoporosis (325410790) Age-related osteoporosis without current pathological fracture (M81.0) Active confirmed Problem Urinary incontinence (341734316) Unspecified urinary incontinence (R32) Active confirmed Problem Osteochondropathy (53472254) Disorder of bone density and structure, unspecified (M85.9) Active confirmed Problem Atrophy of vulva (547580510) Atrophy of vulva (N90.5) Active confirmed Problem Bicornate uterus (11513672) Bicornate uterus (Q51.3) Active confirmed Problem Congenital absence of vagina (30540894) 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 Problem Asthma (disorder) (337840151) Asthma, unspecified, unspecified status (493.90) Active confirmed Major Problem Postmenopausal bleeding (61852788) Postmenopausal bleeding (627.1) Active confirmed Major Problem Postmenopausal atrophic vaginitis (51993424) Postmenopausal atrophic vaginitis (627.3) Active confirmed Diag Problem Gynecological examination normal (353702122887851) Routine gynecological examination (V72.31) Active confirmed Problem Screening for malignant neoplasm of colon (281141131) Special screening for malignant neoplasms, colon (V76.51) Active confirmed Major Vital Signs Temperature 97.8 degrees Fahrenheit 02/25/2025 Blood pressure diastolic 74 mm Hg 02/25/2025 Height 62.75 in 02/25/2025 Blood pressure systolic 132 mm Hg 02/25/2025 Weight 225 lbs 02/25/2025 BMI 40.17 kg/m2 02/25/2025 Encounters Encounter Location Date Provider Diagnosis Total [address] [address] 08/19/2024 Joanne Peng Encounter for gynecological examination (general) (routine) without abnormal findings Z01.419 ; Encounter for screening mammogram for malignant neoplasm of breast Z12.31 ; Postmenopausal atrophic vaginitis N95.2 ; Congenital absence of vagina Q52.0 and Age-related osteoporosis without current pathological fracture M81.[address] [address] 09/03/2024 Joanne Peng Abscess of the breas t and nipple N61.[address] [address] 02/25/2025 LILY GALLAGHER Unspecified contact dermatitis, unspecified [...] BONE DENSITY 08/18/2023 [facility] Scre[facility] 08/16/2022 [facility] Screening 08/18/2023 [facility] M[facility] Screening 03/10/2017 [facility] Mamm[facility] Screening 08/15/2021 [facility] Mammo Screening 08/19/2024 Next Appt Details Provider Name:Joanne gomez, 08/24/2025 01:20:00 PM, [address], [address], [place], [address], Insurance Providers Payer Name Payer Address Payer Phone Subscriber Number Group Number Insured Name Patient Relationship to Insured Coverage Start Date Coverage End Date [facility] [address] [place] [address] [phone] [id number] TIKI WILLSON Self - patient is the insured [facility] [employer] [address] [place], [place] [id number] PRADEEP WILLSON Spouse - patient is the [...]
--- OUTSIDE RECORDS SUMMARY | 2025-05-27 08:16 | XMS_ITS | Clinical Summary ---
Author Organization [facility] Address [address] [place] [address] Care Team Providers Care Community Life Director Name Role Phone Unavailable Primary Care Provider [...]
--- OUTSIDE RECORDS SUMMARY | 2025-05-27 08:16 | XMS_ITS | Patient Health Record ---
Author Organization [facility] Address [address] [place] [address] Care Team Providers Care Cargo Supervisor Name Role Phone Yulissa(inactive) Riley OLIVEIRA Primary Care Provider U Ezequiel Banks Jr Reason For Referral No Information Medications Medication SIG (Take, Route, Frequency, Duration) Notes Start Date End Date Status Omeprazole 40 MG 1 capsule Orally Onc e a day Active Ciprofloxacin 500 MG 1 tablet Orally Onc e a day Active rOPINIRole HCl 4 MG 1 tablet 1 to 3 hour s before bedtime Orally Once a day Active Dicyclomine HCl 20 MG 1 tablet Orally 2- 4 times a day Active Hyoscyamine Sulfate ER 0.375 MG 1 tablet Orally every 12 hrs for 30 Active Ondansetron 4 MG 1 tablet on the tong ue and allow to dissolve Orally every 8 hrs Active Montelukast Sodium 10 MG 1 tablet in the evening Orally Once a day Active Furosemide 20 MG 1 tablet Orally Once a day Active Hyoscyamine Sulfate ER 0.375 MG 1 tablet Orally every 12 hrs for 30 day(s) 07/04/2017 Active Social History Tobacco Use: Social History Observation Description Date Details (start date - stop date) Never Smoker NA - NA Tobacco Use/Smoking Question Answer Notes Patient is a nonsmoker Alcohol Screen Question Answer Notes Did you have a drink contain ing alcohol in the past year? Yes How often did you have a dri nk containing alcohol in the past year? Monthly or less (1 point) How many drinks did you have on a typical day when you were drinking in the past year? 1 or 2 drinks (0 point) How often did you have 6 or more drinks on one occasion in the past year? Never (0 point) Points 1 Interpretation Negative Problems Problem Type SNOMED Code ICD Code Onset Dates Problem Status W/U Status Risk Notes Problem 92578436 Epigastric pain (R10.13) Active confirmed Problem 692868970 Abn find-biliary tract (R93.2) Active confirmed Plan Of Treatment No Information Insurance Providers Payer Name Payer Address Payer Phone Subscriber Number Group Number Insured Name Patient Relationship to Insured Coverage Start Date Coverage End Date [facility] [address] [place] [phone] [id number] TIKI WILLSON Self - patient is the insured Medical (General) History Medical History History ICD Code asthma urinary incontinence edema venous insufficiency Surgical History Surgery Date(Month/Year) spine surgery 03/21/2017 cholecystectomy left rotator cuff tear repair 2016 right wrist fusion 2014
[2025-05-27 08:58] VITALS: BP 124/82; PULSE 83; TEMP 36.7; O2SAT 96; BMI 37.9
--- NOTE | 2025-05-27 08:58 | AM.OFFWIN_ITS ---
Intake Vital Signs 3 05/27/25 08:58 Height 5 ft 4 in Weight 221 lb BMI 37.9 BP 124/82 Blood Pressure Location Lt brachial Position Sitting Pulse 83 Pulse Source Pulse Oximeter Temp 98.0 F Temp Source Oral Pulse Oximetry (%) 96 Oxygen Delivery Method Room Air Intake Visit Reasons: EP-lt groin pain Intake Note: presents with left groin pain radiating into left thigh Patient Tobacco Use Status: Never used Tobacco Allergies almond (ALMOND) Allergy (Intermediate, Verified 05/27/25 09:03) NUMBNESS MOUTH, ITCHY EYES amoxicillin (AMOXICILLIN) Allergy (Intermediate, Verified 05/27/25 09:03) HIVES penicillin V Allergy (Intermediate, Verified 05/27/25 09:03) rash apple (APPLE) Allergy (Mild, Verified 05/27/25 09:03) ITCHY EYES peach (PEACHES) Allergy (Mild, Verified 05/27/25 09:03) ITCHY EYES plum (PLUMS) Allergy (Mild, Verified 05/27/25 09:03) ITCHY EYES carrot Allergy (Unknown, Verified 05/27/25 09:03) Unknown pear (PEAR) Adverse Reaction (Mild, Verified 05/27/25 09:03) ITCHY EYES NECTARINES Allergy (Mild, Uncoded 12/27/24 09:54) ITCHY EYES Do you need a note to return to daycare/school/sports/work: No HPI EP-lt groin pain 2 HPI0 Details This is a 64-year-old female patient who presents to the walk-in clinic today with left groin and thigh pain. States that this has been mild for many months, however over the last 2 weeks, the pain has become unbearable. She states it is a sharp, pulling pain that starts in her groin and radiates downward medially and down the front of her left thigh. Denies any trauma or inciting events to this. Has a history of post-laminectomy syndrome and lumbar radiculopathies, followed by pain management office at [facility] and has a spinal cord stimulator in place. Also is taking Lyrica 75 mg daily. Hoping to lose weight to be a candidate for TKA on the right. Using cane. [facility] Medical History Tubulovillous adenoma of colon Diverticulosis Radiculitis of right cervical region Complex regional pain syndrome of both lower extremities Spinal cord stimulator dysfunction Obesity (BMI 30-39.9) Cataract Neuropathic arthropathy Postlaminectomy syndrome Difficulty in walking involving lower leg joint Osteoarthritis of knees, bilateral Lipedema Environmental allergies Asthma GERD (gastroesophageal reflux disease) Restless leg syndrome Overweight (BMI 25.0-29.9) Malabsorption due to intolerance, not elsewhere classified Spinal cord stimulator status Urinary incontinence Obesity (BMI 30.0-34.9) Surgical History S/P placement of nerve stimulator History of surgery on right wrist History of eye surgery S/P laparoscopic sleeve gastrectomy History of toe surgery Hx of spinal surgery Hx of rotator cuff surgery Hx of section Hx of construction of artificial vagina Hx laparoscopic cholecystectomy Hx of colonoscopy with polypectomy Family History Father CVD (cardiovascular disease) Mother Asthma Brother Lung cancer Brother No problems noted. Brother No problems noted. Brother No problems noted. Brother No problems noted. Brother No problems noted. Son No problems noted. Daughter No problems noted. Social History Housing: House Alcohol intake: never Patient Tobacco Use Status: Never used Tobacco e-Cigarette/Vaping Use: Never Used Advance Directives Date on File: 08/24/21 service: No Current occupational status: employed Cognitive needs: No Hearing needs: No Vision needs: Yes Review of Systems Const All systems reviewed & are unremarkable except as noted in HPI and below Physical Exam Vital Signs: Last Vital Signs Temp 98.0 F 05/27/25 08:58 Pulse 83 05/27/25 08:58 BP 124/82 05/27/25 08:58 Pulse Ox 96 05/27/25 08:58 Oxygen Delivery Method Room Air 05/27/25 08:58 BMI result Body Mass Index 37.9 Const Other: uncomfortable appearing General: cooperative Limitations: ambulation with cane Resp Effort & Inspection: normal respiratory effort Skin General skin exam: no rashes or lesions noted Extrem General: Yes capillary refill normal and Yes no clubbing, cyanosis or edema Left lower extremity: hip/thigh (pain with IROT) Details: normal to inspection and tenderness Location: of the proximal upper leg Location: medially and of the mid upper leg Location: anteromedially Upper/lower leg/hip images: 2 1. pain Psych Appearance: grossly normal Mental Status: mental status grossly normal Speech and movement: Normal speech and movement present Assessment & Plan Assessment & Plan (1) Left thigh pain: Code(s): M79.652 - Pain in left thigh Plan: Patient has left thigh pain radiating from her groin area. Hip XR does show moderate OA. We discussed that her symptoms could potentially be from degenerative hip changes, or could be from a groin/muscular strain. She is going to to continue to use Tylenol and topical cream as needed. H/o gastric surgery and cannot take NSAIDs. Will try a muscle relaxer and a short course of prednisone - patient prefers 3 days to 5. We reviewed indications, use, possible side effects of these medications. She can continue to do her swimming regimen/water aerobics as tolerated, and can consider some gentle stretching. If she does not improve with time and conservative measures, she may need to follow-up with either with us, PCP, or orthopedics/Pain Management, whom she is established with already. Patient verbalizes understanding and agrees to plan. Orders: Orders 2 XR hip LT min 2V Today R10.32 - Left lower quadrant pain Medications: New 2 prednisone Take two pills daily for three days. 40 mg (2 x 20 mg) PO DAILY 6 tabs 0RF 3 days R10.32 - Left lower quadrant pain cyclobenzaprine Take one pill up to three times a day as needed for muscle pain/spasms. 5 mg PO TID PRN 12 tabs 0RF muscle spasm 4 days M79.652 - Pain in left thigh Coding Level of Care Code Est Pt Level 4 (74076) Diagnoses Left thigh pain M79.652
== END 2025-05-27 10:26 | disposition home or self-care (01) ==
PROVIDERS: PCP Internal Medicine; Visit Provider Nurse Practitioner Family
DX: M79.652 Pain in left thigh (principal)

== ENCOUNTER 2025-05-27 08:08 | Outpatient (REF) | payer OTHER, SELFPAY ==
--- NOTE | ~2025-05-27 | XR_ITS ---
EXAMINATION: XR HIP, LEFT CLINICAL INFORMATION: R10.32 - Left lower quadrant pain COMPARISON: None available. TECHNIQUE: Two views of the left hip. FINDINGS: No fracture, dislocation, or suspicious bone lesion. Moderate osteoarthrosis of the left hip joint with superior joint space loss, subcapital osteophytes and superolateral acetabular osteophytic spurring. Normal femoral head contour without evidence of AVN. Spinal stimulator device partially imaged in the left upper pelvis. Soft tissues are normal in appearance. XR/XR hip LT min 2V IMPRESSION: Moderate degenerative arthritis left hip. No acute findings. Electronically signed by: Oren Mckinney MD 05/27/2025 10:03 AM EDT
== END 2025-05-27 08:09 | disposition home or self-care (01) ==
LOC: HO.HMGCX 08:08
PROVIDERS: PCP Internal Medicine; Visit Provider Nurse Practitioner Family
DX: M79.652 Pain in left thigh (principal); R10.32 Left lower quadrant pain
CPT/HCPCS: 73502

== ENCOUNTER → 2025-05-27 09:46 | Outpatient (BNV) | payer OTHER, SELFPAY | PROVIDERS: PCP Internal Medicine; Visit Provider Radiology Diagnostic Radiology | DX: M16.12 Unilateral primary osteoarthritis, left hip (principal) | CPT/HCPCS: 73502 ==

== ENCOUNTER 2025-06-15 08:44 | Outpatient (AMB) | payer OTHER, SELFPAY ==
--- NOTE | 2025-06-15 08:51 | MHC.OFFVIS ---
Vital Signs 06/15/25 08:52 Height 5 ft 4 in Weight 226 lb BMI 38.8 BP 152/71 H Blood Pressure Location Lt brachial Position Sitting Respiration 18 Pulse 71 Pulse Source Pulse Oximeter Pulse Oximetry (%) 94 Oxygen Delivery Method Room Air Intake Visit Reasons: Follow up/ Medication Refill Jazz Musician Required: No Allergies almond (ALMOND) Allergy (Intermediate, Verified 06/15/25 08:50) NUMBNESS MOUTH, ITCHY EYES amoxicillin (AMOXICILLIN) Allergy (Intermediate, Verified 06/15/25 08:50) HIVES penicillin V Allergy (Intermediate, Verified 06/15/25 08:50) rash apple (APPLE) Allergy (Mild, Verified 06/15/25 08:50) ITCHY EYES peach (PEACHES) Allergy (Mild, Verified 06/15/25 08:50) ITCHY EYES plum (PLUMS) Allergy (Mild, Verified 06/15/25 08:50) ITCHY EYES carrot Allergy (Unknown, Verified 06/15/25 08:50) Unknown pear (PEAR) Adverse Reaction (Mild, Verified 06/15/25 08:50) ITCHY EYES NECTARINES Allergy (Mild, Uncoded 12/27/24 09:54) ITCHY EYES HPI Comments Details: Genny is back in my office after more than a year of absence. She reports today severe pain in the left groin and left upper thigh she reports severe mobility limitations with left hip. She visited a nurse practitioner and she was sent for x-ray of the left hip which demonstrated moderate hip arthritis as well as narrowing of the articular space. In the past she was under my care with bilateral knee pain for which she was administered bilateral gutter positioned of the [employer] spinal cord stimulator. She reported very good pain relief in the knees from the stimulator. I offered her today to consider left hip steroid injection. She stated that she is very nervous about injection and she wants to perform injection under sedation in the operating room. We will schedule this accordingly. Prior: In the past for the treatment of her conditions she received spinal cord stimulator [employer] by Dr. Arias. She later on under my care visited me with complaints on bilateral knee pains. She had multiple steroid injections in her knees, eventually those injections stopped helping her pain. Genicular nerve injections were very effective for her, however her insurance refused to cover radiofrequency ablation of the genicular nerves. The insurance also refused to cover peripheral nerve stimulation or dorsal root ganglion stimulation citing this as experimental procedures. At that time she was offered [employer] spinal cord stimulator in lumbar position in the projection L3-L4 vertebra is to stimulate dorsal root ganglions and peripheral nerves responsible for pain in the knees. She was given a trial with [employer] device, she reported good results of stimulation with more than 75% improvement of the level of the pain and then she went into the surgery where alpha battery was used to connect existing thoracic electrodes as well as newly placed [employer] electrodes in the lumbar gutter position. Immediately postoperatively she reported good pain relief, She became very physically active, however later on she reported that stimulation of the right knee is not working. On x-ray dislodgment of the right positioned electrode was detected and she was taken for revision of the electrode and replacement of the electrode on the right. The level of the stimulation got restored and she reported pentecostalism of good pain relief from the right knee. the x-ray of the device - lumbar spine x-ray it demonstrated appropriate position of the electrodes however compared to the previously inserted electrodes there is slight shift of the right electrode may be no more than 5 mm down. In my opinion it should not affect the ability of the electrode to stimulate the targets. REPLACED BY [facility] Medical History Tubulovillous adenoma of colon Diverticulosis Radiculitis of right cervical region Complex regional pain syndrome of both lower extremities Spinal cord stimulator dysfunction Obesity (BMI 30-39.9) Cataract Neuropathic arthropathy Postlaminectomy syndrome Difficulty in walking involving lower leg joint Osteoarthritis of knees, bilateral Lipedema Environmental allergies Asthma GERD (gastroesophageal reflux disease) Restless leg syndrome Overweight (BMI 25.0-29.9) Malabsorption due to intolerance, not elsewhere classified Spinal cord stimulator status Urinary incontinence Obesity (BMI 30.0-34.9) Surgical History S/P placement of nerve stimulator History of surgery on right wrist History of eye surgery S/P laparoscopic sleeve gastrectomy History of toe surgery Hx of spinal surgery Hx of rotator cuff surgery Hx of section Hx of construction of artificial vagina Hx laparoscopic cholecystectomy Hx of colonoscopy with polypectomy Family History Father CVD (cardiovascular disease) Mother Asthma Brother Lung cancer Brother No problems noted. Brother No problems noted. Brother No problems noted. Brother No problems noted. Brother No problems noted. Son No problems noted. Daughter No problems noted. Social History Housing: House Alcohol intake: never Patient Tobacco Use Status: Never used Tobacco e-Cigarette/Vaping Use: Never Used Advance Directives Date on File: 08/24/21 service: No Current occupational status: employed Cognitive needs: No Hearing needs: No Vision needs: Yes Review of Systems Const All systems reviewed & are unremarkable except as noted in HPI and below Physical Exam Vital Signs: Last Vital Signs Pulse 71 06/15/25 08:52 Resp 18 06/15/25 08:52 BP 152/71 H 06/15/25 08:52 Pulse Ox 94 06/15/25 08:52 Oxygen Delivery Method Room Air 06/15/25 08:52 BMI result Body Mass Index 38.8 Const General: comfortable, no acute distress, well developed, alert and awake Eyes Pupils: Equal, round and reactive pupils present EOM: EOMs intact bilaterally Chest Chest palpation & inspection: normal inspection of the chest Resp Effort & Inspection: normal respiratory effort, able to speak in complete sentences, normal respiratory pattern, no audible wheezes and no cough Cardio Jugular venous distension: no JVD Back/Spine/Pelvis Other: tenderness on palpation in paraspinal spinal region in lumbar spine. Loading test is positive. Range of motion in lumbar spine is preserved. Edgar test is negative bilaterally. Range of motion on the bilateral lower extremities is decreased especially in the knees areas. Neuro Cranial nerves: Yes Equal, round and reactive pupils present Extrem Other: Varus right knee, slight red discoloration of bilateral knees, significant severe tenderness on palpation on the right knee more than the left knee. Psych Speech and movement: Normal speech and movement present Affect: normal affect Attitude: cooperative Thought process: Normal thought process present Thought content: Normal thought content present Insight: Good insight present (Psych) Judgement: Good judgement present (Psych) Assessment & Plan Assessment & Plan (1) Postlaminectomy syndrome: Code(s): M96.1 - Postlaminectomy syndrome, not elsewhere classified Category: Medical (2) Spinal cord stimulator dysfunction: Code(s): T85.192A - Other mechanical complication of implanted electronic neurostimulator of spinal cord electrode (lead), initial encounter Category: Medical (3) CRPS (complex regional pain syndrome type I): Code(s): G90.50 - Complex regional pain syndrome I, unspecified Category: Medical Qualifiers: Complex regional pain syndrome affected site: lower extremity Laterality: bilateral Qualified Code(s): G90.523 - Complex regional pain syndrome I of lower limb, bilateral (4) Lumbago: Code(s): M54.50 - Low back pain, unspecified Category: Medical (5) Left hip pain: Code(s): M25.552 - Pain in left hip Category: Medical (6) Osteoarthritis of left hip: Code(s): M16.12 - Unilateral primary osteoarthritis, left hip Category: Medical Plan Her knee pain is better with physical therapy and [employer] spinal cord stimulator.. She still uses [employer] to treat her lower back pain inserted by Dr. Arias. She reported today pain in the left groin and left upper thigh. The x-ray of the left hip demonstrated moderate arthritis and narrowing of the intra-articular space. I offered her intra-articular left hip steroid injection. She agreed to go for the procedure she requested to do procedure under sedation. I will schedule her accordingly. Next time I will see this patient after the procedure. Patient Instructions: I hereby testify that I spent 30 minutes in conversation with this patient as well as planning her care and organizing this note. Coding Level of Care Code Est Pt Level 4 (32265) Diagnoses Postlaminectomy syndrome M96.1 Spinal cord stimulator dysfunction T85.192A Complex regional pain syndrome type 1 of both lower extremities G90.523 Complex regional pain syndrome affected site: lower extremity Laterality: bilateral Lumbago M54.50 Left hip pain M25.552 Osteoarthritis of left hip M16.12
[2025-06-15 08:52] VITALS: BP 152/71; PULSE 71; RESP 18; O2SAT 94; BMI 38.8
--- OUTSIDE RECORDS SUMMARY | 2025-06-15 09:10 | XMS_ITS | Clinical Summary ---
Author Organization [facility] Address [address] [place] [address] Care Team Providers Care Metal Coater Name Role Phone Unavailable Primary Care Provider [...]
--- OUTSIDE RECORDS SUMMARY | 2025-06-15 09:10 | XMS_ITS | Patient Health Record ---
Author Organization [facility] Address [address] [place] [address] Care Team Providers Care Assistant Mechanic Name Role Phone CELESTE RODRIGUEZ Primary Care Provider Joanne Michel Unavailable [phone] LILY GALLAGHER Unavailable [phone] Allergies Allergen (clinical drug ingredient) Drug/Non Drug Allergy documented on EMR Reaction Allergy Type Onset Date Status Fruits with Skin (uncoded) Unknown Allergy Active sulfamethoxazole / trimethoprim Bactrim Hives0 Drug Allergy Active almond allergenic extract Freeman (Diagnostic) Unknown Drug Allergy Active amoxicillin Amoxicillin [...] Status Risk Notes Problem Postmenopausal atrophic vaginitis (88874307) Postmenopausal atrophic vaginitis (N95.2) Active confirmed Problem Postmenopausal bleeding (42568754) Postmenopausal bleeding (N95.0) Active confirmed Problem Age-related osteoporosis (697823137) Age-related osteoporosis without current pathological fracture (M81.0) Active confirmed Problem Urinary incontinence (811240253) Unspecified urinary incontinence (R32) Active confirmed Problem Osteochondropathy (30375584) Disorder of bone density and structure, unspecified (M85.9) Active confirmed Problem Atrophy of vulva (026477074) Atrophy of vulva (N90.5) Active confirmed Problem Bicornate uterus (59205341) Bicornate uterus (Q51.3) Active confirmed Problem Congenital absence of vagina (97421255) 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 Problem Asthma (disorder) (895608960) Asthma, unspecified, unspecified status (493.90) Active confirmed Major Problem Postmenopausal bleeding (46903250) Postmenopausal bleeding (627.1) Active confirmed Major Problem Postmenopausal atrophic vaginitis (44229314) Postmenopausal atrophic vaginitis (627.3) Active confirmed Diag Problem Gynecological examination normal (473559687936962) Routine gynecological examination (V72.31) Active confirmed Problem Screening for malignant neoplasm of colon (513922810) Special screening for malignant neoplasms, colon (V76.51) Active confirmed Major Vital Signs Temperature 97.8 degrees Fahrenheit 02/25/2025 Blood pressure diastolic 74 mm Hg 02/25/2025 Height 62.75 in 02/25/2025 Blood pressure systolic 132 mm Hg 02/25/2025 Weight 225 lbs 02/25/2025 BMI 40.17 kg/m2 02/25/2025 Encounters Encounter Location Date Provider Diagnosis Total [address] [address] 08/19/2024 Joanne Peng Encounter for gynecological examination (general) (routine) without abnormal findings Z01.419 ; Encounter for screening mammogram for malignant neoplasm of breast Z12.31 ; Postmenopausal atrophic vaginitis N95.2 ; Congenital absence of vagina Q52.0 and Age-related osteoporosis without current pathological fracture M81.[address] [address] 09/03/2024 Joanne Peng Abscess of the breas t and nipple N61.[address] [address] 02/25/2025 LILY GALLAGHER Unspecified contact dermatitis, unspecified [...] Screening 03/10/2017 Next Appt Details Provider Name:Joanne gomez, 08/24/2025 01:20:00 PM, [address], [address], [place], [address], Insurance Providers Payer Name Payer Address Payer Phone Subscriber Number Group Number Insured Name Patient Relationship to Insured Coverage Start Date Coverage End Date [facility] [address] [place] [address] [id number] TIKI WILLSON Self - patient is the insured [facility] PL[facility] [address] [place], [place] [id number] PRADEEP WILLSON Spouse - patient is the [...]
--- OUTSIDE RECORDS SUMMARY | 2025-06-15 09:10 | XMS_ITS | Patient Health Record ---
Author Organization [facility] Address [address] [place] [address] Care Team Providers Care Hotel Recreational Facilities Manager Name Role Phone Yulissa(inactive) Riley OLIVEIRA Primary [...] Problem Status W/U Status Risk Notes Problem [id number] Epigastric pain (R10.13) Active confirmed Problem 480574302 Abn find-biliary tract (R93.2) Active confirmed Plan Of Treatment No Information Insurance Providers Payer Name Payer Address Payer Phone Subscriber Number Group Number Insured Name Patient Relationship to Insured Coverage Start Date Coverage End Date [facility] [address] [place] [phone] [id number] TIKI WILLSON Self - patient is the insured Medical (General) History Medical History History ICD Code asthma urinary incontinence edema venous insufficiency Surgical History Surgery Date(Month/Year) spine surgery 03/21/2017 cholecystectomy left rotator cuff tear repair 2016 right wrist fusion 2014
--- OUTSIDE RECORDS SUMMARY | 2025-06-15 09:10 | XMS_ITS | Clinical Summary ---
Author Organization [facility] Address [address] [place] [address] Phone Care Team Providers Care Hearing Aid Specialist Name Role Phone Bettye Wood MD Primary Care Provider [phone] Allergies Active Allergy Reactions Criticality Noted Date Comments [place] Unknown 07/30/2023 Amoxicillin Hives 07/30/2023 Sulfamethoxazole-Trimethoprim Hives 2022 Medications calcium citrate-vitamin D3 315 mg-6.25 mcg (250 unit) per tablet Oral for 15 Active multivitamin per tablet as directed Orally Active docusate sodium (DOK) 100 MG capsule TK 1 C PO QD PRN Oral for 30 Active ID-estradiol ([id number]) 0.01 % vaginal cream 1 Gram to the affected area Vaginal/Vulva Twice a week for 90 Days 08/16/2022 Active cholecalciferol (VITAMIN D3) 2,000 unit capsule 1 capsule. Active diclofenac sodium (VOLTAREN) 75 MG EC tablet Take 75 mg by mouth daily. 07/21/2023 Active furosemide (LASIX) 20 MG tablet Take 20 mg by mouth daily. 05/22/2023 Active montelukast (SINGULAIR) 10 mg tablet Take 10 mg by mouth daily. 05/06/2023 Active mirabegron (MYRBETRIQ) 50 mg Tb24 Take 50 mg by mouth daily. 07/09/2022 Active pregabalin (LYRICA) 150 MG capsule Take 150 mg by mouth daily. 06/09/2023 Active zolpidem (AMBIEN) 5 MG tablet Take 5 mg by mouth nightly at bedtime as needed for sleep. Active Social History Tobacco Use Types Packs/Day Years Used Date Smoking Tobacco: Never Smokeless Tobacco: Never Tobacco Cessation:Counseling Given: Not Answered Alcohol Use Standard Drinks/Week Comments Yes 0 (1 standard drink = 0.6 oz pur e alcohol) Education Answer Date Recorded Are you interested in more education? Not on jamar e 07/12/2023 Are you concerned about learning? Not on file 07/12/2023 No 07/12/2023 No 07/12/2023 Digital Access Answer Date Recorded No 07/12/2023 No 07/12/2023 Reliable internet access at home? Not on file 07/12/2023 Device with a working camera? Not on file Comments Unknown Sex and Gender Information Value Date Recorded Sex Assigned at Not on file Legal Sex Female 3:06 PM EDT Gender Identity Not on file Sexual Orientation Not on file Last Filed Vital Signs Vital Sign Reading Time Taken Comments Blood Pressure - - Pulse - - Temperature - - Respiratory Rate - - Oxygen Saturation - - Inhaled Oxygen Concentration - - Weight 93 kg (205 lb) 07/30/2023 8:58 AM EDT Height 162.6 cm (5' 4 ) 07/30/2023 8:58 AM EDT Body Mass Index 35.19 07/30/2023 8:58 AM EDT Plan of Treatment Health Maintenance Due Date Last Done Comments Adult Td,Tdap Booster 1962 LIPID PANEL 1962 DEPRESSION SCREENING 1974 HEPATITIS C SCREENING 1980 HIV ONE-TIME SCREENING (18-6 5 YEARS) 1980 PAP SMEAR 1983 SCREENING FOR DIABETES 1997 MAMMOGRAM 2002 COLOGUARD 2007 COLONOSCOPY 2007 COLORECTAL CANCER SCREENING 2007 FIT TEST 2007 FOBT 2007 SIGMOIDOSCOPY 2007 VIRTUAL COLONOSCOPY 2007 PNEUMOCOCCAL VACCINES (50+ y ears) (1 of 1 - PCV) 2012 ZOSTER VACCINES (1 of 2) 2012 COVID-19 VACCINE ( - 2023-2 5 season) 2024 RSV VACCINE (1 - 1-dose 75+ series) 2037 SMOKING STATUS SCREENING (On ce After 26 Yrs) Completed 07/30/2023 HEPATITIS A VACCINES Aged Out No long er eligible based on patient's age to complete this topic HIB VACCINES Aged Out No longer eligi ble based on patient's age to complete this topic MENINGOCOCCAL VACCINES (ACWY) Aged Out No longer eligible based on patient's age to complete this topic MENINGOCOCCAL VACCINES (B) Aged Out N o longer eligible based on patient's age to complete this topic Medical Devices Not on file Insurance [facility] Member Subscriber Plan / Payer (Ef fective 2022-Present) Name:Genny Hilario Relation to Subscriber:Self Name:Genny Hilario Payer ID:[id number] (NAIC) Type:HMO Address: [address] [id number] [address] HMO [facility] PL[facility] Member Subscriber Plan / Payer (Ef fective 2022-Present) Name:Genny Hilario Relation to Subscriber:Self Name:Genny Hilario Payer ID:[id number] ([facility]) Type:O Address: [address] [place] [address] HEALTH PLAN [facility] PLAN [facility] HMO Care Teams Hearing Aid Specialist Relationship Specialty Start Date End Date Bettye Wood MD [address] [address] PCP - General Internal Medicine 06/19/23 Additional Source Comments The information contained in this document represents components of the legal health record. It is not the complete legal health record.[facility]
== END 2025-06-15 09:13 | disposition home or self-care (01) ==
LOC: HO.PMC 08:45
PROVIDERS: PCP Internal Medicine; Visit Provider Anesthesiology
DX: M96.1 Postlaminectomy syndrome, not elsewhere classified (principal); T85.192A Other mechanical complication of implanted electronic neurostimulator of spinal cord electrode (lead), initial encounter; G90.523 Complex regional pain syndrome I of lower limb, bilateral; M54.50 Low back pain, unspecified; M25.552 Pain in left hip; M16.12 Unilateral primary osteoarthritis, left hip
CPT/HCPCS: 99214

== ENCOUNTER 2025-07-29 09:21 | Day surgery (SDC) | payer OTHER, SELFPAY ==
--- OUTSIDE RECORDS SUMMARY | 2025-07-19 12:58 | XMS_ITS | Clinical Summary ---
Author Organization [facility] Address [address] [place] [address] Phone Care Team Providers Care Church Warden Name Role Phone Bettye Wood MD Primary Care Provider [phone] Allergies Active Allergy Reactions Criticality Noted Date Comments [place] Unknown 07/30/2023 Amoxicillin Hives 07/30/2023 Sulfamethoxazole-Trimethoprim Hives 2022 Medications calcium citrate-vitamin D3 315 mg-6.25 mcg (250 unit) per tablet Oral for 15 Active multivitamin per tablet as directed Orally Active docusate sodium (DOK) 100 MG capsule TK 1 C PO QD PRN Oral for 30 Active ID-estradiol ([id number]) 0.01 % vaginal cream 1 Gram to [...] 2012 ZOSTER VACCINES (1 of 2) 2012 INFLUENZA VACCINE (#1) 2025 COVID-19 VACCINE ( - 2023-2 5 season) 2025 RSV VACCINE (1 - 1-dose 75+ series) [...] topic Medical Devices Not on file Insurance [facility] PLAN [facility] [place] [address] [facility] [facility] [place] [address] [facility]ALTH [facility] Address: [address] [address] Care Teams Church Warden Relationship Specialty Start Date End Date Bettye Wood MD [address] [place] [address] PCP - General Internal Medicine 06/19/23 Additional Source Comments The information contained in this document represents components of the legal health record. It is not the complete legal health record.[facility]
--- OUTSIDE RECORDS SUMMARY | 2025-07-19 12:58 | XMS_ITS | Patient Health Record ---
Author Organization [facility] Address [address] [place] [address] Care Team Providers Care Grease Machine Worker Name Role Phone CELESTE RODRIGUEZ Primary Care Provider Joanne Michel Unavailable [phone] LILY GALLAGHER Unavailable [phone] Allergies Allergen (clinical drug ingredient) Drug/Non Drug Allergy documented on EMR Reaction Allergy Type Onset Date Status Fruits with Skin (uncoded) Unknown Allergy Active sulfamethoxazole / trimethoprim Bactrim Hives0 Drug Allergy Active almond allergenic extract [place] (Diagnostic) Unknown Drug Allergy Active amoxicillin Amoxicillin [...] Status Risk Notes Problem Postmenopausal atrophic vaginitis (82594767) Postmenopausal atrophic vaginitis (N95.2) Active confirmed Problem Postmenopausal bleeding (54699346) Postmenopausal bleeding (N95.0) Active confirmed Problem Age-related osteoporosis (026871718) Age-related osteoporosis without current pathological fracture (M81.0) Active confirmed Problem Urinary incontinence (706019092) Unspecified urinary incontinence (R32) Active confirmed Problem Osteochondropathy (09426698) Disorder of bone density and structure, unspecified (M85.9) Active confirmed Problem Atrophy of vulva (785786352) Atrophy of vulva (N90.5) Active confirmed Problem Bicornate uterus (72116095) Bicornate uterus (Q51.3) Active confirmed Problem Congenital absence of vagina (07141712) 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 Problem Asthma (disorder) (027472281) Asthma, unspecified, unspecified status (493.90) Active confirmed Major Problem Postmenopausal bleeding (56014480) Postmenopausal bleeding (627.1) Active confirmed Major Problem Postmenopausal atrophic vaginitis (78171593) Postmenopausal atrophic vaginitis (627.3) Active confirmed Diag Problem Gynecological examination normal (762920707341302) Routine gynecological examination (V72.31) Active confirmed Problem Screening for malignant neoplasm of colon (540595971) Special screening for malignant neoplasms, colon (V76.51) Active confirmed Major Vital Signs Temperature 97.8 degrees Fahrenheit 02/25/2025 Blood pressure diastolic 74 mm Hg 02/25/2025 Height 62.75 in 02/25/2025 Blood pressure systolic 132 mm Hg 02/25/2025 Weight 225 lbs 02/25/2025 BMI 40.17 kg/m2 02/25/2025 Encounters Encounter Location Date Provider Diagnosis Total [address] [address] 08/19/2024 Joanne Peng Encounter for gynecological examination (general) (routine) without abnormal findings Z01.419 ; Encounter for screening mammogram for malignant neoplasm of breast Z12.31 ; Postmenopausal atrophic vaginitis N95.2 ; Congenital absence of vagina Q52.0 and Age-related osteoporosis without current pathological fracture M81.[address] [address] 09/03/2024 Joanne Peng Abscess of the breas t and nipple N61.[address] [address] 02/25/2025 LILY GALLAGHER Unspecified contact dermatitis, unspecified [...] Provider Name:Joanne gomez, 08/24/2025 01:20:00 PM, [address], [address], [place], [address], Insurance Providers Payer Name Payer Address Payer Phone Subscriber Number Group Number Insured Name Patient Relationship to Insured Coverage Start Date Coverage End Date [facility] [address] [place] [address] [phone] [id number] TIKI WILLSON Self - patient is the insured [facility] [address] [place], [place] [id number] PRADEEP WILLSON Spouse - patient is the [...]
--- OUTSIDE RECORDS SUMMARY | 2025-07-19 12:58 | XMS_ITS | Clinical Summary ---
Author Organization [facility] Address [address] [address] Care Team Providers Care Shipping And Receiving Associate Name Role Phone Unavailable Primary Care Provider [...] Vaccine (1 of 2) 2012 COVID-19 Vaccine (1 - 2023-2 5 season) 2025 RSV Vaccine 60 years and old er and Patients (1 - 1-dose 75+ series) 2037 Hepatitis B Vaccines Aged Out No long er eligible based on patient's age to complete this topic
--- OUTSIDE RECORDS SUMMARY | 2025-07-19 12:58 | XMS_ITS | Patient Health Record ---
Author Organization [facility] Address [address] [place] [address] Care Team Providers Care Head Lineman Name Role Phone Yulissa(inactive) Riley OLIVEIRA Primary [...] Problem Status W/U Status Risk Notes Problem [id number] Epigastric pain (R10.13) Active confirmed Problem 101373447 Abn find-biliary tract (R93.2) Active confirmed Plan Of Treatment No Information Insurance Providers Payer Name Payer Address Payer Phone Subscriber Number Group Number Insured Name Patient Relationship to Insured Coverage Start Date Coverage End Date [facility] [address] [place] [phone] [id number] TIKI WILLSON Self - patient is the insured Medical (General) History Medical History History ICD Code asthma urinary incontinence edema venous insufficiency Surgical History Surgery Date(Month/Year) spine surgery 03/21/2017 cholecystectomy left rotator cuff tear repair 2016 right wrist fusion 2014
[2025-07-27 14:54] VITALS: BMI 38.8
--- NOTE | 2025-07-28 09:23 | HO.ANESPROP2 ---
Documented by User: Parris Juarez NP 07/28/25 09:25 HPI - Anesthesia Eval Consult details Narrative: 64yo F for Left Hip Intra-articular Injection s/p colonoscopy 12/2024 with MAC spinal stim in situ PMFSH Active Problems Active Problems: All Active Problems Osteoarthritis of left hip (Acute) Left hip pain (Acute) Obesity (BMI 30.0-34.9) (Acute) Herpes labialis (Acute) Sprain of wrist, left (Acute) Fall (Acute) Vitamin B1 deficiency (Acute) Vitamin A deficiency (Acute) Spinal cord stimulator status (Acute) Tubulovillous adenoma of colon (Acute) Diverticulosis (Acute) CRPS (complex regional pain syndrome type I) (Acute) Lumbago (Acute) Lumbar radiculopathy (Acute) Osteoarthritis of right knee (Acute) Osteoarthritis of left knee (Acute) Fractured great toe (Acute) Injury of toe on right foot (Acute) Contusion of foot (Acute) Vitamin D deficiency (Acute) Difficulty sleeping (Acute) Tiredness (Acute) Chronic allergic rhinitis (Acute) Allergic rhinitis (Acute) Eczema (Acute) Colon cancer screening (Acute) Radiculitis of right cervical region (Acute) Cataract, left (Acute) Pre-op evaluation (Acute) Foot fracture, right (Acute) Anxiety, generalized (Acute) Osteoarthritis of knees, bilateral (Acute) Recurrent cold sores (Acute) Encounter for general adult medical examination with abnormal findings (Acute) Complex regional pain syndrome of both lower extremities (Acute) Spinal cord stimulator dysfunction (Acute) Obesity (BMI 30-39.9) (Acute) Cataract (Acute) Neuropathic arthropathy (Acute) Postlaminectomy syndrome (Acute) Difficulty in walking involving lower leg joint (Acute) Osteoarthritis of knees, bilateral (Acute) Lipedema (Acute) Environmental allergies (Acute) Overweight (BMI 25.0-29.9) (Acute) Malabsorption due to intolerance, not elsewhere classified (Acute) S/P laparoscopic sleeve gastrectomy (Acute) Urinary incontinence (Acute) Past Medical History Medical History Tubulovillous adenoma of colon Diverticulosis Radiculitis of right cervical region Complex regional pain syndrome of both lower extremities Spinal cord stimulator dysfunction Obesity (BMI 30-39.9) Cataract Neuropathic arthropathy Postlaminectomy syndrome Difficulty in walking involving lower leg joint Osteoarthritis of knees, bilateral Lipedema Environmental allergies Asthma GERD (gastroesophageal reflux disease) Restless leg syndrome Overweight (BMI 25.0-29.9) Malabsorption due to intolerance, not elsewhere classified Spinal cord stimulator status Urinary incontinence Obesity (BMI 30.0-34.9) Family History Family History Father CVD (cardiovascular disease) Mother Asthma Brother Lung cancer Brother No problems noted. Brother No problems noted. Brother No problems noted. Brother No problems noted. Brother No problems noted. Son No problems noted. Daughter No problems noted. Family history of problems with anesthesia: No Surgical History Surgical History S/P placement of nerve stimulator History of surgery on right wrist History of eye surgery S/P laparoscopic sleeve gastrectomy History of toe surgery Hx of spinal surgery Hx of rotator cuff surgery Hx of section Hx of construction of artificial vagina Hx laparoscopic cholecystectomy Hx of colonoscopy with polypectomy History of Problems with Anesthesia: No Social History Social History Housing: House Alcohol intake: never Patient Tobacco Use Status: Never used Tobacco e-Cigarette/Vaping Use: Never Used Advance Directives Date on File: 08/24/21 service: No Current occupational status: employed Cognitive needs: No Hearing needs: No Vision needs: Yes Meds Allergies Allergy/AdvReac Type Severity Reaction Status Date / Time almond (ALMOND) Allergy Intermediate NUMBNESS Verified 06/15/25 08:50 MOUTH, ITCHY EYES amoxicillin (AMOXICILLIN) Allergy Intermediate HIVES Verified 06/15/25 08:50 penicillin V Allergy Intermediate rash Verified 06/15/25 08:50 apple (APPLE) Allergy Mild ITCHY EYES Verified 06/15/25 08:50 peach (PEACHES) Allergy Mild ITCHY EYES Verified 06/15/25 08:50 plum (PLUMS) Allergy Mild ITCHY EYES Verified 06/15/25 08:50 carrot Allergy Unknown Unknown Verified 06/15/25 08:50 pear (PEAR) AdvReac Mild ITCHY EYES Verified 06/15/25 08:50 NECTARINES Allergy Mild ITCHY EYES Uncoded 12/27/24 09:54 Home Medications ?Medication ?Instructions ?Recorded ?Confirmed ?Last Taken ?Type fiber 1 tab PO DAILY 09/06/20 07/27/25 Unknown History vibegron 75 mg tablet (Gemtesa) 75 mg PO DAILY 11/27/23 07/27/25 Unknown History estradiol 0.01% (0.1 mg/gram) 1 g vaginal 2XW 01/14/24 07/27/25 Unknown History vaginal cream calcium carbonate-vitamin D3 500 cap PO 05/27/25 Unknown History mg (1,250 mg)-50 unit capsule multivitamin (Daily Multi-Vitamin 1 tab PO DAILY 05/27/25 07/27/25 Unknown History tablet) valacyclovir 500 mg tablet 500 mg PO DAILY PRN Cold sores 05/27/25 07/27/25 Unknown History Exam Height,Weight and Vital Signs: Height 5 ft 4 in Weight 102.512 kg Assessment and Plan Assessment Anesthesia Assessment: Chart Reviewed Final Anesthetic Review Family History of Problems with Anesthesia: No History of Problems with Anesthesia: No Documented by User: Abigail Mendoza MD 07/29/25 09:07 [facility] Past Medical History Medical History Tubulovillous adenoma of colon Diverticulosis Radiculitis of right cervical region Complex regional pain syndrome of both lower extremities Spinal cord stimulator dysfunction Obesity (BMI 30-39.9) Cataract Neuropathic arthropathy Postlaminectomy syndrome Difficulty in walking involving lower leg joint Osteoarthritis of knees, bilateral Lipedema Environmental allergies Asthma GERD (gastroesophageal reflux disease) Restless leg syndrome Overweight (BMI 25.0-29.9) Malabsorption due to intolerance, not elsewhere classified Spinal cord stimulator status Urinary incontinence Obesity (BMI 30.0-34.9) Family History Family History Father CVD (cardiovascular disease) Mother Asthma Brother Lung cancer Brother No problems noted. Brother No problems noted. Brother No problems noted. Brother No problems noted. Brother No problems noted. Son No problems noted. Daughter No problems noted. Surgical History Surgical History S/P placement of nerve stimulator History of surgery on right wrist History of eye surgery S/P laparoscopic sleeve gastrectomy History of toe surgery Hx of spinal surgery Hx of rotator cuff surgery Hx of section Hx of construction of artificial vagina Hx laparoscopic cholecystectomy Hx of colonoscopy with polypectomy Social History Social History Housing: House Alcohol intake: never Patient Tobacco Use Status: Never used Tobacco e-Cigarette/Vaping Use: Never Used Advance Directives Date on File: 08/24/21 service: No Current occupational status: employed Cognitive needs: No Hearing needs: No Vision needs: Yes Meds Allergies Allergy/AdvReac Type Severity Reaction Status Date / Time almond (ALMOND) Allergy Intermediate NUMBNESS Verified 06/15/25 08:50 MOUTH, ITCHY EYES amoxicillin (AMOXICILLIN) Allergy Intermediate HIVES Verified 06/15/25 08:50 penicillin V Allergy Intermediate rash Verified 06/15/25 08:50 apple (APPLE) Allergy Mild ITCHY EYES Verified 06/15/25 08:50 peach (PEACHES) Allergy Mild ITCHY EYES Verified 06/15/25 08:50 plum (PLUMS) Allergy Mild ITCHY EYES Verified 06/15/25 08:50 carrot Allergy Unknown Unknown Verified 06/15/25 08:50 pear (PEAR) AdvReac Mild ITCHY EYES Verified 06/15/25 08:50 NECTARINES Allergy Mild ITCHY EYES Uncoded 12/27/24 09:54 Home Medications ?Medication ?Instructions ?Recorded ?Confirmed ?Last Taken ?Type fiber 1 tab PO DAILY 09/06/20 07/27/25 Unknown History vibegron 75 mg tablet (Gemtesa) 75 mg PO DAILY 11/27/23 07/27/25 Unknown History estradiol 0.01% (0.1 mg/gram) 1 g vaginal 2XW 01/14/24 07/27/25 Unknown History vaginal cream calcium carbonate-vitamin D3 500 cap PO 05/27/25 Unknown History mg (1,250 mg)-50 unit capsule multivitamin (Daily Multi-Vitamin 1 tab PO DAILY 05/27/25 07/27/25 Unknown History tablet) valacyclovir 500 mg tablet 500 mg PO DAILY PRN Cold sores 05/27/25 07/27/25 Unknown History Exam Airway Mallampati Class: III TM Dist: <=3cm Neck ROM: Full Heart: rrr Lungs: cta Assessment and Plan Assessment Anesthesia Assessment: Anesthesia Plan Discussed Final Anesthetic Review NPO: Yes ASA Class: III Final Preanesthetic Review: No Changes in Pt Med Stat, Meds/Allgs Chart Reviewed, Consent Obtained/Reviewed and Anes Risks/Benef Reviewed Patient Risk: Intermediate Procedure Risk: Low Anesthetic Plan Anesthetic Plan: MAC: and Agree w/ Assess. and Plan Disposition: Standard PACU
--- NOTE | ~2025-07-29 | FL_ITS ---
EXAMINATION: FL GUIDANCE ONLY HISTORY: hip injection, left COMPARISON: None available. TECHNIQUE: Fluoroscopy time: 30.1 seconds. Cumulative Dose: 19.038 mGy. DAP: 4.8294 Gycm2 Images: 1. FINDINGS: A single fluoroscopic spot film of the left hip demonstrates a needle in place and contrast material in the joint space. FL/FL guidance in OR IMPRESSION: Fluoroscopy during procedure. Please see procedure report for additional information. Electronically signed by: Burt Green MD 07/29/2025 11:26 AM EDT
[2025-07-29 10:07] VITALS: BP 132/74; PULSE 77; RESP 14; TEMP 36.6; O2SAT 100; BMI 40.7
[2025-07-29] MEDS: Lactated Ringers 1,000 ML 100 ML IVCONT (10:11)
--- NOTE | 2025-07-29 10:17 | MHC.SHP ---
Pre-Procedural Eval Section A - 24 Hr Update-Section A only Date of Service: 07/29/25 The patient is an INPATIENT: No Changes since office visit: Yes Patient answered all questions The patient has been examined within 24 hours of the surgical procedure. The History & Physical has been completed within 30 days and I have reviewed it.: No Section B - Complete if H&P > 30 days Chief Complaint: Unilateral primary osteoarthritis, left hip,pain Details of Present Illness: as above Relevant Family History (Specify if Yes): No Relevant Social History: None Present Medications: see Short Stay Collaborative assessment Medical History: No relevant PMH History of Previous Operations: Relevant previous surgery/procedure and date(s) Allergies: Allergies Allergy/AdvReac Type Severity Reaction Status Date / Time almond (ALMOND) Allergy Intermediate NUMBNESS Verified 07/29/25 10:13 MOUTH, ITCHY EYES amoxicillin (AMOXICILLIN) Allergy Intermediate HIVES Verified 07/29/25 10:13 penicillin V Allergy Intermediate rash Verified 07/29/25 10:13 apple (APPLE) Allergy Mild ITCHY EYES Verified 07/29/25 10:13 carrot Allergy Mild Itchy Eyes Verified 07/29/25 10:13 peach (PEACHES) Allergy Mild ITCHY EYES Verified 07/29/25 10:13 plum (PLUMS) Allergy Mild ITCHY EYES Verified 07/29/25 10:13 pear (PEAR) AdvReac Mild Itchy Eyes Verified 07/29/25 10:13 NECTARINES Allergy Mild ITCHY EYES Uncoded 07/29/25 10:13 Review of Systems Sugical H&P ROS: Negative: Cardiovascular, Respiratory, Neurological, Psychiatric, Hem-Onc, Allergic/Immunologic, Gastrointestinal, Genitourinary, Musculoskeletal, Integumentary, Endocrine and Eyes/Ears/Nose/Throat and Yes, Specify: Constitution (obesity morbid) Exam Surgical H&P Exam: Normal: HEENT, Normal: Heart, Normal: Lungs, Normal: Extremities, Normal: Abdomen, Normal: Skin and Normal: Neurological Plan Diagnosis/Plan: Unchanged I have reviewed the history and physical and performed a pertinent physical examination on my patient. No changes have occurred unless specified. Time Spent With Patient Time: Total time managing care of this patient today ____ minutes.
--- NOTE | 2025-07-29 11:14 | PM.OP ---
Brief Operative Note Date of Service: 07/29/25 Pre-op diagnosis: Left hip joint arthritis Post-op diagnosis: same Procedure: Left hip joint steroid injection Surgeon: Julien Mathew MD Anesthesia: MAC Was an Electric Meter Tester used for this Procedure?: No Estimated blood loss (mL): 0 Condition: stable Disposition: PACU
--- NOTE | 2025-07-29 11:16 | W.PM.OPN ---
Operative Note Operative Note Date of Service: 07/29/25 Narrative: Left hip steroid injection. Informed consent was thoroughly explained to the patient risks and benefits were explained. After that patient was taken to the operating room and positioned right lateral decubitus position on the operating table. ASA monitors were applied and patient was sedated. Nondependent left hip was prepped with ChloraPrep and draped with sterile self adhesive utility towels. C-arm was brought over the operating field and picture of the left and right hip joints were demonstrated on the screen. Smaller joint was chosen as the target of the injection. In the projection of the trochanter of the left femur injection of the local anesthetic solution mixture of ropivacaine 0.5% and lidocaine 2% 1-1 was performed. 22 gauge 5 in needle was inserted through the skin wheal and was advanced to were the silhouette of the left hip joint under intermittent anterior posterior and lateral views. When tip of the needle ended up in the capsule of the joint injection of the contrast was performed demonstrating arthrogram. After that injectate solution containing ropivacaine 0.5% mixed with Kenalog 40 mg was injected into the joint. Upon completion of the injection the needle was removed and Band-Aid was applied. The patient tolerated procedure well. She was awakened and transferred stable to PACU.
[2025-07-29 11:18] VITALS: BP 121/71; PULSE 76; RESP 17; TEMP 36.2; O2SAT 98
[2025-07-29 11:33] VITALS: BP 143/90; PULSE 79; RESP 16; TEMP 36.2; O2SAT 100
== END 2025-07-29 12:12 | disposition home or self-care (01) ==
PROVIDERS: PCP Internal Medicine; Visit Provider Anesthesiology
PROC: (CPT 20610; principal; 2025-07-29 12:00)
DX: M25.552 Pain in left hip (principal); M16.12 Unilateral primary osteoarthritis, left hip; G90.523 Complex regional pain syndrome I of lower limb, bilateral; R26.2 Difficulty in walking, not elsewhere classified; M96.1 Postlaminectomy syndrome, not elsewhere classified; T85.192A Other mechanical complication of implanted electronic neurostimulator of spinal cord electrode (lead), initial encounter; Y75.2 Prosthetic and other implants, materials and neurological devices associated with adverse incidents; M54.50 Low back pain, unspecified; M14.60 Charcot's joint, unspecified site; R60.9 Edema, unspecified; G25.81 Restless legs syndrome; E66.9 Obesity, unspecified; Z68.38 Body mass index [BMI] 38.0-38.9, adult; Z96.82 Presence of neurostimulator; J45.909 Unspecified asthma, uncomplicated; Z88.0 Allergy status to penicillin; Z91.018 Allergy to other foods; Z98.890 Other specified postprocedural states
CPT/HCPCS: 20610; J2003; J2250; J2704; J2795; J3010; J3301; Q9967

== ENCOUNTER → 2025-07-29 09:21 | Outpatient (BNV) | payer OTHER, SELFPAY | PROVIDERS: PCP Internal Medicine; Visit Provider Anesthesiology | DX: M16.12 Unilateral primary osteoarthritis, left hip (principal) | CPT/HCPCS: 20610; 77002 ==

== ENCOUNTER 2025-08-14 09:33 | Observation (INO) | payer OTHER, SELFPAY ==
--- NOTE | ~2025-08-14 | CT_ITS ---
CLINICAL HISTORY: right sided neck pain, weakness CT head without contrast CT angiography head and neck with contrast. 3D Postprocessing. COMPARISON: None provided. FINDINGS: HEAD CT: No intra-axial mass, midline shift, hydrocephalus, or acute hemorrhage. No significant atrophy-like change or white matter disease. There is no sinus or mastoid fluid. The orbits are unremarkable. There is no acute fracture. HEAD AND NECK CTA: Aortic arch and cervical great vessels are patent. Small amount of calcified plaque present at the carotid bulb on the left without significant stenosis. Intracranial arteries are patent. origin of the left posterior cerebral artery, normal variant. No aneurysm, dissection, hemodynamically significant stenoses, or occlusion. No abnormal intracranial enhancement. Left thyroid lobe nodule measuring 7 mm. No cervical mass or fluid collection. Visualized lung apices are clear. No acute fracture. IMPRESSION: 1. No acute intracranial findings. 2. Patent head and neck CTA. This document has been electronically signed by: Refugio Zhou MD on 08/14/2025 16:56:52
[2025-08-14 09:36] VITALS: BP 145/73; PULSE 91; RESP 18; TEMP 36.7; O2SAT 100; BMI 40.7
--- OUTSIDE RECORDS SUMMARY | 2025-08-14 09:50 | XMS_ITS | Clinical Summary ---
Author Organization [facility] Address [address] [place] [address] Care Team Providers Care Vascular Ultrasound Technician Name Role Phone Unavailable Primary Care Provider [...] - 2023-2 5 season) 2025 RSV Vaccine 50 years and old er and Patients (1 - 1-dose 75+ series) 2037 Hepatitis B Vaccines Aged Out No long er eligible based on patient's age to complete this topic
--- OUTSIDE RECORDS SUMMARY | 2025-08-14 09:50 | XMS_ITS | Patient Health Record ---
Author Organization [facility] Address [address] [place] [address] Care Team Providers Care Supervisor Bottle Machines Name Role Phone Yulissa(inactive) Riley OLIVEIRA Primary [...] 0.375 MG 1 tablet Orally every 12 hrs; Duration: 30 Active Ondansetron 4 MG 1 tablet on the tong ue and allow to dissolve Orally every 8 hrs Active Montelukast Sodium 10 MG 1 tablet in the evening Orally Once a day Active Furosemide 20 MG 1 tablet Orally Once a day Active Hyoscyamine Sulfate ER 0.375 MG 1 tablet Orally every 12 hrs; Duration: 30 day(s) 07/04/2017 Active Social History Tobacco [...] Problem Status W/U Status Risk Notes Problem Epigastric pain (38385821) Epigastric pain (R10.13) Active confirmed Problem Imaging of biliary tract abnormal (592508016) Abn find-biliary tract (R93.2) Active confirmed Plan Of Treatment No Information Insurance Providers Payer Name Payer Address Payer Phone Subscriber Number Group Number Insured Name Patient Relationship to Insured Coverage Start Date Coverage End Date [facility] [address] [place] [phone] [id number] TIKI WILLSON Self - patient is the insured Medical (General) History Medical History History ICD Code asthma urinary incontinence edema venous insufficiency Surgical History Surgery Date(Month/Year) spine surgery 03/21/2017 cholecystectomy left rotator cuff tear repair 2015 right wrist fusion 2014
--- OUTSIDE RECORDS SUMMARY | 2025-08-14 09:50 | XMS_ITS | Clinical Summary ---
Author Organization [facility] Address [address] [place] [id number] Phone Care Team Providers Care Space And Missile Operations Name Role Phone Bettye Wood MD Primary Care Provider [phone] Allergies Active Allergy Reactions Criticality Noted Date Comments [place] Unknown 07/30/2023 Amoxicillin Hives 07/30/2023 Sulfamethoxazole-Trimethoprim Hives 2022 Medications calcium citrate-vitamin D3 315 mg-6.25 mcg (250 unit) per tablet Oral for 15 Active multivitamin per tablet as directed Orally Active docusate sodium (DOK) 100 MG capsule TK 1 C PO QD PRN Oral for 30 Active ID-estradiol ([id number]) 0.01 % vaginal cream 1 Gram to [...] VACCINE (#1) 2025 COVID-19 VACCINE ( - 2024-2 6 season) 2025 RSV VACCINE (1 - 1-dose [...] topic Medical Devices Not on file Insurance [facility] PL[facility] HMO [facility] [place] [address] [address] [place] [address] [facility] [place] [address] [place] [address] [facility] Care Teams Space And Missile Operations Relationship Specialty Start Date End Date Bettye Wood MD [address] [place] [address] PCP - General Internal Medicine 06/19/23 Additional Source Comments The information contained in this document represents components of the legal health record. It is not the complete legal health record.[facility]
--- OUTSIDE RECORDS SUMMARY | 2025-08-14 09:50 | XMS_ITS | Patient Health Record ---
Author Organization [facility] Address [address] [place] [address] Care Team Providers Care Informatics Analyst Name Role Phone CELESTE RODRIGUEZ Primary Care Provider Joanne Michel Unavailable [phone] LILY GALLAGHER Unavailable [phone] Allergies Allergen (clinical drug ingredient) Drug/Non Drug Allergy documented on EMR Reaction Allergy Type Onset Date Status Fruits with Skin (uncoded) Unknown Allergy Active sulfamethoxazole / trimethoprim Bactrim Hives0 Drug Allergy Active almond allergenic extract [place] (Diagnostic) Unknown Drug Allergy Active amoxicillin Amoxicillin [...] Status Risk Notes Problem Postmenopausal atrophic vaginitis (70448999) Postmenopausal atrophic vaginitis (N95.2) Active confirmed Problem Postmenopausal bleeding (31026358) Postmenopausal bleeding (N95.0) Active confirmed Problem Age-related osteoporosis (930113205) Age-related osteoporosis without current pathological fracture (M81.0) Active confirmed Problem Urinary incontinence (190450497) Unspecified urinary incontinence (R32) Active confirmed Problem Osteochondropathy (49658222) Disorder of bone density and structure, unspecified (M85.9) Active confirmed Problem Atrophy of vulva (376961333) Atrophy of vulva (N90.5) Active confirmed Problem Bicornate uterus (95982182) Bicornate uterus (Q51.3) Active confirmed Problem Congenital absence of vagina (28963918) 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 Problem Asthma (disorder) (670490301) Asthma, unspecified, unspecified status (493.90) Active confirmed Major Problem Postmenopausal bleeding (12677852) Postmenopausal bleeding (627.1) Active confirmed Major Problem Postmenopausal atrophic vaginitis (06955061) Postmenopausal atrophic vaginitis (627.3) Active confirmed Diag Problem Gynecological examination normal (307354572128629) Routine gynecological examination (V72.31) Active confirmed Problem Screening for malignant neoplasm of colon (774997770) Special screening for malignant neoplasms, colon (V76.51) Active confirmed Major Vital Signs Temperature 97.8 degrees Fahrenheit 02/25/2025 Blood pressure diastolic 74 mm Hg 02/25/2025 Height 62.75 in 02/25/2025 Blood pressure systolic 132 mm Hg 02/25/2025 Weight 225 lbs 02/25/2025 BMI 40.17 kg/m2 02/25/2025 Encounters Encounter Location Date Provider Diagnosis Total [address] [address] 08/19/2024 Joanne Peng Encounter for gynecological examination (general) (routine) without abnormal findings Z01.419 ; Encounter for screening mammogram for malignant neoplasm of breast Z12.31 ; Postmenopausal atrophic vaginitis N95.2 ; Congenital absence of vagina Q52.0 and Age-related osteoporosis without current pathological fracture M81.[address] [address] 09/03/2024 Joanne Peng Abscess of the breas t and nipple N61.[address] [address] 02/25/2025 LILY GALLAGHER Unspecified contact dermatitis, unspecified [...] Provider Name:Joanne gomez, 08/24/2025 01:20:00 PM, [address], [address], [place], [address], Insurance Providers Payer Name Payer Address Payer Phone Subscriber Number Group Number Insured Name Patient Relationship to Insured Coverage Start Date Coverage End Date [facility] [address] [place] [address] [id number] TIKI WILLSON Self - patient is the insured [facility] [employer] [address] [place], [place] [id number] PRADEEP WILLSON Spouse - patient is the [...]
--- NOTE | 2025-08-14 10:31 | ED_ITS ---
HPI - General Adult General Chief complaint: Neck Pain/Injury Stated complaint: Unable to Move Head/Neck No Injury Time Seen by Provider: 08/14/25 10:30 Source: patient and family (patient's ) Mode of arrival: ambulatory Limitations: no limitations History of Present Illness ED Provider: Tiffany Ann PA-C HPI narrative: Patient is a 64 year old assigned female at with a history of OA, vitamin A deficiency, Vitamin B1 deficiency, spinal cord stimulator, CRPS, lumbar radiculopathy, and lipidema presenting to the emergency department today with right sided neck / shoulder pain. Patient states that she had some of this pain yesterday but when she woke up from sleep this morning it is significantly worse. Patient states that she cannot turn her neck to the left at all without significant pain. Patient denies any other complaints at this time. Related Data Home Medications ?Medication ?Instructions ?Recorded ?Confirmed fiber 1 tab PO DAILY 09/06/2007/21 vibegron 75 mg tablet (Gemtesa) 75 mg PO DAILY 4 08/14/25 calcium carbonate-vitamin D3 500 1 cap PO DAILY 08/14/25 mg (1,250 mg)-50 unit capsule valacyclovir 500 mg tablet 500 mg PO DAILY PRN Cold so res 05/27/25 08/14/25 furosemide 20 mg tablet (Lasix) 10 mg PO DAILY PRN wayne ma 08/14/25 08/14/25 Previous Rx's ?Medication ?Instructions ?Recorded fluticasone propionate 50 1 spray intranasal BID #16 g suzan 01/14/25 mcg/actuation nasal spray,suspension (Flonase Allergy Relief) montelukast 10 mg tablet 10 mg PO BEDTIME 90 days #90 tabs 01/14/25 pregabalin 150 mg capsule 150 mg PO BID 30 days #60 ca ps 06/21/25 polyethylene glycol 3350 17 17 g PO DAILY #510 grams 0 07/14/25 gram/dose oral powder (Miralax) Allergies Allergy/AdvReac Type Severity Reaction Status Date / Time almond (ALMOND) Allergy Intermediate NUMBNESS Verified 08/14/25 09:37 MOUTH, ITCHY EYES amoxicillin (AMOXICILLIN) Allergy Intermediate HIVES Verified 08/14/25 09:37 penicillin V Allergy Intermediate rash Verified 08/14/25 09:37 apple (APPLE) Allergy Mild ITCHY EYES Verified 08/14/25 09:37 carrot Allergy Mild Itchy Eyes Verified 08/14/25 09:37 peach (PEACHES) Allergy Mild ITCHY EYES Verified 08/14/25 09:37 plum (PLUMS) Allergy Mild ITCHY EYES Verified 08/14/25 09:37 pear (PEAR) AdvReac Mild Itchy Eyes Verified 08/14/25 09:37 NECTARINES Allergy Mild ITCHY EYES Uncoded 07/29/25 10:13 Review of Systems 2 Constitutional: Constitutional: Reports as per HPI Eyes: Eyes: Reports as per HPI ENT: Reports as per HPI Cardiovascular: Cardiovascular: Reports as per HPI Respiratory: Respiratory: Reports as per HPI Gastrointestinal: Gastrointestinal: Reports as per HPI Genitourinary: Genitourinary: Reports as per HPI Musculoskeletal: Musculoskeletal: Reports as per HPI Integumentary/Breasts: Skin/Breast: Reports as per HPI Neurologic: Reports as per HPI Psychiatric: Psychiatric: Reports as per HPI Endocrine: Endocrine: Reports as per HPI Hematologic/Lymphatic: Hematologic/Lymphatic: Reports as per HPI Allergic/Immunologic: Allergic/Immunologic: Reports as per HPI [facility] Past Medical History Attestation statement: The following information was validated with the patient. Source: old records reviewed and nursing notes reviewed Medical History Tubulovillous adenoma of colon Diverticulosis Radiculitis of right cervical region Complex regional pain syndrome of both lower extremities Spinal cord stimulator dysfunction Obesity (BMI 30-39.9) Cataract Neuropathic arthropathy Postlaminectomy syndrome Difficulty in walking involving lower leg joint Osteoarthritis of knees, bilateral Lipedema Environmental allergies Asthma GERD (gastroesophageal reflux disease) Restless leg syndrome Overweight (BMI 25.0-29.9) Malabsorption due to intolerance, not elsewhere classified Spinal cord stimulator status Urinary incontinence Obesity (BMI 30.0-34.9) Surgical History S/P placement of nerve stimulator History of surgery on right wrist History of eye surgery S/P laparoscopic sleeve gastrectomy History of toe surgery Hx of spinal surgery Hx of rotator cuff surgery Hx of section Hx of construction of artificial vagina Hx laparoscopic cholecystectomy Hx of colonoscopy with polypectomy Family History Family History Father CVD (cardiovascular disease) Mother Asthma Brother Lung cancer Brother No problems noted. Brother No problems noted. Brother No problems noted. Brother No problems noted. Brother No problems noted. Son No problems noted. Daughter No problems noted. Social History Social History Housing: House Are you a primary home care music therapist to a significant other at home: No Do you presently have visiting nurse or other home services: No Alcohol intake: never Patient Tobacco Use Status: Never used Tobacco Smoked in Last 30 Days: No e-Cigarette/Vaping Use: Never Used Use of substances other than those prescribed or required for medical reasons: No Advance Directives: Yes Advance Directives on File: Yes Advance Directives Date on File: 08/24/21 service: No Current occupational status: employed Cognitive needs: No Hearing needs: No Vision needs: Yes Physical Exam ED Vital Signs: Vital Signs - 24 hr 08/14/25 09:36 Temperature 98.0 F Pulse Rate 91 Respiratory Rate 18 Blood Pressure 145/73 H Pulse Oximetry 100 Oxygen Delivery Method Room Air BMI result Body Mass Index 40.7 Const General: cooperative, no acute distress, alert and awake Nutritional Appearance: well nourished Orientation/consciousness: patient oriented x3 HENMT Head: Yes normal to inspection and Yes atraumatic Ears: hearing grossly normal bilaterally and external ears normal General nose exam: Normal external nose present, no nasal discharge noted and no epistaxis Face and sinus: Yes normal facial exam, No abrasion and No laceration Mouth: Normal oral and palatal mucosa present, no drooling and no muffled voice Eyes General: appearance normal, both eyes and all related structures Periorbital: periorbital findings normal Eyelids: Yes eyelids normal Conjunctivae: conjunctivae normal Pupils: Equal, round and reactive pupils present EOM: EOMs intact bilaterally Neck Other: pain in the right neck with left ROM Neck: Yes normal visual inspection Resp Effort & Inspection: normal respiratory effort and able to speak in complete sentences Neuro General: patient oriented x3, moves all extremities and CN's II-XI intact bilaterally Cranial nerves: Yes Equal, round and reactive pupils present Cognition (Neuro): normal cognition Extrem General: Yes normal to inspection, Yes full ROM and Yes capillary refill normal Psych Appearance: grossly normal Mental Status: mental status grossly normal Affect: normal affect Attitude: cooperative Thought process: Normal thought process present Thought content: Normal thought content present Insight: Good insight present (Psych) Medications Administered Generic Name Dose Route Start Last Admin Trade Name Freq PRN Reason Stop Dose Admin Enoxaparin Sodium 40 mg 08/14/25 18:15 08/14/25 18:50 Enoxaparin Sodium 40 Mg/0.4 Ml Syringe SUBCUT 40 mg Q24H MARLENI Administration Methylprednisolone Sodium Succinate 60 mg 08/14/25 18:15 08/14/25 18:50 Methylprednisolone Sod Succ 125 Mg/2 Ml Vial IVPUSH 60 mg Q6H MARLENI Administration Discontinued Medications Generic Name Dose Route Start Last Admin Trade Name Freq PRN Reason Stop Dose Admin Bupivacaine HCl 30 ml 08/14/25 15:45 08/14/25 16:00 Bupivacaine Mpf 0.25 % 30 Ml Vial SUBCUT 08/14/25 15:46 30 ml ONCE ONE Administration Cyclobenzaprine HCl 5 mg 08/14/25 13:44 08/14/25 13:53 Cyclobenzaprine Hcl 5 Mg Tablet PO 08/14/25 13:45 5 mg ONCE ONE Administration Diazepam 5 mg 08/14/25 10:43 08/14/25 11:23 Diazepam 10 Mg/2 Ml Cartridge IVPUSH 08/14/25 10:44 5 mg STAT STA Administration Hydromorphone HCl 0.5 mg 08/14/25 12:11 08/14/25 12:45 Hydromorphone Hcl 0.5 Mg/0.5 Ml Syringe IVPUSH 08/14/25 12:12 0.5 mg ONCE ONE Administration Protocol Acetaminophen 1,000 mg in 100 mls @ 400 mls/hr 08/14/25 13:44 08/14/25 14:10 Ofirmev IV 08/14/25 13:58 Infused ONCE ONE Infusion Iohexol 100 ml 08/14/25 14:37 08/14/25 14:37 Iohexol 350 Mg/Ml 100 Ml Infus..Btl IV 08/14/25 14:38 70 ml ONCE ONE Administration Lidocaine 1 patch 08/14/25 13:44 08/14/25 13:55 Lidocaine 4 % Patch Adh..Patch TRANSDERMA 08/14/25 13:45 1 patch ONCE ONE Administration Protocol Methylprednisolone Sodium Succinate 60 mg 08/14/25 12:11 08/14/25 12:44 Methylprednisolone Sod Succ 125 Mg/2 Ml Vial IVPUSH 08/14/25 12:12 60 mg ONCE ONE Administration Ondansetron HCl 4 mg 08/14/25 12:11 08/14/25 12:45 Ondansetron Hcl 4 Mg/2 Ml Vial IVPUSH 08/14/25 12:12 4 mg ONCE ONE Administration Procedures Procedure Narrative Procedure Narrative: Nerve Block Procedure: Indication: Anesthesia/Analgesia for the affected area. Performed by: Lincoln Peña MD Approximate Time: A anterior cervical plexus nerve block was performed. After explanation of the risks, benefits, and alternatives verbal consent was obtained A neurologic exam was conducted including motor and/or sensory testing of the neck sensory distribution, There were no deficits. Extremity compartments were soft. The area of injection was prepped with chlorhexidine. A [20 gauge, 1.5 in] in length needle was used. Ultrasound guidance with real-time visualization of the needle tip was utilized throughout the procedure. In-plane approach was used to visualize needle tip. Images were saved. Approximately [9ml of 0.25% bupivacaine] was injected near the nerve structure or plane. Local anesthetic gradually injected ?in small aliquots of 3-5ml following negative aspiration. There was no complication ?during the procedure. There were no signs of local anesthetic toxicity. There were no other complications. Patient tolerated the procedure. ??Following the procedure, the blocked extremity was protected or positioned to prevent injury. CPT: ?(FEDE YOUNGER/DOCUMENT US; US GUIDANCE IS BUNDLED) Cervical plexus: 09126 Medical Decision Making Medical Decision Making MDM Narrative: Patient is a 64 year old assigned female at with a history of OA, vitamin A deficiency, Vitamin B1 deficiency, spinal cord stimulator, CRPS, lumbar radiculopathy, and lipidema presenting to the emergency department today with right sided neck / shoulder pain. Patient's physical exam was as noted in the physical exam portion of this note and consistent with a right sided torticollis / muscle spasm. Patient's blood work was unremarkable. Patient's EKG was unremarkable. Patient's CTA showed no acute process. I explained my physical exam findings as well as all test results to the patient and the patient's . I answered all questions asked by the patient and the patient's . Patient received IV tylenol, valium, dilaudid, and solu-medrol none of which helped her pain significantly. Patient was also given PO Flexeril which did not help. Patient had a lidocaine patch applied to the area of concern which did not help. My attending physician, Dr. Lincoln Peña performed an ultrasound guided anterior cervical plexus block with bupivocaine however, that also did not help. I had a lengthy conversation with the patient and her about hospital admission for intractable pain vs. being discharged home. Patient requested I get her admitted to the hospital. I spoke to the hospitalist team who agreed to admission for intractable neck pain. Patient and the patient's verbalized agreement and understanding with this treatment plan and admission. Differential Diagnosis Differential Diagnoses: The differential diagnosis associated with the presentation includes Torticollis Muscle spasm Intractable pain Admission/Observation Consideration of admission/observation: Escalation of care including admission/observation considered Patient admitted as noted in the MDM Rationale portion of this note. Consult Healthcare Provider Management of the patient was discussed with: Hospitalist (agreed to admission as noted in the MDM Rationale portion of this note.) Lab Data [facility] Lab Attestation statement: I reviewed the patient's lab results. My interpretation of these results are in the MDM Rationale portion of this note. 08/14/25 11:21 08/14/25 12:45 Labs: Lab Results 08/14/25 08/14/25 Range/Units 11:21 12:45 WBC 9.5 (4.8-10.8) X10*3/uL RBC 4.41 (4.20-5.50) X10*6/uL Hgb 12.8 (12.0-16.0) g/dl Hct 39.2 (37.0-47.0) % MCV 88.9 (80.0-98.0) fL MCH 29.0 (27.0-33.0) pg MCHC 32.7 (31.0-35.0) g/dl RDW 13.2 (11.0-16.0) % Plt Count 266 (160-400) X10*3/uL MPV 10.1 (9.4-12.3) fL Immature Gran % (Auto) 0.3 (0.0-0.4) % Neut % (Auto) 65.6 (45-73) % Lymph % (Auto) 23.4 (20-40) % [place] % (Auto) 9.4 (2-11) % Eos % (Auto) 0.9 (0-4) % Baso % (Auto) 0.4 (0-2) % Lymph # (Auto) 2.2 (1.2-4.9) X10*3/uL [place] # (Auto) 0.9 (0.1-1.2) X10*3/uL Eos # (Auto) 0.1 (0.0-0.4) X10*3/uL Baso # (Auto) 0.0 (0.0-0.2) X10*3/uL Abs Immat Gran (auto) 0.03 (0.00-0.03) X10*3/uL Absolute Neuts (auto) 6.2 (2.0-8.3) x10*3/uL Absolute Nucleated RBC 0.000 (0.0-0.012) X10*3/uL Nucleated RBC % (auto) 0.0 (0.0-0.2) /100WBC Sodium 140 (135-145) mmol/L Potassium 4.5 (3.3-5.1) mmol/L Chloride 112 H (96-108) mmol/L Carbon Dioxide 19 L (22-29) mmol/L Anion Gap 14 (12-20) BUN 11 (9-16) mg/dL Creatinine 0.69 (0.5-1.4) mg/dL Estim Creat Clear Calc 97.6 Estimated GFR > 60 Random Glucose 89 (60-115) mg/dL Calcium 8.6 (8.4-10.2) mg/dL Total Bilirubin 0.5 (0.0-1.0) mg/dL AST 35 H (5-31) U/L ALT 21 (0-31) U/L Alkaline Phosphatase 91 (39-117) U/L Troponin I High Sens < 2.7 (<3.5-17.0) ng/L Total Protein 6.8 (6.5-8.0) g/dL Albumin 3.5 (3.5-5.0) g/dL Independent Interpretation I performed an independent interpretation of an: EKG and CT Scan Interpretation: My interpretation is in agreement with the radiologist's impression of this imaging study. L Report Number: [id number]: Total DLP = 1441.00 mGy-cm Reason for Exam: right sided neck pain, weakness CLINICAL HISTORY: right sided neck pain, weakness CT head without contrast CT angiography head and neck with contrast. 3D Postprocessing. COMPARISON: None provided. FINDINGS: HEAD CT: No intra-axial mass, midline shift, hydrocephalus, or acute hemorrhage. No significant atrophy-like change or white matter disease. There is no sinus or mastoid fluid. The orbits are unremarkable. There is no acute fracture. HEAD AND NECK CTA: Aortic arch and cervical great vessels are patent. Small amount of calcified plaque present at the carotid bulb on the left without significant stenosis. Intracranial arteries are patent. origin of the left posterior cerebral artery, normal variant. No aneurysm, dissection, hemodynamically significant stenoses, or occlusion. No abnormal intracranial enhancement. Left thyroid lobe nodule measuring 7 mm. No cervical mass or fluid collection. Visualized lung apices are clear. No acute fracture. IMPRESSION: 1. No acute intracranial findings. 2. Patent head and neck CTA. This document has been electronically signed by: Refugio Zhou MD on 08/14/2025 16:56:52 Dictated By: Refugio Zhou MD Signed By: Electronically signed by Refugio Zhou MD 08/14/25 [id number] I independently interpreted this EKG and am in agreement with the below findings: Vent. Rate: 86 BPM Atrial Rate: 86 BPM P-R Int: 150 ms QRS Dur: 76 ms QT Int: 364 ms P-R-T Axes: 54 75 39 degrees QTcB Int: 435 ms Normal sinus rhythm Low voltage QRS When compared with ECG of 31-Jul-2018 14:36, No significant change was found DD/ 1058 Radiology Impression Discussion of test interpretation with radiology: I have reviewed the radiologist's reading. Independent Historian Clinical information obtained from an independent historian. History obtained from or confirmed by: Spouse (patient's provided additional history and confirmed the history provided by the patient. ) Critical Care Time Critical Care Time Critical Care Time: Yes Total Critical Care Time: 49 Attestation: I spent 49 minutes of Critical Care Time with this patient. This does not include time spent on separately reported billable procedures. Discharge Plan Discharge Clinical Impression: Acute torticollis, Intractable pain Patient Disposition: Admitted As Inpatient Interventions: Admission Worksheet (ED) Last Done: 08/14/25 19:34
--- NOTE | 2025-08-14 10:43 | ECG_ITS ---
Test Reason : CP Blood Pressure : */* mmHG Vent. Rate : 86 BPM Atrial Rate : 86 BPM P-R Int : 150 ms QRS Dur : 76 ms QT Int : 364 ms P-R-T Axes : 54 75 39 degrees QTcB Int : 435 ms Normal sinus rhythm Low voltage QRS Borderline ECG When compared with ECG of 31-Jul-2018 14:36, No significant change was found Referred By: Tiffany Ann Electronically Signed By: ALCIDES TORRES
[2025-08-14] MEDS: diazePAM 10 MG/2 ML CARTRIDGE 5 MG IVPUSH (11:23)
[2025-08-14 11:26] LABS: MANUAL DIFF FLAG NO
[2025-08-14 11:28] LABS: Hematocrit 39.2 % (37.0-47.0); Hemoglobin 12.8 g/dl (12.0-16.0); Imm Gran Abs Auto 0.03 X10*3/uL (0.00-0.03); Imm Gran Pct Auto 0.3 % (0.0-0.4); Lymphocytes Absolute Auto 2.2 X10*3/uL (1.2-4.9); Mean Corpuscular HGB Conc 32.7 g/dl (31.0-35.0); Mean Corpuscular Hemoglobin 29.0 pg (27.0-33.0); Mean Corpuscular Volume 88.9 fL (80.0-98.0); NRBC Abs Auto 0.000 X10*3/uL (0.0-0.012); NRBC Pct Auto 0.0 /100WBC (0.0-0.2); Platelet Count 266 X10*3/uL (160-400); Red Blood Count 4.41 X10*6/uL (4.20-5.50); White Blood Count 9.5 X10*3/uL (4.8-10.8)
[2025-08-14 13:15] LABS: Alanine Aminotransferase 21 U/L (0-31); Albumin Level 3.5 g/dL (3.5-5.0); Alkaline Phosphatase 91 U/L (39-117); Anion Gap 14 (12-20); Aspartate Amino Transferase 35 U/L (5-31); Blood Urea Nitrogen 11 mg/dL (9-16); Calcium 8.6 mg/dL (8.4-10.2); Carbon Dioxide 19 mmol/L (22-29); Chloride 112 mmol/L (96-108); Creatinine Clr Calc Pharmacy 97.6; Estimated Glomerular Filt Rate > 60; Potassium 4.5 mmol/L (3.3-5.1); Sodium 140 mmol/L (135-145); Total Protein 6.8 g/dL (6.5-8.0)
[2025-08-14 13:26] LABS: Troponin-I High Sensitivity < 2.7 ng/L (<3.5-17.0)
[2025-08-14] MEDS: Lidocaine 4 % Patch ADH..PATCH 1 PATCH TRANSDERMA (13:55)
[2025-08-14 14:30] VITALS: BP 136/72; PULSE 82; RESP 17; O2SAT 99
[2025-08-14] MEDS: iohexoL 350 MG/ML 100 ML INFUS..BTL IV (14:37)
[2025-08-14] MEDS: BUPivacaine MPF 0.25 % 30 ML VIAL SUBCUT (16:00)
--- NOTE | 2025-08-14 18:20 | P.HPHOSP_ITS ---
History of Present Illness Date of Service: 08/14/25 Chief Complaint: neck pain 64 year old female with a history of OA, vitamin A deficiency, Vitamin B1 deficiency, spinal cord stimulator, CRPS, lumbar radiculopathy, and lipidema presenting to the emergency department today with right sided neck / shoulder pain. Patient states that she was lying on her bed with a feet over the edge and her neck was in an awkward position and she fell asleep. When she woke up she could not move her neck without extreme pain. In the ER CTA of head and neck unremarkable. Patient was given Flexeril 5 mg Valium 10 mg Solu-Medrol 60 mg and bupivacaine block without results. At this time her pain is poorly managed and she will be admitted for treatment and pain management Review of Systems 2 Review of Systems: Denies chest pain Denies shortness of breath Denies nausea vomiting diarrhea Denies fever chills PMF Medical History Tubulovillous adenoma of colon Diverticulosis Radiculitis of right cervical region Complex regional pain syndrome of both lower extremities Spinal cord stimulator dysfunction Obesity (BMI 30-39.9) Cataract Neuropathic arthropathy Postlaminectomy syndrome Difficulty in walking involving lower leg joint Osteoarthritis of knees, bilateral Lipedema Environmental allergies Asthma GERD (gastroesophageal reflux disease) Restless leg syndrome Overweight (BMI 25.0-29.9) Malabsorption due to intolerance, not elsewhere classified Spinal cord stimulator status Urinary incontinence Obesity (BMI 30.0-34.9) Family History Father CVD (cardiovascular disease) Mother Asthma Brother Lung cancer Brother No problems noted. Brother No problems noted. Brother No problems noted. Brother No problems noted. Brother No problems noted. Son No problems noted. Daughter No problems noted. Surgical History S/P placement of nerve stimulator History of surgery on right wrist History of eye surgery S/P laparoscopic sleeve gastrectomy History of toe surgery Hx of spinal surgery Hx of rotator cuff surgery Hx of section Hx of construction of artificial vagina Hx laparoscopic cholecystectomy Hx of colonoscopy with polypectomy Social History Housing: House Are you a primary medical care evaluation specialist to a significant other at home: No Do you presently have visiting nurse or other home services: No Alcohol intake: never Patient Tobacco Use Status: Never used Tobacco Smoked in Last 30 Days: No e-Cigarette/Vaping Use: Never Used Use of substances other than those prescribed or required for medical reasons: No Advance Directives: Yes Advance Directives on File: Yes Advance Directives Date on File: 08/24/21 service: No Current occupational status: employed Cognitive needs: No Hearing needs: No Vision needs: Yes Meds Allergies Allergy/AdvReac Type Severity Reaction Status Date / Time almond (ALMOND) Allergy Intermediate NUMBNESS Verified 08/14/25 09:37 MOUTH, ITCHY EYES amoxicillin (AMOXICILLIN) Allergy Intermediate HIVES Verified 08/14/25 09:37 penicillin V Allergy Intermediate rash Verified 08/14/25 09:37 apple (APPLE) Allergy Mild ITCHY EYES Verified 08/14/25 09:37 carrot Allergy Mild Itchy Eyes Verified 08/14/25 09:37 peach (PEACHES) Allergy Mild ITCHY EYES Verified 08/14/25 09:37 plum (PLUMS) Allergy Mild ITCHY EYES Verified 08/14/25 09:37 pear (PEAR) AdvReac Mild Itchy Eyes Verified 08/14/25 09:37 NECTARINES Allergy Mild ITCHY EYES Uncoded 07/29/25 10:13 Active Medications: Current Medications Acetaminophen (Acetaminophen 325 Mg Tablet) 650 mg PO Q6H PRN PRN Reason: Pain, Mild 1-3,fever,headache Calcium Carbonate (Calcium Carbonate 750 Mg Tab.Chew) 750 mg PO Q4H PRN PRN Reason: Heartburn Cyclobenzaprine HCl (Cyclobenzaprine Hcl 10 Mg Tablet) 10 mg PO Q6H PRN PRN Reason: neck spasm Enoxaparin Sodium (Enoxaparin Sodium 40 Mg/0.4 Ml Syringe) 40 mg SUBCUT Q24H MARLENI Magnesium Hydroxide (Milk Of Magnesia 30 Ml Oral.Susp) 30 ml PO DAILY PRN PRN Reason: Constipation Melatonin (Melatonin 3 Mg Tablet) 6 mg PO BEDTIME PRN PRN Reason: Insomnia Methylprednisolone Sodium Succinate (Methylprednisolone Sod Succ 125 Mg/2 Ml Vial) 60 mg IVPUSH Q6H MARLENI Ondansetron HCl (Ondansetron Hcl 4 Mg/2 Ml Vial) 4 mg IVPUSH Q8H PRN PRN Reason: Nausea and Vomiting Oxycodone HCl (Oxycodone Hcl Immed Release 5 Mg Tablet) 10 mg PO Q6H PRN PRN Reason: Pain, Severe (Pain Scale 7-10) Pregabalin (Pregabalin 150 Mg Capsule) 150 mg PO BID ONE Stop: 08/14/25 18:19 Sodium Chloride (0.9 % Sodium Chloride Flush 3 Ml Syringe) [facility] Medications ?Medication ?Instructions ?Recorded ?Confirmed ?Last Taken ?Type fiber 1 tab PO DAILY 09/06/2006/13 Unknown History vibegron 75 mg tablet (Gemtesa) 75 mg PO DAILY 4 07/27/25 Unknown History estradiol 0.01% (0.1 mg/gram) 1 g vaginal 2XW 01/14/24 07/27/25 Unknown History vaginal cream calcium carbonate-vitamin D3 500 cap PO 05/27/25 Unkn own History mg (1,250 mg)-50 unit capsule multivitamin (Daily Multi-Vitamin 1 tab PO DAILY 05/2707/27/25 Unknown History tablet) valacyclovir 500 mg tablet 500 mg PO DAILY PRN Cold so res 05/27/25 07/27/25 Unknown History Physical Exam 2 Vital Signs and Narrative: Vital Signs: Last Vital Signs Temp 98.0 F 08/14/25 09:36 Pulse 91 08/14/25 09:36 Resp 18 08/14/25 09:36 BP 145/73 H 08/14/25 09:36 Pulse Ox 100 08/14/25 09:36 O2 Del Method Room Air 08/14/25 09:36 BMI result Body Mass Index 40.7 Const: Other: Awake; uncomfortable appearing in bed Neck: Other: Dense spasm right trapezius from cervical border to right shoulder extending down to scapula. Left side normal exam Resp: Other: Clear to auscultation bilaterally no rales rhonchi or wheezes Cardio: Other: No S4; positive S1-S2; no S3 murmurs rubs or gallops GI: Other: Soft nontender nondistended normoactive bowel sounds Extrem: Other: No edema bilaterally Results Labs 08/14/25 11:21 08/14/25 12:45 Labs: Laboratory Results - last 24 hr 08/14/25 08/14/25 11:21 12:45 MCV 88.9 MCH 29.0 MCHC 32.7 RDW 13.2 Plt Count 266 MPV 10.1 Immature Gran % (Auto) 0.3 Neut % (Auto) 65.6 Lymph % (Auto) 23.4 [place] % (Auto) 9.4 Eos % (Auto) 0.9 Baso % (Auto) 0.4 Lymph # (Auto) 2.2 [place] # (Auto) 0.9 Eos # (Auto) 0.1 Baso # (Auto) 0.0 Abs Immat Gran (auto) 0.03 Absolute Neuts (auto) 6.2 Absolute Nucleated RBC 0.000 Nucleated RBC % (auto) 0.0 Anion Gap 14 Estim Creat Clear Calc 97.6 Estimated GFR > 60 Random Glucose 89 Calcium 8.6 Total Bilirubin 0.5 AST 35 H ALT 21 Alkaline Phosphatase 91 Troponin I High Sens < 2.7 Total Protein 6.8 Albumin 3.5 Assessment and Plan (1) Acute torticollis: Status: Acute (2) Neuropathic arthropathy: Status: Acute Plan 64-year-old female with past medical history significant for diffuse osteoarthritis vitamin-D deficiency chronic regional pain syndrome who presents after sleeping in an awkward position with severe neck pain. Workup essentially unremarkable and patient failed Dilaudid/Valium as/Flexeril/steroids. Pain continues to be 8 to 9/10. Admitted for pain control and IV steroids 1. Acute torticollis -methylprednisolone 60 mg IV q.6 hours -Flexeril 10 mg q.8 hours p.r.n. spasm -physical therapy in a.m. 2. Neuropathic arthropathy -continue outpatient therapies including Lyrica -adjust as indicated Full code Lovenox 64-year-old female who requires observation for IV steroids to treat acute torticollis. She is at high risk for outpatient failure Quality Stroke Does the patient have a stroke diagnosis?: No VTE Prior VTE?: No VTE Risk Level:: Medical - moderate - high VTE Device Contraindication: Treatment Not Indicated VTE Drug Contraindication: N/A - Med Ordered
--- NOTE | 2025-08-14 18:46 | PHA.MEDREC ---
Addendum entered by Cora Wooten RPh 08/14/25 18:52: reviewed by [facility]. Original Note: Pharmacy Consult ? Medication Reconciliation Pharmacy has completed the medication reconciliation. Confirmed medication list with patient. Patient took all morning non-PRN medications today, and all evening non-PRN nedications yesterday. Patient claims she takes a daily probiotic by mouth once a day in the morning.
--- NOTE | 2025-08-14 19:51 | PC.NURSE ---
Pt arrived c/o worsening R shoulder/neck pain after 'sleeping on it incorrectly', now unable to move due to pain. No effective pain control despite IV 5mg valium, IV 0.5mg dilaudid, IV 60mg solumedrol, IV 1g tylenol, nerve block, and PO 5mg flexeril given in ED. Admit for pain control of torticollis. Aaox4, hx: OA, vitamin A deficiency, Vitamin B1 deficiency, spinal cord stimulator, CRPS, lumbar radiculopathy, and lipidema
--- NOTE | 2025-08-14 20:27 | MHC.EDTECH ---
@20:20 patient used call ronquillo for assistance to the restroom. This tech walked 1:1 with patient w/cane. Patient brought back to room, helped in bed, side rails in place, call ronqiullo in hand.
[2025-08-14 20:51] VITALS: BMI 42.4
[2025-08-14 21:00] VITALS: BP 103/55; PULSE 87; RESP 18; TEMP 36.4; O2SAT 94
[2025-08-14] MEDS: 0.9 % Sodium Chloride Flush 3 ML SYRINGE IVFLUSH (23:42)
[2025-08-15 03:46] VITALS: BP 121/60; PULSE 85; RESP 18; TEMP 36.2; O2SAT 94
[2025-08-15 07:21] VITALS: BP 126/75; PULSE 88; RESP 18; TEMP 36.7; O2SAT 96
[2025-08-15] MEDS: 0.9 % Sodium Chloride Flush 3 ML SYRINGE IVFLUSH (08:10)
[2025-08-15 11:19] VITALS: BP 124/75; PULSE 94; RESP 16; TEMP 36.8; O2SAT 93
--- NOTE | 2025-08-15 13:47 | P.DS_ITS ---
DS: Providers Provider Date of Service: 08/15/25 Date of admission: 08/14/25 18:10 Date of discharge: 08/15/25 Primary care physician: Bettye Wood MD DS: Diagnosis Discharge Diagnosis (1) Acute torticollis: Status: Acute (2) Neuropathic arthropathy: Status: Acute DS: Summary Hospital Course Hospital Course: 64 year old female with a history of OA, vitamin A deficiency, Vitamin B1 deficiency, spinal cord stimulator, CRPS, lumbar radiculopathy, and lipidema presenting to the emergency department today with right sided neck / shoulder pain. Patient states that she was lying on her bed with a feet over the edge and her neck was in an awkward position and she fell asleep. When she woke up she could not move her neck without extreme pain. In the ER CTA of head and neck unremarkable. Patient was given Flexeril 5 mg Valium 10 mg Solu-Medrol 60 mg and bupivacaine block without results. At this time her pain is poorly managed and she will be admitted for treatment and pain management Hospital Course Patient admitted to general medical floor and given pulse dose Solu-Medrol every 6 hours as well as Flexeril for spasm. Over the course of the next 24 hours there was a palpable difference in right trapezius and much more range of motion. At this point in time patient is asking for discharge and she is medically acceptable for same. She will go home and complete a course of steroids as per taper and use Flexeril intermittently Time Attestation Discharge Coordination Time (in mins): 35 Quality: Safe Use of Opioids Does Pt have an Active Cancer Diagnosis on the Problem List?: No Quality: Stroke Does the patient have a stroke diagnosis?: No Physical Exam Vital Signs: Vital Signs: Last Vital Signs Temp 98.2 F 08/15/25 11:19 Pulse 94 08/15/25 11:19 Resp 16 08/15/25 11:19 BP 124/75 08/15/25 11:19 Pulse Ox 93 08/15/25 11:19 O2 Del Method Room Air 08/15/25 11:19 O2 Flow Rate 97 08/15/25 03:46 BMI result Body Mass Index 42.4 Const: Other: Awake; uncomfortable appearing in bed Neck: Other: Right trapezius now soft and palpable same presentation as left. No residual spasm noted Resp: Other: Clear to auscultation bilaterally no rales rhonchi or wheezes Cardio: Other: No S4; positive S1-S2; no S3 murmurs rubs or gallops GI: Other: Soft nontender nondistended normoactive bowel sounds Extrem: Other: No edema bilaterally Discharge Plan Discharge Anticipated Discharge Date/Time: 08/15/25 13:42 Patient Disposition: Home, Self-Care Discharge Diagnosis: Acute torticollis Referrals: Bettye Wood MD [Primary Care Provider, Internal Medicine] - 1 Week Discharge Medications: New cyclobenzaprine 10 mg Tablet 10 mg PO Q6H PRN (Reason: neck spasm) Qty: 20 0RF prednisone 20 mg tablet See Rx Instructions .Route .COMPLEX Qty: 18 0RF Rx Instructions: 20 mg orally; 3 tabs daily for 3 days, 2 tabs daily for 3 days, 1 tab daily for 3 days Continued pregabalin 150 mg capsule 150 mg PO BID 30 Days Qty: 60 5RF polyethylene glycol 3350 [Miralax] 17 gram/dose powder 17 g PO DAILY Qty: 510 4RF furosemide [Lasix] 20 mg tablet 10 mg PO DAILY PRN (Reason: edema) Gemtesa 75 mg tablet 75 mg PO DAILY fiber Tablet,Chewable 1 tab PO DAILY calcium carbonate-vitamin D3 500 mg(1,250mg) -50 unit capsule 1 cap PO DAILY valacyclovir 500 mg tablet 500 mg PO DAILY PRN (Reason: Cold sores) fluticasone propionate [Flonase Allergy Relief] 50 mcg/actuation spray,suspension 1 spray intranasal BID Qty: 16 5RF Rx Instructions: administer into each nostril montelukast 10 mg tablet 10 mg PO BEDTIME 90 Days Qty: 90 0RF Discharge Orders: Discharge Order (Routine); Ordered 08/15/25 Ordered By: Riley Duenas Diet: Advance to usual diet Activity on Discharge: As tolerated Stand Alone Forms: Patient Portal Discharge page Print Language: Chinese Care Plan Goals: Resume all meds as taken prior to hospitalization Health Concerns: Prednisone taper has been added to your regimen; take as directed. Utilize Flexeril as needed for spasms Plan of Treatment: Follow up with PCP next available Assessment: See discharge summary
--- NOTE | 2025-08-15 14:02 | MHC.CM.PN ---
SALAZAR delivered. Patient lives in a home w/ her . Ambulates w/ cane, walker for long distances. PCP Bettye Wood Completed HCP naming her Terence and daughter Tana as HCA's. DP: Medically cleared for dc home self care. Family transport.
== END 2025-08-15 14:54 | disposition home or self-care (01) ==
LOC: HO.ED 17:26 → HO.EDOVER 18:24 → HO.S3 19:32
PROVIDERS: Physician Assistant Medical; Admitting Provider Hospitalist; Emergency Provider Emergency Medicine; PCP Internal Medicine; Visit Provider Hospitalist
DX: M43.6 Torticollis (principal); M14.60 Charcot's joint, unspecified site; M54.2 Cervicalgia; M25.511 Pain in right shoulder; R07.9 Chest pain, unspecified; R53.1 Weakness; E51.9 Thiamine deficiency, unspecified; E50.9 Vitamin A deficiency, unspecified; Z79.899 Other long term (current) drug therapy
CPT/HCPCS: 36415; 70496; 70498; 80053; 84484; 85025; 93005; 96372; 96374; 96375; 96376; 99221; 99285; J0131; J0665; J1171; J1650; J2405; J2919; J3360; Q9967

== ENCOUNTER → 2025-08-14 10:43 | Outpatient (BNV) | payer OTHER, SELFPAY | PROVIDERS: Admitting Provider Hospitalist; Emergency Provider Emergency Medicine; PCP Internal Medicine; Visit Provider Internal Medicine | DX: R07.9 Chest pain, unspecified (principal) | CPT/HCPCS: 93010 ==

== ENCOUNTER → 2025-08-14 13:53 | Outpatient (BNV) | payer OTHER, SELFPAY | PROVIDERS: Emergency Provider Emergency Medicine; PCP Internal Medicine; Visit Provider Radiology Diagnostic Radiology | DX: M54.2 Cervicalgia (principal) | CPT/HCPCS: 70496; 70498 ==

== ENCOUNTER → 2025-08-14 18:10 | Outpatient (BNV) | payer OTHER, SELFPAY | PROVIDERS: Admitting Provider Hospitalist; Emergency Provider Emergency Medicine; PCP Internal Medicine; Visit Provider Hospitalist | DX: M43.6 Torticollis (principal); M14.60 Charcot's joint, unspecified site | CPT/HCPCS: 99223 ==

== ENCOUNTER 2025-09-01 10:05 | Outpatient (AMB) | payer OTHER, SELFPAY ==
--- NOTE | 2025-09-01 10:37 | MHC.OFFVIS ---
Vital Signs 09/01/25 10:38 Weight 238 lb BP 156/83 H Blood Pressure Location Rt brachial Position Sitting Respiration 16 Pulse 91 Pulse Source Pulse Oximeter Pulse Oximetry (%) 93 Oxygen Delivery Method Room Air Intake Visit Reasons: S/p (L) Hip Steroid Injection [employer] Required: No Accompanied by: Self / Same As Patient Allergies almond (ALMOND) Allergy (Intermediate, Verified 09/01/25 10:39) NUMBNESS MOUTH, ITCHY EYES amoxicillin (AMOXICILLIN) Allergy (Intermediate, Verified 09/01/25 10:39) HIVES penicillin V Allergy (Intermediate, Verified 09/01/25 10:39) rash apple (APPLE) Allergy (Mild, Verified 09/01/25 10:39) ITCHY EYES carrot Allergy (Mild, Verified 09/01/25 10:39) Itchy Eyes peach (PEACHES) Allergy (Mild, Verified 09/01/25 10:39) ITCHY EYES plum (PLUMS) Allergy (Mild, Verified 09/01/25 10:39) ITCHY EYES pear (PEAR) Adverse Reaction (Mild, Verified 09/01/25 10:39) Itchy Eyes NECTARINES Allergy (Mild, Uncoded 07/29/25 10:13) ITCHY EYES HPI Comments Details: Genny is back in my office after therapeutic intra-articular left hip steroid injection. She reports excellent pain relief for 1 month after the procedure. She reports excellent mobility, absence of pain in the groin with walking, improved social interaction. We discussed future measurement. I explained to the patient that if her pain relief will last more than 3 months, preferably 4-5 month, I can repeat intra-articular hip injection again. Alternatively if it will be shoulder pain relief than 3 months I would recommend her to consider total hip replacement. She came to my office with complains on pain in the left groin exacerbated by hip rotation to the lateral side as well as walking and standing. Prior: In the past for the treatment of her conditions she received spinal cord stimulator [employer] by Dr. Arias. She later on under my care visited me with complaints on bilateral knee pains. She had multiple steroid injections in her knees, eventually those injections stopped helping her pain. Genicular nerve injections were very effective for her, however her insurance refused to cover radiofrequency ablation of the genicular nerves. The insurance also refused to cover peripheral nerve stimulation or dorsal root ganglion stimulation citing this as experimental procedures. At that time she was offered [employer] spinal cord stimulator in lumbar position in the projection L3-L4 vertebra is to stimulate dorsal root ganglions and peripheral nerves responsible for pain in the knees. She was given a trial with [employer] device, she reported good results of stimulation with more than 75% improvement of the level of the pain and then she went into the surgery where alpha battery was used to connect existing thoracic electrodes as well as newly placed [employer] electrodes in the lumbar gutter position. Immediately postoperatively she reported good pain relief, She became very physically active, however later on she reported that stimulation of the right knee is not working. On x-ray dislodgment of the right positioned electrode was detected and she was taken for revision of the electrode and replacement of the electrode on the right. The level of the stimulation got restored and she reported holiness of good pain relief from the right knee. the x-ray of the device - lumbar spine x-ray it demonstrated appropriate position of the electrodes however compared to the previously inserted electrodes there is slight shift of the right electrode may be no more than 5 mm down. In my opinion it should not affect the ability of the electrode to stimulate the targets. [facility] Medical History Tubulovillous adenoma of colon Diverticulosis Radiculitis of right cervical region Complex regional pain syndrome of both lower extremities Spinal cord stimulator dysfunction Obesity (BMI 30-39.9) Cataract Neuropathic arthropathy Postlaminectomy syndrome Difficulty in walking involving lower leg joint Osteoarthritis of knees, bilateral Lipedema Environmental allergies Asthma GERD (gastroesophageal reflux disease) Restless leg syndrome Overweight (BMI 25.0-29.9) Malabsorption due to intolerance, not elsewhere classified Spinal cord stimulator status Urinary incontinence Obesity (BMI 30.0-34.9) Surgical History S/P placement of nerve stimulator History of surgery on right wrist History of eye surgery S/P laparoscopic sleeve gastrectomy History of toe surgery Hx of spinal surgery Hx of rotator cuff surgery Hx of section Hx of construction of artificial vagina Hx laparoscopic cholecystectomy Hx of colonoscopy with polypectomy Family History Father CVD (cardiovascular disease) Mother Asthma Brother Lung cancer Brother No problems noted. Brother No problems noted. Brother No problems noted. Brother No problems noted. Brother No problems noted. Son No problems noted. Daughter No problems noted. Social History Housing: House Are you a primary director career to a significant other at home: No Do you presently have visiting nurse or other home services: No Alcohol intake: never Patient Tobacco Use Status: Never used Tobacco e-Cigarette/Vaping Use: Never Used Advance Directives Date on File: 08/24/21 service: No Current occupational status: employed Cognitive needs: No Hearing needs: No Vision needs: Yes Review of Systems Const All systems reviewed & are unremarkable except as noted in HPI and below Physical Exam Vital Signs: Last Vital Signs Pulse 91 09/01/25 10:38 Resp 16 09/01/25 10:38 BP 156/83 H 09/01/25 10:38 Pulse Ox 93 09/01/25 10:38 Oxygen Delivery Method Room Air 09/01/25 10:38 Const General: comfortable, no acute distress, well developed, alert and awake Eyes Pupils: Equal, round and reactive pupils present EOM: EOMs intact bilaterally Chest Chest palpation & inspection: normal inspection of the chest Resp Effort & Inspection: normal respiratory effort, able to speak in complete sentences, normal respiratory pattern, no audible wheezes and no cough Cardio Jugular venous distension: no JVD Back/Spine/Pelvis Other: tenderness on palpation in paraspinal spinal region in lumbar spine. Loading test is positive. Range of motion in lumbar spine is preserved. Edgar test is negative bilaterally. Range of motion on the bilateral lower extremities is decreased especially in the knees areas. Neuro Cranial nerves: Yes Equal, round and reactive pupils present Extrem Other: Varus right knee, slight red discoloration of bilateral knees, significant severe tenderness on palpation on the right knee more than the left knee. Severe pain in the groin exacerbated by lateral and medial rotation of the hip. Increased pain with walking and standing. Psych Speech and movement: Normal speech and movement present Affect: normal affect Attitude: cooperative Thought process: Normal thought process present Thought content: Normal thought content present Insight: Good insight present (Psych) Judgement: Good judgement present (Psych) Results Reviewed Results Reviewed: X-ray knee 1. There is tricompartment osteoarthritic change of the right knee, most pronounced of the medial joint space compartment, where it is moderately severe. 2. There is tricompartment osteoarthritic change of the left knee, most pronounced of the medial and patellofemoral joint space compartments, where it is mild. 3. There is a mild to moderate right knee varus configuration, and a mild left knee varus configuration is seen. 4. No fracture, dislocation or joint effusion is seen bilaterally. XR HIP, LEFT FINDINGS: No fracture, dislocation, or suspicious bone lesion. Moderate osteoarthrosis of the left hip joint with superior joint space loss, subcapital osteophytes and superolateral acetabular osteophytic spurring. Normal femoral head contour without evidence of AVN. Spinal stimulator device partially imaged in the left upper pelvis. Soft tissues are normal in appearance. IMPRESSION: Moderate degenerative arthritis left hip. No acute findings. Assessment & Plan Assessment & Plan (1) Postlaminectomy syndrome: Code(s): M96.1 - Postlaminectomy syndrome, not elsewhere classified Category: Medical (2) Spinal cord stimulator dysfunction: Code(s): T85.192A - Other mechanical complication of implanted electronic neurostimulator of spinal cord electrode (lead), initial encounter Category: Medical (3) CRPS (complex regional pain syndrome type I): Code(s): G90.50 - Complex regional pain syndrome I, unspecified Category: Medical Qualifiers: Complex regional pain syndrome affected site: lower extremity Laterality: bilateral Qualified Code(s): G90.523 - Complex regional pain syndrome I of lower limb, bilateral (4) Lumbago: Code(s): M54.50 - Low back pain, unspecified Category: Medical (5) Left hip pain: Code(s): M25.552 - Pain in left hip Category: Medical (6) Osteoarthritis of left hip: Code(s): M16.12 - Unilateral primary osteoarthritis, left hip Category: Medical Plan Her knee pain is better with physical therapy and [employer] spinal cord stimulator.. She still uses [employer] [facility] to treat her lower back pain inserted by Dr. Arias. Intra-articular left hip steroid injection resulted in excellent pain relief for past month. See discussion as above. Next appointment is as needed. Coding Level of Care Code Est Pt Level 3 (58842) Diagnoses Postlaminectomy syndrome M96.1 Spinal cord stimulator dysfunction T85.192A Complex regional pain syndrome type 1 of both lower extremities G90.523 Complex regional pain syndrome affected site: lower extremity Laterality: bilateral Lumbago M54.50 Left hip pain M25.552 Osteoarthritis of left hip M16.12
[2025-09-01 10:38] VITALS: BP 156/83; PULSE 91; RESP 16; O2SAT 93
--- OUTSIDE RECORDS SUMMARY | 2025-09-01 12:07 | XMS_ITS | Patient Health Record ---
Author Organization [facility] Address [address] [place] [address] Care Team Providers Care City Clerk Name Role Phone CELESTE RODRIGUEZ Primary Care Provider Joanne Michel Unavailable [phone] LILY GALLAGHER Unavailable [phone] Allergies Allergen (clinical drug ingredient) Drug/Non Drug Allergy documented on EMR Reaction Allergy Type Onset Date Status Fruits with Skin (uncoded) Unknown Allergy Active sulfamethoxazole / trimethoprim Bactrim Hives0 Drug Allergy Active almond allergenic extract [place] (Diagnostic) Unknown Drug Allergy Active amoxicillin Amoxicillin Hives Drug Allergy Act abel Results Component Value Reference Range Notes Urinalysis Reviewed date:08/24/2025 01:36:07 PM Interpretation: Performing Lab: Notes/Report: PH 7.0 PROTEIN Neg GLUCOSE Neg BLOOD Neg Reason For Referral No Information Medications Medication SIG (Take, Route, Frequency, Duration) Notes Start Date End Date Status Furosemide 20MG 1/2 tablet Orally On ce a day, prn; Duration: -3 days 12/03/2011 Active Fluticasone Propionate 50 MCG/ACT Nasal; Duration: 30 Active valACYclovir HCl 500 MG Oral; Duration: 30 Days Active Estradiol Vaginal Cream 0.01% 1 Gram to the affected area Vaginal/Vulva Twice a week; Duration: 90 Days 08/24/2025 Active Montelukast Sodium 10 MG Oral; Duration: 30 Active Estradiol Vaginal Cream 0.01% 1 Gram to the affected area Vaginal/Vulva Twice a week; Duration: 90 Days 08/18/2023 Active Pregabalin 150 MG Oral; Duration: 30 Active Gemtesa 75 MG Oral; Duration: 30 Days Active Polyethylene Glycol 08/19/2024 Active Vitamin D3 50 MCG (1999 UT) 1 capsule Or ally Once a day; Duration: 30 day(s) Active Calcium Citrate + D3 Maximum 315-250 MG-UNIT Oral; Duration: 15 Active Fiber Active Probiotic Active Social History Tobacco Use: Social History [...] Status Risk Notes Problem Postmenopausal atrophic vaginitis (20805549) Postmenopausal atrophic vaginitis (N95.2) Active confirmed Problem Postmenopausal bleeding (64411173) Postmenopausal bleeding (N95.0) Active confirmed Problem Age-related osteoporosis (276455771) Age-related osteoporosis without current pathological fracture (M81.0) Active confirmed Problem Urinary incontinence (383123477) Unspecified urinary incontinence (R32) Active confirmed Problem Osteochondropathy (63149495) Disorder of bone density and structure, unspecified (M85.9) Active confirmed Problem Atrophy of vulva (778496930) Atrophy of vulva (N90.5) Active confirmed Problem Bicornate uterus (90247037) Bicornate uterus (Q51.3) Active confirmed Problem Congenital absence of vagina (40302459) 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 Problem Asthma (disorder) (638249679) Asthma, unspecified, unspecified status (493.90) Active confirmed Major Problem Postmenopausal bleeding (57461504) Postmenopausal bleeding (627.1) Active confirmed Major Problem Postmenopausal atrophic vaginitis (11308047) Postmenopausal atrophic vaginitis (627.3) Active confirmed Diag Problem Gynecological examination normal (137311309930793) Routine gynecological examination (V72.31) Active confirmed Problem Screening for malignant neoplasm of colon (761318115) Special screening for malignant neoplasms, colon (V76.51) Active confirmed Major Vital Signs Temperature 97.5 degrees Fahrenheit 08/24/2025 Blood pressure diastolic 84 mm Hg 08/24/2025 Height 62.75 in 08/24/2025 Blood pressure systolic 126 mm Hg 08/24/2025 Weight 238 lbs 08/24/2025 BMI 42.49 kg/m2 08/24/2025 Encounters Encounter Location Date Provider Diagnosis Total [address] [address] 09/03/2024 Joanne Peng Abscess of the breas t and nipple N61.[address] [address] 02/25/2025 LILY GALLAGHER Unspecified contact dermatitis, unspecified cause L25.[address] [address] 08/24/2025 Joanne Pegn Encounter for gynecological examination (general) (routine) without abnormal findings Z01.419 ; Encounter for screening mammogram for malignant neoplasm of breast Z12.31 ; Congenital absence of vagina Q52.0 ; Age-related osteoporosis without current pathological fracture M81.0 and Postmenopausal atrophic vaginitis N95.2 Assessments Encounter Date Diagnosis (ICD Code) Assessment [...] D/C IF BETTER IN 3 DAYS. WARNED IFEANYI ABOUT C.DIFF WITH CLINDA USE. 02/25/2025 Unspecified contact dermatitis, unspecified cause (ICD-10 - L25.9) Discussed that she has developed a contact dermatitis, similar to a diaper rash that babies get. I recommend she not use pads at night, and to use baby diaper cream during the day, changing her pads frequently. 08/24/2025 Encounter for gynecological examination (general) (routine) without abnormal findings (ICD-10 - Z01.419) NO PAP TEST, DUE IN 2025. PELVIC ULTRASOUND WAS ORDERED, TAW. 08/24/2025 Encounter for screening mammogram for malignant neoplasm of breast (ICD-10 - Z12.31) REGULAR MAMMOGRAMS AND SBE'S WERE RECOMMENDED. 08/24/2025 Congenital absence of vagina (ICD-10 - Q52.0) VAGINAL RECONSTRUCTION WAS DONE DECADES AGO. 08/24/2025 Age-related osteoporosis without current pathological fracture (ICD-10 - M81.0) DISCUSSED OSTEOPOROSIS AND ITS IMPACT ON HER HEALTH. ADEQUATE CALCIUM AND VIT D. REASSURED PAT THAT BMD HAS IMPROVED. WEIGHT BEARING EXERCISES. REPEAT BMD IN 2025. 08/24/2025 Postmenopausal atrophic vaginitis (ICD-10 - N95.2) CONTINUE ESTRADIOL CREAM. Plan Of Treatment Pending Test Test Name Order Date BONE DENSITY EXTREMITY 08/12/2019 MAMMOGRAM, SCREENING 02/13/2015 MAMMOGRAM, SCREENING 08/18/2023 MAMMOGRAM, SCREENING 08/19/2024 MAMMOGRAM, SCREENING 08/24/2025 Urinalysis 08/16/2022 25OH VITAMIN D 02/07/2022 COMPREHENSIVE METABOLIC PANEL 02/07/2022 N-TELOPEPTIDE CROSS 02/07/2022 PTH, INTACT 02/07/2022 THIN PREP,HPV,SAIMA IF HPV+ (>29YR)(SCRN) 03/10/2017 TSH 02/07/2022 BONE DENSITY 08/15/2021 BONE DENSITY 08/18/2023 MM Digital Mammo Screening 08/15/2021 MM Digital Mammo Screening 08/16/2022 MM Digital Mammo Screening 08/18/2023 MM Digital Mammo Screening 08/19/2024 MM Digital Mammo Screening 08/24/2025 MM Digital Mammo Screening 03/10/2017 Next Appt Details Provider Name:Joanne gomez, 10/07/2025 01:00:00 PM, [address] [facility], [address], [place], [address], Provider Name:Joanne gomez, 09/01/2026 01:00:00 PM, [address], [address], [place], [address], Insurance Providers Payer Name Payer Address Payer Phone Subscriber Number Group Number Insured Name Patient Relationship to Insured Coverage Start Date Coverage End Date [facility] [address] [place] [id number] PRADEEP WILLSON Spouse - patient is the spouse of the insured [address] [place] [address] [address] [place] [address] [id number] PRADEEP WILLSON Spouse - patient is the spouse of the insured Medical (General) History Medical History History ICD Code Postmenopausal atrophic vaginitis N95.2 Unspecified asthma, uncomplicated J45.90 9 Postmenopausal bleeding N95.0 Atrophy of vulva N90.5 Bicornate uterus Q51.3 Congenital absence of vagina Q52.0 Unspecified urinary incontinence R32 Disorder of bone density and structure, unspecified M85.9 Age-related osteoporosis without current pathological fracture M81.0 Abscess of the breast and nipple N61.1 Surgical History Surgery Date(Month/Year) Bilateral Tubal Ligation Colonoscopy Cholecystectomy Creation of Vagina for Vaginal Agenensis Right Wrist Surgery Left Breast Biopsy Left Shoulder Rotator cuff 04/2015 Rt leg Laser Vein Therapy Stimulation Implant Spine Gastric Sleeve 11/03/17 New Simulator on Left Side of Back Left Eye Surgery Hospitalization History Reason Date(Month/Year) See Surgical Hx 2 Deliveries
--- OUTSIDE RECORDS SUMMARY | 2025-09-01 12:07 | XMS_ITS | Patient Health Record ---
Author Organization [facility] Address [address] [place] [address] Care Team Providers Care Business Dean Name Role Phone Yulissa(inactive) Riley OLIVEIRA Primary Care Provider U Ezequiel Banks Jr [phone] Reason For Referral No Information Medications Medication [...] W/U Status Risk Notes Problem Epigastric pain (80093551) Epigastric pain (R10.13) Active confirmed Problem Imaging of biliary tract abnormal (092922153) Abn find-biliary tract (R93.2) Active confirmed Plan Of Treatment No Information Insurance Providers Payer Name Payer Address Payer Phone Subscriber Number Group Number Insured Name Patient Relationship to Insured Coverage Start Date Coverage End Date [facility] [address] [place] [phone] [id number] TIKI WILLSON Self - patient is the insured Medical (General) History Medical History History ICD Code asthma urinary incontinence edema venous insufficiency Surgical History Surgery Date(Month/Year) spine surgery 03/21/2017 cholecystectomy left rotator cuff tear repair 2015 right wrist fusion 2014
== END 2025-09-01 10:54 | disposition home or self-care (01) ==
LOC: HO.PMC 10:06
PROVIDERS: PCP Internal Medicine; Visit Provider Anesthesiology
DX: M96.1 Postlaminectomy syndrome, not elsewhere classified (principal); T85.192A Other mechanical complication of implanted electronic neurostimulator of spinal cord electrode (lead), initial encounter; G90.523 Complex regional pain syndrome I of lower limb, bilateral; M54.50 Low back pain, unspecified; M25.552 Pain in left hip; M16.12 Unilateral primary osteoarthritis, left hip
CPT/HCPCS: 99213

== ENCOUNTER 2025-09-09 07:12 | Outpatient (AMB) | payer OTHER, SELFPAY ==
--- OUTSIDE RECORDS SUMMARY | 2025-09-09 07:15 | XMS_ITS | Patient Health Record ---
Author Organization [facility] Address [address] [place] [address] Care Team Providers Care Data Processing Systems Consultant Name Role Phone CELESTE RODRIGUEZ Primary Care Provider Joanne Michel Unavailable [phone] LILY GALLAGHER Unavailable [phone] Allergies Allergen (clinical drug ingredient) Drug/Non Drug Allergy documented on EMR Reaction Allergy Type Onset Date Status Fruits with Skin (uncoded) Unknown Allergy Active sulfamethoxazole / trimethoprim Bactrim Hives0 Drug Allergy Active almond allergenic extract [place] (Diagnostic) Unknown Drug Allergy Active amoxicillin Amoxicillin [...] Status Risk Notes Problem Postmenopausal atrophic vaginitis (34484206) Postmenopausal atrophic vaginitis (N95.2) Active confirmed Problem Postmenopausal bleeding (59221791) Postmenopausal bleeding (N95.0) Active confirmed Problem Age-related osteoporosis (911038282) Age-related osteoporosis without current pathological fracture (M81.0) Active confirmed Problem Urinary incontinence (996754799) Unspecified urinary incontinence (R32) Active confirmed Problem Osteochondropathy (47224423) Disorder of bone density and structure, unspecified (M85.9) Active confirmed Problem Atrophy of vulva (230404295) Atrophy of vulva (N90.5) Active confirmed Problem Bicornate uterus (54094835) Bicornate uterus (Q51.3) Active confirmed Problem Congenital absence of vagina (82063987) 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 Problem Asthma (disorder) (917348748) Asthma, unspecified, unspecified status (493.90) Active confirmed Major Problem Postmenopausal bleeding (87578078) Postmenopausal bleeding (627.1) Active confirmed Major Problem Postmenopausal atrophic vaginitis (44529626) Postmenopausal atrophic vaginitis (627.3) Active confirmed Diag Problem Gynecological examination normal (571791762040657) Routine gynecological examination (V72.31) Active confirmed Problem Screening for malignant neoplasm of colon (453713820) Special screening for malignant neoplasms, colon (V76.51) Active confirmed Major Vital Signs Temperature 97.5 degrees Fahrenheit 08/24/2025 Blood pressure diastolic 84 mm Hg 08/24/2025 Height 62.75 in 08/24/2025 Blood pressure systolic 126 mm Hg 08/24/2025 Weight 238 lbs 08/24/2025 BMI 42.49 kg/m2 08/24/2025 Encounters Encounter Location Date Provider Diagnosis [facility] [place] [address] 02/25/2025 LILYNarcisa CARLSONGALLAGHER Unspecified contact dermatitis, unspecified cause L25.9 [facility] [address] [facility] [address] [place] [address] 08/24/2025 Joanne Peng Encounter for gynecological examination (general) (routine) without abnormal findings Z01.419 ; Encounter for screening mammogram for malignant neoplasm of breast Z12.31 ; Congenital absence of vagina Q52.0 ; Age-related osteoporosis without current pathological fracture M81.0 and Postmenopausal atrophic vaginitis N95.2 Assessments Encounter Date Diagnosis (ICD Code) Assessment Notes Treatment Notes Treatment Clinical Notes Section Notes 02/25/2025 Unspecified contact dermatitis, unspecified cause (ICD-10 [...] Screening 03/10/2017 Next Appt Details Provider Name:Joanne Diaz Carloalison patricia, 10/07/2025 01:00:00 PM, [address] [facility] [address], [place], [address], Provider Name:Joanne Blankenship maria del carmenstacianarcisa, 09/01/2026 01:00:00 PM, [address], [address], [place], [address], Insurance Providers Payer Name Payer Address Payer Phone Subscriber Number Group Number Insured Name Patient Relationship to Insured Coverage Start Date Coverage End Date [facility] [address] [place] [address] [phone] [id number] PRADEEP WILLSON Spouse - patient is the spouse of the insured [facility] [address] [place] [address] [id number] PRADEEP WILLSON Spouse - patient is the [...]
[2025-09-09 07:16] VITALS: BP 132/84; PULSE 95; O2SAT 100; BMI 42.9
--- NOTE | 2025-09-09 07:16 | AM.OFFWIN_ITS ---
Intake Vital Signs 09/09/25 07:16 Height 5 ft 3 in Weight 242 lb BMI 42.9 BP 132/84 Blood Pressure Location Rt brachial Position Sitting Pulse 95 Pulse Source Pulse Oximeter Pulse Oximetry (%) 100 Oxygen Delivery Method Room Air Intake Visit Reasons: EP both feet toenails (3) fell off and purple Intake Note: Patient presents c/o bilateral toenails being purple & have fallen off. Patient Tobacco Use Status: Never used Tobacco Allergies almond (ALMOND) Allergy (Intermediate, Verified 09/09/25 07:18) NUMBNESS MOUTH, ITCHY EYES amoxicillin (AMOXICILLIN) Allergy (Intermediate, Verified 09/09/25 07:18) HIVES penicillin V Allergy (Intermediate, Verified 09/09/25 07:18) rash apple (APPLE) Allergy (Mild, Verified 09/09/25 07:18) ITCHY EYES carrot Allergy (Mild, Verified 09/09/25 07:18) Itchy Eyes peach (PEACHES) Allergy (Mild, Verified 09/09/25 07:18) ITCHY EYES plum (PLUMS) Allergy (Mild, Verified 09/09/25 07:18) ITCHY EYES pear (PEAR) Adverse Reaction (Mild, Verified 09/09/25 07:18) Itchy Eyes NECTARINES Allergy (Mild, Uncoded 09/09/25 07:18) ITCHY EYES HPI HPI Comments History of Present Illness Details History of Present Illness - The patient is a 64 year old individua l presenting with toenail issues - The patient reports toenail loss start ing approximately two years ago during a trip to [place], with the condition persisting since then. - The patient describes the toenail as h aving fallen off and not regrowing, with no associated warmth, tenderness or numbness. - The patient has not previously consult ed a journeyman patternmaker for this issue but has used inserts for sneakers. - The patient expresses concern about th e appearance and health of the toenails, noting puffiness and redness. [facility] Medical History Tubulovillous adenoma of colon Diverticulosis Radiculitis of right cervical region Complex regional pain syndrome of both lower extremities Spinal cord stimulator dysfunction Obesity (BMI 30-39.9) Cataract Neuropathic arthropathy Postlaminectomy syndrome Difficulty in walking involving lower leg joint Osteoarthritis of knees, bilateral Lipedema Environmental allergies Asthma GERD (gastroesophageal reflux disease) Restless leg syndrome Overweight (BMI 25.0-29.9) Malabsorption due to intolerance, not elsewhere classified Spinal cord stimulator status Urinary incontinence Obesity (BMI 30.0-34.9) Surgical History S/P placement of nerve stimulator History of surgery on right wrist History of eye surgery S/P laparoscopic sleeve gastrectomy History of toe surgery Hx of spinal surgery Hx of rotator cuff surgery Hx of section Hx of construction of artificial vagina Hx laparoscopic cholecystectomy Hx of colonoscopy with polypectomy Family History Father CVD (cardiovascular disease) Mother Asthma Brother Lung cancer Brother No problems noted. Brother No problems noted. Brother No problems noted. Brother No problems noted. Brother No problems noted. Son No problems noted. Daughter No problems noted. Social History Housing: House Are you a primary animal care worker to a significant other at home: No Do you presently have visiting nurse or other home services: No Alcohol intake: never Patient Tobacco Use Status: Never used Tobacco e-Cigarette/Vaping Use: Never Used Advance Directives Date on File: 08/24/21 service: No Current occupational status: employed Cognitive needs: No Hearing needs: No Vision needs: Yes Review of Systems Narrative Review of Systems - Musculoskeletal: Reports neck and shoulder pain, history of hip replacement. - Integumentary: Reports toenail loss and puffiness, denies warmth or numbness in the affected area. All systems reviewed and are unremarkable except as noted in HPI Physical Exam Exam Exam: Physical Exam General: Cooperative, healthy appearing, comfortable, no acute distress and well developed Orientation: Patient oriented x3 Limitations: No limitations Head: Normal to inspection Ears: Hearing grossly normal bilaterally Nose: Normal External nose present Face and sinus: Normal facial exam Eyes: Appearance normal, both eyes and all related structures Neck: Normal visual inspection and Yes full ROM Respiratory: Normal respiratory effort and able to speak in complete sentences. Skin: No rashes or lesions noted Neuro: Patient oriented x3 Extremities: left great toe, right great toe and 2nd digit all with thick, yellowed, uneven toenail, surrounding erythema, no TTP, no warmth noted, full ROM on all toes and all toes NVI. Vital Signs: Last Vital Signs Pulse 95 09/09/25 07:16 BP 132/84 09/09/25 07:16 Pulse Ox 100 09/09/25 07:16 Oxygen Delivery Method Room Air 09/09/25 07:16 BMI result Body Mass Index 42.9 Assessment & Plan Assessment & Plan (1) Onychomycosis: Code(s): B35.1 - Tinea unguium Plan Patient was informed and verbally consented to the use of an ambient scribe for clinic note documentation during this visit. Onychomycosis - Referral to a journeyman patternmaker for further evaluation and management of onychomycosis. - Discussion of potential treatments including topical applications and oral medications, contingent on liver function. Orders: Referrals Podiatry Referral B35.1 - Tinea unguium Coding Level of Care Code Est Pt Level 4 (92418) Diagnoses Onychomycosis B35.1
--- OUTSIDE RECORDS SUMMARY | 2025-09-09 07:16 | XMS_ITS | Clinical Summary ---
Author Organization [facility] Address [address] [place] [address] Phone Care Team Providers Care Aerophysics Engineer Name Role Phone Bettye Wood MD Primary Care Provider [phone] Allergies Active Allergy Reactions Criticality Noted Date Comments Raymond Unknown 07/30/2023 Amoxicillin Hives 07/30/2023 Sulfamethoxazole-Trimethoprim Hives 2022 Medications calcium citrate-vitamin D3 315 mg-6.25 mcg (250 unit) per tablet Oral for 15 Active multivitamin per tablet as directed Orally Active docusate sodium (DOK) 100 MG capsule TK 1 C PO QD PRN Oral for 30 Active ID-estradiol ([id number]) 0.01 % vaginal cream 1 Gram to [...] topic Medical Devices Not on file Insurance [facility] PLAN [facility] HMO [facility] [place] [address] [facility] [place] [address] [facility] Care Teams Aerophysics Engineer Relationship Specialty Start Date End Date Bettye Wood MD [address] [place] [address] PCP - General Internal Medicine 06/19/23 Additional Source Comments The information contained in this document represents components of the legal health record. It is not the complete legal health record.[facility]
--- OUTSIDE RECORDS SUMMARY | 2025-09-09 07:17 | XMS_ITS | Patient Health Record ---
Author Organization [facility] Address [address] [place] [address] Care Team Providers Care Cad Librarian Name Role Phone Yulissa(inactive) Riley OLIVEIRA Primary Care Provider Ezequiel Spivey Jr Reason For Referral No Information Medications Medication SIG (Take, Route, Frequency, Duration) Notes Start Date End Date Status Omeprazole 40 MG Capsule Delayed Release 1 capsule Orally Once a day Active Ciprofloxacin 500 MG Tablet Extended Release 24 Hour 1 tablet Orally Once a day Active rOPINIRole HCl 4 MG Tablet 1 tablet 1 to 3 hours before bedtime Orally Once a day Active Dicyclomine HCl 20 MG Tablet 1 tablet Or ally 2-4 times a day Active Hyoscyamine Sulfate ER 0.375 MG Unspecified 1 tablet Orally every 12 hrs; Duration: 30 Active Ondansetron 4 MG Tablet Disintegrating 1 tablet on the tongue and allow to dissolve Orally every 8 hrs Active Montelukast Sodium 10 MG Tablet 1 tablet in the evening Orally Once a day Active Furosemide 20 MG Tablet 1 tablet Orally Once a day Active Hyoscyamine Sulfate ER 0.375 MG Tablet Extended Release 12 Hour 1 tablet Orally every 12 hrs; Duration: 30 day(s) 07/04/2017 Active Social History Tobacco Use: Social History Observation Description Date Details (start date - stop date) Never Smoker NA - NA Social History Drugs/Alcohol: Social Info Question Answer Notes Alcohol Screen Did you have a drink containing alcohol in the past year? Yes How often did you have a drink containing alcohol in the past year? Monthly or less (1 point) How many drinks did you have on a typical day when you were drinking in the past year? 1 or 2 drinks (0 point) How often did you have 6 or more drinks on one occasion in the past year? 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 Problems Problem Type SNOMED Code ICD Code Onset Dates Problem Status W/U Status Risk Notes Problem Epigastric pain (96504812) Epigastric pain (R10.13) Active confirmed Problem Imaging of biliary tract abnormal (970174826) Abn find-biliary tract (R93.2) Active confirmed Plan Of Treatment No Information Insurance Providers Payer Name Payer Address Payer Phone Subscriber Number Group Number Insured Name Patient Relationship to Insured Coverage Start Date Coverage End Date [facility] [address] [facility] [id number] [phone] [id number] TIKI WILLSON Self - patient is the insured Medical (General) History Medical History History ICD Code asthma urinary incontinence edema venous insufficiency Surgical History Surgery Date(Month/Year) spine surgery 03/21/2017 cholecystectomy left rotator cuff tear repair 2016 right wrist fusion 2014
== END 2025-09-09 07:35 | disposition home or self-care (01) ==
PROVIDERS: PCP Internal Medicine; Visit Provider Physician Assistant
DX: B35.1 Tinea unguium (principal)

== ENCOUNTER 2025-09-19 08:33 | Outpatient (AMB) | payer OTHER, SELFPAY ==
--- NOTE | 2025-09-19 08:33 | MHC.OFFVIS ---
Intake Visit Reasons: TH-Discuss gel injection RT knee Intake Note: Genny is a 64 year old female who presents today for a Telephone visit to re-discuss Severe Bilateral Knee OA & possible repeat Gel-One Injection. Patient reports that she would like to repeat the gel in the right knee as it was helpful. She reports that she has been seeing pain management for her hip and has had an injection done, feels that she is in need of a repeat. Right Knee Gel-One: 09/09/24 Allergies almond (ALMOND) Allergy (Intermediate, Verified 09/19/25 08:36) NUMBNESS MOUTH, ITCHY EYES amoxicillin (AMOXICILLIN) Allergy (Intermediate, Verified 09/19/25 08:36) HIVES penicillin V Allergy (Intermediate, Verified 09/19/25 08:36) rash apple (APPLE) Allergy (Mild, Verified 09/19/25 08:36) ITCHY EYES carrot Allergy (Mild, Verified 09/19/25 08:36) Itchy Eyes peach (PEACHES) Allergy (Mild, Verified 09/19/25 08:36) ITCHY EYES plum (PLUMS) Allergy (Mild, Verified 09/19/25 08:36) ITCHY EYES pear (PEAR) Adverse Reaction (Mild, Verified 09/19/25 08:36) Itchy Eyes NECTARINES Allergy (Mild, Uncoded 09/19/25 08:36) ITCHY EYES HPI HPI TH-Discuss gel injection RT knee: Details: Genny is a 64 year old female who presents today for a Telephone visit to re-discuss Severe Bilateral Knee OA & possible repeat Gel-One Injection. Patient reports that she would like to repeat the gel in the right knee as it was helpful. She reports that she has been seeing pain management for her hip and has had an injection done, feels that she is in need of a repeat. Right Knee Gel-One: 09/09/24 [facility] Medical History Tubulovillous adenoma of colon Diverticulosis Radiculitis of right cervical region Complex regional pain syndrome of both lower extremities Spinal cord stimulator dysfunction Obesity (BMI 30-39.9) Cataract Neuropathic arthropathy Postlaminectomy syndrome Difficulty in walking involving lower leg joint Osteoarthritis of knees, bilateral Lipedema Environmental allergies Asthma GERD (gastroesophageal reflux disease) Restless leg syndrome Overweight (BMI 25.0-29.9) Malabsorption due to intolerance, not elsewhere classified Spinal cord stimulator status Urinary incontinence Obesity (BMI 30.0-34.9) Surgical History S/P placement of nerve stimulator History of surgery on right wrist History of eye surgery S/P laparoscopic sleeve gastrectomy History of toe surgery Hx of spinal surgery Hx of rotator cuff surgery Hx of section Hx of construction of artificial vagina Hx laparoscopic cholecystectomy Hx of colonoscopy with polypectomy Family History Father CVD (cardiovascular disease) Mother Asthma Brother Lung cancer Brother No problems noted. Brother No problems noted. Brother No problems noted. Brother No problems noted. Brother No problems noted. Son No problems noted. Daughter No problems noted. Social History Housing: House Are you a primary manager career to a significant other at home: No Do you presently have visiting nurse or other home services: No Alcohol intake: never Patient Tobacco Use Status: Never used Tobacco e-Cigarette/Vaping Use: Never Used Advance Directives Date on File: 08/24/21 service: No Current occupational status: employed Cognitive needs: No Hearing needs: No Vision needs: Yes Telehealth Telehealth Telehealth Platform: Telephone Location of provider rendering services: practice address Location of patient: address on file Patient Identification confirmed using: Name, : Yes Telehealth method: voice only Patient verbally consented to treatment: Yes Patient verbally consented to billing insurance company: Yes Patient informed of any privacy concerns related to visit: Yes Minutes spent on Phone/Video with Pt.: 10 Assessment & Plan Assessment & Plan (1) Osteoarthritis of knees, bilateral: Code(s): M17.0 - Bilateral primary osteoarthritis of knee Category: Medical Qualifiers: Osteoarthritis type: primary Qualified Code(s): M17.0 - Bilateral primary osteoarthritis of knee Plan: Gel injections have been helpful in the past. We will pursue right knee gel One. Coding Level of Care Code Tele Est Pt Level 2 (44531) Diagnoses Primary osteoarthritis of both knees M17.0 Osteoarthritis type: primary
--- OUTSIDE RECORDS SUMMARY | 2025-09-19 08:54 | XMS_ITS | Clinical Summary ---
Author Organization [facility] Address [address] [place] [address] Phone Care Team Providers Care Talent Acquisition Associate Name Role Phone Bettye Wood MD Primary Care Provider [phone] Allergies Active Allergy Reactions Criticality Noted Date Comments [place] Unknown 07/30/2023 Amoxicillin Hives 07/30/2023 Sulfamethoxazole-Trimethoprim Hives 2022 Medications calcium citrate-vitamin D3 315 mg-6.25 mcg (250 unit) per tablet Oral for 15 Active multivitamin per tablet as directed Orally Active docusate sodium (DOK) 100 MG capsule TK 1 C PO QD PRN Oral for 30 Active ID-estradiol ([id number]) 0.01 % vaginal cream 1 Gram to [...] topic Medical Devices Not on file Insurance [facility] PLAN [facility] HMO [facility] [place] [address] [place] [address] [facility] [place] [address] [place] [address] [facility] Care Teams Talent Acquisition Associate Relationship Specialty Start Date End Date Bettye Wood MD [address] [place] [address] PCP - General Internal Medicine 06/19/23 Additional Source Comments The information contained in this document represents components of the legal health record. It is not the complete legal health record.[facility]
== END 2025-09-19 11:08 | disposition home or self-care (01) ==
LOC: HO.HOS 08:33
PROVIDERS: PCP Internal Medicine; Visit Provider Orthopaedic Surgery
DX: M17.0 Bilateral primary osteoarthritis of knee (principal)
CPT/HCPCS: 98012

== ENCOUNTER 2025-10-03 14:36 | Outpatient (AMB) | payer OTHER, SELFPAY ==
--- NOTE | 2025-10-03 14:46 | MHC.OFFVIS ---
Intake Visit Reasons: INJ - Right Knee Gel One Intake Note: Genny is a 64 year old female who presents today for a repeat Right Knee Gel-One Injection. Allergies almond (ALMOND) Allergy (Intermediate, Verified 09/19/25 08:36) NUMBNESS MOUTH, ITCHY EYES amoxicillin (AMOXICILLIN) Allergy (Intermediate, Verified 09/19/25 08:36) HIVES penicillin V Allergy (Intermediate, Verified 09/19/25 08:36) rash apple (APPLE) Allergy (Mild, Verified 09/19/25 08:36) ITCHY EYES carrot Allergy (Mild, Verified 09/19/25 08:36) Itchy Eyes peach (PEACHES) Allergy (Mild, Verified 09/19/25 08:36) ITCHY EYES plum (PLUMS) Allergy (Mild, Verified 09/19/25 08:36) ITCHY EYES pear (PEAR) Adverse Reaction (Mild, Verified 09/19/25 08:36) Itchy Eyes NECTARINES Allergy (Mild, Uncoded 09/19/25 08:36) ITCHY EYES HPI HPI INJ - Right Knee Gel One: Details: here for right knee GelOne injection PFSH Medical History Tubulovillous adenoma of colon Diverticulosis Radiculitis of right cervical region Complex regional pain syndrome of both lower extremities Spinal cord stimulator dysfunction Obesity (BMI 30-39.9) Cataract Neuropathic arthropathy Postlaminectomy syndrome Difficulty in walking involving lower leg joint Osteoarthritis of knees, bilateral Lipedema Environmental allergies Asthma GERD (gastroesophageal reflux disease) Restless leg syndrome Overweight (BMI 25.0-29.9) Malabsorption due to intolerance, not elsewhere classified Spinal cord stimulator status Urinary incontinence Obesity (BMI 30.0-34.9) Surgical History S/P placement of nerve stimulator History of surgery on right wrist History of eye surgery S/P laparoscopic sleeve gastrectomy History of toe surgery Hx of spinal surgery Hx of rotator cuff surgery Hx of section Hx of construction of artificial vagina Hx laparoscopic cholecystectomy Hx of colonoscopy with polypectomy Family History Father CVD (cardiovascular disease) Mother Asthma Brother Lung cancer Brother No problems noted. Brother No problems noted. Brother No problems noted. Brother No problems noted. Brother No problems noted. Son No problems noted. Daughter No problems noted. Social History Housing: House Are you a primary direct care professional to a significant other at home: No Do you presently have visiting nurse or other home services: No Alcohol intake: never Patient Tobacco Use Status: Never used Tobacco e-Cigarette/Vaping Use: Never Used Advance Directives Date on File: 08/24/21 service: No Current occupational status: employed Cognitive needs: No Hearing needs: No Vision needs: Yes Physical Exam Exam Exam: skion c/d/i right knee Office Procedures Joint Inj/Aspir; Non-Pain Clin Joint Injection/Drain Details: Injected GelOne. Site was prepped using aseptic technique. Patient tolerated the procedure well. Shoulders, Hips, Knees, Knee Large Joint Injection 85808: Right Knee Coding Procedure code (CPT) selection complete Assessment & Plan Assessment & Plan (1) Osteoarthritis of right knee: Code(s): M17.11 - Unilateral primary osteoarthritis, right knee Category: Medical Qualifiers: Osteoarthritis type: unspecified Qualified Code(s): M17.11 - Unilateral primary osteoarthritis, right knee Plan: Right knee injected without complications. Coding Level of Care Code Est Pt Level 2 (47685) Diagnoses Osteoarthritis of right knee, unspecified osteoarthritis type M17.11 Osteoarthritis type: unspecified CPT Codes Shoulders, Hips, Knees, - Knee Large Joint Injection 04259: Right Knee ([id number])
--- OUTSIDE RECORDS SUMMARY | 2025-10-03 21:07 | XMS_ITS | Patient Health Record ---
Author Organization [facility] Address [address] [place] [address] Care Team Providers Care Cryptographer Name Role Phone Yulissa(inactive) Riley OLIVEIRA Primary Care Provider Ezequiel Spivey Jr [phone] Reason For Referral No Information Medications Medication [...] W/U Status Risk Notes Problem Epigastric pain (51017386) Epigastric pain (R10.13) Active confirmed Problem Imaging of biliary tract abnormal (128500494) Abn find-biliary tract (R93.2) Active confirmed Plan Of Treatment No Information Insurance Providers Payer Name Payer Address Payer Phone Subscriber Number Group Number Insured Name Patient Relationship to Insured Coverage Start Date Coverage End Date [facility] [address] [facility] [place] [phone] [id number] TIKI WILLSON Self - patient is the insured Medical (General) History Medical History History ICD Code asthma urinary incontinence edema venous insufficiency Surgical History Surgery Date(Month/Year) spine surgery 03/21/2017 cholecystectomy left rotator cuff tear repair 2016 right wrist fusion 2014
--- OUTSIDE RECORDS SUMMARY | 2025-10-03 21:07 | XMS_ITS | Clinical Summary ---
Author Organization [facility] Address [address] [place] [address] Phone Care Team Providers Care Set Making Machine Operator Name Role Phone Bettye Wood MD Primary Care Provider [phone] Allergies Active Allergy Reactions Criticality Noted Date Comments [place] Unknown 07/30/2023 Amoxicillin Hives 07/30/2023 Sulfamethoxazole-Trimethoprim Hives 2022 Medications calcium citrate-vitamin D3 315 mg-6.25 mcg (250 unit) per tablet Oral for 15 Active multivitamin per tablet as directed Orally Active docusate sodium (DOK) 100 MG capsule TK 1 C PO QD PRN Oral for 30 Active ID-estradiol ([id number]) 0.01 % vaginal cream 1 Gram to [...] topic Medical Devices Not on file Insurance [facility] [place] [address] [facility] [place] [address] [facility] Care Teams Set Making Machine Operator Relationship Specialty Start Date End Date Bettye Wood MD [address] [place] [address] PCP - General Internal Medicine 06/19/23 Additional Source Comments The information contained in this document represents components of the legal health record. It is not the complete legal health record.[facility]
--- OUTSIDE RECORDS SUMMARY | 2025-10-03 21:07 | XMS_ITS | Patient Health Record ---
Author Organization [facility] Address [address] [place] [address] Care Team Providers Care Electrical Lineman Name Role Phone CELESTE RODRIGUEZ Primary Care Provider Joanne Michel Unavailable [phone] LILY GALLAGHER Unavailable [phone] Allergies Allergen (clinical drug ingredient) Drug/Non Drug Allergy documented on EMR Reaction Allergy Type Onset Date Status Fruits with Skin (uncoded) Unknown Allergy Active sulfamethoxazole / trimethoprim Bactrim Hives0 Drug Allergy Active almond allergenic extract [place] (Diagnostic) Unknown Drug Allergy Active amoxicillin Amoxicillin [...] Status Risk Notes Problem Postmenopausal atrophic vaginitis (15732139) Postmenopausal atrophic vaginitis (N95.2) Active confirmed Problem Postmenopausal bleeding (69683373) Postmenopausal bleeding (N95.0) Active confirmed Problem Age-related osteoporosis (845611601) Age-related osteoporosis without current pathological fracture (M81.0) Active confirmed Problem Urinary incontinence (907421822) Unspecified urinary incontinence (R32) Active confirmed Problem Osteochondropathy (10477819) Disorder of bone density and structure, unspecified (M85.9) Active confirmed Problem Atrophy of vulva (156040082) Atrophy of vulva (N90.5) Active confirmed Problem Bicornate uterus (39494949) Bicornate uterus (Q51.3) Active confirmed Problem Congenital absence of vagina (55305167) 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 Problem Asthma (disorder) (905054681) Asthma, unspecified, unspecified status (493.90) Active confirmed Major Problem Postmenopausal bleeding (92671646) Postmenopausal bleeding (627.1) Active confirmed Major Problem Postmenopausal atrophic vaginitis (59491247) Postmenopausal atrophic vaginitis (627.3) Active confirmed Diag Problem Gynecological examination normal (008650377052068) Routine gynecological examination (V72.31) Active confirmed Problem Screening for malignant neoplasm of colon (489548698) Special screening for malignant neoplasms, colon (V76.51) Active confirmed Major Vital Signs Temperature 97.5 degrees Fahrenheit 08/24/2025 Blood pressure diastolic 84 mm Hg 08/24/2025 Height 62.75 in 08/24/2025 Blood pressure systolic 126 mm Hg 08/24/2025 Weight 238 lbs 08/24/2025 BMI 42.49 kg/m2 08/24/2025 Encounters Encounter Location Date Provider Diagnosis [facility] [place] [address] 02/25/2025 LILYNarcisa CARLSONGALLAGHER Unspecified contact dermatitis, unspecified cause L25.9 [facility] [place] [address] [address] [facility] [address] [place] [address] 08/24/2025 Joanne Peng Encounter for gynecological examination [...] Diaz Carloalison patricia, 10/07/2025 01:00:00 PM, [address], [facility] [address], [place], [address], Provider Name:Joanne Blankenship maria del carmenstacianarcisa, 09/01/2026 01:00:00 PM, [address], [address], [place], [address], Insurance Providers Payer Name Payer Address Payer Phone Subscriber Number Group Number Insured Name Patient Relationship to Insured Coverage Start Date Coverage End Date [facility] [address] [place] [address] [id number] PRADEEP WILLSON Spouse - patient is the spouse of the insured [facility] [address] [place] [phone] [id number] PRADEEP WILLSON Spouse - patient is the [...]
== END 2025-10-03 15:12 | disposition home or self-care (01) ==
LOC: HO.HOS 14:37
PROVIDERS: PCP Internal Medicine; Visit Provider Orthopaedic Surgery
DX: M17.11 Unilateral primary osteoarthritis, right knee (principal)
CPT/HCPCS: 20610

== ENCOUNTER → 2025-10-03 14:36 | Outpatient (BNVA) | payer OTHER, SELFPAY | PROVIDERS: PCP Internal Medicine; Visit Provider Orthopaedic Surgery | DX: M17.11 Unilateral primary osteoarthritis, right knee (principal) | CPT/HCPCS: 20610; J7326 ==